=== PATIENT | male | born 1950 | race Caucasian/White ===

== ENCOUNTER → 2016-09-13 | Outpatient (CLI) | payer BC ==
[~2016-09-13] MED LIST: AMAN100T2 PO; ASPI81TA28 PO; ATEN50TA8 PO; BACL10TA PO; CEFT1INJ57 IV; CHOL200010 PO; CPXI SC; DALF10TA PO; DOCU100C31 PO; DOXA2TAB PO; ENOX30IN4 SQ; GABA400C PO; HYDR25TA4 PO; LISI-791 PO; LRS20 PO; MELO15TA4 PO; MULT-663 PO; OXYB5TAB74 PO; PRLSR20 PO; TRIA37.5 PO; VLM5 PO
[2016-09-13 17:35] LABS: URINE APPEARANCE CLEAR (CLEAR); URINE BILIRUBIN NEG (NEG); URINE COLOR YELLOW; URINE NITRITE POS (NEG); UROBILINOGEN NEG (NEG)
[2016-09-13 17:40] LABS: MANUAL MICROSCOPIC REQUIRED? YES; REVIEW REQ? NO
[2016-09-13 18:02] LABS: URINE BACTERIA 3+ (NEG); URINE MUCUS PRESENT (NONE PRSENT)
[2016-09-13 18:03] LABS: URINE RBC 0-4 /hpf (0-4)
== END | disposition home or self-care (01) ==
LOC: C.LABBFT 12:58
PROVIDERS: ATTEND Nurse Practitioner
DX: N39.0 Urinary tract infection, site not specified (principal)

== ENCOUNTER → 2016-11-15 | Outpatient (CLI) | payer BC ==
[2016-11-15 18:11] LABS: URINE APPEARANCE CLEAR (CLEAR); URINE BILIRUBIN NEG (NEG); URINE COLOR YELLOW; URINE NITRITE POS (NEG); URINE PH 7.5 (4.5-7.5); UROBILINOGEN NEG (NEG); ZZURINE CULT IF INDIC CATH YES
[2016-11-15 18:54] LABS: MANUAL MICROSCOPIC REQUIRED? NO; REVIEW REQ? NO
== END | disposition home or self-care (01) ==
LOC: C.LABSPEC 17:22
PROVIDERS: ATTEND Family Medicine
DX: N39.0 Urinary tract infection, site not specified (principal)

== ENCOUNTER → 2016-12-06 | Outpatient (CLI) | payer BC ==
[~2016-12-06] MED LIST changes: +CEFD300C3 PO; +DTR/5 PO; +NITR1CAP33 PO; -OXYB5TAB74 PO; +SENN-61 PO
== END | disposition home or self-care (01) ==
LOC: C.LABPVFM 12:09
PROVIDERS: ATTEND Nurse Practitioner Family
DX: N39.0 Urinary tract infection, site not specified (principal)

== ENCOUNTER → 2016-12-20 | Outpatient (CLI) | payer BC ==
[2016-12-20 12:40] LABS: BASO % 0.3 %; BASO ABS # 0.02 K/uL (0-0.2); COMPLETE YES; EOS % 33.7 %; HEMATOCRIT 41.3 % (42-52); IG% 0.5 %; LYMPH ABS # 1.45 K/uL (1.2-3.4); MEAN CELL VOLUME 93.2 fL (80-100); MEAN CORPUSCULAR HEMOGLOBIN 32.7 pg (25-34); MEAN CORPUSCULAR HGB CONC 35.1 g/dl (32-36); MEAN PLATELET VOLUME 10.4 fL (7.4-10.4); MONO % 11.9 %; NEUT % 34.6 %; PLATELET COUNT 160 K/uL (130-400); RED BLOOD COUNT 4.43 M/uL (4.7-6.1); WHITE BLOOD COUNT 7.63 K/uL (4.8-10.8)
[2016-12-20 18:07] LABS: URINE APPEARANCE CLEAR (CLEAR); URINE BILIRUBIN NEG (NEG); URINE COLOR DK YELLOW; URINE NITRITE NEG (NEG); URINE PH 5.5 (4.5-7.5); URINE SPECIFIC GRAVITY 1.025 (1.000-1.030); UROBILINOGEN NEG (NEG); ZZUR CULT IF INDIC CLEAN CATCH NO
[2016-12-20 18:08] LABS: MANUAL MICROSCOPIC REQUIRED? NO; REVIEW REQ? NO
== END | disposition home or self-care (01) ==
LOC: C.LABPVFM 17:36
PROVIDERS: ATTEND Neuromusculoskeletal Medicine & OMM
DX: G35 Multiple sclerosis (principal); R51 Headache; R50.9 Fever, unspecified; W19.XXXA Unspecified fall, initial encounter

== ENCOUNTER → 2017-01-10 | Outpatient (CLI) | payer BC | END | disposition home or self-care (01) | LOC: C.LABPVFM 16:05 | PROVIDERS: ATTEND Neuromusculoskeletal Medicine & OMM | DX: N39.0 Urinary tract infection, site not specified (principal) ==

== ENCOUNTER → 2017-02-04 | Outpatient (CLI) | payer BC ==
[2017-02-04 17:04] LABS: HEMATOCRIT 40.3 % (42-52); MEAN CELL VOLUME 94.4 fL (80-100); MEAN CORPUSCULAR HEMOGLOBIN 31.9 pg (25-34); MEAN CORPUSCULAR HGB CONC 33.7 g/dl (32-36); MEAN PLATELET VOLUME 10.3 fL (7.4-10.4); PLATELET COUNT 156 K/uL (130-400); RED BLOOD COUNT 4.27 M/uL (4.7-6.1); WHITE BLOOD COUNT 6.53 K/uL (4.8-10.8)
[2017-02-04 17:11] LABS: URINE APPEARANCE CLOUDY (CLEAR); URINE BILIRUBIN NEG (NEG); URINE COLOR YELLOW; URINE NITRITE NEG (NEG); URINE SPECIFIC GRAVITY 1.019 (1.000-1.030); UROBILINOGEN NEG (NEG)
[2017-02-04 17:12] LABS: MANUAL MICROSCOPIC REQUIRED? NO; REVIEW REQ? NO
[2017-02-04 18:00] LABS: URINE PROTIEN/CREAT RATIO 0.1 (0-0.2); URINE TOTAL PROTEIN 16.8 mg/dl (0-11.9)
[2017-02-04 18:58] LABS: CALCIUM 8.9 mg/dl (8.5-10.1)
[2017-02-04 19:03] LABS: BLOOD UREA NITROGEN 20 mg/dl (7-18); BUN/CREATININE RATIO 12.3 (10-20); CARBON DIOXIDE 24 mmol/L (21-32); CHLORIDE 105 mmol/L (98-107); GLUCOSE 156 mg/dl (70-99); POTASSIUM 3.6 mmol/L (3.5-5.1); SODIUM 140 mmol/L (136-145)
[2017-02-04 19:04] LABS: PHOSPHORUS 2.5 mg/dl (2.5-4.9)
== END | disposition home or self-care (01) ==
LOC: C.LABBFT 17:21
PROVIDERS: ATTEND Internal Medicine Nephrology
DX: I10 Essential (primary) hypertension (principal); N31.9 Neuromuscular dysfunction of bladder, unspecified; N18.3 Chronic kidney disease, stage 3 (moderate); E55.9 Vitamin D deficiency, unspecified

== ENCOUNTER 2017-03-08 19:11 | Inpatient (IN) | payer BC, OTHER ==
[~2017-03-08] VITALS: Ht 170.2 cm; Wt 88.7 kg
[~2017-03-08 19:11] MED LIST changes: -CEFD300C3 PO; -CEFT1INJ57 IV; -DTR/5 PO; -LRS20 PO; -MELO15TA4 PO; -NITR1CAP33 PO; +OXYB5TAB74 PO; -PRLSR20 PO; -SENN-61 PO; -TRIA37.5 PO
[2017-03-08] MEDS ORDERED: SODIUM CHLORIDE 0.9% 1000ML 1,000 ML IV STA ×2 (19:29)
--- NOTE | 2017-03-08 19:58 | DIAGNOSTIC IMAGING REPORT ---
CHEST ONE VIEW PORTABLE CLINICAL HISTORY: Weakness COMPARISON STUDY: 06/25/2016 FINDINGS: The heart remains the upper limits of normal in size. There is mild central vascular prominence without evidence of overt failure. There is no focal pulmonary consolidation. There are no pleural effusions.[ IMPRESSION: AP portable study. No change from the prior study. No acute findings. Electronically signed by: Major Null M.D. 03/08/2017 7:57 PM Dictated Date/Time: 03/08/2017 7:56 PM
[2017-03-08] MEDS ORDERED: MELO15TA4 PO (20:28)
[2017-03-08] MEDS ORDERED: LRS20 PO (20:28)
[2017-03-08] MEDS ORDERED: PRLSR20 PO (20:28)
[2017-03-08] MEDS ORDERED: TRIA37.5 PO (20:28)
[2017-03-08 20:32] LABS: BASO % 0.1 %; BASO ABS # 0.01 K/uL (0-0.2); COMPLETE YES; HEMATOCRIT 43.6 % (42-52); IG% 0.7 %; LYMPH % 3.2 %; LYMPH ABS # 0.57 K/uL (1.2-3.4); MEAN CELL VOLUME 93.8 fL (80-100); MEAN CORPUSCULAR HEMOGLOBIN 32.7 pg (25-34); MEAN CORPUSCULAR HGB CONC 34.9 g/dl (32-36); MEAN PLATELET VOLUME 9.8 fL (7.4-10.4); MONO % 6.6 %; NEUT % 89.4 %; PLATELET COUNT 123 K/uL (130-400); RED BLOOD COUNT 4.65 M/uL (4.7-6.1); WHITE BLOOD COUNT 17.84 K/uL (4.8-10.8)
[2017-03-08 20:47] LABS: INR 1.2 (0.9-1.1); PARTIAL THROMBOPLASTIN RATIO 1.1; PROTHROMBIN TIME (PATIENT) 12.6 SECONDS (9.0-12.0)
[2017-03-08 20:53] LABS: URINE APPEARANCE CLOUDY (CLEAR); URINE BILIRUBIN NEG (NEG); URINE COLOR YELLOW; URINE EPITHELIAL CELL AUTO 0-5 /lpf (0-5); URINE NITRITE NEG (NEG); URINE PH 5.5 (4.5-7.5); URINE SPECIFIC GRAVITY 1.012 (1.000-1.030); UROBILINOGEN NEG (NEG)
[2017-03-08 20:54] LABS: MANUAL MICROSCOPIC REQUIRED? NO; REVIEW REQ? NO
[2017-03-08] MEDS ORDERED: SODIUM CHLORIDE 0.9% 1000ML 2,000 ML IV STA (21:02)
[2017-03-08] MEDS ORDERED: PIPERACILLIN/TAZOBACTAM 4.5 GM/100ML D5W IV STA (21:02)
[2017-03-08] MEDS ORDERED: DAPTOmycin IV 500 MG in SODIUM CHLORIDE 0.9% 50ML 50 ML IV STA (21:02)
[2017-03-08 21:09] LABS: ALT/SGPT 25 U/L (12-78); BLOOD UREA NITROGEN 38 mg/dl (7-18); BUN/CREATININE RATIO 13.9 (10-20); CALCIUM 9.4 mg/dl (8.5-10.1); CARBON DIOXIDE 27 mmol/L (21-32); CHLORIDE 98 mmol/L (98-107); GLUCOSE 111 mg/dl (70-99); MAGNESIUM 1.6 mg/dl (1.8-2.4); POTASSIUM 3.8 mmol/L (3.5-5.1); SODIUM 134 mmol/L (136-145)
[2017-03-08 21:23] LABS: ALKALINE PHOSPHATASE 86 U/L (45-117); AST/SGOT 17 U/L (15-37); CKMB/CK RATIO 1.2 (0-3.0); THYROID STIMULATING HORMONE 0.541 uIu/ml (0.300-4.500)
[2017-03-08] MEDS ORDERED: DOCUSATE SODIUM 100 MG CAP PO PRN (22:30)
[2017-03-08] MEDS ORDERED: MAGNESIUM HYDROXIDE SUSP 30 ML UDC PO PRN (22:45)
[2017-03-08] MEDS ORDERED: ALUMINUM/MAGNESIUM/SIMETH (MAALOX MAX) 30 ML UDC PO PRN (22:45)
[2017-03-08] MEDS ORDERED: POLYETHYLENE (MIRALAX) 17 GM PACK PO PRN (22:45)
[2017-03-08] MEDS ORDERED: ONDANSETRON INJ 2 MG/ML 2 ML VIAL IV PRN (22:45)
--- NOTE | 2017-03-08 23:12 | EMERGENCY ROOM VISIT NOTE ---
History Report prepared by Jose: Kirsty Britton Under the Supervision of: Dr. Graeme Carrizales M.D. First contact with patient: 19:28 Chief Complaint: URINARY SYMPTOMS Stated Complaint: BLADDER INFECTION History of Present Illness The patient is a 66 year old male who presents to the Emergency Room with complaints of constant urinary symptoms beginning this morning. The patient states that he has a history of MS and was able to catheterize himself 15 hours ago. He reports that since then he has not been able to catheterize at all. He notes that he has had incontinence twice in the last 2 days and notes that he was seen at [facility] yesterday and had a CT scan and bladder scan that was normal. The patient states that he did not need to be catheterized during his stay. Over the last 8 months he reports that he has had multiple UTIs with similar symptoms. He notes that his multiple sclerosis is worsened with UTIs. He complains of bladder discomfort, difficulty walking, headache, and fever. The patient notes that he has some neck pain that is old from a prior neck surgery. Pt denies LOC, fevers, chills, diaphoresis, visual changes, neck pain, chest pain, breathing difficulties, nausea, vomiting, abdominal pain, back pain , melena, hematochezia, numbness, weakness, lymphadenopathy, rash, or other complaints. The patient's family reports that the patient has previously had a bad reaction to Morphine. Source of History: patient Onset: this morning Position: other (urinary) Quality: other (discomfort) Timing: constant Note: He complains of incontinence, bladder discomfort, difficulty walking, headache, and fever. Review of Systems See HPI for pertinent positives and negatives. A total of ten systems were reviewed and were otherwise negative. Past Medical & Surgical Medical Problems: (1) back problems (2) Benign hypertension (3) Dyslipidemia (4) Multiple sclerosis (5) UTI (urinary tract infection) Family History No pertinent family history stated. Social History Smoking Status: Never Smoker Marital Status: Housing Status: lives with family Occupation Status: employed Current/Historical Medications Scheduled Amantadine Hcl (Symmetrel), 100 MG PO BID Aspirin (Aspirin Ec), 81 MG PO DAILY Atenolol (Tenormin), 50 MG PO DAILY Baclofen (Baclofen), 20 MG PO BID Cholecalciferol (Vitamin D), 2,000 UNIT PO DAILY Gabapentin (Neurontin), 400 MG PO BID Glatiramer Acetate (Copaxone), 40 MG SC MWF Lisinopril (Zestril), 10 MG PO Q2D Meloxicam (Meloxicam), 15 MG PO Q2D Multiple Minerals W/ Vitamins (Citracal Plus), 1 TABLET PO DAILY Omeprazole (Prilosec), 20 MG PO QAM Oxybutynin Chloride (Ditropan), 5 MG PO BID Triamterene/Hctz (Dyazide 37.5MG/25MG), 1 TAB PO DAILY Scheduled PRN Docusate Sodium (Docusate Sodium), 100 MG PO DAILY PRN Allergies Coded Allergies: Oxycodone (Unverified Allergy, Unknown, UNKNOWN, 03/08/17) Sulfa Drugs (Verified Allergy, Unknown, 03/08/17) Aspirin (Verified Adverse Reaction, Unknown, ASA 325 causes GI upset per pt, 03/08/17) takes ASA 81mg daily without issue Physical Exam Vital Signs Date Time Temp Pulse Resp B/P (MAP) Pulse Ox O2 Delivery O2 Flow Rate FiO2 03/08/17 22:29 82 16 125/61 100 Room Air 03/08/17 21:44 36.9 82 16 117/59 98 Room Air 03/08/17 21:13 78 16 119/58 98 Room Air 03/08/17 20:23 75 16 112/57 97 03/08/17 20:13 76 03/08/17 19:54 Room Air 03/08/17 19:16 37.9 77 20 96/57 95 Room Air Physical Exam GENERAL: Awake, alert, tired, weak, in no distress HENT: Normocephalic, atraumatic. Oropharynx unremarkable. EYES: Normal conjunctiva. Sclera non-icteric. NECK: Supple. No nuchal rigidity. FROM. No JVD. RESPIRATORY: Clear to auscultation. CARDIAC: Regular rate, normal rhythm. Extremities warm and well perfused. Pulses equal. ABDOMEN: Soft, non-distended. No tenderness to palpation. No rebound or guarding. No masses. RECTAL: Deferred. MUSCULOSKELETAL: Chest examination reveals no tenderness. The back is symmetrical on inspection without obvious abnormality. There is no CVA tenderness to palpation. No joint edema. LOWER EXTREMITIES: Calves are equal size bilaterally and non-tender. No edema. No discoloration. Strength is 2.5 on the left and 3.5 on the right NEURO: Normal sensorium. Strength is 2.5 on the left and 3.5 on the right leg SKIN: No rash or jaundice noted. Medical Decision & Procedures ER Provider Diagnostic Interpretation: X-ray: Per my interpretation, radiologist review. CHEST ONE VIEW PORTABLE FINDINGS: The heart remains the upper limits of normal in size. There is mild central vascular prominence without evidence of overt failure. There is no focal pulmonary consolidation. There are no pleural effusions.[ IMPRESSION: AP portable study. No change from the prior study. No acute findings. Electronically signed by: Major Null M.D. 03/08/2017 7:57 PM Dictated Date/Time: 03/08/2017 7:56 PM Laboratory Results 03/08/17 20:15 Red Blood Count 4.65, Mean Corpuscular Volume 93.8, Mean Corpuscular Hemoglobin 32.7, Mean Corpuscular Hemoglobin Concent 34.9, Mean Platelet Volume 9.8, Neutrophils (%) (Auto) 89.4, Lymphocytes (%) (Auto) 3.2, Monocytes (%) (Auto) 6.6, Eosinophils (%) (Auto) 0.0, Basophils (%) (Auto) 0.1, Neutrophils # (Auto) 15.97, Lymphocytes # (Auto) 0.57, Monocytes # (Auto) 1.17, Eosinophils # (Auto) 0.00, Basophils # (Auto) 0.01 03/08/17 20:15 Test 03/08/17 20:15 03/08/17 20:21 03/08/17 20:30 White Blood Count 17.84 K/uL (4.8-10.8) Red Blood Count 4.65 M/uL (4.7-6.1) Hemoglobin 15.2 g/dL (14.0-18.0) Hematocrit 43.6 % (42-52) Mean Corpuscular Volume 93.8 fL (80-100) Mean Corpuscular Hemoglobin 32.7 pg (25-34) Mean Corpuscular Hemoglobin Concent 34.9 g/dl (32-36) Platelet Count 123 K/uL (130-400) Mean Platelet Volume 9.8 fL (7.4-10.4) Neutrophils (%) (Auto) 89.4 % Lymphocytes (%) (Auto) 3.2 % Monocytes (%) (Auto) 6.6 % Eosinophils (%) (Auto) 0.0 % Basophils (%) (Auto) 0.1 % Neutrophils # (Auto) 15.97 K/uL (1.4-6.5) Lymphocytes # (Auto) 0.57 K/uL (1.2-3.4) Monocytes # (Auto) 1.17 K/uL (0.11-0.59) Eosinophils # (Auto) 0.00 K/uL (0-0.5) Basophils # (Auto) 0.01 K/uL (0-0.2) RDW Standard Deviation 44.8 fL (36.4-46.3) RDW Coefficient of Variation 13.0 % (11.5-14.5) Immature Granulocyte % (Auto) 0.7 % Immature Granulocyte # (Auto) 0.12 K/uL (0.00-0.02) Prothrombin Time 12.6 SECONDS (9.0-12.0) Prothromb Time International Ratio 1.2 (0.9-1.1) Activated Partial Thromboplast Time 27.3 SECONDS (21.0-31.0) Partial Thromboplastin Ratio 1.1 Anion Gap 9.0 mmol/L (3-11) Est Creatinine Clear Calc Drug Dose 28.3 ml/min Estimated GFR () 26.9 Estimated GFR (Non- 23.2 BUN/Creatinine Ratio 13.9 (10-20) Calcium Level 9.4 mg/dl (8.5-10.1) Magnesium Level 1.6 mg/dl (1.8-2.4) Total Bilirubin 1.2 mg/dl (0.2-1) Direct Bilirubin 0.2 mg/dl (0-0.2) Aspartate Amino Transf (AST/SGOT) 17 U/L (15-37) Alanine Aminotransferase (ALT/SGPT) 25 U/L (12-78) Alkaline Phosphatase 86 U/L (45-117) Total Creatine Kinase 129 U/L (39-308) Creatine Kinase MB 1.5 ng/ml (0.5-3.6) Creatine Kinase MB Ratio 1.2 (0-3.0) Troponin I < 0.015 ng/ml (0-0.045) Total Protein 7.5 gm/dl (6.4-8.2) Albumin 3.5 gm/dl (3.4-5.0) Lipase 85 U/L (73-393) Thyroid Stimulating Hormone (TSH) 0.541 uIu/ml (0.300-4.500) Bedside Lactic Acid Venous 2.45 mmol/L (0.90-1.70) Urine Color YELLOW Urine Appearance CLOUDY (CLEAR) Urine pH 5.5 (4.5-7.5) Urine Specific [place] 1.012 (1.000-1.030) Urine Protein 1+ (NEG) Urine Glucose (UA) NEG (NEG) Urine Ketones NEG (NEG) Urine Occult Blood 2+ (NEG) Urine Nitrite NEG (NEG) Urine Bilirubin NEG (NEG) Urine Urobilinogen NEG (NEG) Urine Leukocyte Esterase SMALL (NEG) Urine WBC (Auto) 10-30 /hpf (0-5) Urine RBC (Auto) 0-4 /hpf (0-4) Urine Hyaline Casts (Auto) 1-5 /lpf (0-5) Urine Epithelial Cells (Auto) 0-5 /lpf (0-5) Urine Bacteria (Auto) 4+ (NEG) Laboratory results reviewed by me Medications Administered Medications (Trade) Dose Ordered Sig/Jossie Route Start Time Stop Time Status Last Admin Dose Admin Sodium Chloride 1,000 ml @ 999 mls/hr Q1H1M STAT IV 03/08/17 19:29 03/08/17 20:29 DC 03/08/17 20:22 999 MLS/HR Sodium Chloride 2,000 ml @ 999 mls/hr Q2H1M STAT IV 03/08/17 21:02 03/08/17 23:02 DC 03/08/17 21:45 999 MLS/HR Daptomycin 500 mg/ Sodium Chloride 60 ml @ 100 mls/hr NOW STAT IV 03/08/17 21:02 03/08/17 21:37 DC 03/08/17 21:46 100 MLS/HR Piperacillin Sod/ Tazobactam Sod (Zosyn Iv) 4.5 gm NOW STAT IV 03/08/17 21:02 03/08/17 21:04 DC 03/08/17 21:16 4.5 GM ECG Indication: weakness Rate (beats per minute): 76 Rhythm: normal sinus Findings: no acute ischemic change, no ectopy, other (poor R wave progression) ED Course 1927: The patient was evaluated in room A4. A complete history and physical exam was performed. 1928: Sodium Chloride 1000 ml @ 125 mls/hr IV, Sodium Chloride 1000 ml @ 999 mls /hr IV. 2101: Zosyn IV 4.5gm IV, Daptomycin 500mg/Sodium Chloride 60ml @ 100mls/hr IV, Sodium Chloride 2000 ml @ 999 mls/hr IV. 2116: I reevaluated the patient. He is doing well. His blood pressure is better and he will get fluid and antibiotics. 2231: Discussed the patient's case with Dr. Khoury. The patient will be evaluated for further treatment and disposition. 2240: Upon reexamination, the patient was doing well. I discussed the test results and treatment plan with him. The patient will be evaluated for further management. Medical Decision Medication Reconciliation: I attest that I have personally reviewed the patient' s current medication list. Blood pressure screening: Patient was found to have low blood pressure on screening and does not require follow-up. Triage Nursing notes reviewed. The patient's presentation and history were concerning for weakness and urinary issues. Etiologies such as urinary retention, UTI, sepsis, metabolic, infection, hypo/ hyperglycemia, electrolyte abnormalities, cardiac sources, intracerebral event, toxicologic, neurologic, as well as others were entertained. The patient was evaluated. His blood pressure was mildly low. He responded well to fluids. He took Tylenol before coming in. The patient had blood work obtained. Cultures were done. Catheter urine specimen was done. The patient had a Ho catheter have placed and this revealed a significant amount of urine. Urinalysis was grossly concerning for infection. The patient has a leukocytosis as well as a mild lactic acidosis. Additional hydration was done. The patient was given broad-spectrum antibiotics, Zosyn and daptomycin. He will need admission to the hospital. He is too weak to go home. The patient was reassessed several times and is hemodynamically stable. I did consult with internal medicine. The patient was evaluated in the Emergency Room and admitted for further treatment. Consults Time Called: 2131 Consulting Physician: Dr. Khoury - [facility] Returned Call: [phone] Discussed the patient's case with Dr. Khoury. The patient will be evaluated for further treatment and disposition. Impression Primary Impression: Sepsis Additional Impressions: UTI (urinary tract infection) Weakness Scribe Attestation The scribe's documentation has been prepared under my direction and personally reviewed by me in its entirety. I confirm that the note above accurately reflects all work, treatment, procedures, and medical decision making performed by me. Departure Information Dispostion Being Evaluated By Hospitalist (LEIGH) Referrals Hema Herrera M.D. (PCP) Patient Instructions My [facility] Problem Qualifiers
--- NOTE | 2017-03-08 23:40 | History and Physical ---
History & Physical Date & Time of Service: Mar 08, 2017 at 23:11 Chief Complaint: Bladder Infection Primary Care Physician: Hema Herrera M.D. History of Present Illness Source: patient 66 y/o M Hx MS, CKD 3, HTN, HPL, recurrent UTIs. Pt developed a fever and weakness throughout the day. He can recognize onset of infections as this worsens his MS symptoms and he becomes exceedingly weak. He was febrile on arrival to the ER with a stable BP. Initial labs revealed an elevated lactic acid, leukocytosis, a (+) UA and acute on chronic RF. He denies SOB, CP, N/V. He has chronic dysuria due to a neurogenic bladder. Past Medical/Surgical History 1) Multiple sclerosis - treated with Copaxone 2) HTN 3) CKD 3 - baseline creatinine 1.8 4) Thyroid nodule 5) HPL 6) Neurogenic bladder 7) SVT 8) Raynauds 9) Recurretn UTIs Surgery Multiple back surgeries, thyroid nodule resection Social History Smoking Status: Never Smoker Marital Status: Occupational Status: employed Immunizations History of Influenza Vaccine: Yes Influenza Vaccine Date: Jul 13, 2011 History of Tetanus Vaccine?: Yes History of Pneumococcal: Yes History of Hepatitis B Vaccine: No Multi-Drug Resistant Organisms History of MDRO: No Allergies Coded Allergies: Oxycodone (Unverified Allergy, Unknown, UNKNOWN, 03/08/17) Sulfa Drugs (Verified Allergy, Unknown, 03/08/17) Aspirin (Verified Adverse Reaction, Unknown, ASA 325 causes GI upset per pt, 03/08/17) takes ASA 81mg daily without issue Home Medications Scheduled Amantadine Hcl (Symmetrel), 100 MG PO BID Aspirin (Aspirin Ec), 81 MG PO DAILY Atenolol (Tenormin), 50 MG PO DAILY Baclofen (Baclofen), 20 MG PO BID Cholecalciferol (Vitamin D), 2,000 UNIT PO DAILY Gabapentin (Neurontin), 400 MG PO BID Glatiramer Acetate (Copaxone), 40 MG SC MWF Lisinopril (Zestril), 10 MG PO Q2D Meloxicam (Meloxicam), 15 MG PO Q2D Multiple Minerals W/ Vitamins (Citracal Plus), 1 TABLET PO DAILY Omeprazole (Prilosec), 20 MG PO QAM Oxybutynin Chloride (Ditropan), 5 MG PO BID Triamterene/Hctz (Dyazide 37.5MG/25MG), 1 TAB PO DAILY Scheduled PRN Docusate Sodium (Docusate Sodium), 100 MG PO DAILY PRN Review of Systems Constitutional: + fever, + chills, + sweats, + weakness, + fatigue Eyes: No worsening of vision ENT: No hearing loss, No unusual epistaxis, No nasal symptoms Respiratory: No cough, No sputum, No wheezing Cardiovascular: No chest pain, No PND Abdomen: No pain, No nausea, No vomiting Musculoskeletal: No joint pain Genitourinary - Male: + dysuria, No hematuria Neurologic: + weakness, No memory loss Endocrine: + fatigue Hematologic / Lymphatic: No abnormal bleeding/bruising Integumentary: No rash Allergic / Immunologic: No environmental allergies Physical Exam Vital Signs Date Time Temp Pulse Resp B/P (MAP) Pulse Ox O2 Delivery O2 Flow Rate FiO2 03/08/17 23:08 84 16 116/54 97 03/08/17 22:29 82 16 125/61 100 Room Air 03/08/17 21:44 36.9 82 16 117/59 98 Room Air 03/08/17 21:13 78 16 119/58 98 Room Air 03/08/17 20:23 75 16 112/57 97 03/08/17 20:13 76 03/08/17 19:54 Room Air 03/08/17 19:16 37.9 77 20 96/57 95 Room Air General Appearance: + pertinent finding (Alert but lethargis middle-aged male - weak - no distress) Head: normocephalic, + pertinent finding (Mucosal membranes dry) Eyes: normal inspection, PERRL, EOMI ENT: normal ENT inspection, pharynx normal Neck: supple, no JVD Respiratory/Chest: chest non-tender, lungs clear, normal breath sounds Cardiovascular: regular rate, rhythm, no edema, no gallop Abdomen/GI: normal bowel sounds, non tender, soft Back: normal inspection, no CVA tenderness, no muscle spasm, normal range of motion Extremities/Musculoskelatal: normal inspection, no calf tenderness, normal capillary refill 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, + pertinent finding (The pt is globally weak and cannot support his own weight - he is awake and oriented answering questions appropriately - exam is noncocal) Skin: normal color, warm/dry Diagnostics Laboratory Results Results Past 24 Hours Test 03/08/17 20:15 03/08/17 20:21 03/08/17 20:30 Range/Units White Blood Count 17.84 4.8-10.8 K/uL Red Blood Count 4.65 4.7-6.1 M/uL Hemoglobin 15.2 14.0-18.0 g/dL Hematocrit 43.6 42-52 % Mean Corpuscular Volume 93.8 80-100 fL Mean Corpuscular Hemoglobin 32.7 25-34 pg Mean Corpuscular Hemoglobin Concent 34.9 32-36 g/dl Platelet Count 123 130-400 K/uL Mean Platelet Volume 9.8 7.4-10.4 fL Neutrophils (%) (Auto) 89.4 % Lymphocytes (%) (Auto) 3.2 % Monocytes (%) (Auto) 6.6 % Eosinophils (%) (Auto) 0.0 % Basophils (%) (Auto) 0.1 % Neutrophils # (Auto) 15.97 1.4-6.5 K/uL Lymphocytes # (Auto) 0.57 1.2-3.4 K/uL Monocytes # (Auto) 1.17 0.11-0.59 K/uL Eosinophils # (Auto) 0.00 0-0.5 K/uL Basophils # (Auto) 0.01 0-0.2 K/uL RDW Standard Deviation 44.8 36.4-46.3 fL RDW Coefficient of Variation 13.0 11.5-14.5 % Immature Granulocyte % (Auto) 0.7 % Immature Granulocyte # (Auto) 0.12 0.00-0.02 K/uL Prothrombin Time 12.6 9.0-12.0 SECONDS Prothromb Time International Ratio 1.2 0.9-1.1 Activated Partial Thromboplast Time 27.3 21.0-31.0 SECONDS Partial Thromboplastin Ratio 1.1 Sodium Level 134 136-145 mmol/L Potassium Level 3.8 3.5-5.1 mmol/L Chloride Level 98 98-107 mmol/L Carbon Dioxide Level 27 21-32 mmol/L Anion Gap 9.0 3-11 mmol/L Blood Urea Nitrogen 38 7-18 mg/dl Creatinine 2.70 0.60-1.40 mg/dl Est Creatinine Clear Calc Drug Dose 28.3 ml/min Estimated GFR () 26.9 Estimated GFR (Non- 23.2 BUN/Creatinine Ratio 13.9 10-20 Random Glucose 111 70-99 mg/dl Calcium Level 9.4 8.5-10.1 mg/dl Magnesium Level 1.6 1.8-2.4 mg/dl Total Bilirubin 1.2 0.2-1 mg/dl Direct Bilirubin 0.2 0-0.2 mg/dl Aspartate Amino Transf (AST/SGOT) 17 15-37 U/L Alanine Aminotransferase (ALT/SGPT) 25 12-78 U/L Alkaline Phosphatase 86 45-117 U/L Total Creatine Kinase 129 39-308 U/L Creatine Kinase MB 1.5 0.5-3.6 ng/ml Creatine Kinase MB Ratio 1.2 0-3.0 Troponin I < 0.015 0-0.045 ng/ml Total Protein 7.5 6.4-8.2 gm/dl Albumin 3.5 3.4-5.0 gm/dl Lipase 85 73-393 U/L Thyroid Stimulating Hormone (TSH) 0.541 0.300-4.500 uIu/ml Bedside Lactic Acid Venous 2.45 0.90-1.70 mmol/L Urine Color YELLOW Urine Appearance CLOUDY CLEAR Urine pH 5.5 4.5-7.5 Urine Specific [place] 1.012 1.000-1.030 Urine Protein 1+ NEG Urine Glucose (UA) NEG NEG Urine Ketones NEG NEG Urine Occult Blood 2+ NEG Urine Nitrite NEG NEG Urine Bilirubin NEG NEG Urine Urobilinogen NEG NEG Urine Leukocyte Esterase SMALL NEG Urine WBC (Auto) 10-30 0-5 /hpf Urine RBC (Auto) 0-4 0-4 /hpf Urine Hyaline Casts (Auto) 1-5 0-5 /lpf Urine Epithelial Cells (Auto) 0-5 0-5 /lpf Urine Bacteria (Auto) 4+ NEG Microbiology Results 03/08/17 Blood Culture, Received Pending 03/08/17 Blood Culture, Received Pending 03/08/17 Urine Culture, Received Pending CXR normal Impression Assessment and Plan 66 y/o M Hx MS, CKD 3, HTN, HPL, recurrent UTIs. Pt developed a fever and weakness throughout the day. He can recognize onset of infections as this worsens his MS symptoms and he becomes exceedingly weak. He was febrile on arrival to the ER with a stable BP. Initial labs revealed an elevated lactic acid, leukocytosis, a (+) UA and acute on chronic RF. He denies SOB, CP, N/V. He has chronic dysuria due to a neurogenic bladder. 1) UTI / sepsis - Pt placed on Daptomycin and Zosyn pending culture results. Aggressive hydration provided. 2) MS - severe weakness - Pt can resume Copaxone in the outpt setting. If his strength does not improve, we may need to consider a course of steroids and would consult neurology. He does state that it is not unusual for him to become acutely week with an infection and that he improves with antibiotics. 3) CKD - acute on chronic injury - Pt is clinically dehydrated. Will provide IVF overnight and recheck a BMP AM. Lisinopril and HCTZ/triamterene have been held. 4) HTN - cont Atenolol only at present. 5) HPL - cont statin Tx. Full code - Heparin prophylaxis Total time for this admit including review of labs, meds, imaging, records - discussion with pt and ER attending - 45 min Level of Care Med/Surg Resuscitation Status FULL RESUSCITATION VTE Prophylaxis VTE Risk Assessment Done? Y/N: Yes Risk Level: Moderate Given or contraindicated: Unfractionated heparin SQ
[2017-03-09] MEDS: SODIUM CHLORIDE 0.9% 1000ML 1,000 ML IV SCH ×2 (00:11→06:21)
[2017-03-09 00:12] VITALS: BP 108/62; PULSE 88; TEMP 37.3; O2SAT 95
[2017-03-09 00:33] VITALS: BP 108/62; PULSE 88; TEMP 37.3; O2SAT 95; Ht 170.2 cm; Wt 88.7 kg
[2017-03-09] MEDS ORDERED: DAPTOMYCIN CONSULT ACTIVE PRN ×2 (01:00)
[2017-03-09] MEDS ORDERED: PIPERACILL/TAZOBAC CONSULT ACTIVE PRN (01:00)
[2017-03-09] MEDS: PIPERACILL/TAZOBAC IV 3.375 GM in DEXTROSE 5% 100ML 100 ML IV SCH ×3 (01:26→17:46)
[2017-03-09] MEDS: HEPARIN SOD 5000 UNIT/0.5 ML CARP SQ SCH ×3 (05:49→20:50)
[2017-03-09 07:02] LABS: MEAN CELL VOLUME 93.5 fL (80-100); MEAN CORPUSCULAR HEMOGLOBIN 32.6 pg (25-34); MEAN CORPUSCULAR HGB CONC 34.9 g/dl (32-36); RED BLOOD COUNT 4.17 M/uL (4.7-6.1); WHITE BLOOD COUNT 18.45 K/uL (4.8-10.8)
[2017-03-09 07:33] LABS: BUN/CREATININE RATIO 14.5 (10-20); CALCIUM 8.8 mg/dl (8.5-10.1); CREATININE 2.6 mg/dl (0.60-1.40); MAGNESIUM 1.5 mg/dl (1.8-2.4); MEAN PLATELET VOLUME 9.5 fL (7.4-10.4); PLATELET COUNT 95 K/uL (130-400); POTASSIUM 4.2 mmol/L (3.5-5.1)
[2017-03-09 07:35] LABS: PLT ESTIMATE DECREASED
[2017-03-09 07:51] VITALS: BP 111/65; PULSE 80; TEMP 37.2; O2SAT 92
[2017-03-09 08:34] VITALS: BP 136/68; PULSE 86
[2017-03-09] MEDS: ASPIRIN 81 MG ECTAB PO SCH (08:35)
[2017-03-09] MEDS: OXYBUTYNIN CHLORIDE 5 MG TAB PO SCH ×2 (08:35→20:47)
[2017-03-09] MEDS: GABAPENTIN 400 MG CAP PO SCH ×2 (08:36→20:47)
[2017-03-09] MEDS: AMANTADINE HCL 100 MG CAP PO SCH ×2 (08:36→20:48)
[2017-03-09] MEDS: BACLOFEN TAB 20 MG TAB PO SCH ×2 (08:36→20:48)
[2017-03-09] MEDS: PANTOprazole SOD 40 MG TAB PO SCH (08:37)
[2017-03-09] MEDS ORDERED: MAGNESIUM SULFATE 1GM / D5W 1 GM in PREMIXED IN D5W 100 ML IV ONE (09:00)
[2017-03-09] MEDS: MAGNESIUM OXIDE 400 MG TAB PO SCH ×2 (10:04→20:48)
--- NOTE | 2017-03-09 11:36 | Medical Consult ---
Consultation Date of Consultation: Mar 09, 2017. Attending Physician: Luis Patel MD, PhD Reason for Consultation: UTI History of Present Illness Patient with history of MS, recurrent UTI's, chronic self-catheterization, and weakness/fever prior to admission. The patient presented with bladder pain and difficulty with self-catheterization similar to previous symptoms. He states that he also has been having lower back pain along with the other symptoms. He has been having sweats/chills as well. He otherwise denies SOB, cough, chest pain, abdominal pain, diarrhea, nausea, or vomiting. Blood cultures from admission are pending. Urine culture is growing E. Coli with sensitivity pattern pending. He has had E. Coli multiple times in the past which has shown resistance to quinolones and Bactrim. They were previously sensitive to Zosyn, Unasyn, and cephalosporins. The patient does have recent history of Enterococcal UTI as well which was sensitive to Ampicillin. The patient is currently on IV Zosyn and Daptomycin. WBC count today was 18.45. Platelet count is decreased to 95. CXR showed no acute findings. Past Medical/Surgical History Medical Problems: (1) Anemia Status: Acute (2) Headache Status: Acute (3) Leukocytosis Status: Acute (4) Neck pain Status: Acute (5) Sepsis Status: Acute (6) Weakness Status: Acute Social History Problems: (1) Status post laminectomy Status: Acute Medical Problems: (1) back problems (2) Benign hypertension (3) Dyslipidemia (4) Multiple sclerosis (5) UTI (urinary tract infection) Family History Noncontributory Social History Smoking Status: Light Tobacco Smoker Marital Status: Housing Status: lives with family Occupation Status: employed Allergies Coded Allergies: Oxycodone (Unverified Allergy, Unknown, UNKNOWN, 03/08/17) Sulfa Drugs (Verified Allergy, Unknown, 03/08/17) Aspirin (Verified Adverse Reaction, Unknown, ASA 325 causes GI upset per pt, 03/08/17) takes ASA 81mg daily without issue Home Medications Reported Home Medications Medications Dose Route/Sig Max Daily Dose Days Date Category Dyazide 37.5MG/25MG (Triamterene/HCTZ) Cap 1 Tab PO DAILY 03/08/17 Reported Meloxicam 15 Mg Tab 15 Mg PO Q2D 03/08/17 Reported Prilosec (Omeprazole) 20 Mg Capcr 20 Mg PO QAM 03/08/17 Reported Baclofen 20 Mg Tab 20 Mg PO BID 03/08/17 Reported Aspirin Ec (Aspirin) 81 Mg Tab 81 Mg PO DAILY 06/25/16 Reported Vitamin D (Cholecalciferol) 2,000 Unit Cap 2,000 Unit PO DAILY 06/25/16 Reported Tenormin (Atenolol) 50 Mg Tab 50 Mg PO DAILY 06/25/16 Reported Citracal Plus (Multiple Minerals W/ Vitamins) 1 Tab Tab 1 Tablet PO DAILY 12/03/12 Reported Ditropan (Oxybutynin Chloride) 5 Mg Tab 5 Mg PO BID 12/03/12 Reported Docusate Sodium 100 Mg Cap 100 Mg PO DAILY PRN 12/03/12 Reported Zestril (Lisinopril) 10 Mg Tab 10 Mg PO Q2D 12/03/12 Reported Symmetrel (Amantadine Hcl) 100 Mg Tab 100 Mg PO BID 12/03/12 Reported Neurontin (Gabapentin) 400 Mg Cap 400 Mg PO BID 12/03/12 Reported Copaxone (Glatiramer Acetate) 20 Mg/1 Ml Inj 40 Mg SC MWF 12/03/12 Reported Current Inpatient Medications Current Inpatient Medications Medications (Trade) Dose Ordered Sig/Jossie Route Start Time Stop Time Status Last Admin Dose Admin Amantadine HCl (Symmetrel Cap) 100 mg BID PO 03/09/17 09:00 04/08/17 08:59 03/09/17 08:36 100 MG Aspirin (Ecotrin Tab) 81 mg DAILY PO 03/09/17 09:00 04/08/17 08:59 03/09/17 08:35 81 MG Atenolol (Tenormin Tab) 50 mg DAILY PO 03/09/17 09:00 04/08/17 08:59 03/09/17 08:36 50 MG Baclofen (Lioresal Tab) 20 mg BID PO 03/09/17 09:00 04/08/17 08:59 03/09/17 08:36 20 MG Docusate Sodium (coLACE CAP) 100 mg DAILY PRN PO 03/08/17 22:30 04/07/17 22:29 Gabapentin (Neurontin Cap) 400 mg BID PO 03/09/17 09:00 04/08/17 08:59 03/09/17 08:36 400 MG Oxybutynin Chloride (Ditropan Tab) 5 mg BID PO 03/09/17 09:00 04/08/17 08:59 03/09/17 08:35 5 MG Pantoprazole Sodium (Protonix Tab) 40 mg QAM PO 03/09/17 09:00 04/08/17 08:59 03/09/17 08:37 40 MG Piperacillin Sod/ Tazobactam Sod 3.375 gm/Dextrose 115 ml @ 28.75 mls/ hr Q8H IV 03/09/17 02:00 03/19/17 01:59 03/09/17 10:05 28.75 MLS/HR Daptomycin 375 mg/ Sodium Chloride 57.5 ml @ 100 mls/hr Q24H IV 03/09/17 22:00 03/18/17 21:59 Sodium Chloride 1,000 ml @ 125 mls/hr Q8H IV 03/08/17 22:30 03/09/17 14:29 03/09/17 06:21 125 MLS/HR Heparin Sodium (Porcine) (Heparin Sq 5000 Unit/0.5ml) 5,000 unit Q8H SQ 03/09/17 06:00 04/08/17 05:59 03/09/17 05:49 5,000 UNIT Acetaminophen (Tylenol Tab) 650 mg Q4H PRN PO 03/08/17 22:45 04/07/17 22:44 Al Hydrox/Mg Hydrox/Simethicone (Maalox Max Susp) 15 ml Q4H PRN PO 03/08/17 22:45 04/07/17 22:44 Magnesium Hydroxide (Milk Of Magnesia Susp) 30 ml Q6H PRN PO 03/08/17 22:45 04/07/17 22:44 Polyethylene (Miralax Powder Packet) 17 gm DAILY PRN PO 03/08/17 22:45 04/07/17 22:44 Ondansetron HCl (Zofran Inj) 4 mg Q6H PRN IV 03/08/17 22:45 04/07/17 22:44 Daptomycin (Consult) 1 ea UD PRN N/A 03/09/17 01:00 04/08/17 00:59 Piperacillin Sod/ Tazobactam Sod (Consult) 1 ea UD PRN N/A 03/09/17 01:00 04/08/17 00:59 Magnesium Oxide (Mag-Ox Tab) 400 mg BID PO 03/09/17 09:00 04/08/17 08:59 03/09/17 10:04 400 MG Review of Systems Constitutional: + fever, + chills, + sweats, + weakness Eyes: No worsening of vision ENT: No hearing loss, No sore throat Respiratory: No cough, No shortness of breath Cardiovascular: No chest pain Abdomen: No nausea, No vomiting, No diarrhea Musculoskeletal: No joint pain Genitourinary - Male: + urinary retention, + urinary incontinence ([employer]), + problem reported (self cath, now with walters ) Neurologic: + weakness Endocrine: + fatigue Integumentary: No rash, No itch Physical Exam Date Time Temp Pulse Resp B/P (MAP) Pulse Ox O2 Delivery O2 Flow Rate FiO2 03/09/17 08:34 86 136/68 (90) 03/09/17 08:00 Room Air 03/09/17 07:51 37.2 80 16 111/65 (80) 92 Room Air 03/09/17 00:33 37.3 88 20 108/62 95 Room Air 03/09/17 00:12 37.3 88 20 108/62 (77) 95 Room Air 03/08/17 23:08 84 16 116/54 97 03/08/17 22:29 82 16 125/61 100 Room Air 03/08/17 21:44 36.9 82 16 117/59 98 Room Air 03/08/17 21:13 78 16 119/58 98 Room Air 03/08/17 20:23 75 16 112/57 97 03/08/17 20:13 76 03/08/17 19:54 Room Air 03/08/17 19:16 37.9 77 20 96/57 95 Room Air General Appearance: WD/WN, no apparent distress Head: normocephalic, atraumatic Eyes: normal inspection, sclerae normal ENT: hearing grossly normal Neck: supple, trachea midline Respiratory/Chest: chest non-tender, lungs clear, no respiratory distress, no accessory muscle use, + decreased breath sounds (bases) Cardiovascular: regular rate, rhythm Abdomen/GI: normal bowel sounds, non tender, soft Neurologic/Psych: alert, normal mood/affect Skin: normal color, warm/dry, no rash Laboratory Results CHEST ONE VIEW PORTABLE CLINICAL HISTORY: Weakness COMPARISON STUDY: 06/25/2016 FINDINGS: The heart remains the upper limits of normal in size. There is mild central vascular prominence without evidence of overt failure. There is no focal pulmonary consolidation. There are no pleural effusions.[ IMPRESSION: AP portable study. No change from the prior study. No acute findings. Item Value Date Time Urine Culture - Preliminary Resulted 03/08/172029 Urine,Catheterized Escherichia Coli Blood Culture Received 03/08/172013 Blood Pending Blood Culture Received 03/08/172004 Blood Pending Last 24 Hours Test 03/08/17 20:15 03/08/17 20:21 03/08/17 20:30 03/09/17 06:45 White Blood Count 17.84 K/uL 18.45 K/uL Red Blood Count 4.65 M/uL 4.17 M/uL Hemoglobin 15.2 g/dL 13.6 g/dL Hematocrit 43.6 % 39.0 % Mean Corpuscular Volume 93.8 fL 93.5 fL Mean Corpuscular Hemoglobin 32.7 pg 32.6 pg Mean Corpuscular Hemoglobin Concent 34.9 g/dl 34.9 g/dl Platelet Count 123 K/uL 95 K/uL Mean Platelet Volume 9.8 fL 9.5 fL Neutrophils (%) (Auto) 89.4 % Lymphocytes (%) (Auto) 3.2 % Monocytes (%) (Auto) 6.6 % Eosinophils (%) (Auto) 0.0 % Basophils (%) (Auto) 0.1 % Neutrophils # (Auto) 15.97 K/uL Lymphocytes # (Auto) 0.57 K/uL Monocytes # (Auto) 1.17 K/uL Eosinophils # (Auto) 0.00 K/uL Basophils # (Auto) 0.01 K/uL RDW Standard Deviation 44.8 fL 45.5 fL RDW Coefficient of Variation 13.0 % 13.3 % Immature Granulocyte % (Auto) 0.7 % Immature Granulocyte # (Auto) 0.12 K/uL Prothrombin Time 12.6 SECONDS Prothromb Time International Ratio 1.2 Activated Partial Thromboplast Time 27.3 SECONDS Partial Thromboplastin Ratio 1.1 Sodium Level 134 mmol/L 137 mmol/L Potassium Level 3.8 mmol/L 4.2 mmol/L Chloride Level 98 mmol/L 104 mmol/L Carbon Dioxide Level 27 mmol/L 25 mmol/L Anion Gap 9.0 mmol/L 8.0 mmol/L Blood Urea Nitrogen 38 mg/dl 38 mg/dl Creatinine 2.70 mg/dl 2.60 mg/dl Est Creatinine Clear Calc Drug Dose 28.3 ml/min 29.4 ml/min Estimated GFR () 26.9 28.1 Estimated GFR (Non- 23.2 24.3 BUN/Creatinine Ratio 13.9 14.5 Random Glucose 111 mg/dl 84 mg/dl Calcium Level 9.4 mg/dl 8.8 mg/dl Magnesium Level 1.6 mg/dl 1.5 mg/dl Total Bilirubin 1.2 mg/dl Direct Bilirubin 0.2 mg/dl Aspartate Amino Transf (AST/SGOT) 17 U/L Alanine Aminotransferase (ALT/SGPT) 25 U/L Alkaline Phosphatase 86 U/L Total Creatine Kinase 129 U/L Creatine Kinase MB 1.5 ng/ml Creatine Kinase MB Ratio 1.2 Troponin I < 0.015 ng/ml Total Protein 7.5 gm/dl Albumin 3.5 gm/dl Lipase 85 U/L Thyroid Stimulating Hormone (TSH) 0.541 uIu/ml Bedside Lactic Acid Venous 2.45 mmol/L Urine Color YELLOW Urine Appearance CLOUDY Urine pH 5.5 Urine Specific [place] 1.012 Urine Protein 1+ Urine Glucose (UA) NEG Urine Ketones NEG Urine Occult Blood 2+ Urine Nitrite NEG Urine Bilirubin NEG Urine Urobilinogen NEG Urine Leukocyte Esterase SMALL Urine WBC (Auto) 10-30 /hpf Urine RBC (Auto) 0-4 /hpf Urine Hyaline Casts (Auto) 1-5 /lpf Urine Epithelial Cells (Auto) 0-5 /lpf Urine Bacteria (Auto) 4+ Platelet Estimate DECREASED Hepatitis C Antibody Screen NEG Assessment & Plan Patient with recurrent UTI's in the setting of MS and self-catheterization. He is currently on IV Zosyn and Daptomycin. Will D/C Daptomycin but continue Zosyn pending final culture results. Hopefully will be able to transition to PO therapy. We will follow. Case reviewed and agree with above assessment.
--- NOTE | 2017-03-09 13:47 | Hospitalist Progress Note ---
Hospitalist Progress Note Date of Service Mar 09, 2017. Subjective Pt evaluation today including: conversation w/ patient, physical exam, chart review, lab review, review of inpatient medication list Voiding: walters catheter in place Patient is very lethargic and will not open his eyes when asked. Question whether ROS is reliable. Patient complains of lower abdominal pain that he states is a 10/10 pain. He also complains of nausea but denies vomiting. He complains of weakness and fatigue. A Walters catheter is in place. The patient denies fevers, chills, sweats, chest pain, palpitations, claudication, cough, wheezing, shortness of breath, vomiting, dysuria, hematuria, urinary retention, paralysis, numbness and tingling. Additional Comments: See HPI for pertinent positives and negatives. All other systems reviewed and negative. Objective Vital Signs Date Time Temp Pulse Resp B/P (MAP) Pulse Ox O2 Delivery O2 Flow Rate FiO2 03/09/17 08:34 86 136/68 (90) 03/09/17 08:00 Room Air 03/09/17 07:51 37.2 80 16 111/65 (80) 92 Room Air 03/09/17 00:33 37.3 88 20 108/62 95 Room Air 03/09/17 00:12 37.3 88 20 108/62 (77) 95 Room Air 03/08/17 23:08 84 16 116/54 97 03/08/17 22:29 82 16 125/61 100 Room Air 03/08/17 21:44 36.9 82 16 117/59 98 Room Air 03/08/17 21:13 78 16 119/58 98 Room Air 03/08/17 20:23 75 16 112/57 97 03/08/17 20:13 76 03/08/17 19:54 Room Air 03/08/17 19:16 37.9 77 20 96/57 95 Room Air Physical Exam Notes: General appearance: +Obese. Well-developed, well-nourished, no apparent distress Head: Normocephalic, atraumatic Eyes: +Exam limited, patient will not open his eyes. Normal inspection ENT: Normal ENT inspection, hearing grossly normal, pharynx normal Neck: Supple, no JVD, trachea midline Respiratory/Chest: Lungs clear to auscultation, normal breath sounds, no respiratory distress Cardiovascular: +Systolic murmur. Regular rate & rhythm, no gallop Abdomen/GI: +Suprapubic area TTP. Normal bowel sounds, soft Extremities/Musculoskeletal: +1 pitting edema.Normal inspection, no calf tenderness, no pedal edema Neurological/Psych: +Disoriented to time. Lethargic. Alert, normal mood/ affect, oriented x 2 Skin: Normal color, warm/dry, no rash Laboratory Results Last 24 Hours Test 03/08/17 20:15 03/08/17 20:21 03/08/17 20:30 03/09/17 06:45 White Blood Count 17.84 K/uL 18.45 K/uL Red Blood Count 4.65 M/uL 4.17 M/uL Hemoglobin 15.2 g/dL 13.6 g/dL Hematocrit 43.6 % 39.0 % Mean Corpuscular Volume 93.8 fL 93.5 fL Mean Corpuscular Hemoglobin 32.7 pg 32.6 pg Mean Corpuscular Hemoglobin Concent 34.9 g/dl 34.9 g/dl Platelet Count 123 K/uL 95 K/uL Mean Platelet Volume 9.8 fL 9.5 fL Neutrophils (%) (Auto) 89.4 % Lymphocytes (%) (Auto) 3.2 % Monocytes (%) (Auto) 6.6 % Eosinophils (%) (Auto) 0.0 % Basophils (%) (Auto) 0.1 % Neutrophils # (Auto) 15.97 K/uL Lymphocytes # (Auto) 0.57 K/uL Monocytes # (Auto) 1.17 K/uL Eosinophils # (Auto) 0.00 K/uL Basophils # (Auto) 0.01 K/uL RDW Standard Deviation 44.8 fL 45.5 fL RDW Coefficient of Variation 13.0 % 13.3 % Immature Granulocyte % (Auto) 0.7 % Immature Granulocyte # (Auto) 0.12 K/uL Prothrombin Time 12.6 SECONDS Prothromb Time International Ratio 1.2 Activated Partial Thromboplast Time 27.3 SECONDS Partial Thromboplastin Ratio 1.1 Sodium Level 134 mmol/L 137 mmol/L Potassium Level 3.8 mmol/L 4.2 mmol/L Chloride Level 98 mmol/L 104 mmol/L Carbon Dioxide Level 27 mmol/L 25 mmol/L Anion Gap 9.0 mmol/L 8.0 mmol/L Blood Urea Nitrogen 38 mg/dl 38 mg/dl Creatinine 2.70 mg/dl 2.60 mg/dl Est Creatinine Clear Calc Drug Dose 28.3 ml/min 29.4 ml/min Estimated GFR () 26.9 28.1 Estimated GFR (Non- 23.2 24.3 BUN/Creatinine Ratio 13.9 14.5 Random Glucose 111 mg/dl 84 mg/dl Calcium Level 9.4 mg/dl 8.8 mg/dl Magnesium Level 1.6 mg/dl 1.5 mg/dl Total Bilirubin 1.2 mg/dl Direct Bilirubin 0.2 mg/dl Aspartate Amino Transf (AST/SGOT) 17 U/L Alanine Aminotransferase (ALT/SGPT) 25 U/L Alkaline Phosphatase 86 U/L Total Creatine Kinase 129 U/L Creatine Kinase MB 1.5 ng/ml Creatine Kinase MB Ratio 1.2 Troponin I < 0.015 ng/ml Total Protein 7.5 gm/dl Albumin 3.5 gm/dl Lipase 85 U/L Thyroid Stimulating Hormone (TSH) 0.541 uIu/ml Bedside Lactic Acid Venous 2.45 mmol/L Urine Color YELLOW Urine Appearance CLOUDY Urine pH 5.5 Urine Specific [place] 1.012 Urine Protein 1+ Urine Glucose (UA) NEG Urine Ketones NEG Urine Occult Blood 2+ Urine Nitrite NEG Urine Bilirubin NEG Urine Urobilinogen NEG Urine Leukocyte Esterase SMALL Urine WBC (Auto) 10-30 /hpf Urine RBC (Auto) 0-4 /hpf Urine Hyaline Casts (Auto) 1-5 /lpf Urine Epithelial Cells (Auto) 0-5 /lpf Urine Bacteria (Auto) 4+ Platelet Estimate DECREASED Hepatitis C Antibody Screen NEG Assessment and Plan 66 y/o male with a history of multiple sclerosis, CKD stage III, HTN, HLD, and recurrent UTIs. Pt developed a fever and weakness throughout the day. He was febrile on arrival to the ER with a stable BP. Initial labs revealed an elevated lactic acid, leukocytosis, a (+) UA and acute on chronic RF. He denies SOB, CP, N/V. He has chronic dysuria due to a neurogenic bladder. Sepsis secondary to UTI, bacteremia--ongoing -Admitted to med/surg as stable on admission, but consider moving to [place] if condition worsens due to sepsis -Urine culture positive for E. Coli, sensitivities pending -Blood culture positive for GNR x 1 -Infectious disease consulted, appreciate recs: Discontinue daptomycin and continue with Zosyn pending culture results. -Dapto d/c'd -Continue Zosyn for now -Continue IVF with NSS at 125 cc/hr -Leukocytosis persists. WBC up to 18.45 on 03/09 MS--ongoing -Pt with severe weakness secondary to sepsis and bacteremia vs MS flare -Resume Copaxone as outpt -Continue amantadine 100 mg PO BID and gabapentin 400 mg PO BID -Consider treating for MS flare if weakness does not improve with improvement of sepsis CRUZITO on CKD stage III--ongoing -Baseline creatinine around 1.5 -Creatinine 2.7 on admission -IVF as above -Creatinine 2.6 on 03/09 -Continue to hold lisinopril and Dyazide for now Hypomagnesemia--ongoing -Magnesium 1.5 on 03/09 -Magnesium sulfate 1 gm IV x 1 -Start on magnesium oxide 400 mg PO BID HTN--stable -Hold lisinopril/Dyazide as above -Continue atenolol 50 mg PO qd DVT prophylaxis -Heparin 5000 units SC q8h Code Status -Level I, FULL RESUSCITATION STATUS
[2017-03-09 16:32] VITALS: BP 126/69; PULSE 86; TEMP 36.8; O2SAT 92
[2017-03-09] MEDS ORDERED: NURSING VERBAL MED ORDER ONE (18:15)
[2017-03-09] MEDS ORDERED: GLATIRAMER ACETATE 40 MG/ML SYR SQ SCH (19:15)
[2017-03-09] MEDS ORDERED: DAPTOmycin IV 375 MG in SODIUM CHLORIDE 0.9% 50ML 50 ML IV SCH (22:00)
[2017-03-10] VITALS (8 sets, daily range): BP systolic 126–161; BP diastolic 70–89; PULSE 78–94; TEMP 36.7–37.6; O2SAT 93–97
[2017-03-10] MEDS: PIPERACILL/TAZOBAC IV 3.375 GM in DEXTROSE 5% 100ML 100 ML IV SCH ×2 (01:57→09:40)
[2017-03-10] MEDS: HEPARIN SOD 5000 UNIT/0.5 ML CARP SQ SCH ×2 (06:11→20:29)
[2017-03-10 07:05] LABS: HEMATOCRIT 39.1 % (42-52); MEAN CELL VOLUME 92.9 fL (80-100); MEAN CORPUSCULAR HEMOGLOBIN 31.8 pg (25-34); MEAN CORPUSCULAR HGB CONC 34.3 g/dl (32-36); RED BLOOD COUNT 4.21 M/uL (4.7-6.1)
[2017-03-10 07:08] LABS: MEAN PLATELET VOLUME 9.9 fL (7.4-10.4); PLATELET COUNT 93 K/uL (130-400)
[2017-03-10 07:18] LABS: CALCIUM 8.8 mg/dl (8.5-10.1); CREATININE 2.4 mg/dl (0.60-1.40); POTASSIUM 3.5 mmol/L (3.5-5.1)
[2017-03-10] MEDS ORDERED: NURSING VERBAL MED ORDER ONE (07:45)
[2017-03-10] MEDS: SODIUM CHLORIDE 0.9% 1000ML 1,000 ML IV SCH ×2 (07:45→14:23)
[2017-03-10] MEDS: ASPIRIN 81 MG ECTAB PO SCH (07:47)
[2017-03-10] MEDS: OXYBUTYNIN CHLORIDE 5 MG TAB PO SCH ×2 (07:47→20:27)
[2017-03-10] MEDS: GABAPENTIN 400 MG CAP PO SCH ×2 (07:47→20:26)
[2017-03-10] MEDS: PANTOprazole SOD 40 MG TAB PO SCH (07:47)
[2017-03-10] MEDS: MAGNESIUM OXIDE 400 MG TAB PO SCH ×2 (07:48→20:27)
[2017-03-10] MEDS: BACLOFEN TAB 20 MG TAB PO SCH ×2 (07:48→20:26)
[2017-03-10] MEDS: AMANTADINE HCL 100 MG CAP PO SCH ×2 (07:48→20:27)
--- NOTE | 2017-03-10 08:25 | Clinical Documentation Query ---
RUEL Cruz : CLINICAL DOCUMENTATION QUERY Patient is a 66 year old male admitted for evaluation and treatment of sepsis secondary to a UTI. This is in the setting of MS with intermittent self-catheterization. As appropriate, consider documentation as suggested below as this impacts severity of illness, risk of mortality, and associated DRG assignment. Thank you. In your clinical opinion is this patient being managed for: ( x ) UTI due to intermittent self-catheterization ( ) Other explanation of clinical findings (Please Explain) ( ) Unable to determine (Please Define) ( ) Need to Discuss ( ) Not Agree The medical record reflects the following clinical findings, treatment, and risk factors. Clinical Indicators: As above Treatment: Daptomycin, Zosyn Risk Factors: MS, intermittent self catheterization, history of frequent UTI's in this setting CC: Catheter-Associated UTI (CAUTI) [facility]oding [facility] 22011, p20 Clarification - Catheter-Associated Urinary Tract Infection (CAUTI) Question: We are seeking clarification regarding the advice previously published in [facility]oding [facility], Third Quarter 2008, pages 9-10, regarding the coding of catheter-associated urinary tract infection (CAUTI) when the patient has an indwelling catheter and then develops a urinary tract infection (UTI). If there is no provider documentation of CAUTI, but there is documentation that the patient has a UTI and it is noted that the patient has an indwelling catheter, can a supervisor maintenance automatically assign code 996.64, Infection and inflammatory reaction due to indwelling urinary catheter? Answer: No, the provider must clearly document the causal relationship. If the provider states that the UTI is secondary to the indwelling urinary catheter, assign code 996.64, Infection and inflammatory reaction due to indwelling urinary catheter, and code 599.0, Urinary tract infection, site not specified. If the provider does not state that the urinary tract infection is due to the catheter, assign only code 599.0. The Official Guidelines for Coding and Reporting state, "As with all procedural or postprocedural complications, code assignment is based on the provider's documentation of the relationship between the condition and the procedure." However, considering the importance of preventing and tracking CAUTIs, if the patient has an indwelling catheter and a UTI, coders should query the provider regarding the cause of the UTI and ask that the information be documented in the record (even when the cause of the UTI is not the catheter). CC: UTI d/t Poor Self-Cath Technique [facility]oding [facility] 1Q 2012, p11 Question: A 48-year-old patient was recently discharged from the hospital with a diagnosis of sepsis due to a urinary source. Since being discharged, she has developed further nausea, vomiting, dysuria, fever, foul-smelling urine, and abdominal pain and was readmitted for management of her condition. The patient is status post colostomy and urostomy and the provider's final diagnostic statement indicated sepsis secondary to urinary source (i.e., urinary tract infection). The provider was queried whether the patient's urinary tract infection (UTI) was related to the urostomy. The provider documented "UTI due to poor self-catheterization technique/hygiene, status post urostomy." How should a urostomy associated UTI due to poor self-catheterization technique/hygiene be coded? Is code 996.64, Infection and inflammatory reaction due to internal prosthetic device, implant and graft, due to indwelling urinary catheter, appropriate? Answer: Assign code 997.5, Urinary complications, for the urostomy associated UTI, resulting from poor self-catheterization technique/hygiene. This code includes conditions associated with an external stoma of the urinary tract. Assign also code 599.0, Urinary tract infection, site not specified. The POA indicator of "Y" will clarify that the condition was present on admission, and is not hospital acquired. Additionally, code 996.64, Infection and inflammatory reaction due to internal prosthetic device, implant and graft, due to indwelling urinary catheter, is not appropriate since a urostomy is not an indwelling catheter. A urostomy is a surgically created opening in the abdominal wall that redirects urine and allows it to flow to the outside of the body. Please clarify and document your clinical opinion in the progress notes and discharge summary. Terms such as "probable", "suspected", "likely", "questionable", "possible", or "still to be ruled out" are acceptable. IF IN AGREEMENT, YOU MUST DOCUMENT ABOVE DIAGNOSTIC STATEMENT IN DAILY PROGRESS NOTES AND DISCHARGE SUMMARY. This document is not part of the patient's record. Thank You, James Wilkinson, JANELL [phone]
--- NOTE | 2017-03-10 08:45 | DIAGNOSTIC IMAGING REPORT ---
(RENAL)RETROPERITON COMP HISTORY: 66 years Male acute on chronic kidney disease COMPARISON: Renal ultrasound 09/03/2013 TECHNIQUE: Multiple real-time sonographic images of the bilateral kidneys and urinary bladder were obtained assessing grayscale appearance. FINDINGS: Right kidney measures 11.5 x 5.6 x 5.3 cm and demonstrates mildly echogenic parenchyma with symmetric appearing cortex. No hydronephrosis or renal calculi. Left kidney measures 12.9 x 6.2 x 6.3 cm and is also mildly echogenic with symmetric appearing cortex and no shadowing renal calculi or hydronephrosis. The previously described septated 3 mm left renal cyst is no longer identified. Ho catheter is noted within a collapsed or bladder lumen. IMPRESSION: 1. Mildly echogenic renal parenchyma suggests chronic medical renal disease. 2. No hydronephrosis. 3. Collapsed urinary bladder with Ho catheter in place The above report was generated using voice recognition software. It may contain grammatical, syntax or spelling errors. Electronically signed by: Mir Myers M.D. 03/10/2017 8:44 AM Dictated Date/Time: 03/10/2017 8:41 AM
[2017-03-10] MEDS: ACETAMINOPHEN 325 MG TAB PO PRN (09:40)
--- NOTE | 2017-03-10 09:43 | Neurology Consultation ---
Neurology Consultation Date of Consultation: Mar 10, 2017. Attending Physician: Luis Patel MD, PhD Primary Care Physician: Hema Herrera M.D. Reason for Consultation: History of MS and altered mental status History of Present Illness Source: patient, hospital records This is a 66-year-old male who presents with fever and generalized weakness diagnosed with UTI sepsis. Patient has a history of multiple sclerosis symptoms starting in the 1980s and was officially diagnosed in 1998. He has been on disease modifying therapy with Copaxone and appears to have been well controlled for a number years. Patient denies any recent MS flares or exacerbations. Patient follows with Dr. Pepper at [facility]. Note from August 2016 was reviewed and patient appeared to be under good control. There had been no recent increase in his MS lesions. Patient had had a recent C- spine surgery last year and a lumbar discectomy and fusion before that. The patient does have frequent UTIs due to neurogenic bladder and self catheterization. It appears it is not uncommon for him to get generally weak with illness or fatigue. Infectious disease has been consult and during this admission has been helping with antibiotic management. History taking is fairly limited from the patient due to mental status. He denies any current pain. He denies any new neurological symptoms. Denies any recent MS flares or exacerbation. Past Medical/Surgical History Medical Problems: (1) Anemia Status: Acute (2) Headache Status: Acute (3) Leukocytosis Status: Acute (4) Neck pain Status: Acute (5) Sepsis Status: Acute (6) Weakness Status: Acute Social History Problems: (1) Status post laminectomy Status: Acute past medical history significant for multiple sclerosis diagnosed in 1998 with neurogenic bladder and chronic right lower extremity weakness followed by Dr. Pepper at [facility]. 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 No reported current tobacco use or alcohol use Smoking Status: Current every day smoker Marital Status: Housing Status: lives with family Occupation Status: employed Allergies Coded Allergies: Oxycodone (Unverified Allergy, Unknown, UNKNOWN, 03/08/17) Sulfa Drugs (Verified Allergy, Unknown, 03/08/17) Aspirin (Verified Adverse Reaction, Unknown, ASA 325 causes GI upset per pt, 03/08/17) takes ASA 81mg daily without issue Current Inpatient Medications Current Inpatient Medications Medications (Trade) Dose Ordered Sig/Jossie Route Start Time Stop Time Status Last Admin Dose Admin Amantadine HCl (Symmetrel Cap) 100 mg BID PO 03/09/17 09:00 04/08/17 08:59 03/10/17 07:48 100 MG Aspirin (Ecotrin Tab) 81 mg DAILY PO 03/09/17 09:00 04/08/17 08:59 03/10/17 07:47 81 MG Atenolol (Tenormin Tab) 50 mg DAILY PO 03/09/17 09:00 04/08/17 08:59 03/10/17 07:47 50 MG Baclofen (Lioresal Tab) 20 mg BID PO 03/09/17 09:00 04/08/17 08:59 03/10/17 07:48 20 MG Docusate Sodium (coLACE CAP) 100 mg DAILY PRN PO 03/08/17 22:30 04/07/17 22:29 Gabapentin (Neurontin Cap) 400 mg BID PO 03/09/17 09:00 04/08/17 08:59 03/10/17 07:47 400 MG Oxybutynin Chloride (Ditropan Tab) 5 mg BID PO 03/09/17 09:00 04/08/17 08:59 03/10/17 07:47 5 MG Pantoprazole Sodium (Protonix Tab) 40 mg QAM PO 03/09/17 09:00 04/08/17 08:59 03/10/17 07:47 40 MG Piperacillin Sod/ Tazobactam Sod 3.375 gm/Dextrose 115 ml @ 28.75 mls/ hr Q8H IV 03/09/17 02:00 03/19/17 01:59 03/10/17 01:57 28.75 MLS/HR Heparin Sodium (Porcine) (Heparin Sq 5000 Unit/0.5ml) 5,000 unit Q8H SQ 03/09/17 06:00 04/08/17 05:59 03/10/17 06:11 5,000 UNIT Acetaminophen (Tylenol Tab) 650 mg Q4H PRN PO 03/08/17 22:45 04/07/17 22:44 Al Hydrox/Mg Hydrox/Simethicone (Maalox Max Susp) 15 ml Q4H PRN PO 03/08/17 22:45 04/07/17 22:44 Magnesium Hydroxide (Milk Of Magnesia Susp) 30 ml Q6H PRN PO 03/08/17 22:45 04/07/17 22:44 Polyethylene (Miralax Powder Packet) 17 gm DAILY PRN PO 03/08/17 22:45 04/07/17 22:44 Ondansetron HCl (Zofran Inj) 4 mg Q6H PRN IV 03/08/17 22:45 04/07/17 22:44 Piperacillin Sod/ Tazobactam Sod (Consult) 1 ea UD PRN N/A 03/09/17 01:00 04/08/17 00:59 Magnesium Oxide (Mag-Ox Tab) 400 mg BID PO 03/09/17 09:00 04/08/17 08:59 03/10/17 07:48 400 MG Glatiramer Acetate (Copaxone) 40 mg MoWeFr@0900 SQ 03/11/17 09:00 04/10/17 08:59 Sodium Chloride 1,000 ml @ 100 mls/hr Q10H IV 03/10/17 07:45 04/09/17 07:44 03/10/17 07:45 100 MLS/HR Review of Systems Review of systems was limited due to mental status but otherwise negative except for the above noted Physical Exam Vital Signs (Past 24 Hrs): Date Time Temp Pulse Resp B/P (MAP) Pulse Ox O2 Delivery O2 Flow Rate FiO2 03/10/17 08:00 Room Air 03/10/17 07:50 81 130/77 (94) 03/10/17 07:47 36.8 80 16 141/77 (98) 94 Room Air 03/10/17 02:00 128/70 (89) 03/10/17 00:05 37.6 94 18 126/77 (93) 93 Room Air 03/10/17 00:00 Room Air 03/09/17 20:00 Room Air 03/09/17 16:32 36.8 86 18 126/69 (88) 92 Room Air 03/09/17 16:00 Room Air Gen.: Patient is fairly lethargic and slow to respond. Does not open eyes. HEENT: Normocephalic, atraumatic, no scleral icterus Heart: Regular rate and rhythm Extremities no gross deformities or rashes noted. Patient did appear warm to touch Neurological examination: Mental status: Patient is extremely lethargic and slow to respond. He does seem to correctly answer some questions correctly. He is oriented to place but not time. He follows a few commands correctly but not all. Speech is low volume and mumbled. No specific aphasia noted Cranial nerve: Funduscopic examination was difficult to visualize. Pupils equally round and reactive to light. Could not complete extraocular muscle testing due to mental status. No facial asymmetry noted at rest. Facial sensation intact. Patient would not stick out his tongue. Hearing grossly intact to voice. Strength: Formal strength examination was difficult secondary to mental status. Patient did give good hand squeeze bilaterally and would wiggle his toes on the left but not the right. Tone may have been increased in the upper extremities, but I'm suspicious that the patient was resisting my passive movements. Sensation: Limited by mental status but appeared to be grossly intact in all extremities Deep tendon reflexes: +1 in bilateral biceps, brachioradialis and patellar. Toes were equivocal to plantar stimulation Coordination: Patient did not participate in formal coordination testing secondary to mental status Gait was not able to be tested due to mental status Laboratory Results Past 24 Hours: 03/10/17 06:22 03/10/17 06:22 Test 03/10/17 06:22 Red Blood Count 4.21 M/uL (4.7-6.1) Mean Corpuscular Volume 92.9 fL (80-100) Mean Corpuscular Hemoglobin 31.8 pg (25-34) Mean Corpuscular Hemoglobin Concent 34.3 g/dl (32-36) RDW Standard Deviation 46.0 fL (36.4-46.3) RDW Coefficient of Variation 13.5 % (11.5-14.5) Mean Platelet Volume 9.9 fL (7.4-10.4) Anion Gap 10.0 mmol/L (3-11) Est Creatinine Clear Calc Drug Dose 31.9 ml/min Estimated GFR () 31.0 Estimated GFR (Non- 26.7 BUN/Creatinine Ratio 16.0 (10-20) Calcium Level 8.8 mg/dl (8.5-10.1) Magnesium Level 2.0 mg/dl (1.8-2.4) Imaging No neuro imaging within our system Impression This is a 66-year-old male with acute encephalopathy likely secondary to UTI sepsis. There is nothing in his presentation or examination that is highly consistent or suggestive of an MS exacerbation. It is not uncommon to have general worsening of strength or neurological deficits in the setting of acute illness. Plan I have ordered an ammonia level, B1, B12 level, Phos level, and a routine EEG to complete evaluation of acute encephalopathy and make sure there is no other etiologies other than his UTI sepsis causing acute encephalopathy. Recommend B12 levels 400 and replacement if necessary. Continue infectious disease workup and treatment as directed by infectious disease consult. Continue to monitor and treat any metabolic derangements that may contribute to acute encephalopathy. If the patient's condition does not seem to improve with appropriate infectious disease treatment, could consider an MRI of the brain with and without contrast with MS protocol for further evaluation. Caution with IV contrast will have to be used in the setting of his kidney disease. Ideally would like to see his creatinine below 2 before trying to do an MRI of the brain with contrast. Thank you for allowing me to participate in this patient's care. If there is any questions or concerns, feel free to call/page me.
[2017-03-10] MEDS ORDERED: CEFTRIAXONE SOD INJ 2,000 MG in DEXTROSE 5% 50ML 50 ML IV SCH (10:15)
--- NOTE | 2017-03-10 13:11 | Progress Note ---
Subjective Date of Service: Mar 10, 2017. Subjective Pt evaluation today including: conversation w/ patient, conversation w/ family , physical exam, chart review, lab review, review of studies, conversation w/ corporate consultant, review of inpatient medication list Seems mental status is getting worse, was knowing name and place yesterday and was woke up and report to me about this, However today only able to tell the name, less awakable , lethargic and fall asleep soon, not able to engage conversation Problem List Medical Problems: (1) Anemia Status: Acute (2) Headache Status: Acute (3) Leukocytosis Status: Acute (4) Neck pain Status: Acute (5) Sepsis Status: Acute (6) Weakness Status: Acute Social History Problems: (1) Status post laminectomy Status: Acute Review of Systems Constitutional: + problem reported (not able to get the review of system) Objective Vital Signs Date Time Temp Pulse Resp B/P (MAP) Pulse Ox O2 Delivery O2 Flow Rate FiO2 03/10/17 08:00 Room Air 03/10/17 07:50 81 130/77 (94) 03/10/17 07:47 36.8 80 16 141/77 (98) 94 Room Air 03/10/17 02:00 128/70 (89) 03/10/17 00:05 37.6 94 18 126/77 (93) 93 Room Air 03/10/17 00:00 Room Air 03/09/17 20:00 Room Air 03/09/17 16:32 36.8 86 18 126/69 (88) 92 Room Air 03/09/17 16:00 Room Air Physical Exam General Appearance: WD/WN, no apparent distress Eyes: normal inspection, PERRL, EOMI, sclerae normal ENT: normal ENT inspection, hearing grossly normal, pharynx normal Neck: supple, no adenopathy, thyroid normal, no JVD, no carotid bruits, trachea midline Respiratory/Chest: chest non-tender, normal breath sounds, no respiratory distress, no accessory muscle use, + decreased breath sounds Cardiovascular: regular rate, rhythm, no edema, no gallop, no JVD, no murmur Abdomen: normal bowel sounds, non tender, soft, no organomegaly, no pulsatile mass Extremities: normal range of motion, non-tender, normal inspection, no pedal edema, no calf tenderness, normal capillary refill, pelvis stable Neurologic/Psychiatric: + pertinent finding (no face droop) Skin: normal color, warm/dry, no rash Lymphatic: no adenopathy Laboratory Results Last 24 Hours Test 03/10/17 06:22 03/10/17 09:41 White Blood Count 13.60 K/uL Red Blood Count 4.21 M/uL Hemoglobin 13.4 g/dL Hematocrit 39.1 % Mean Corpuscular Volume 92.9 fL Mean Corpuscular Hemoglobin 31.8 pg Mean Corpuscular Hemoglobin Concent 34.3 g/dl RDW Standard Deviation 46.0 fL RDW Coefficient of Variation 13.5 % Platelet Count 93 K/uL Mean Platelet Volume 9.9 fL Sodium Level 137 mmol/L Potassium Level 3.5 mmol/L Chloride Level 104 mmol/L Carbon Dioxide Level 23 mmol/L Anion Gap 10.0 mmol/L Blood Urea Nitrogen 38 mg/dl Creatinine 2.40 mg/dl Est Creatinine Clear Calc Drug Dose 31.9 ml/min Estimated GFR () 31.0 Estimated GFR (Non- 26.7 BUN/Creatinine Ratio 16.0 Random Glucose 105 mg/dl Calcium Level 8.8 mg/dl Magnesium Level 2.0 mg/dl Phosphorus Level 2.7 mg/dl Ammonia 13.0 umol/L Vitamin B12 Level 329 pg/mL Assessment and Plan 66 y/o male admitted on 03/08/2017 with UTI and possible sepsis with a fever and weakness throughout the day. History of multiple sclerosis, CKD stage III, HTN, HLD, and recurrent UTIs. Per report, was febrile on arrival to the ER with a stable BP. Initial labs revealed an elevated lactic acid, leukocytosis, a (+) UA and acute on chronic RF. has chronic dysuria due to a neurogenic bladder. Sepsis and gram-negative bacteremia, secondary to Escherichia coli UTI, associated with significant leukocytosis: Stable Metabolic encephalopathy with decreased mental status, possible getting worse, it is likely because of Escherichia coli UTI and sepsis, however patient's multiple sclerosis may caused the problem Thrombocytopenia possible from sepsis , or from the side effect of Zosyn, today is a little worse Discussed with patient's son in bedside, reported mental status was even worse then discontinuation before secondary to UTI -Urine culture positive for E. Coli, sensitivities comes back, infectious disease change IV antibiotic to Rocephin -Blood culture positive for GNR x2 , likely from urinary tract infection -Was on Dapto and Zosyn upon admission -Has been poor oral intake since admission , Continue IVF with NSS, has been having good urine output -Leukocytosis persists. Mild improvement - We will transfer to telemetry because of UTI, and sepsis, for better monitoring - UTI from straight caths, I did order to kidney ultrasound to rule out hydronephrosis or blockages in the collecting duct system which were unremarkable Metabolic encephalopathy with decreased mental status, possible getting worse, it is likely because of Escherichia coli UTI and sepsis , however possible from multiple sclerosis fretting as well, neurology consulted, and see below, ammonia level, vitamin B12, folate acid was checked and unremarkable I ordered head CT to rule out acute disease Multiple sclerosis: ongoing -Pt with severe weakness secondary to sepsis and bacteremia vs multiple sclerosis flare - Resume Copaxone -Continue amantadine 100 mg PO BID and gabapentin 400 mg PO BID -Neurology consult appreciated, agree mental status changes likely because of UTI sepsis, Acute kidney injury on CKD stage III, minimal improving -Baseline creatinine around 1.5 -Creatinine 2.7 on admission -IVF as above -Creatinine 2.4 from 2.6 On 03/09 -Continue to hold lisinopril and Dyazide for now Hypomagnesemia--ongoing -Magnesium 1.5 on 03/09 -Magnesium sulfate 1 gm IV x 1 -Start on magnesium oxide 400 mg PO BID HTN--stable -Hold lisinopril/Dyazide as above -Continue atenolol 50 mg PO qd DVT prophylaxis -Heparin 5000 units SC q8h, will discontinue if have worsening thrombocytopenia Code Status -Level I, FULL RESUSCITATION STATUS Discussed with patient's 2 sons about care plan, update them on the medical conditions, I told them possible poor prognosis As request medical record from [facility] Transfer to telemetry for better monitoring Called to patient's [id number], updated her pt's conditions , and answered all questions, confirm patient is full code Continued [facility] stay due to: multiple IV medications needed Discharge planning: uncertain
--- NOTE | 2017-03-10 13:56 | Infectious Disease Progress Nt ---
Progress Note Date of Service Mar 10, 2017. Subjective Pt evaluation today including: conversation w/ patient, physical exam, chart review, lab review, review of studies, review of inpatient medication list Patient is very lethargic today. His white blood cell count was improved from 18.45-13.60. His creatinine was slightly improved to 2.40 today. His urine culture is growing pansensitive E coli, and his blood cultures are growing gram- negative bacilli in 2/2 cultures. He is currently on IV Zosyn. A renal ultrasound showed no hydronephrosis, and possible chronic renal disease. Patient answers some yes or no questions, but does not have conversation today. All Other Systems: Reviewed and Negative Medications Current Inpatient Medications Medications (Trade) Dose Ordered Sig/Ojssie Route Start Time Stop Time Status Last Admin Dose Admin Amantadine HCl (Symmetrel Cap) 100 mg BID PO 03/09/17 09:00 04/08/17 08:59 03/10/17 07:48 100 MG Aspirin (Ecotrin Tab) 81 mg DAILY PO 03/09/17 09:00 04/08/17 08:59 03/10/17 07:47 81 MG Atenolol (Tenormin Tab) 50 mg DAILY PO 03/09/17 09:00 04/08/17 08:59 03/10/17 07:47 50 MG Baclofen (Lioresal Tab) 20 mg BID PO 03/09/17 09:00 04/08/17 08:59 03/10/17 07:48 20 MG Docusate Sodium (coLACE CAP) 100 mg DAILY PRN PO 03/08/17 22:30 04/07/17 22:29 Gabapentin (Neurontin Cap) 400 mg BID PO 03/09/17 09:00 04/08/17 08:59 03/10/17 07:47 400 MG Oxybutynin Chloride (Ditropan Tab) 5 mg BID PO 03/09/17 09:00 04/08/17 08:59 03/10/17 07:47 5 MG Pantoprazole Sodium (Protonix Tab) 40 mg QAM PO 03/09/17 09:00 04/08/17 08:59 03/10/17 07:47 40 MG Acetaminophen (Tylenol Tab) 650 mg Q4H PRN PO 03/08/17 22:45 04/07/17 22:44 Al Hydrox/Mg Hydrox/Simethicone (Maalox Max Susp) 15 ml Q4H PRN PO 03/08/17 22:45 04/07/17 22:44 Magnesium Hydroxide (Milk Of Magnesia Susp) 30 ml Q6H PRN PO 03/08/17 22:45 04/07/17 22:44 Polyethylene (Miralax Powder Packet) 17 gm DAILY PRN PO 03/08/17 22:45 04/07/17 22:44 Ondansetron HCl (Zofran Inj) 4 mg Q6H PRN IV 03/08/17 22:45 04/07/17 22:44 Magnesium Oxide (Mag-Ox Tab) 400 mg BID PO 03/09/17 09:00 04/08/17 08:59 03/10/17 07:48 400 MG Glatiramer Acetate (Copaxone) 40 mg MoWeFr@0900 SQ 03/11/17 09:00 04/10/17 08:59 Sodium Chloride 1,000 ml @ 100 mls/hr Q10H IV 03/10/17 07:45 04/09/17 07:44 03/10/17 07:45 100 MLS/HR Ceftriaxone Sodium 2000 mg/ Dextrose 70 ml @ 100 mls/hr Q24H IV 03/10/17 14:30 03/20/17 14:29 Heparin Sodium (Porcine) (Heparin Sq 5000 Unit/0.5ml) 5,000 unit Q12 SQ 03/10/17 21:00 04/08/17 05:59 Objective Vital Signs Date Time Temp Pulse Resp B/P (MAP) Pulse Ox O2 Delivery O2 Flow Rate FiO2 03/10/17 13:32 36.8 81 16 94 03/10/17 08:00 Room Air 03/10/17 07:50 81 130/77 (94) 03/10/17 07:47 36.8 80 16 141/77 (98) 94 Room Air 03/10/17 02:00 128/70 (89) 03/10/17 00:05 37.6 94 18 126/77 (93) 93 Room Air 03/10/17 00:00 Room Air 03/09/17 20:00 Room Air 03/09/17 16:32 36.8 86 18 126/69 (88) 92 Room Air 03/09/17 16:00 Room Air Physical Exam General Appearance: WD/WN, + pertinent finding (Lethargic) Eyes: normal inspection, sclerae normal ENT: hearing grossly normal Neck: supple, trachea midline Respiratory/Chest: no respiratory distress, no accessory muscle use, + decreased breath sounds Cardiovascular: regular rate, rhythm Abdomen: normal bowel sounds, non tender, soft Neurologic/Psychiatric: + disoriented, + pertinent finding (does not engage in much conversation today. Very lethargic ) Skin: normal color, warm/dry, no rash Laboratory Results (RENAL)RETROPERITON COMP HISTORY: 66 years Male acute on chronic kidney disease COMPARISON: Renal ultrasound 09/03/2013 TECHNIQUE: Multiple real-time sonographic images of the bilateral kidneys and urinary bladder were obtained assessing grayscale appearance. FINDINGS: Right kidney measures 11.5 x 5.6 x 5.3 cm and demonstrates mildly echogenic parenchyma with symmetric appearing cortex. No hydronephrosis or renal calculi. Left kidney measures 12.9 x 6.2 x 6.3 cm and is also mildly echogenic with symmetric appearing cortex and no shadowing renal calculi or hydronephrosis. The previously described septated 3 mm left renal cyst is no longer identified. Ho catheter is noted within a collapsed or bladder lumen. IMPRESSION: 1. Mildly echogenic renal parenchyma suggests chronic medical renal disease. 2. No hydronephrosis. 3. Collapsed urinary bladder with Ho catheter in place Item Value Date Time Urine Culture - Final Complete 03/08/172029 Urine,Catheterized Escherichia Coli Blood Culture - Preliminary Resulted 03/08/172013 Blood Gram Negative Bacilli Blood Culture - Preliminary Resulted 03/08/172004 Blood Gram Negative Bacilli Last 24 Hours Test 03/10/17 06:22 03/10/17 09:41 03/10/17 12:53 White Blood Count 13.60 K/uL Red Blood Count 4.21 M/uL Hemoglobin 13.4 g/dL Hematocrit 39.1 % Mean Corpuscular Volume 92.9 fL Mean Corpuscular Hemoglobin 31.8 pg Mean Corpuscular Hemoglobin Concent 34.3 g/dl RDW Standard Deviation 46.0 fL RDW Coefficient of Variation 13.5 % Platelet Count 93 K/uL Mean Platelet Volume 9.9 fL Sodium Level 137 mmol/L Potassium Level 3.5 mmol/L Chloride Level 104 mmol/L Carbon Dioxide Level 23 mmol/L Anion Gap 10.0 mmol/L Blood Urea Nitrogen 38 mg/dl Creatinine 2.40 mg/dl Est Creatinine Clear Calc Drug Dose 31.9 ml/min Estimated GFR () 31.0 Estimated GFR (Non- 26.7 BUN/Creatinine Ratio 16.0 Random Glucose 105 mg/dl Calcium Level 8.8 mg/dl Magnesium Level 2.0 mg/dl Phosphorus Level 2.7 mg/dl Ammonia 13.0 umol/L Vitamin B12 Level 329 pg/mL Assessment and Plan Patient with recurrent UTI's in the setting of MS and self-catheterization. He is currently on IV Zosyn. Will transition to IV ceftriaxone 2 grams daily until improvement is seen. Ideally, will transition this patient to oral therapy to complete 14 days. We will follow. Case reviewed and agree with above assessment.
--- NOTE | 2017-03-10 14:11 | DIAGNOSTIC IMAGING REPORT ---
CT HEAD WITHOUT CONTRAST (CT) CLINICAL HISTORY: Acute change in mental status COMPARISON STUDY: 06/25/2016 TECHNIQUE: Axial CT of the brain is performed from the vertex to the skull base. IV contrast was not administered for this examination. A dose lowering technique was utilized adhering to the principles of ALARA. CT DOSE: 614.27 mGy.cm FINDINGS: No intra or extra-axial mass lesions are visualized. There is no CT evidence of acute cortical infarction. There is no evidence of midline shift. There is no acute hemorrhage. No calvarial fractures are visualized. There are patchy white matter hypodensities likely on a small vessel basis. There is an old lacunar infarct in the right centrum semiovale. There is a tiny lacunar infarct versus dilated perivascular space within the right lentiform nucleus. There is no evidence of pathologic ventricular dilatation. There is no evidence of acute sinusitis IMPRESSION: No acute intracranial findings Electronically signed by: Major Null M.D. 03/10/2017 2:09 PM Dictated Date/Time: 03/10/2017 2:08 PM
[2017-03-10] MEDS: CEFTRIAXONE SOD INJ 2,000 MG in DEXTROSE 5% 50ML 50 ML IV SCH (14:22)
--- NOTE | 2017-03-10 17:28 | EEG Procedure Note ---
EEG Procedure Note Date of Service Mar 10, 2017. Start / End Times Start Time: 10:17 AM End Time: 10:37 AM Referring Physician Dianne Benton History This is a 66-year-old male with a history of MS who presented with UTI sepsis. EEG for further evaluation of acute change of mental status. Home Medication List Scheduled Amantadine Hcl (Symmetrel), 100 MG PO BID Aspirin (Aspirin Ec), 81 MG PO DAILY Atenolol (Tenormin), 50 MG PO DAILY Baclofen (Baclofen), 20 MG PO BID Cholecalciferol (Vitamin D), 2,000 UNIT PO DAILY Gabapentin (Neurontin), 400 MG PO BID Glatiramer Acetate (Copaxone), 40 MG SC MWF Lisinopril (Zestril), 10 MG PO Q2D Meloxicam (Meloxicam), 15 MG PO Q2D Multiple Minerals W/ Vitamins (Citracal Plus), 1 TABLET PO DAILY Omeprazole (Prilosec), 20 MG PO QAM Oxybutynin Chloride (Ditropan), 5 MG PO BID Triamterene/Hctz (Dyazide 37.5MG/25MG), 1 TAB PO DAILY Scheduled PRN Docusate Sodium (Docusate Sodium), 100 MG PO DAILY PRN Inpatient Medication List Current Inpatient Medications Medications (Trade) Dose Ordered Sig/Jossie Route Start Time Stop Time Status Last Admin Dose Admin Amantadine HCl (Symmetrel Cap) 100 mg BID PO 03/09/17 09:00 04/08/17 08:59 03/10/17 07:48 100 MG Aspirin (Ecotrin Tab) 81 mg DAILY PO 03/09/17 09:00 04/08/17 08:59 03/10/17 07:47 81 MG Atenolol (Tenormin Tab) 50 mg DAILY PO 03/09/17 09:00 04/08/17 08:59 03/10/17 07:47 50 MG Baclofen (Lioresal Tab) 20 mg BID PO 03/09/17 09:00 04/08/17 08:59 03/10/17 07:48 20 MG Docusate Sodium (coLACE CAP) 100 mg DAILY PRN PO 03/08/17 22:30 04/07/17 22:29 Gabapentin (Neurontin Cap) 400 mg BID PO 03/09/17 09:00 04/08/17 08:59 03/10/17 07:47 400 MG Oxybutynin Chloride (Ditropan Tab) 5 mg BID PO 03/09/17 09:00 04/08/17 08:59 03/10/17 07:47 5 MG Pantoprazole Sodium (Protonix Tab) 40 mg QAM PO 03/09/17 09:00 04/08/17 08:59 03/10/17 07:47 40 MG Acetaminophen (Tylenol Tab) 650 mg Q4H PRN PO 03/08/17 22:45 04/07/17 22:44 Al Hydrox/Mg Hydrox/Simethicone (Maalox Max Susp) 15 ml Q4H PRN PO 03/08/17 22:45 04/07/17 22:44 Magnesium Hydroxide (Milk Of Magnesia Susp) 30 ml Q6H PRN PO 03/08/17 22:45 04/07/17 22:44 Polyethylene (Miralax Powder Packet) 17 gm DAILY PRN PO 03/08/17 22:45 04/07/17 22:44 Ondansetron HCl (Zofran Inj) 4 mg Q6H PRN IV 03/08/17 22:45 04/07/17 22:44 Magnesium Oxide (Mag-Ox Tab) 400 mg BID PO 03/09/17 09:00 04/08/17 08:59 03/10/17 07:48 400 MG Glatiramer Acetate (Copaxone) 40 mg MoWeFr@0900 SQ 03/11/17 09:00 04/10/17 08:59 Sodium Chloride 1,000 ml @ 100 mls/hr Q10H IV 03/10/17 07:45 04/09/17 07:44 03/10/17 14:23 100 MLS/HR Ceftriaxone Sodium 2000 mg/ Dextrose 70 ml @ 100 mls/hr Q24H IV 03/10/17 14:30 03/20/17 14:29 03/10/17 14:22 100 MLS/HR Heparin Sodium (Porcine) (Heparin Sq 5000 Unit/0.5ml) 5,000 unit Q12 SQ 03/10/17 21:00 04/08/17 05:59 Description This is a 21 electrode EEG with a single channel dedicated to limited EKG. The electrodes were placed in accordance with the International 10-20 system. At the start of this recording the patient was in reported altered mental status. Background was poorly organized with no well formed anterior to posterior gradient. Background was composed of symmetric moderate amplitude predominantly 5-6 Hz theta frequencies with intermixed delta and alpha frequencies. There was no clear state changes or sleep transients. Hyperventilation was not done. Photic stimulation at various frequencies did not produce any abnormalities. Interpretation This is an abnormal routine EEG secondary to moderate background disorganization and slowing There was no electrographic seizures or epileptiform discharges. Clinical Correlation This EEG indicates a moderate encephalopathy of nonspecific etiology.
[2017-03-11] VITALS (7 sets, daily range): BP systolic 140–166; BP diastolic 74–93; PULSE 64–80; TEMP 36.5–37.7; O2SAT 95–100
[2017-03-11] MEDS: SODIUM CHLORIDE 0.9% 1000ML 1,000 ML IV SCH ×2 (03:42→21:26)
[2017-03-11 06:06] LABS: HEMATOCRIT 38.2 % (42-52); MEAN CELL VOLUME 93.6 fL (80-100); MEAN CORPUSCULAR HEMOGLOBIN 32.1 pg (25-34); MEAN CORPUSCULAR HGB CONC 34.3 g/dl (32-36); RED BLOOD COUNT 4.08 M/uL (4.7-6.1); WHITE BLOOD COUNT 9.94 K/uL (4.8-10.8)
[2017-03-11 06:09] LABS: MEAN PLATELET VOLUME 9.6 fL (7.4-10.4); PLATELET COUNT 85 K/uL (130-400)
[2017-03-11 06:30] LABS: BUN/CREATININE RATIO 19.1 (10-20); CALCIUM 9.3 mg/dl (8.5-10.1); MAGNESIUM 1.7 mg/dl (1.8-2.4); POTASSIUM 3.8 mmol/L (3.5-5.1)
[2017-03-11] MEDS: MAGNESIUM OXIDE 400 MG TAB PO SCH ×2 (09:00→12:28)
[2017-03-11] MEDS: GABAPENTIN 400 MG CAP PO SCH ×3 (09:00→20:01)
[2017-03-11] MEDS: PANTOprazole SOD 40 MG TAB PO SCH (09:00)
[2017-03-11] MEDS: ASPIRIN 81 MG ECTAB PO SCH ×2 (09:00→11:55)
[2017-03-11] MEDS: OXYBUTYNIN CHLORIDE 5 MG TAB PO SCH ×2 (09:00→12:28)
[2017-03-11] MEDS: AMANTADINE HCL 100 MG CAP PO SCH ×3 (09:00→20:01)
[2017-03-11] MEDS: BACLOFEN TAB 20 MG TAB PO SCH ×3 (09:00→20:01)
[2017-03-11] MEDS: HEPARIN SOD 5000 UNIT/0.5 ML CARP SQ SCH ×2 (09:00→20:02)
[2017-03-11] MEDS: GLATIRAMER ACETATE 40 MG/ML SYR SQ SCH (09:25)
[2017-03-11] MEDS ORDERED: MAGNESIUM SULFATE 1GM / D5W 1 GM in PREMIXED IN D5W 100 ML IV SCH (09:30)
[2017-03-11] MEDS ORDERED: PANTOprazole INJ 40 MG in SYRINGE 0 ML IV ONE (11:45)
--- NOTE | 2017-03-11 13:40 | Hospitalist Progress Note ---
Hospitalist Progress Note Date of Service Mar 11, 2017. Subjective Pt evaluation today including: conversation w/ patient, physical exam, chart review, lab review, conversation w/ hr consultant (spoke with Amanda Murillo PA-C ), review of inpatient medication list Pain: None PO Intake: Tolerating PO diet Voiding: walters catheter in place Patient reports feeling well. He denies any pain or urinary symptoms. Walters catheter is in place. He appears more alert today and answers all questions appropriately. The patient denies fevers, chills, sweats, chest pain, palpitations, claudication, cough, wheezing, shortness of breath, nausea, vomiting, abdominal pain, dysuria, hematuria, urinary retention, paralysis, weakness, numbness and tingling. Additional Comments: See HPI for pertinent positives and negatives. All other systems reviewed and negative. Objective Vital Signs Date Time Temp Pulse Resp B/P (MAP) Pulse Ox O2 Delivery O2 Flow Rate FiO2 03/11/17 12:00 Room Air 03/11/17 11:04 37.4 66 18 147/74 (98) 99 Room Air 03/11/17 08:00 Room Air 03/11/17 07:38 37.3 80 16 140/80 (100) 100 Room Air 03/11/17 04:00 Room Air 03/11/17 03:13 36.5 75 20 148/78 (101) 95 Room Air 03/11/17 00:00 Room Air 03/10/17 23:56 36.7 79 20 157/83 (107) 93 Room Air 03/10/17 20:30 Room Air 03/10/17 19:51 36.8 85 18 157/89 (111) 94 Room Air 03/10/17 16:15 Room Air 03/10/17 16:13 36.9 78 20 161/83 (109) 97 Room Air 03/10/17 13:32 36.8 81 16 94 Physical Exam Notes: General appearance: +Obese. Well-developed, well-nourished, no apparent distress Head: Normocephalic, atraumatic Eyes: +Exam limited, pt keeps closing his eyes. Normal inspection, PERRL ENT: +Dry oral mucosa. Normal ENT inspection, hearing grossly normal, pharynx normal Neck: Supple, no JVD, trachea midline Respiratory/Chest: Lungs clear to auscultation, normal breath sounds, no respiratory distress Cardiovascular: +Systolic murmur. Regular rate & rhythm, no gallop Abdomen/GI: Normal bowel sounds, non-tender, soft Extremities/Musculoskeletal: Normal inspection, no calf tenderness, no pedal edema Neurological/Psych: +Disoriented to time and place. Alert, normal mood/affect , oriented x 1 Skin: Normal color, warm/dry, no rash Laboratory Results Last 24 Hours Test 03/10/17 13:50 03/11/17 05:37 Erythrocyte Sedimentation Rate 62 mm/hr Lactic Acid Level 1.4 mmol/L C-Reactive Protein 32.50 mg/dl Procalcitonin 12.77 ng/ml White Blood Count 9.94 K/uL Red Blood Count 4.08 M/uL Hemoglobin 13.1 g/dL Hematocrit 38.2 % Mean Corpuscular Volume 93.6 fL Mean Corpuscular Hemoglobin 32.1 pg Mean Corpuscular Hemoglobin Concent 34.3 g/dl RDW Standard Deviation 45.5 fL RDW Coefficient of Variation 13.1 % Platelet Count 85 K/uL Mean Platelet Volume 9.6 fL Sodium Level 139 mmol/L Potassium Level 3.8 mmol/L Chloride Level 106 mmol/L Carbon Dioxide Level 25 mmol/L Anion Gap 8.0 mmol/L Blood Urea Nitrogen 38 mg/dl Creatinine 2.00 mg/dl Est Creatinine Clear Calc Drug Dose 38.3 ml/min Estimated GFR () 38.6 Estimated GFR (Non- 33.3 BUN/Creatinine Ratio 19.1 Random Glucose 97 mg/dl Calcium Level 9.3 mg/dl Magnesium Level 1.7 mg/dl Diagnostic Results Reviewed the following studies and agree with interpretation as follows: Patient Name: REYNALDO ROSSI Unit Number: [id number] Dictated: 03/10/17840 Transcribed: 03/10/17840 JRB Printed Date/Time: [~ rep prt dt]/[~ rep prt tm] [~ rep ct labl] - [~ rep ct ivnm] [facility] [place] [address] Dictated: 03/10/17840 Transcribed: 03/10/17840 JRB Printed Date/Time: [~ rep prt dt]/[~ rep prt tm] [~ rep ct labl] - [~ rep ct ivnm] Patient: REYNALDO ROSSI Address1: [address] [place] [address] Rec: [id number] Address2: Acct ID: [id number] [facility] Zip: [place] [address] Date: 1950 Sex: M Room/Bed: W261-1 Ref Phy: Hema Herrera M.D. SC: ETHAN Att Phy: Luis Patel MD, PhD Report #: [id number] Patricia Phy: Hema Herrera M.D. Test: JUAN C Admit Phy: Julio Khoury M.D. Food Production Associate: [facility] Interpreting Phy: Reynaldo Myers D.O. Diagnosis: UTI Ordering Phy: Luis Patel MD, PhD Service Date: 03/10/17 Admit Date: 03/08/1707/18/17 MNE: [id number] CONF: DICTATED BY: Reynaldo Myers D.O.]] CC: Luis Patel MD, PhD Hema Herrera M.D. Endcc: [~ rep ct add3]] (RENAL)RETROPERITON COMP HISTORY: 66 years Male acute on chronic kidney disease COMPARISON: Renal ultrasound 09/03/2013 TECHNIQUE: Multiple real-time sonographic images of the bilateral kidneys and urinary bladder were obtained assessing grayscale appearance. FINDINGS: Right kidney measures 11.5 x 5.6 x 5.3 cm and demonstrates mildly echogenic parenchyma with symmetric appearing cortex. No hydronephrosis or renal calculi. Left kidney measures 12.9 x 6.2 x 6.3 cm and is also mildly echogenic with symmetric appearing cortex and no shadowing renal calculi or hydronephrosis. The previously described septated 3 mm left renal cyst is no longer identified. Walters catheter is noted within a collapsed or bladder lumen. IMPRESSION: 1. Mildly echogenic renal parenchyma suggests chronic medical renal disease. 2. No hydronephrosis. 3. Collapsed urinary bladder with Walters catheter in place The above report was generated using voice recognition software. It may contain grammatical, syntax or spelling errors. Electronically signed by: Mir Myers M.D. 03/10/2017 8:44 AM Dictated Date/Time: 03/10/2017 8:41 AM The status of this report is Signed. Draft = Not yet reviewed or approved by Radiologist. Signed = Reviewed and approved by Radiologist. <AttendingPhy>Luis Patel MD, PhD</AttendingPhy> <FamilyPhy>Hema Herrera M.D.</FamilyPhy> <PrimaryPhy>Hema Herrera M.D.</PrimaryPhy> <UnitNumber> [id number]</UnitNumber> <VisitNumber>[id number]</VisitNumber> <PatientName> REYNALDO ROSSI</PatientName> <DateOfBirth>1950</DateOfBirth> <Location> C.MS2W</Location> <ServiceDate>03/08/17</ServiceDate> <MNE>ESINDI</MNE> < OrderingPhy>Luis Patel MD, PhD</OrderingPhy> <OrderingPhyMNE>f rep ord dr howard </OrderingPhyMNE> <DictatingPhyMNE>f rep dict dr howard</DictatingPhyMNE> < CCListMNE>f rep ct mne</CCListMNE> <AdmittingPhyMNE>f pt admit dr howard</ AdmittingPhyMNE> <AttendingPhyMNE>f pt attend dr howard</AttendingPhyMNE> <ConsultingPhyMNE>f pt consult dr howard</ConsultingPhyMNE> <FamilyPhyMNE>f pt fam dr howard</FamilyPhyMNE> <OtherPhyMNE>f pt other dr howard</OtherPhyMNE> < PrimaryPhyMNE>f pt prim care dr howard</PrimaryPhyMNE> <ReferringPhyMNE>f pt referring dr howard</ReferringPhyMNE> Patient Name: REYNALDO ROSSI Unit Number: [id number] Dictated: 03/10/171407 Transcribed: 03/10/17 140 ARG Printed Date/Time: [~ rep prt dt]/[~ rep prt tm] [~ rep ct labl] - [~ rep ct ivnm] [facility] [place] [address] Dictated: 03/10/17 1408 Transcribed: 03/10/17 1408 ARG Printed Date/Time: [~ rep prt dt]/[~ rep prt tm] [~ rep ct labl] - [~ rep ct ivnm] Patient: REYNALDO ROSSI Address1: [address] [place] [address] Rec: [id number] Address2: Acct ID: [id number] [facility] Zip: [place] [address] Date: 1950 Sex: M Room/Bed: W2611 Ref Phy: Hema Herrera M.D. SC: ETHAN Att Phy: Luis Patel MD, PhD Report #: [id number] Patricia Phy: Hema Herrera M.D. Test: HWO Admit Phy: Julio Khoury M.D. Food Production Associate: [facility] Interpreting Phy: Major Null M.D. Diagnosis: UTI Ordering Phy: Luis Patel MD, PhD Service Date: 03/10/17 Admit Date: 03/08/1707/18/17 MNE: [id number] CONF: DICTATED BY: Major Null M.D.]] CC: Lusi Patel MD, PhD Hema Herrera M.D. Endcc: [~ rep ct add3]] CT HEAD WITHOUT CONTRAST (CT) CLINICAL HISTORY: Acute change in mental status COMPARISON STUDY: 06/25/2016 TECHNIQUE: Axial CT of the brain is performed from the vertex to the skull base. IV contrast was not administered for this examination. A dose lowering technique was utilized adhering to the principles of ALARA. CT DOSE: 614.27 mGy.cm FINDINGS: No intra or extra-axial mass lesions are visualized. There is no CT evidence of acute cortical infarction. There is no evidence of midline shift. There is no acute hemorrhage. No calvarial fractures are visualized. There are patchy white matter hypodensities likely on a small vessel basis. There is an old lacunar infarct in the right centrum semiovale. There is a tiny lacunar infarct versus dilated perivascular space within the right lentiform nucleus. There is no evidence of pathologic ventricular dilatation. There is no evidence of acute sinusitis IMPRESSION: No acute intracranial findings Electronically signed by: Major Null M.D. 03/10/2017 2:09 PM Dictated Date/Time: 03/10/2017 2:08 PM The status of this report is Signed. Draft = Not yet reviewed or approved by Radiologist. Signed = Reviewed and approved by Radiologist. <AttendingPhy>Luis Patel MD, PhD</AttendingPhy> <FamilyPhy>Hema Herrera M.D.</FamilyPhy> <PrimaryPhy>Hema Herrera M.D.</PrimaryPhy> <UnitNumber> [id number]</UnitNumber> <VisitNumber>[id number]</VisitNumber> <PatientName> REYNALDO ROSSI</PatientName> <DateOfBirth>1950</DateOfBirth> <Location> C.MS2W</Location> <ServiceDate>03/08/17</ServiceDate> <MNE>ESINDI</MNE> < OrderingPhy>Luis Patel MD, PhD</OrderingPhy> <OrderingPhyMNE>f rep ord dr howard </OrderingPhyMNE> <DictatingPhyMNE>f rep dict dr howard</DictatingPhyMNE> < CCListMNE>f rep ct lee</CCListMNE> <AdmittingPhyMNE>f pt admit dr howard</ AdmittingPhyMNE> <AttendingPhyMNE>f pt attend dr howard</AttendingPhyMNE> <ConsultingPhyMNE>f pt consult dr howard</ConsultingPhyMNE> <FamilyPhyMNE>f pt fam dr howard</FamilyPhyMNE> <OtherPhyMNE>f pt other dr howard</OtherPhyMNE> < PrimaryPhyMNE>f pt prim care dr howard</PrimaryPhyMNE> <ReferringPhyMNE>f pt referring dr howard</ReferringPhyMNE> Assessment and Plan 66 y/o male with a history of multiple sclerosis, CKD stage III, HTN, HLD, and recurrent UTIs. Pt developed a fever and weakness throughout the day. He was febrile on arrival to the ER with a stable BP. Initial labs revealed an elevated lactic acid, leukocytosis, a (+) UA and acute on chronic RF. He denies SOB, CP, N/V. He has chronic dysuria due to a neurogenic bladder. Sepsis secondary to UTI, bacteremia--ongoing -Admitted to med/surg as stable on admission, but consider moving to tele if condition worsens due to sepsis -Urine culture positive for E. Coli, pansensitive -Blood culture positive for E. coli x 2, pansensitive -Infectious disease consulted, appreciate recs: Discontinue Zosyn. Rocephin 2 gm IV qd for now. Can later transition to PO Omnicef when doing better to complete total of 14 day course. -Dapto and Zosyn d/c'd -Continue Rocephin 2 gm IV qd. Day #4 of 14 abx. -Continue IVF with NSS at 100 cc/hr -Leukocytosis resolved. WBC 9.94 on 03/11, down from 13.6 -ESR, CRP and procalcitonin all elevated Metabolic encephalopathy--stable -Neurology consulted, appreciate recs: Check ammonia, B1, B12, phosphorus levels. Replace B12 if under 400. Check EEG. Consider brain MRI combo if not improving with antibiotics. -Ammonia and phosphorus WNL -B1 level pending -B12 low normal at 329. -Start B12 1000 mcg PO qd -EEG shows no seizure activity. Non-specific encephalopathy. -Head CT no acute findings MS--ongoing -Pt with severe weakness secondary to sepsis and bacteremia vs MS flare -Resume Copaxone 40 mg SC // -Continue amantadine 100 mg PO BID and gabapentin 400 mg PO BID -Consider treating for MS flare if weakness does not improve with improvement of sepsis CRUZITO on CKD stage III--improving -Baseline creatinine around 1.5 -Creatinine 2.7 on admission -IVF as above -Creatinine 2.0 on 03/11 -Continue to hold lisinopril and Dyazide for now -Renal ultrasound negative for hydronephrosis. Evidence of medical renal disease. Collapsed urinary bladder with catheter. Hypomagnesemia--ongoing -Magnesium 1.7 on 03/11 -Magnesium sulfate 1 gm IV x 1 -Continue magnesium oxide 400 mg PO BID HTN--stable -Hold lisinopril/Dyazide as above -Continue atenolol 50 mg PO qd DVT prophylaxis -Heparin 5000 units SC q12h Code Status -Level I, FULL RESUSCITATION STATUS
[2017-03-11] MEDS: CEFTRIAXONE SOD INJ 2,000 MG in DEXTROSE 5% 50ML 50 ML IV SCH (13:57)
[2017-03-11] MEDS: ACETAMINOPHEN 325 MG TAB PO PRN (20:01)
[2017-03-12] VITALS (8 sets, daily range): BP systolic 125–182; BP diastolic 82–91; PULSE 64–72; TEMP 36.6–36.8; O2SAT 94–97
[2017-03-12 06:28] LABS: HEMATOCRIT 39.7 % (42-52); MEAN CELL VOLUME 92.3 fL (80-100); MEAN CORPUSCULAR HEMOGLOBIN 30.9 pg (25-34); MEAN CORPUSCULAR HGB CONC 33.5 g/dl (32-36); MEAN PLATELET VOLUME 9.8 fL (7.4-10.4); PLATELET COUNT 106 K/uL (130-400); WHITE BLOOD COUNT 8.65 K/uL (4.8-10.8)
[2017-03-12 06:58] LABS: CALCIUM 9.3 mg/dl (8.5-10.1); CREATININE 1.4 mg/dl (0.60-1.40); MAGNESIUM 1.7 mg/dl (1.8-2.4); POTASSIUM 3.3 mmol/L (3.5-5.1)
[2017-03-12] MEDS: POTASSIUM CHLR 10 MEQ / WTR 10 MEQ in PREMIXED WATER 100 ML IV SCH ×2 (08:00→10:36)
[2017-03-12] MEDS ORDERED: MAGNESIUM SULFATE 1GM / D5W 1 GM in PREMIXED IN D5W 100 ML IV ONE (08:00)
[2017-03-12] MEDS: ACETAMINOPHEN 325 MG TAB PO PRN (08:03)
[2017-03-12] MEDS: OXYBUTYNIN CHLORIDE 5 MG TAB PO SCH ×2 (08:03→20:38)
[2017-03-12] MEDS: ASPIRIN 81 MG ECTAB PO SCH (08:03)
[2017-03-12] MEDS: BACLOFEN TAB 20 MG TAB PO SCH ×2 (08:04→20:38)
[2017-03-12] MEDS: MAGNESIUM OXIDE 400 MG TAB PO SCH ×2 (08:04→20:38)
[2017-03-12] MEDS: GABAPENTIN 400 MG CAP PO SCH ×2 (08:04→20:39)
[2017-03-12] MEDS: CYANOCOBALAMIN 500 MCG TAB (VIT B-12) PO SCH (08:05)
[2017-03-12] MEDS: AMANTADINE HCL 100 MG CAP PO SCH ×2 (08:05→20:39)
[2017-03-12] MEDS: HEPARIN SOD 5000 UNIT/0.5 ML CARP SQ SCH ×2 (08:08→20:41)
[2017-03-12] MEDS ORDERED: MAGNESIUM OXIDE 400 MG TAB PO SCH (09:00)
--- NOTE | 2017-03-12 09:02 | Hospitalist Progress Note ---
Hospitalist Progress Note Date of Service Mar 12, 2017. Subjective Pt evaluation today including: conversation w/ patient, physical exam, chart review, lab review, review of inpatient medication list Pain: 10/10 sharp neck pain PO Intake: Tolerating PO diet Voiding: walters catheter in place Patient complains of a 10/10 sharp pain in his neck radiating down to his shoulders. He states that Tylenol is usually effective for his pain. He also states that the heating pad is helping. Per nursing he has not had much appetite this morning. Walters catheter is in place. The patient denies fevers, chills, sweats, chest pain, palpitations, claudication, cough, wheezing, shortness of breath, nausea, vomiting, abdominal pain, dysuria, hematuria, urinary retention, paralysis, weakness, numbness and tingling. Additional Comments: See HPI for pertinent positives and negatives. All other systems reviewed and negative. Objective Vital Signs Date Time Temp Pulse Resp B/P (MAP) Pulse Ox O2 Delivery O2 Flow Rate FiO2 03/12/17 07:36 36.6 70 20 171/91 (117) 97 182/88 (119) 03/12/17 05:23 170/89 (116) 03/12/17 05:00 Room Air 03/12/17 04:23 36.8 71 28 176/91 (119) 96 Room Air 03/12/17 00:00 Room Air 03/11/17 23:56 36.6 64 16 152/85 (107) 96 Room Air 03/11/17 21:26 36.6 03/11/17 20:01 Room Air 03/11/17 19:36 37.7 75 20 166/86 (112) 96 Room Air 03/11/17 16:00 Room Air 03/11/17 15:33 36.5 70 20 160/93 (115) 99 Room Air 03/11/17 12:00 Room Air 03/11/17 11:04 37.4 66 18 147/74 (98) 99 Room Air Physical Exam Notes: General appearance: +Obese. Well-developed, well-nourished, no apparent distress Head: Normocephalic, atraumatic Eyes: +Exam limited, pt keeps closing his eyes. Normal inspection, PERRL ENT: +Dry oral mucosa. Normal ENT inspection, hearing grossly normal, pharynx normal Neck: +Spasm neck/shoulders. Supple, no JVD, trachea midline Respiratory/Chest: +Decreased breath sounds. Lungs clear to auscultation, normal breath sounds, no respiratory distress Cardiovascular: +Systolic murmur. Regular rate & rhythm, no gallop Abdomen/GI: Normal bowel sounds, non-tender, soft Extremities/Musculoskeletal: Normal inspection, no calf tenderness, no pedal edema Neurological/Psych: +Disoriented to time. Pt is oriented to his name and birthday, but told me the incorrect year. Alert, normal mood/affect, oriented x 1 Skin: Normal color, warm/dry, no rash Laboratory Results Last 24 Hours Test 03/12/17 05:41 White Blood Count 8.65 K/uL Red Blood Count 4.30 M/uL Hemoglobin 13.3 g/dL Hematocrit 39.7 % Mean Corpuscular Volume 92.3 fL Mean Corpuscular Hemoglobin 30.9 pg Mean Corpuscular Hemoglobin Concent 33.5 g/dl RDW Standard Deviation 44.0 fL RDW Coefficient of Variation 13.2 % Platelet Count 106 K/uL Mean Platelet Volume 9.8 fL Sodium Level 137 mmol/L Potassium Level 3.3 mmol/L Chloride Level 104 mmol/L Carbon Dioxide Level 23 mmol/L Anion Gap 10.0 mmol/L Blood Urea Nitrogen 32 mg/dl Creatinine 1.40 mg/dl Est Creatinine Clear Calc Drug Dose 53.3 ml/min Estimated GFR () 59.4 Estimated GFR (Non- 51.3 BUN/Creatinine Ratio 23.0 Random Glucose 118 mg/dl Calcium Level 9.3 mg/dl Magnesium Level 1.7 mg/dl Assessment and Plan 66 y/o male with a history of multiple sclerosis, CKD stage III, HTN, HLD, and recurrent UTIs. Pt developed a fever and weakness throughout the day. He was febrile on arrival to the ER with a stable BP. Initial labs revealed an elevated lactic acid, leukocytosis, a (+) UA and acute on chronic RF. He denies SOB, CP, N/V. He has chronic dysuria due to a neurogenic bladder. Sepsis secondary to UTI, bacteremia--improving -Admitted to med/surg as stable on admission, but consider moving to tele if condition worsens due to sepsis -Urine culture positive for E. Coli, pansensitive -Blood culture positive for E. coli x 2, pansensitive -Infectious disease consulted, appreciate recs: Discontinue Zosyn. Rocephin 2 gm IV qd for now. Can later transition to PO Omnicef when doing better to complete total of 14 day course. -Dapto and Zosyn d/c'd -Continue Rocephin 2 gm IV qd. Day #5 of 14 abx. -Continue IVF with NSS at 50 cc/hr -Leukocytosis resolved. WBC remains stable and WNL -ESR, CRP and procalcitonin all elevated -Redraw blood cultures, pending Metabolic encephalopathy--stable -Neurology consulted, appreciate recs: Check ammonia, B1, B12, phosphorus levels. Replace B12 if under 400. Check EEG. Consider brain MRI combo if not improving with antibiotics. -Ammonia and phosphorus WNL -B1 level pending -B12 low normal at 329. -Continue B12 1000 mcg PO qd -EEG shows no seizure activity. Non-specific encephalopathy. -Head CT no acute findings Neck pain -Continue warm compresses and heating pad -Cervical spine x-ray ordered MS--ongoing -Pt with severe weakness secondary to sepsis and bacteremia vs MS flare -Resume Copaxone 40 mg SC // -Continue amantadine 100 mg PO BID and gabapentin 400 mg PO BID -Consider treating for MS flare if weakness does not improve with improvement of sepsis CRUZITO on CKD stage III--resolved -Baseline creatinine around 1.5 -Creatinine 2.7 on admission -IVF as above -Creatinine 1.4 on 03/12 -Continue to hold lisinopril and Dyazide for now. May resume tomorrow if creatinine remains stable -Renal ultrasound negative for hydronephrosis. Evidence of medical renal disease. Collapsed urinary bladder with catheter. Hypomagnesemia--ongoing -Magnesium still at 1.7 on 03/12 -Magnesium sulfate 1 gm IV x 1 -Continue magnesium oxide 400 mg PO BID Hypokalemia -Potassium 3.3 on 03/12 -Potassium chloride 10 mEq KCl IV x 2 HTN--stable -Hold lisinopril/Dyazide as above -Continue atenolol 50 mg PO qd DVT prophylaxis -Heparin 5000 units SC q12h Code Status -Level I, FULL RESUSCITATION STATUS
--- NOTE | 2017-03-12 09:03 | Progress Note ---
Subjective Date of Service: Mar 12, 2017. Subjective Pt evaluation today including: conversation w/ patient, physical exam, chart review, lab review, review of studies, conversation w/ program evaluation consultant, review of inpatient medication list Totally wake up, awake and alert and orientated, conversational, no acute complaints, when asking about neck pain he reported "is okay" Problem List Medical Problems: (1) Anemia Status: Acute (2) Headache Status: Acute (3) Leukocytosis Status: Acute (4) Neck pain Status: Acute (5) Sepsis Status: Acute (6) Weakness Status: Acute Social History Problems: (1) Status post laminectomy Status: Acute Review of Systems Constitutional: + weakness, + fatigue, No fever, No chills, No sweats, No weight loss, No problem reported Eyes: No worsening of vision, No eye pain, No redness, No discharge, No diplopia ENT: No hearing loss, No unusual epistaxis, No nasal symptoms, No sore throat, No tinnitus, No dental problems, No trouble swallowing Respiratory: No cough, No sputum, No wheezing, No shortness of breath, No dyspnea on exertion, No dyspnea at rest, No hemoptysis Cardiac: No chest pain, No orthopnea, No PND, No edema, No claudication, No palpitations Abdomen: No pain, No nausea, No vomiting, No diarrhea, No constipation Musculoskeletal: + muscle pain, No joint pain, No swelling, No calf pain Male : No dysuria, No urinary frequency, No incontinence, No nocturia more than once/night, No slowing stream, No hematuria Neurologic: No memory loss, No paralysis, No weakness, No numbness/tingling, No vertigo, No balance problems Psychiatric: No depression symptoms, No anhedonism, No anxiety, No insomnia, No substance abuse Heme: No abnormal bleeding/bruising, No clotting problems, No swollen lymph nodes, No night sweats Endo: No fatigue, No excessive thirst, No excessive urination Skin: No rash, No itch, No new/changing skin lesions, No color change, No bleeding Objective Vital Signs Date Time Temp Pulse Resp B/P (MAP) Pulse Ox O2 Delivery O2 Flow Rate FiO2 03/12/17 07:36 36.6 70 20 171/91 (117) 97 182/88 (119) 03/12/17 05:23 170/89 (116) 03/12/17 05:00 Room Air 03/12/17 04:23 36.8 71 28 176/91 (119) 96 Room Air 03/12/17 00:00 Room Air 03/11/17 23:56 36.6 64 16 152/85 (107) 96 Room Air 03/11/17 21:26 36.6 03/11/17 20:01 Room Air 03/11/17 19:36 37.7 75 20 166/86 (112) 96 Room Air 03/11/17 16:00 Room Air 03/11/17 15:33 36.5 70 20 160/93 (115) 99 Room Air 03/11/17 12:00 Room Air 03/11/17 11:04 37.4 66 18 147/74 (98) 99 Room Air Physical Exam General Appearance: WD/WN, no apparent distress Eyes: normal inspection, PERRL, EOMI, sclerae normal ENT: normal ENT inspection, hearing grossly normal, pharynx normal Neck: supple, no adenopathy, thyroid normal, no JVD, no carotid bruits, trachea midline Respiratory/Chest: chest non-tender, lungs clear, normal breath sounds, no respiratory distress, no accessory muscle use Cardiovascular: regular rate, rhythm, no edema, no gallop, no JVD, no murmur Abdomen: normal bowel sounds, non tender, soft, no organomegaly, no pulsatile mass, + pertinent finding (Ho catheter in place, with clean urine) Extremities: normal range of motion, non-tender, normal inspection, no pedal edema, no calf tenderness, normal capillary refill, pelvis stable 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, no motor/sensory deficits, alert, normal mood/affect, oriented x 3 Skin: normal color, warm/dry, no rash Lymphatic: no adenopathy Laboratory Results Last 24 Hours Test 03/12/17 05:41 White Blood Count 8.65 K/uL Red Blood Count 4.30 M/uL Hemoglobin 13.3 g/dL Hematocrit 39.7 % Mean Corpuscular Volume 92.3 fL Mean Corpuscular Hemoglobin 30.9 pg Mean Corpuscular Hemoglobin Concent 33.5 g/dl RDW Standard Deviation 44.0 fL RDW Coefficient of Variation 13.2 % Platelet Count 106 K/uL Mean Platelet Volume 9.8 fL Sodium Level 137 mmol/L Potassium Level 3.3 mmol/L Chloride Level 104 mmol/L Carbon Dioxide Level 23 mmol/L Anion Gap 10.0 mmol/L Blood Urea Nitrogen 32 mg/dl Creatinine 1.40 mg/dl Est Creatinine Clear Calc Drug Dose 53.3 ml/min Estimated GFR () 59.4 Estimated GFR (Non- 51.3 BUN/Creatinine Ratio 23.0 Random Glucose 118 mg/dl Calcium Level 9.3 mg/dl Magnesium Level 1.7 mg/dl Assessment and Plan 66 y/o male admitted on 03/08/2017 with UTI and possible sepsis with a fever and weakness throughout the day. History of multiple sclerosis, CKD stage III, HTN, HLD, and recurrent UTIs. Per report, was febrile on arrival to the ER with a stable BP. Initial labs revealed an elevated lactic acid, leukocytosis, a (+) UA and acute on chronic RF. has chronic dysuria due to a neurogenic bladder. Sepsis and gram-negative bacteremia, secondary to Escherichia coli UTI, associated with significant leukocytosis: Continue Stable Metabolic encephalopathy with decreased mental status, today's significant better it is likely because of Escherichia coli UTI and sepsis, Thrombocytopenia possible from sepsis , or from the side effect of Zosyn, stable stable -Urine culture positive for E. Coli, sensitivities comes back, infectious disease change IV antibiotic to Rocephin -Blood culture showed Escherichia coli infection, she is consistent from urinary tract infection -Was on Dapto and Zosyn upon admission -Has been poor oral intake since admission , which has been gradually improved , decrease IVF with NSS, has been having good urine output -Leukocytosis significantly improved and resolved - UTI from straight caths, I did order to kidney ultrasound to rule out hydronephrosis or blockages in the collecting duct system which were unremarkable - Possible discontinue Ho catheter tomorrow and back to straight catheter himself if continue to doing better Metabolic encephalopathy with decreased mental status, totally resolved it is likely because of Escherichia coli UTI and sepsis, Because it is possible from multiple sclerosis fretting as well, neurology consulted, and see below, ammonia level, vitamin B12, folate acid was checked and unremarkable I ordered head CT is rule out acute disease Multiple sclerosis: ongoing/stable no sign of multiple sclerosis flare - Resume Copaxone -Continue amantadine 100 mg PO BID and gabapentin 400 mg PO BID Acute kidney injury on CKD stage III, minimal improving -Baseline creatinine around 1.5 -Creatinine 2.7 on admission, today is 1.4, which is in baseline -IVF as above - Continue improve -Continue to hold lisinopril and Dyazide for now Hypomagnesemia--ongoing -Magnesium 1.5 on 03/09 -Magnesium sulfate 1 gm IV x 1 -Start on magnesium oxide 400 mg PO BID HTN, is accelerated, possible because of medicine changes such as hold the lisinopril and possible not able to take by mouth when was confused Continue IV no pressure for now -Hold lisinopril/Dyazide as above -We'll back to atenolol 50 mg PO qd if continue stable and take by mouth medication DVT prophylaxis -Heparin 5000 units SC q8h Code Status -Level I, FULL RESUSCITATION STATUS Has discussed patient's condition with patient's family Continued [facility] stay due to: multiple IV medications needed Discharge planning: rehab hospital
[2017-03-12] MEDS: KETOROLAC TROMETHAMINE 15 MG/ML VIAL IV PRN ×2 (11:39→21:50)
[2017-03-12] MEDS: PANTOprazole INJ 40 MG in SYRINGE 0 ML IV SCH (11:39)
[2017-03-12] MEDS: METOPROLOL TARTRATE 1 MG/ML VIAL IV. SCH ×3 (11:41→23:30)
--- NOTE | 2017-03-12 13:11 | DIAGNOSTIC IMAGING REPORT ---
C-SPINE ROUTINE 4 OR 5 VIEWS CLINICAL HISTORY: Neck pain. COMPARISON STUDY: No previous studies for comparison. FINDINGS: C7 is partially obscured on this exam. There are postoperative findings consistent with a posterior decompression at the C3, C4, C5 and C6 levels. There is moderate disc space narrowing at C5-C6. Otherwise, mild multilevel degenerative changes are present. No fracture or suspicious lesion is identified. Prevertebral soft tissues are unremarkable. IMPRESSION: 1. No cervical spine fracture although C7 slightly obscured on this exam. 2. Moderate multilevel degenerative disc disease and facet arthrosis of the cervical spine. 3. Status post C3-C6 posterior decompression. Electronically signed by: Kwadwo Carroll M.D. 03/12/2017 1:09 PM Dictated Date/Time: 03/12/2017 1:08 PM
[2017-03-12] MEDS: CEFTRIAXONE SOD INJ 2,000 MG in DEXTROSE 5% 50ML 50 ML IV SCH (14:14)
[2017-03-12] MEDS: SODIUM CHLORIDE 0.9% 1000ML 1,000 ML IV SCH (20:28)
[2017-03-13] VITALS (9 sets, daily range): BP systolic 137–181; BP diastolic 76–90; PULSE 65–75; TEMP 36.4–37.9; O2SAT 95–99
[2017-03-13] MEDS: KETOROLAC TROMETHAMINE 15 MG/ML VIAL IV PRN ×2 (04:02→16:36)
[2017-03-13] MEDS: METOPROLOL TARTRATE 1 MG/ML VIAL IV. SCH ×3 (05:28→17:20)
[2017-03-13 05:52] LABS: HEMATOCRIT 35.6 % (42-52); MEAN CELL VOLUME 92.2 fL (80-100); MEAN CORPUSCULAR HEMOGLOBIN 31.9 pg (25-34); MEAN CORPUSCULAR HGB CONC 34.6 g/dl (32-36); MEAN PLATELET VOLUME 9.6 fL (7.4-10.4); PLATELET COUNT 106 K/uL (130-400); RED BLOOD COUNT 3.86 M/uL (4.7-6.1); WHITE BLOOD COUNT 9.39 K/uL (4.8-10.8)
[2017-03-13 06:24] LABS: BUN/CREATININE RATIO 25.2 (10-20); CALCIUM 8.7 mg/dl (8.5-10.1); CREATININE 1.3 mg/dl (0.60-1.40); MAGNESIUM 1.9 mg/dl (1.8-2.4); POTASSIUM 3.5 mmol/L (3.5-5.1)
[2017-03-13] MEDS: ASPIRIN 81 MG ECTAB PO SCH (07:50)
[2017-03-13] MEDS: OXYBUTYNIN CHLORIDE 5 MG TAB PO SCH ×2 (07:50→20:54)
[2017-03-13] MEDS: BACLOFEN TAB 20 MG TAB PO SCH ×2 (07:50→20:54)
[2017-03-13] MEDS: SODIUM CHLORIDE 0.9% 1000ML 1,000 ML IV SCH (07:50)
[2017-03-13] MEDS: MAGNESIUM OXIDE 400 MG TAB PO SCH ×2 (07:51→20:55)
[2017-03-13] MEDS: AMANTADINE HCL 100 MG CAP PO SCH ×2 (07:51→20:55)
[2017-03-13] MEDS: GABAPENTIN 400 MG CAP PO SCH ×2 (07:51→20:55)
[2017-03-13] MEDS: CYANOCOBALAMIN 500 MCG TAB (VIT B-12) PO SCH (07:51)
[2017-03-13] MEDS: HEPARIN SOD 5000 UNIT/0.5 ML CARP SQ SCH ×2 (07:53→20:56)
--- NOTE | 2017-03-13 09:03 | Hospitalist Progress Note ---
Hospitalist Progress Note Date of Service Mar 13, 2017. Subjective Pt evaluation today including: conversation w/ patient, physical exam, chart review, lab review, review of studies, review of inpatient medication list Pain: 5/10 sharp neck pain PO Intake: Tolerating PO diet Voiding: walters catheter in place Patient is looking much better today and reports feeling well. He states that his neck pain has improved and is currently a 5/10 sharp pain. He states the Toradol has been helping. He also complains of a mild, 2/10 dull pain in his lower abdomen. The patient is tolerating a PO diet well. Walters catheter is in place. The patient denies fevers, chills, sweats, chest pain, palpitations, claudication, cough, wheezing, shortness of breath, nausea, vomiting, dysuria, hematuria, urinary retention, paralysis, weakness, numbness and tingling. Additional Comments: See HPI for pertinent positives and negatives. All other systems reviewed and negative. Objective Vital Signs Date Time Temp Pulse Resp B/P (MAP) Pulse Ox O2 Delivery O2 Flow Rate FiO2 03/13/17 05:28 68 157/90 03/13/17 04:06 36.8 68 21 157/90 (112) 98 Room Air 03/13/17 04:00 95 Room Air 03/13/17 00:03 37.9 74 21 139/82 (101) 95 Room Air 03/12/17 23:59 95 Room Air 03/12/17 23:30 72 139/82 03/12/17 20:00 95 Room Air 03/12/17 19:46 36.7 68 20 168/82 (110) 95 Room Air 03/12/17 17:29 64 03/12/17 16:00 Room Air 03/12/17 15:49 36.6 64 18 125/82 (96) 94 Room Air 03/12/17 12:00 Room Air 03/12/17 11:41 70 03/12/17 11:32 36.8 72 20 148/82 (104) 95 Room Air Physical Exam Notes: General appearance: +Obese. Overall looking much better today compared to last few days. Well-developed, well-nourished, no apparent distress Head: Normocephalic, atraumatic Eyes: Normal inspection, PERRL, EOMI ENT: Normal ENT inspection, hearing grossly normal, pharynx normal Neck: +Spasm neck/shoulders. Supple, no JVD, trachea midline Respiratory/Chest: +Decreased breath sounds. Lungs clear to auscultation, normal breath sounds, no respiratory distress Cardiovascular: +Systolic murmur. Regular rate & rhythm, no gallop Abdomen/GI: +Suprapubic area and LLQ mildly TTP. Normal bowel sounds, soft Extremities/Musculoskeletal: Normal inspection, no calf tenderness, no pedal edema Neurological/Psych: +Pt much more alert and oriented today. Completely oriented. Alert, normal mood/affect, oriented x 3 Skin: Normal color, warm/dry, no rash Laboratory Results Last 24 Hours Test 03/13/17 05:23 White Blood Count 9.39 K/uL Red Blood Count 3.86 M/uL Hemoglobin 12.3 g/dL Hematocrit 35.6 % Mean Corpuscular Volume 92.2 fL Mean Corpuscular Hemoglobin 31.9 pg Mean Corpuscular Hemoglobin Concent 34.6 g/dl RDW Standard Deviation 44.3 fL RDW Coefficient of Variation 13.2 % Platelet Count 106 K/uL Mean Platelet Volume 9.6 fL Sodium Level 141 mmol/L Potassium Level 3.5 mmol/L Chloride Level 108 mmol/L Carbon Dioxide Level 25 mmol/L Anion Gap 8.0 mmol/L Blood Urea Nitrogen 33 mg/dl Creatinine 1.30 mg/dl Est Creatinine Clear Calc Drug Dose 57.8 ml/min Estimated GFR () 65.0 Estimated GFR (Non- 56.1 BUN/Creatinine Ratio 25.2 Random Glucose 103 mg/dl Calcium Level 8.7 mg/dl Magnesium Level 1.9 mg/dl Diagnostic Results Reviewed the following studies and agree with interpretation as follows: Patient Name: REYNALDO ROSSI Unit Number: [id number] Dictated: 03/12/171307 Transcribed: 03/12/171307 ТАТЬЯНА Printed Date/Time: [~ rep prt dt]/[~ rep prt tm] [~ rep ct labl] - [~ rep ct ivnm] [facility] [place] [address] Dictated: 03/12/171307 Transcribed: 03/12/171307 ТАТЬЯНА Printed Date/Time: [~ rep prt dt]/[~ rep prt tm] [~ rep ct labl] - [~ rep ct ivnm] Patient: REYNALDO ROSSI Address1: [address] [place] [address] Rec: [id number] Address2: Acct ID: [id number] [facility] Zip: [place] [address] Date: 1950 Sex: M Room/Bed: [facility] Ref Phy: Hema Herrera M.D. SC: C.2E Att Phy: Luis Patel MD, PhD Report #: [id number] Patricia Phy: Hema Herrera M.D. Test: CS Admit Phy: Julio Khoury M.D. Boatwright: RICHIE Interpreting Phy: Kwadwo Carroll MD Diagnosis: UTI Ordering Phy: Luci Browning PA-C Service Date: 03/12/17 Admit Date: 03/08/1707/18/17 MNE: [id number] CONF: DICTATED BY: Kwadwo Carroll MD]] CC: Luci Browning ., Luis Stevens MD, PhD Hema Herrera M.D. Endcc: [~ rep ct add3]] C-SPINE ROUTINE 4 OR 5 VIEWS CLINICAL HISTORY: Neck pain. COMPARISON STUDY: No previous studies for comparison. FINDINGS: C7 is partially obscured on this exam. There are postoperative findings consistent with a posterior decompression at the C3, C4, C5 and C6 levels. There is moderate disc space narrowing at C5-C6. Otherwise, mild multilevel degenerative changes are present. No fracture or suspicious lesion is identified. Prevertebral soft tissues are unremarkable. IMPRESSION: 1. No cervical spine fracture although C7 slightly obscured on this exam. 2. Moderate multilevel degenerative disc disease and facet arthrosis of the cervical spine. 3. Status post C3-C6 posterior decompression. Electronically signed by: Kwadwo Carroll M.D. 03/12/2017 1:09 PM Dictated Date/Time: 03/12/2017 1:08 PM The status of this report is Signed. Draft = Not yet reviewed or approved by Radiologist. Signed = Reviewed and approved by Radiologist. <AttendingPhy>Luis Patel MD, PhD</AttendingPhy> <FamilyPhy>Hema Herrera M.D.</FamilyPhy> <PrimaryPhy>Hema Herrera M.D.</PrimaryPhy> <UnitNumber> [id number]</UnitNumber> <VisitNumber>[id number]</VisitNumber> <PatientName> REYNALDO ROSSI</PatientName> <DateOfBirth>1950</DateOfBirth> <Location> C.2E</Location> <ServiceDate>03/08/17</ServiceDate> <MNE>ESINDI</MNE> < OrderingPhy>Luci Browning PA-C</OrderingPhy> <OrderingPhyMNE>f rep ord dr howard< /OrderingPhyMNE> <DictatingPhyMNE>f rep dict dr howard</DictatingPhyMNE> <CCListMNE >f rep ct mne</CCListMNE> <AdmittingPhyMNE>f pt admit dr howard</AdmittingPhyMNE> < AttendingPhyMNE>f pt attend dr howard</AttendingPhyMNE> <ConsultingPhyMNE>f pt consult dr howard</ConsultingPhyMNE> <FamilyPhyMNE>f pt fam dr howard</FamilyPhyMNE> <OtherPhyMNE>f pt other dr howard</OtherPhyMNE> < PrimaryPhyMNE>f pt prim care dr howard</PrimaryPhyMNE> <ReferringPhyMNE>f pt referring dr howard</ReferringPhyMNE> Assessment and Plan 66 y/o male with a history of multiple sclerosis, CKD stage III, HTN, HLD, and recurrent UTIs. Pt developed a fever and weakness throughout the day. He was febrile on arrival to the ER with a stable BP. Initial labs revealed an elevated lactic acid, leukocytosis, a (+) UA and acute on chronic RF. He denies SOB, CP, N/V. He has chronic dysuria due to a neurogenic bladder. Sepsis secondary to UTI, bacteremia--improving -Admitted to med/surg as stable on admission. Transferred to [facility] on 03/10 due to worsening mental status. No acute events overnight. Pt in sinus rhythm with PVCs, HR 60s-70s -Urine culture positive for E. Coli, pansensitive -Blood culture positive for E. coli x 2, pansensitive -Infectious disease consulted, appreciate recs: Discontinue Zosyn. Rocephin 2 gm IV qd for now. Can later transition to PO Omnicef when doing better to complete total of 14 day course. -Dapto and Zosyn d/c'd -Continue Rocephin 2 gm IV qd. Day #6 of 14 abx. -Continue IVF with NSS at 50 cc/hr -Leukocytosis resolved. WBC remains stable and WNL -ESR, CRP and procalcitonin all elevated -Redraw blood cultures, pending -Pt did have fever of 37.9C last night, but WBC remains normal and condition has greatly improved today Metabolic encephalopathy--improving. Alert and oriented x 3 today -Neurology consulted, appreciate recs: Check ammonia, B1, B12, phosphorus levels. Replace B12 if under 400. Check EEG. Consider brain MRI combo if not improving with antibiotics. -Ammonia and phosphorus WNL -B1 level pending -B12 low normal at 329. -Continue B12 1000 mcg PO qd -EEG shows no seizure activity. Non-specific encephalopathy. -Head CT no acute findings Neck pain--improving -Continue warm compresses and heating pad -Cervical spine x-ray shows no fractures. Moderate degenerate disc disease -Continue Toradol 15 mg IV q6h prn pain MS--ongoing -Pt with severe weakness secondary to sepsis and bacteremia vs MS flare -Resume Copaxone 40 mg SC // -Continue amantadine 100 mg PO BID and gabapentin 400 mg PO BID -Consider treating for MS flare if weakness does not improve with improvement of sepsis CRUZITO on CKD stage III--resolved -Baseline creatinine around 1.5 -Creatinine 2.7 on admission -IVF as above -Creatinine remains stable and around baseline -Continue to hold lisinopril and Dyazide for now. May resume tomorrow if creatinine remains stable -Renal ultrasound negative for hydronephrosis. Evidence of medical renal disease. Collapsed urinary bladder with catheter. Hypomagnesemia--improving -Magnesium 1.9 on 03/13 -Continue magnesium oxide 400 mg PO BID Hypokalemia--resolved -Potassium 3.5 on 03/13 HTN--stable -Hold lisinopril/Dyazide as above -Continue atenolol 50 mg PO qd DVT prophylaxis -Heparin 5000 units SC q12h Code Status -Level I, FULL RESUSCITATION STATUS Dispo -Pt from home with outpatient physical therapy due to MS -PT/OT evaluations pending. Pt had been too altered/lethargic to participate previously. Called PT to see patient today for evaluation as he has perked up and should be able to participate. -Case management following
[2017-03-13] MEDS: PANTOprazole INJ 40 MG in SYRINGE 0 ML IV SCH (11:40)
[2017-03-13] MEDS: CEPHALEXIN MONOHYDRATE 500 MG CAP PO SCH ×3 (13:24→20:54)
[2017-03-14] MEDS: METOPROLOL TARTRATE 1 MG/ML VIAL IV. SCH ×2 (00:35→06:37)
[2017-03-14 03:14] VITALS: BP 162/86; PULSE 89
[2017-03-14 06:36] VITALS: BP 158/78; PULSE 83
[2017-03-14 07:06] LABS: HEMATOCRIT 41.3 % (42-52); MEAN CELL VOLUME 94.5 fL (80-100); MEAN CORPUSCULAR HEMOGLOBIN 31.6 pg (25-34); MEAN CORPUSCULAR HGB CONC 33.4 g/dl (32-36); MEAN PLATELET VOLUME 9.8 fL (7.4-10.4); PLATELET COUNT 152 K/uL (130-400); RED BLOOD COUNT 4.37 M/uL (4.7-6.1); WHITE BLOOD COUNT 10.43 K/uL (4.8-10.8)
[2017-03-14 07:08] VITALS: BP 163/80; PULSE 79; TEMP 37.4; O2SAT 98
[2017-03-14 07:40] LABS: BUN/CREATININE RATIO 19.4 (10-20); CALCIUM 8.9 mg/dl (8.5-10.1); CREATININE 1.5 mg/dl (0.60-1.40); MAGNESIUM 1.9 mg/dl (1.8-2.4); POTASSIUM 3.6 mmol/L (3.5-5.1)
[2017-03-14] MEDS: GLATIRAMER ACETATE 40 MG/ML SYR SQ SCH ×2 (09:00→14:37)
[2017-03-14] MEDS: ASPIRIN 81 MG ECTAB PO SCH (09:36)
[2017-03-14] MEDS: GABAPENTIN 400 MG CAP PO SCH ×2 (09:36→20:58)
[2017-03-14] MEDS: CYANOCOBALAMIN 500 MCG TAB (VIT B-12) PO SCH (09:36)
[2017-03-14] MEDS: MAGNESIUM OXIDE 400 MG TAB PO SCH ×2 (09:37→20:56)
[2017-03-14] MEDS: AMANTADINE HCL 100 MG CAP PO SCH ×2 (09:37→20:56)
[2017-03-14] MEDS: OXYBUTYNIN CHLORIDE 5 MG TAB PO SCH ×2 (09:38→20:57)
[2017-03-14] MEDS: CEPHALEXIN MONOHYDRATE 500 MG CAP PO SCH ×4 (09:38→20:57)
[2017-03-14] MEDS: BACLOFEN TAB 20 MG TAB PO SCH ×2 (09:38→20:58)
[2017-03-14] MEDS: HEPARIN SOD 5000 UNIT/0.5 ML CARP SQ SCH ×2 (09:41→20:49)
[2017-03-14 12:06] VITALS: BP 122/78; PULSE 80
--- NOTE | 2017-03-14 14:16 | Progress Note ---
Subjective Date of Service: Mar 14, 2017. Subjective Pt evaluation today including: conversation w/ patient, physical exam, lab review, review of inpatient medication list Pain: no pain PO Intake: adequate Voiding: requires PRN straight cath patient feeling "alright" said that yesterday was a slightly better day he just feels "off" with weakness and balance, definitely better than time of admission Problem List Medical Problems: (1) Anemia Status: Acute (2) Headache Status: Acute (3) Leukocytosis Status: Acute (4) Neck pain Status: Acute (5) Sepsis Status: Acute (6) Weakness Status: Acute Social History Problems: (1) Status post laminectomy Status: Acute Review of Systems Constitutional: + weakness, + fatigue Male : + dysuria, + problem reported (requires straight cath) Neurologic: + weakness, + balance problems All Other Systems: Reviewed and Negative Medications Current Inpatient Medications Medications (Trade) Dose Ordered Sig/Jossie Route Start Time Stop Time Status Last Admin Dose Admin Amantadine HCl (Symmetrel Cap) 100 mg BID PO 03/09/17 09:00 04/08/17 08:59 03/14/17 09:37 100 MG Aspirin (Ecotrin Tab) 81 mg DAILY PO 03/09/17 09:00 04/08/17 08:59 03/14/17 09:36 81 MG Baclofen (Lioresal Tab) 20 mg BID PO 03/09/17 09:00 04/08/17 08:59 03/14/17 09:38 20 MG Docusate Sodium (coLACE CAP) 100 mg DAILY PRN PO 03/08/17 22:30 04/07/17 22:29 03/13/17 11:50 100 MG Gabapentin (Neurontin Cap) 400 mg BID PO 03/09/17 09:00 04/08/17 08:59 03/14/17 09:36 400 MG Oxybutynin Chloride (Ditropan Tab) 5 mg BID PO 03/09/17 09:00 04/08/17 08:59 03/14/17 09:38 5 MG Acetaminophen (Tylenol Tab) 650 mg Q4H PRN PO 03/08/17 22:45 04/07/17 22:44 03/12/17 08:03 650 MG Al Hydrox/Mg Hydrox/Simethicone (Maalox Max Susp) 15 ml Q4H PRN PO 03/08/17 22:45 04/07/17 22:44 Magnesium Hydroxide (Milk Of Magnesia Susp) 30 ml Q6H PRN PO 03/08/17 22:45 04/07/17 22:44 03/13/17 11:40 30 ML Polyethylene (Miralax Powder Packet) 17 gm DAILY PRN PO 03/08/17 22:45 04/07/17 22:44 03/13/17 11:40 17 GM Ondansetron HCl (Zofran Inj) 4 mg Q6H PRN IV 03/08/17 22:45 04/07/17 22:44 Magnesium Oxide (Mag-Ox Tab) 400 mg BID PO 03/09/17 09:00 04/08/17 08:59 03/14/17 09:37 400 MG Glatiramer Acetate (Copaxone) 40 mg MoWeFr@0900 SQ 03/11/17 09:00 04/10/17 08:59 03/11/17 09:25 40 MG Heparin Sodium (Porcine) (Heparin Sq 5000 Unit/0.5ml) 5,000 unit Q12 SQ 03/10/17 21:00 04/08/17 05:59 03/14/17 09:41 5,000 UNIT Cyanocobalamin (Vitamin B-12 Tab) 1,000 mcg QAM PO 03/12/17 09:00 04/11/17 08:59 03/14/17 09:36 1,000 MCG Ketorolac Tromethamine (Toradol Inj) 15 mg Q6H PRN IV 03/12/17 10:15 03/17/17 10:14 03/13/17 16:36 15 MG Cephalexin Monohydrate (Keflex Cap) 500 mg QID PO 03/13/17 13:00 03/23/17 12:59 03/14/17 13:00 500 MG Objective Vital Signs Date Time Temp Pulse Resp B/P (MAP) Pulse Ox O2 Delivery O2 Flow Rate FiO2 03/14/17 12:06 80 122/78 (93) 03/14/17 08:10 Room Air 03/14/17 07:08 37.4 79 20 163/80 (107) 98 Room Air 03/14/17 06:37 83 158/78 03/14/17 06:36 83 158/78 (104) 03/14/17 03:14 89 162/86 (111) 03/14/17 00:35 71 181/76 03/13/17 23:59 Room Air 03/13/17 23:40 36.4 71 19 181/76 (111) 98 Room Air 03/13/17 17:44 37.0 71 20 143/80 (101) 97 Room Air 03/13/17 17:32 36.4 75 20 99 03/13/17 17:20 75 03/13/17 16:00 Room Air 03/13/17 15:15 36.4 71 20 161/86 (111) 99 Room Air Physical Exam General Appearance: WD/WN, no apparent distress Eyes: normal inspection, EOMI, sclerae normal ENT: normal ENT inspection, hearing grossly normal, pharynx normal Neck: supple, no adenopathy, no JVD, trachea midline Respiratory/Chest: chest non-tender, lungs clear, normal breath sounds, no respiratory distress, no accessory muscle use Cardiovascular: regular rate, rhythm, no edema, no gallop, no JVD, no murmur Abdomen: normal bowel sounds, non tender, soft, no organomegaly Extremities: normal range of motion, non-tender, normal inspection, no pedal edema, no calf tenderness, pelvis stable 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, alert, oriented x 3, + abnormal gait, + motor weakness (generalized), + depressed affect Skin: normal color, warm/dry, no rash Laboratory Results Last 24 Hours Test 03/14/17 06:18 White Blood Count 10.43 K/uL Red Blood Count 4.37 M/uL Hemoglobin 13.8 g/dL Hematocrit 41.3 % Mean Corpuscular Volume 94.5 fL Mean Corpuscular Hemoglobin 31.6 pg Mean Corpuscular Hemoglobin Concent 33.4 g/dl RDW Standard Deviation 46.3 fL RDW Coefficient of Variation 13.3 % Platelet Count 152 K/uL Mean Platelet Volume 9.8 fL Sodium Level 138 mmol/L Potassium Level 3.6 mmol/L Chloride Level 103 mmol/L Carbon Dioxide Level 27 mmol/L Anion Gap 8.0 mmol/L Blood Urea Nitrogen 29 mg/dl Creatinine 1.50 mg/dl Est Creatinine Clear Calc Drug Dose 50.1 ml/min Estimated GFR () 54.7 Estimated GFR (Non- 47.2 BUN/Creatinine Ratio 19.4 Random Glucose 143 mg/dl Calcium Level 8.9 mg/dl Magnesium Level 1.9 mg/dl Assessment and Plan 66 y/o male with a history of multiple sclerosis, CKD stage III, HTN, HLD, and recurrent UTIs. Pt developed a fever and weakness throughout the day. He was febrile on arrival to the ER with a stable BP. Initial labs revealed an elevated lactic acid, leukocytosis, a (+) UA and acute on chronic RF. He denies SOB, CP, N/V. He has chronic dysuria due to a neurogenic bladder. Sepsis secondary to UTI, bacteremia-- E coli in blood cultures and urine cultures, martinez sensitive treated with broad spectrum initially, tapered to Rocephin IV and now today transitioned to Keflex QID needs to complete 14 days today, so 7 more days after today sepsis resolved, afebrile, WBC normal repeat blood cultures negative Metabolic encephalopathy-- resolved. Alert and oriented x 3 today -Ammonia and phosphorus WNL -B1 level still pending, checked today -B12 low normal at 329. -Continue B12 1000 mcg PO qd -EEG shows no seizure activity. Non-specific encephalopathy. -Head CT no acute findings Neck pain--improving -Continue warm compresses and heating pad -Cervical spine x-ray shows no fractures. Moderate degenerate disc disease -Continue Toradol 15 mg IV q6h prn pain MS--ongoing -Pt with severe weakness secondary to sepsis and bacteremia vs MS flare -Resume Copaxone 40 mg SC // -Continue amantadine 100 mg PO BID and gabapentin 400 mg PO BID -Consider treating for MS flare if weakness does not improve with improvement of sepsis, however, he is slowly improving CRUZITO on CKD stage III--resolved -Baseline creatinine around 1.5 -Creatinine 2.7 on admission - treated with IV fluids, cause was pre-renal - resume Lisinopril Hypomagnesemia-- continue Mag Oxide 400mg BID Hypokalemia--resolved HTN--stable -resume lisinopril/Dyazide -Continue atenolol 50 mg PO qd DVT prophylaxis -Heparin 5000 units SC q12h Code Status -Level I, FULL RESUSCITATION STATUS Dispo -applying for insurance auth for [facility] Continued [facility] [place] stay due to: multiple IV medications needed Discharge planning: rehab hospital
--- NOTE | 2017-03-14 15:01 | Infectious Disease Progress Nt ---
Progress Note Date of Service Mar 14, 2017. Subjective Pt evaluation today including: conversation w/ patient, physical exam, chart review, lab review, review of studies, review of inpatient medication list Patient is feeling slightly improved today. WBC count was 10.43. Creatinine tday wsa 1.50. Initial blood cultures and urine culture grew E. Coli. Repeat cultures have been negative. Cervical spine X-Ray showed C3-C6 decompression, and multilevel DDD of the cervical spine. All Other Systems: Reviewed and Negative Medications Current Inpatient Medications Medications (Trade) Dose Ordered Sig/Jossie Route Start Time Stop Time Status Last Admin Dose Admin Amantadine HCl (Symmetrel Cap) 100 mg BID PO 03/09/17 09:00 04/08/17 08:59 03/14/17 09:37 100 MG Aspirin (Ecotrin Tab) 81 mg DAILY PO 03/09/17 09:00 04/08/17 08:59 03/14/17 09:36 81 MG Baclofen (Lioresal Tab) 20 mg BID PO 03/09/17 09:00 04/08/17 08:59 03/14/17 09:38 20 MG Docusate Sodium (coLACE CAP) 100 mg DAILY PRN PO 03/08/17 22:30 04/07/17 22:29 03/13/17 11:50 100 MG Gabapentin (Neurontin Cap) 400 mg BID PO 03/09/17 09:00 04/08/17 08:59 03/14/17 09:36 400 MG Oxybutynin Chloride (Ditropan Tab) 5 mg BID PO 03/09/17 09:00 04/08/17 08:59 03/14/17 09:38 5 MG Acetaminophen (Tylenol Tab) 650 mg Q4H PRN PO 03/08/17 22:45 04/07/17 22:44 03/12/17 08:03 650 MG Al Hydrox/Mg Hydrox/Simethicone (Maalox Max Susp) 15 ml Q4H PRN PO 03/08/17 22:45 04/07/17 22:44 Magnesium Hydroxide (Milk Of Magnesia Susp) 30 ml Q6H PRN PO 03/08/17 22:45 04/07/17 22:44 03/13/17 11:40 30 ML Polyethylene (Miralax Powder Packet) 17 gm DAILY PRN PO 03/08/17 22:45 04/07/17 22:44 03/13/17 11:40 17 GM Ondansetron HCl (Zofran Inj) 4 mg Q6H PRN IV 03/08/17 22:45 04/07/17 22:44 Magnesium Oxide (Mag-Ox Tab) 400 mg BID PO 03/09/17 09:00 04/08/17 08:59 03/14/17 09:37 400 MG Glatiramer Acetate (Copaxone) 40 mg MoWeFr@0900 SQ 03/11/17 09:00 04/10/17 08:59 03/14/17 14:37 40 MG Heparin Sodium (Porcine) (Heparin Sq 5000 Unit/0.5ml) 5,000 unit Q12 SQ 03/10/17 21:00 04/08/17 05:59 03/14/17 09:41 5,000 UNIT Cyanocobalamin (Vitamin B-12 Tab) 1,000 mcg QAM PO 03/12/17 09:00 04/11/17 08:59 03/14/17 09:36 1,000 MCG Ketorolac Tromethamine (Toradol Inj) 15 mg Q6H PRN IV 03/12/17 10:15 03/17/17 10:14 03/13/17 16:36 15 MG Cephalexin Monohydrate (Keflex Cap) 500 mg QID PO 03/13/17 13:00 03/23/17 12:59 03/14/17 13:00 500 MG Objective Vital Signs Date Time Temp Pulse Resp B/P (MAP) Pulse Ox O2 Delivery O2 Flow Rate FiO2 03/14/17 12:06 80 122/78 (93) 03/14/17 08:10 Room Air 03/14/17 07:08 37.4 79 20 163/80 (107) 98 Room Air 03/14/17 06:37 83 158/78 03/14/17 06:36 83 158/78 (104) 03/14/17 03:14 89 162/86 (111) 03/14/17 00:35 71 181/76 03/13/17 23:59 Room Air 03/13/17 23:40 36.4 71 19 181/76 (111) 98 Room Air 03/13/17 17:44 37.0 71 20 143/80 (101) 97 Room Air 03/13/17 17:32 36.4 75 20 99 03/13/17 17:20 75 03/13/17 16:00 Room Air 03/13/17 15:15 36.4 71 20 161/86 (111) 99 Room Air Physical Exam General Appearance: WD/WN, no apparent distress Eyes: normal inspection, sclerae normal ENT: hearing grossly normal Neck: supple, trachea midline Respiratory/Chest: chest non-tender, no respiratory distress, no accessory muscle use, + decreased breath sounds (right base) Cardiovascular: regular rate, rhythm Abdomen: normal bowel sounds, non tender, soft, + distended (slightly) Neurologic/Psychiatric: alert, + pertinent finding (fatigued) Skin: normal color, warm/dry, no rash Laboratory Results Item Value Date Time Blood Culture - Preliminary Resulted 03/12/17 0939 Blood NO GROWTH TO DATE. Blood Culture - Preliminary Resulted 03/12/17 0932 Blood NO GROWTH TO DATE. Urine Culture - Final Complete 03/08/172029 Urine,Catheterized Escherichia Coli Blood Culture - Final Complete 03/08/172013 Blood Escherichia Coli Blood Culture - Final Complete 03/08/172004 Blood Escherichia Coli C-SPINE ROUTINE 4 OR 5 VIEWS CLINICAL HISTORY: Neck pain. COMPARISON STUDY: No previous studies for comparison. FINDINGS: C7 is partially obscured on this exam. There are postoperative findings consistent with a posterior decompression at the C3, C4, C5 and C6 levels. There is moderate disc space narrowing at C5-C6. Otherwise, mild multilevel degenerative changes are present. No fracture or suspicious lesion is identified. Prevertebral soft tissues are unremarkable. IMPRESSION: 1. No cervical spine fracture although C7 slightly obscured on this exam. 2. Moderate multilevel degenerative disc disease and facet arthrosis of the cervical spine. 3. Status post C3-C6 posterior decompression. Last 24 Hours Test 03/14/17 06:18 White Blood Count 10.43 K/uL Red Blood Count 4.37 M/uL Hemoglobin 13.8 g/dL Hematocrit 41.3 % Mean Corpuscular Volume 94.5 fL Mean Corpuscular Hemoglobin 31.6 pg Mean Corpuscular Hemoglobin Concent 33.4 g/dl RDW Standard Deviation 46.3 fL RDW Coefficient of Variation 13.3 % Platelet Count 152 K/uL Mean Platelet Volume 9.8 fL Sodium Level 138 mmol/L Potassium Level 3.6 mmol/L Chloride Level 103 mmol/L Carbon Dioxide Level 27 mmol/L Anion Gap 8.0 mmol/L Blood Urea Nitrogen 29 mg/dl Creatinine 1.50 mg/dl Est Creatinine Clear Calc Drug Dose 50.1 ml/min Estimated GFR () 54.7 Estimated GFR (Non- 47.2 BUN/Creatinine Ratio 19.4 Random Glucose 143 mg/dl Calcium Level 8.9 mg/dl Magnesium Level 1.9 mg/dl Assessment and Plan Patient with recurrent UTI's in the setting of MS and self-catheterization. He was transitioned to IV Ceftriaxone until improvement was seen. Currently the patient is on PO Keflex 500 mg QID. Recommend completing 14 days of antibiotics total. We will follow. PROVIDER ADDENDUM: patient reviewed with Mrs. Car. agree with above assessment.
[2017-03-14 15:55] VITALS: BP 160/95; PULSE 73; TEMP 36.5; O2SAT 97
[2017-03-14 23:29] VITALS: BP 148/86; PULSE 99; TEMP 37.5; O2SAT 93
[2017-03-15 07:43] VITALS: BP 140/78; PULSE 100; TEMP 37.7; O2SAT 94
[2017-03-15 07:43] LABS: HEMATOCRIT 44.5 % (42-52); MEAN CELL VOLUME 94.1 fL (80-100); MEAN CORPUSCULAR HEMOGLOBIN 30.2 pg (25-34); MEAN CORPUSCULAR HGB CONC 32.1 g/dl (32-36); MEAN PLATELET VOLUME 9.3 fL (7.4-10.4); PLATELET COUNT 217 K/uL (130-400); RED BLOOD COUNT 4.73 M/uL (4.7-6.1); WHITE BLOOD COUNT 12.06 K/uL (4.8-10.8)
[2017-03-15] MEDS: GABAPENTIN 400 MG CAP PO SCH ×2 (08:02→21:22)
[2017-03-15] MEDS: AMANTADINE HCL 100 MG CAP PO SCH ×2 (08:02→21:22)
[2017-03-15] MEDS: ASPIRIN 81 MG ECTAB PO SCH (08:02)
[2017-03-15] MEDS: MAGNESIUM OXIDE 400 MG TAB PO SCH ×2 (08:02→21:23)
[2017-03-15] MEDS: BACLOFEN TAB 20 MG TAB PO SCH ×2 (08:02→21:22)
[2017-03-15] MEDS: OXYBUTYNIN CHLORIDE 5 MG TAB PO SCH ×2 (08:02→21:23)
[2017-03-15] MEDS: CEPHALEXIN MONOHYDRATE 500 MG CAP PO SCH ×3 (08:02→16:32)
[2017-03-15] MEDS: CYANOCOBALAMIN 500 MCG TAB (VIT B-12) PO SCH (08:03)
[2017-03-15] MEDS: HEPARIN SOD 5000 UNIT/0.5 ML CARP SQ SCH ×2 (08:08→21:24)
[2017-03-15] MEDS: TRIAMTERENE/HCTZ 37.5/25MG CAP PO SCH (11:07)
[2017-03-15] MEDS: LISINOPRIL 10 MG TAB PO SCH (11:07)
[2017-03-15 13:47] LABS: HEMATOCRIT 43.4 % (42-52); MEAN CELL VOLUME 95.6 fL (80-100); MEAN CORPUSCULAR HEMOGLOBIN 32.2 pg (25-34); MEAN CORPUSCULAR HGB CONC 33.6 g/dl (32-36); MEAN PLATELET VOLUME 9.3 fL (7.4-10.4); PLATELET COUNT 222 K/uL (130-400); RED BLOOD COUNT 4.54 M/uL (4.7-6.1); WHITE BLOOD COUNT 12.52 K/uL (4.8-10.8)
[2017-03-15 14:11] LABS: BUN/CREATININE RATIO 16.1 (10-20); CALCIUM 9.4 mg/dl (8.5-10.1); CREATININE 1.9 mg/dl (0.60-1.40); POTASSIUM 4.6 mmol/L (3.5-5.1)
[2017-03-15 14:44] LABS: BASO % 0.6 %; BASO ABS # 0.07 K/uL (0-0.2); COMPLETE YES; EOS % 1.4 %; IG% 6.2 %; LYMPH % 10.9 %; LYMPH ABS # 1.37 K/uL (1.2-3.4); MONO % 12.1 %; NEUT % 68.8 %
[2017-03-15 15:31] VITALS: TEMP 36.8
[2017-03-15 15:46] VITALS: BP 132/80; PULSE 77; TEMP 36.5; O2SAT 96
--- NOTE | 2017-03-15 16:51 | Progress Note ---
Subjective Date of Service: Mar 15, 2017. Subjective Pt evaluation today including: conversation w/ patient, conversation w/ family ( at the bedside), physical exam, lab review, review of inpatient medication list Pain: no pain PO Intake: adequate Voiding: requires PRN straight cath patient with low grade temperature and WBC went up to 12 this AM ironically, patient says he feels better however, though he was worse, more tired and less talkative discussed the low grade temperature, rise in WBC unclear as to why since cultures showed the Keflex should be adequate Problem List Medical Problems: (1) Anemia Status: Acute (2) Headache Status: Acute (3) Leukocytosis Status: Acute (4) Neck pain Status: Acute (5) Sepsis Status: Acute (6) Weakness Status: Acute Social History Problems: (1) Status post laminectomy Status: Acute Review of Systems Constitutional: + fever (low grade temperature), + weakness, + fatigue Neurologic: + weakness, + balance problems All Other Systems: Reviewed and Negative Medications Current Inpatient Medications Medications (Trade) Dose Ordered Sig/Jossie Route Start Time Stop Time Status Last Admin Dose Admin Amantadine HCl (Symmetrel Cap) 100 mg BID PO 03/09/17 09:00 04/08/17 08:59 03/15/17 08:02 100 MG Aspirin (Ecotrin Tab) 81 mg DAILY PO 03/09/17 09:00 04/08/17 08:59 03/15/17 08:02 81 MG Baclofen (Lioresal Tab) 20 mg BID PO 03/09/17 09:00 04/08/17 08:59 03/15/17 08:02 20 MG Docusate Sodium (coLACE CAP) 100 mg DAILY PRN PO 03/08/17 22:30 04/07/17 22:29 03/13/17 11:50 100 MG Gabapentin (Neurontin Cap) 400 mg BID PO 03/09/17 09:00 04/08/17 08:59 03/15/17 08:02 400 MG Oxybutynin Chloride (Ditropan Tab) 5 mg BID PO 03/09/17 09:00 04/08/17 08:59 03/15/17 08:02 5 MG Acetaminophen (Tylenol Tab) 650 mg Q4H PRN PO 03/08/17 22:45 04/07/17 22:44 03/12/17 08:03 650 MG Al Hydrox/Mg Hydrox/Simethicone (Maalox Max Susp) 15 ml Q4H PRN PO 03/08/17 22:45 04/07/17 22:44 Magnesium Hydroxide (Milk Of Magnesia Susp) 30 ml Q6H PRN PO 03/08/17 22:45 04/07/17 22:44 03/13/17 11:40 30 ML Polyethylene (Miralax Powder Packet) 17 gm DAILY PRN PO 03/08/17 22:45 04/07/17 22:44 03/13/17 11:40 17 GM Ondansetron HCl (Zofran Inj) 4 mg Q6H PRN IV 03/08/17 22:45 04/07/17 22:44 Magnesium Oxide (Mag-Ox Tab) 400 mg BID PO 03/09/17 09:00 04/08/17 08:59 03/15/17 08:02 400 MG Glatiramer Acetate (Copaxone) 40 mg MoWeFr@0900 SQ 03/11/17 09:00 04/10/17 08:59 03/14/17 14:37 40 MG Heparin Sodium (Porcine) (Heparin Sq 5000 Unit/0.5ml) 5,000 unit Q12 SQ 03/10/17 21:00 04/08/17 05:59 03/15/17 08:08 5,000 UNIT Cyanocobalamin (Vitamin B-12 Tab) 1,000 mcg QAM PO 03/12/17 09:00 04/11/17 08:59 03/15/17 08:03 1,000 MCG Ketorolac Tromethamine (Toradol Inj) 15 mg Q6H PRN IV 03/12/17 10:15 03/17/17 10:14 03/13/17 16:36 15 MG Cephalexin Monohydrate (Keflex Cap) 500 mg QID PO 03/13/17 13:00 03/23/17 12:59 03/15/17 16:32 500 MG Lisinopril (Zestril Tab) 10 mg Q2D@0900 PO 03/15/17 11:00 04/14/17 10:59 03/15/17 11:07 10 MG Triamterene/HCTZ (Dyazide 37.5/25 Mg Cap) 1 cap DAILY PO 03/15/17 11:00 04/14/17 10:59 03/15/17 11:07 1 CAP Objective Vital Signs Date Time Temp Pulse Resp B/P (MAP) Pulse Ox O2 Delivery O2 Flow Rate FiO2 03/15/17 16:00 Room Air 03/15/17 15:46 36.5 77 18 132/80 (97) 96 Room Air 03/15/17 15:31 36.8 03/15/17 08:00 Room Air 03/15/17 07:43 37.7 100 16 140/78 (98) 94 Room Air 03/15/17 00:00 Room Air 03/14/17 23:29 37.5 99 20 148/86 (106) 93 Room Air Physical Exam General Appearance: WD/WN, no apparent distress Eyes: normal inspection, EOMI, sclerae normal ENT: normal ENT inspection, hearing grossly normal, pharynx normal Neck: supple, no adenopathy, no JVD, trachea midline Respiratory/Chest: chest non-tender, lungs clear, normal breath sounds, no respiratory distress, no accessory muscle use Cardiovascular: regular rate, rhythm, no edema, no gallop, no JVD, no murmur Abdomen: normal bowel sounds, non tender, soft, no organomegaly Extremities: normal range of motion, non-tender, normal inspection, no pedal edema, no calf tenderness, pelvis stable 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, alert, oriented x 3, + motor weakness, + depressed affect Skin: normal color, warm/dry, no rash Laboratory Results Last 24 Hours Test 03/15/17 07:07 03/15/17 12:56 White Blood Count 12.06 K/uL 12.52 K/uL Red Blood Count 4.73 M/uL 4.54 M/uL Hemoglobin 14.3 g/dL 14.6 g/dL Hematocrit 44.5 % 43.4 % Mean Corpuscular Volume 94.1 fL 95.6 fL Mean Corpuscular Hemoglobin 30.2 pg 32.2 pg Mean Corpuscular Hemoglobin Concent 32.1 g/dl 33.6 g/dl RDW Standard Deviation 47.0 fL 48.0 fL RDW Coefficient of Variation 13.5 % 13.7 % Platelet Count 217 K/uL 222 K/uL Mean Platelet Volume 9.3 fL 9.3 fL Neutrophils (%) (Auto) 68.8 % Lymphocytes (%) (Auto) 10.9 % Monocytes (%) (Auto) 12.1 % Eosinophils (%) (Auto) 1.4 % Basophils (%) (Auto) 0.6 % Neutrophils # (Auto) 8.63 K/uL Lymphocytes # (Auto) 1.37 K/uL Monocytes # (Auto) 1.51 K/uL Eosinophils # (Auto) 0.17 K/uL Basophils # (Auto) 0.07 K/uL Immature Granulocyte % (Auto) 6.2 % Immature Granulocyte # (Auto) 0.77 K/uL Erythrocyte Sedimentation Rate 63 mm/hr Sodium Level 138 mmol/L Potassium Level 4.6 mmol/L Chloride Level 104 mmol/L Carbon Dioxide Level 27 mmol/L Anion Gap 7.0 mmol/L Blood Urea Nitrogen 31 mg/dl Creatinine 1.90 mg/dl Est Creatinine Clear Calc Drug Dose 39.5 ml/min Estimated GFR () 41.1 Estimated GFR (Non- 35.4 BUN/Creatinine Ratio 16.1 Random Glucose 139 mg/dl Calcium Level 9.4 mg/dl C-Reactive Protein 12.30 mg/dl Assessment and Plan 66 y/o male with a history of multiple sclerosis, CKD stage III, HTN, HLD, and recurrent UTIs. Pt developed a fever and weakness throughout the day. He was febrile on arrival to the ER with a stable BP. Initial labs revealed an elevated lactic acid, leukocytosis, a (+) UA and acute on chronic RF. He denies SOB, CP, N/V. He has chronic dysuria due to a neurogenic bladder. Sepsis secondary to UTI, bacteremia-- E coli in blood cultures and urine cultures, martinez sensitive treated with broad spectrum initially, tapered to Rocephin IV and transitioned to Keflex QID yesterday however, low grade temp today, WBC up to 12k after being normal for several days unclear as to why, will change back to Rocephin, repeat blood culture and urine cultures check CXR repeat labs tomorrow and will d/w Infectious Disease Metabolic encephalopathy-- resolved. Alert and oriented x 3 today -Ammonia and phosphorus WNL -B1 level still pending, checked today -B12 low normal at 329. -Continue B12 1000 mcg PO qd -EEG shows no seizure activity. Non-specific encephalopathy. -Head CT no acute findings Neck pain--improved -Continue warm compresses and heating pad -Cervical spine x-ray shows no fractures. Moderate degenerate disc disease -Continue Toradol 15 mg IV q6h prn pain MS--ongoing -Pt with severe weakness secondary to sepsis and bacteremia vs MS flare -Resume Copaxone 40 mg SC // -Continue amantadine 100 mg PO BID and gabapentin 400 mg PO BID CRUZITO on CKD stage III--resolved -Baseline creatinine around 1.5 -Creatinine 2.7 on admission - treated with IV fluids, cause was pre-renal - Cr back up to 1.9 today, making adequate urine, will repeat labs tomorrow Hypomagnesemia-- continue Mag Oxide 400mg BID Hypokalemia--resolved HTN--stable -resume lisinopril/Dyazide -Continue atenolol 50 mg PO qd DVT prophylaxis -Heparin 5000 units SC q12h Code Status -Level I, FULL RESUSCITATION STATUS Dispo -applying for insurance auth for [facility], was approved but will now keep in hospital with change in status Continued [facility] stay due to: multiple IV medications needed Discharge planning: rehab hospital
[2017-03-15] MEDS ORDERED: CEFTRIAXONE SOD INJ 1 GM in DEXTROSE 5% ADD-VANTAGE 50ML 50 ML IV SCH (17:00)
[2017-03-15 23:10] VITALS: BP 114/72; PULSE 85; TEMP 36.7; O2SAT 96
[2017-03-16 07:20] VITALS: BP 112/70; PULSE 81; TEMP 36.6; O2SAT 95
[2017-03-16 07:23] LABS: HEMATOCRIT 39.6 % (42-52); MEAN CELL VOLUME 95.2 fL (80-100); MEAN CORPUSCULAR HGB CONC 33.6 g/dl (32-36); MEAN PLATELET VOLUME 9.2 fL (7.4-10.4); PLATELET COUNT 249 K/uL (130-400); RED BLOOD COUNT 4.16 M/uL (4.7-6.1); WHITE BLOOD COUNT 12.96 K/uL (4.8-10.8)
[2017-03-16 08:00] VITALS: O2SAT 95
[2017-03-16 08:06] LABS: BUN/CREATININE RATIO 19.7 (10-20); CALCIUM 9.2 mg/dl (8.5-10.1); CREATININE 1.6 mg/dl (0.60-1.40); MAGNESIUM 2.2 mg/dl (1.8-2.4); POTASSIUM 4.3 mmol/L (3.5-5.1)
[2017-03-16 08:15] LABS: BASO % 0.5 %; BASO ABS # 0.07 K/uL (0-0.2); COMPLETE YES; EOS % 2.8 %; IG% 5.8 %; LYMPH % 14.2 %; LYMPH ABS # 1.84 K/uL (1.2-3.4); MONO % 9.3 %; NEUT % 67.4 %; TOXIC GRANULATION 1+
[2017-03-16] MEDS: TRIAMTERENE/HCTZ 37.5/25MG CAP PO SCH (08:38)
[2017-03-16] MEDS: ASPIRIN 81 MG ECTAB PO SCH (08:38)
[2017-03-16] MEDS: CYANOCOBALAMIN 500 MCG TAB (VIT B-12) PO SCH (08:38)
[2017-03-16] MEDS: MAGNESIUM OXIDE 400 MG TAB PO SCH ×2 (08:38→20:55)
[2017-03-16] MEDS: OXYBUTYNIN CHLORIDE 5 MG TAB PO SCH ×2 (08:39→20:54)
[2017-03-16] MEDS: GABAPENTIN 400 MG CAP PO SCH ×2 (08:39→20:55)
[2017-03-16] MEDS: AMANTADINE HCL 100 MG CAP PO SCH ×2 (08:39→20:54)
[2017-03-16] MEDS: BACLOFEN TAB 20 MG TAB PO SCH ×2 (08:39→20:54)
[2017-03-16] MEDS: GLATIRAMER ACETATE 40 MG/ML SYR SQ SCH (08:40)
[2017-03-16] MEDS: HEPARIN SOD 5000 UNIT/0.5 ML CARP SQ SCH ×2 (08:43→21:02)
--- NOTE | 2017-03-16 09:51 | DIAGNOSTIC IMAGING REPORT ---
CHEST 2 VIEWS ROUTINE CLINICAL HISTORY: Leukocytosis, low grade fever despite antibiotics COMPARISON STUDY: 03/08/2017 FINDINGS: Heart top limits normal in terms of size. Potential small parenchymal infiltrate posterior aspect left lower lobe. Lungs otherwise appear clear. Mild chronic interstitial prominence unchanged from the prior exam. IMPRESSION: Potential small parenchymal infiltrate medial left base. Chronic changes as noted. The above report was generated using voice recognition software. It may contain grammatical, syntax or spelling errors. Electronically signed by: Carlos Arango M.D. 03/16/2017 9:50 AM Dictated Date/Time: 03/16/2017 9:49 AM
--- NOTE | 2017-03-16 13:42 | Progress Note ---
Subjective Date of Service: Mar 16, 2017. Subjective Pt evaluation today including: conversation w/ patient, physical exam, lab review, review of studies, conversation w/ loss prevention consultant, review of inpatient medication list Pain: denies pain PO Intake: adequate Voiding: requires PRN straight cath patient feels the same as yesterday, still weak, recovering from infection discussed with case with Amanda Murillo today with infectious disease reviewed CXR - no obvious infiltrate can consider CT abdomen but will hold for now since he is not feeling worse, no abdominal pain, moving bowels afebrile, still with WBC of 12.9, repeat labs tomorrow Problem List Medical Problems: (1) Anemia Status: Acute (2) Headache Status: Acute (3) Leukocytosis Status: Acute (4) Neck pain Status: Acute (5) Sepsis Status: Acute (6) Weakness Status: Acute Social History Problems: (1) Status post laminectomy Status: Acute Review of Systems Constitutional: + weakness, + fatigue Neurologic: + weakness, + balance problems All Other Systems: Reviewed and Negative Medications Current Inpatient Medications Medications (Trade) Dose Ordered Sig/Jossie Route Start Time Stop Time Status Last Admin Dose Admin Amantadine HCl (Symmetrel Cap) 100 mg BID PO 03/09/17 09:00 04/08/17 08:59 03/16/17 08:39 100 MG Aspirin (Ecotrin Tab) 81 mg DAILY PO 03/09/17 09:00 04/08/17 08:59 03/16/17 08:38 81 MG Baclofen (Lioresal Tab) 20 mg BID PO 03/09/17 09:00 04/08/17 08:59 03/16/17 08:39 20 MG Docusate Sodium (coLACE CAP) 100 mg DAILY PRN PO 03/08/17 22:30 04/07/17 22:29 03/13/17 11:50 100 MG Gabapentin (Neurontin Cap) 400 mg BID PO 03/09/17 09:00 04/08/17 08:59 03/16/17 08:39 400 MG Oxybutynin Chloride (Ditropan Tab) 5 mg BID PO 03/09/17 09:00 04/08/17 08:59 03/16/17 08:39 5 MG Acetaminophen (Tylenol Tab) 650 mg Q4H PRN PO 03/08/17 22:45 04/07/17 22:44 7/22/17 08:03 650 MG Al Hydrox/Mg Hydrox/Simethicone (Maalox Max Susp) 15 ml Q4H PRN PO 03/08/17 22:45 04/07/17 22:44 Magnesium Hydroxide (Milk Of Magnesia Susp) 30 ml Q6H PRN PO 03/08/17 22:45 04/07/17 22:44 03/13/17 11:40 30 ML Polyethylene (Miralax Powder Packet) 17 gm DAILY PRN PO 03/08/17 22:45 04/07/17 22:44 03/13/17 11:40 17 GM Ondansetron HCl (Zofran Inj) 4 mg Q6H PRN IV 03/08/17 22:45 04/07/17 22:44 Magnesium Oxide (Mag-Ox Tab) 400 mg BID PO 03/09/17 09:00 04/08/17 08:59 03/16/17 08:38 400 MG Glatiramer Acetate (Copaxone) 40 mg MoWeFr@0900 SQ 03/11/17 09:00 04/10/17 08:59 03/16/17 08:40 40 MG Heparin Sodium (Porcine) (Heparin Sq 5000 Unit/0.5ml) 5,000 unit Q12 SQ 03/10/17 21:00 04/08/17 05:59 03/16/17 08:43 5,000 UNIT Cyanocobalamin (Vitamin B-12 Tab) 1,000 mcg QAM PO 03/12/17 09:00 04/11/17 08:59 03/16/17 08:38 1,000 MCG Ketorolac Tromethamine (Toradol Inj) 15 mg Q6H PRN IV 03/12/17 10:15 03/17/17 10:14 03/13/17 16:36 15 MG Lisinopril (Zestril Tab) 10 mg Q2D@0900 PO 03/15/17 11:00 04/14/17 10:59 03/15/17 11:07 10 MG Triamterene/HCTZ (Dyazide 37.5/25 Mg Cap) 1 cap DAILY PO 03/15/17 11:00 04/14/17 10:59 03/16/17 08:38 1 CAP Ceftriaxone Sodium 1 gm/ Dextrose 50 ml @ 100 mls/hr Q24H IV 03/16/17 17:00 03/26/17 16:59 Objective Vital Signs Date Time Temp Pulse Resp B/P (MAP) Pulse Ox O2 Delivery O2 Flow Rate FiO2 03/16/17 08:00 95 Room Air 03/16/17 07:20 36.6 81 18 112/70 (84) 95 Room Air 03/16/17 00:00 Room Air 03/15/17 23:10 36.7 85 18 114/72 (86) 96 Room Air 03/15/17 20:00 Room Air 03/15/17 16:00 Room Air 03/15/17 15:46 36.5 77 18 132/80 (97) 96 Room Air 03/15/17 15:31 36.8 Physical Exam General Appearance: WD/WN, no apparent distress Eyes: normal inspection, EOMI, sclerae normal ENT: normal ENT inspection, hearing grossly normal, pharynx normal Neck: supple, no adenopathy, no JVD, trachea midline Respiratory/Chest: chest non-tender, lungs clear, normal breath sounds, no respiratory distress, no accessory muscle use Cardiovascular: regular rate, rhythm, no edema, no gallop, no JVD, no murmur Abdomen: normal bowel sounds, non tender, soft, no organomegaly Extremities: normal range of motion, non-tender, normal inspection, no pedal edema, no calf tenderness, pelvis stable Neurologic/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: 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, alert, normal mood/affect, oriented x 3, + motor weakness (generalized, related to MS) Skin: normal color, warm/dry, no rash Laboratory Results Last 24 Hours Test 03/16/17 06:58 White Blood Count 12.96 K/uL Red Blood Count 4.16 M/uL Hemoglobin 13.3 g/dL Hematocrit 39.6 % Mean Corpuscular Volume 95.2 fL Mean Corpuscular Hemoglobin 32.0 pg Mean Corpuscular Hemoglobin Concent 33.6 g/dl Platelet Count 249 K/uL Mean Platelet Volume 9.2 fL Neutrophils (%) (Auto) 67.4 % Lymphocytes (%) (Auto) 14.2 % Monocytes (%) (Auto) 9.3 % Eosinophils (%) (Auto) 2.8 % Basophils (%) (Auto) 0.5 % Neutrophils # (Auto) 8.74 K/uL Lymphocytes # (Auto) 1.84 K/uL Monocytes # (Auto) 1.20 K/uL Eosinophils # (Auto) 0.36 K/uL Basophils # (Auto) 0.07 K/uL RDW Standard Deviation 47.7 fL RDW Coefficient of Variation 13.6 % Immature Granulocyte % (Auto) 5.8 % Immature Granulocyte # (Auto) 0.75 K/uL Toxic Granulation 1+ Sodium Level 138 mmol/L Potassium Level 4.3 mmol/L Chloride Level 103 mmol/L Carbon Dioxide Level 27 mmol/L Anion Gap 8.0 mmol/L Blood Urea Nitrogen 31 mg/dl Creatinine 1.60 mg/dl Est Creatinine Clear Calc Drug Dose 47.0 ml/min Estimated GFR () 50.6 Estimated GFR (Non- 43.6 BUN/Creatinine Ratio 19.7 Random Glucose 128 mg/dl Calcium Level 9.2 mg/dl Magnesium Level 2.2 mg/dl Assessment and Plan 66 y/o male with a history of multiple sclerosis, CKD stage III, HTN, HLD, and recurrent UTIs. Pt developed a fever and weakness throughout the day. He was febrile on arrival to the ER with a stable BP. Initial labs revealed an elevated lactic acid, leukocytosis, a (+) UA and acute on chronic RF. He denies SOB, CP, N/V. He has chronic dysuria due to a neurogenic bladder. Sepsis secondary to UTI, bacteremia-- E coli in blood cultures and urine cultures, martinez sensitive treated with broad spectrum initially, tapered to Rocephin IV and transitioned to Keflex QID 03/14 however, low grade temp 03/15, WBC up to 12k after being normal for several days repeat urine culture and blood cultures sent, changed abx back to Rocephin CXR today without obvious infiltrate d/w ID, will consider abdomen CT if no improvement but slightly better today check CBC and CRP tomorrow Metabolic encephalopathy-- resolved. Alert and oriented x 3 today -Ammonia and phosphorus WNL -B1 level still pending, checked today -B12 low normal at 329. -Continue B12 1000 mcg PO qd -EEG shows no seizure activity. Non-specific encephalopathy. -Head CT no acute findings Neck pain--improved -Continue warm compresses and heating pad -Cervical spine x-ray shows no fractures. Moderate degenerate disc disease -Continue Toradol 15 mg IV q6h prn pain MS--ongoing -Pt with severe weakness secondary to sepsis and bacteremia vs MS flare -Resume Copaxone 40 mg SC // -Continue amantadine 100 mg PO BID and gabapentin 400 mg PO BID CRUZITO on CKD stage III--resolved -Baseline creatinine around 1.5, it is 1.6 today -Creatinine 2.7 on admission - treated with IV fluids, cause was pre-renal Hypomagnesemia-- continue Mag Oxide 400mg BID Hypokalemia--resolved HTN--stable -resume lisinopril/Dyazide -Continue atenolol 50 mg PO qd DVT prophylaxis -Heparin 5000 units SC q12h Code Status -Level I, FULL RESUSCITATION STATUS Dispo - plan for rehab once medically stable, maybe as early as tomorrow Continued [facility] stay due to: multiple IV medications needed Discharge planning: rehab hospital
[2017-03-16 14:48] VITALS: BP 146/84; PULSE 80; TEMP 36.7; O2SAT 98
[2017-03-16] MEDS: CEFTRIAXONE SOD INJ 1 GM in DEXTROSE 5% ADD-VANTAGE 50ML 50 ML IV SCH (17:00)
[2017-03-16 23:57] VITALS: BP 117/72; PULSE 86; TEMP 36.8; O2SAT 95
[2017-03-17 07:35] VITALS: BP 124/79; PULSE 84; TEMP 36.8; O2SAT 92
[2017-03-17 07:38] LABS: HEMATOCRIT 39.4 % (42-52); MEAN CELL VOLUME 94.5 fL (80-100); MEAN CORPUSCULAR HEMOGLOBIN 32.1 pg (25-34); MEAN PLATELET VOLUME 9.2 fL (7.4-10.4); PLATELET COUNT 263 K/uL (130-400); RED BLOOD COUNT 4.17 M/uL (4.7-6.1); WHITE BLOOD COUNT 12.89 K/uL (4.8-10.8)
[2017-03-17 08:00] VITALS: O2SAT 92
[2017-03-17 08:17] LABS: BUN/CREATININE RATIO 20.3 (10-20); C-REACTIVE PROTEIN 7.94 mg/dl (0-0.29); CALCIUM 9.5 mg/dl (8.5-10.1); CREATININE 1.5 mg/dl (0.60-1.40); POTASSIUM 4.4 mmol/L (3.5-5.1)
[2017-03-17] MEDS: MAGNESIUM OXIDE 400 MG TAB PO SCH (08:53)
[2017-03-17] MEDS: AMANTADINE HCL 100 MG CAP PO SCH (08:53)
[2017-03-17] MEDS: TRIAMTERENE/HCTZ 37.5/25MG CAP PO SCH (08:53)
[2017-03-17] MEDS: GABAPENTIN 400 MG CAP PO SCH (08:53)
[2017-03-17] MEDS: LISINOPRIL 10 MG TAB PO SCH (08:53)
[2017-03-17] MEDS: BACLOFEN TAB 20 MG TAB PO SCH (08:53)
[2017-03-17] MEDS: ASPIRIN 81 MG ECTAB PO SCH (08:54)
[2017-03-17] MEDS: CYANOCOBALAMIN 500 MCG TAB (VIT B-12) PO SCH (08:54)
[2017-03-17] MEDS: OXYBUTYNIN CHLORIDE 5 MG TAB PO SCH (08:54)
[2017-03-17 08:57] LABS: BASO % 0.3 %; BASO ABS # 0.04 K/uL (0-0.2); COMPLETE YES; EOS % 2.2 %; IG% 5.7 %; LYMPH % 12.9 %; LYMPH ABS # 1.66 K/uL (1.2-3.4); MONO % 8.8 %; NEUT % 70.1 %
[2017-03-17] MEDS: HEPARIN SOD 5000 UNIT/0.5 ML CARP SQ SCH (08:58)
--- NOTE | 2017-03-17 10:58 | Infectious Disease Progress Nt ---
Progress Note Date of Service Mar 17, 2017. Subjective Pt evaluation today including: conversation w/ patient, physical exam, chart review, lab review, review of studies, conversation w/ devops consultant (Dr. Pepper), review of inpatient medication list Patient is feeling much improved today. He has visitors in the room with him today. His WBC count today was 12.89. Creatinine was 1.50. He overall feels well. He states that he is having no abdominal pain, N/V/D, SOB, chest pain, or urinary symptoms. Repeat urine and blood cultures have been negative thus far. Patient anticipating D/C to rehab soon. Repeat CXR showed potential small infiltrate left base All Other Systems: Reviewed and Negative Medications Current Inpatient Medications Medications (Trade) Dose Ordered Sig/Jossie Route Start Time Stop Time Status Last Admin Dose Admin Amantadine HCl (Symmetrel Cap) 100 mg BID PO 03/09/17 09:00 04/08/17 08:59 03/17/17 08:53 100 MG Aspirin (Ecotrin Tab) 81 mg DAILY PO 03/09/17 09:00 04/08/17 08:59 03/17/17 08:54 81 MG Baclofen (Lioresal Tab) 20 mg BID PO 03/09/17 09:00 04/08/17 08:59 03/17/17 08:53 20 MG Docusate Sodium (coLACE CAP) 100 mg DAILY PRN PO 03/08/17 22:30 04/07/17 22:29 03/13/17 11:50 100 MG Gabapentin (Neurontin Cap) 400 mg BID PO 03/09/17 09:00 04/08/17 08:59 03/17/17 08:53 400 MG Oxybutynin Chloride (Ditropan Tab) 5 mg BID PO 03/09/17 09:00 04/08/17 08:59 03/17/17 08:54 5 MG Acetaminophen (Tylenol Tab) 650 mg Q4H PRN PO 03/08/17 22:45 04/07/17 22:44 03/12/17 08:03 650 MG Al Hydrox/Mg Hydrox/Simethicone (Maalox Max Susp) 15 ml Q4H PRN PO 03/08/17 22:45 04/07/17 22:44 Magnesium Hydroxide (Milk Of Magnesia Susp) 30 ml Q6H PRN PO 03/08/17 22:45 04/07/17 22:44 03/13/17 11:40 30 ML Polyethylene (Miralax Powder Packet) 17 gm DAILY PRN PO 03/08/17 22:45 04/07/17 22:44 03/13/17 11:40 17 GM Ondansetron HCl (Zofran Inj) 4 mg Q6H PRN IV 03/08/17 22:45 04/07/17 22:44 Magnesium Oxide (Mag-Ox Tab) 400 mg BID PO 03/09/17 09:00 04/08/17 08:59 03/17/17 08:53 400 MG Glatiramer Acetate (Copaxone) 40 mg MoWeFr@0900 SQ 03/11/17 09:00 04/10/17 08:59 03/16/17 08:40 40 MG Heparin Sodium (Porcine) (Heparin Sq 5000 Unit/0.5ml) 5,000 unit Q12 SQ 03/10/17 21:00 04/08/17 05:59 03/17/17 08:58 5,000 UNIT Cyanocobalamin (Vitamin B-12 Tab) 1,000 mcg QAM PO 03/12/17 09:00 04/11/17 08:59 03/17/17 08:54 1,000 MCG Lisinopril (Zestril Tab) 10 mg Q2D@0900 PO 03/15/17 11:00 04/14/17 10:59 03/17/17 08:53 10 MG Triamterene/HCTZ (Dyazide 37.5/25 Mg Cap) 1 cap DAILY PO 03/15/17 11:00 04/14/17 10:59 03/17/17 08:53 1 CAP Ceftriaxone Sodium 1 gm/ Dextrose 50 ml @ 100 mls/hr Q24H IV 03/16/17 17:00 03/26/17 16:59 03/16/17 17:00 100 MLS/HR Objective Vital Signs Date Time Temp Pulse Resp B/P (MAP) Pulse Ox O2 Delivery O2 Flow Rate FiO2 03/17/17 08:00 92 Room Air 03/17/17 07:35 36.8 84 18 124/79 (94) 92 Room Air 03/17/17 00:00 Room Air 03/16/17 23:57 36.8 86 20 117/72 (87) 95 Room Air 03/16/17 16:00 Room Air 03/16/17 14:48 36.7 80 18 146/84 (104) 98 Room Air Physical Exam General Appearance: WD/WN, no apparent distress Eyes: normal inspection, sclerae normal ENT: hearing grossly normal Neck: supple, trachea midline Respiratory/Chest: no respiratory distress, no accessory muscle use Cardiovascular: regular rate, rhythm Neurologic/Psychiatric: alert, normal mood/affect Skin: normal color, warm/dry, no rash Laboratory Results CHEST 2 VIEWS ROUTINE CLINICAL HISTORY: Leukocytosis, low grade fever despite antibiotics COMPARISON STUDY: 03/08/2017 FINDINGS: Heart top limits normal in terms of size. Potential small parenchymal infiltrate posterior aspect left lower lobe. Lungs otherwise appear clear. Mild chronic interstitial prominence unchanged from the prior exam. IMPRESSION: Potential small parenchymal infiltrate medial left base. Chronic changes as noted. Item Value Date Time Urine Culture - Final Complete 03/15/17 2020 Urine,Catheterized NO GROWTH - LESS THAN 1,000 COLONIES/ML Blood Culture - Preliminary Resulted 03/15/17 1715 Blood NO GROWTH TO DATE. Blood Culture - Preliminary Resulted 03/15/17 1702 Blood NO GROWTH TO DATE. Blood Culture - Preliminary Resulted 03/12/17 0939 Blood NO GROWTH TO DATE. Blood Culture - Preliminary Resulted 03/12/17 0932 Blood NO GROWTH TO DATE. Last 24 Hours Test 03/17/17 07:15 White Blood Count 12.89 K/uL Red Blood Count 4.17 M/uL Hemoglobin 13.4 g/dL Hematocrit 39.4 % Mean Corpuscular Volume 94.5 fL Mean Corpuscular Hemoglobin 32.1 pg Mean Corpuscular Hemoglobin Concent 34.0 g/dl Platelet Count 263 K/uL Mean Platelet Volume 9.2 fL Neutrophils (%) (Auto) 70.1 % Lymphocytes (%) (Auto) 12.9 % Monocytes (%) (Auto) 8.8 % Eosinophils (%) (Auto) 2.2 % Basophils (%) (Auto) 0.3 % Neutrophils # (Auto) 9.04 K/uL Lymphocytes # (Auto) 1.66 K/uL Monocytes # (Auto) 1.14 K/uL Eosinophils # (Auto) 0.28 K/uL Basophils # (Auto) 0.04 K/uL RDW Standard Deviation 46.3 fL RDW Coefficient of Variation 13.4 % Immature Granulocyte % (Auto) 5.7 % Immature Granulocyte # (Auto) 0.73 K/uL Red Blood Cell Morphology Unremarkable Sodium Level 134 mmol/L Potassium Level 4.4 mmol/L Chloride Level 101 mmol/L Carbon Dioxide Level 25 mmol/L Anion Gap 8.0 mmol/L Blood Urea Nitrogen 30 mg/dl Creatinine 1.50 mg/dl Est Creatinine Clear Calc Drug Dose 50.1 ml/min Estimated GFR () 54.7 Estimated GFR (Non- 47.2 BUN/Creatinine Ratio 20.3 Random Glucose 121 mg/dl Calcium Level 9.5 mg/dl C-Reactive Protein 7.94 mg/dl Assessment and Plan Patient with recurrent UTI's in the setting of MS and self-catheterization. Patient is currently on IV Ceftriaxone 2 g daily and is doing well. Recommend that he continue IV Ceftriaxone to complete 14 days of therapy (approximately 5 more days)- discussed this with Dr. Pepper. He is OK for D/C from ID perspective once medically cleared. PROVIDER ADDENDUM: Patient reviewed with SANDRA. agree with above assessment.
[2017-03-17] MEDS ORDERED: CEFT1INJ57 IV (11:04)
--- NOTE | 2017-03-17 11:10 | Discharge Instructions ---
Discharge Instructions Date of Service Mar 17, 2017. Admission Reason for Admission: UTI Discharge Discharge Diagnosis / Problem: E coli bacteremia secondary to UTI, intermittent straight catheterizations Discharge Goals Goal(s): Improve function, Improve disease control Activity Recommendations Activity Level: Assistance Required Therapies: Physical Therapy, Occupational Therapy Lifting Limitations: none Exercise/Sports Limitations: as tolerated Shower/Bathe: no limitations . Additional Information Patient informed of condition: Yes Advance Directives: Yes DNR: No Level of Care: Acute Rehab Communicable Disease: No Prognosis: Improving Oxygen at (LPM): no Ho Catheter: No Instructions / Follow-Up Instructions / Follow-Up Medications: - CEFTRIAXONE: needs to take every 24 hours, last dose would be on 03/21, complete treatment for E coli bacteremia UTI secondary to intermittent straight cath with E coli bacteremia: cultures show sensitive to Rocephin received 10 doses thus far, needs 4 more doses to complete 14 days patient had repeat blood cultures x 4 that were negative, repeat urine culture that was also negative for growth WBC was normal and then trended up to 12 but has remained at 12 for 3 days, afebrile for a week CRP trending down and clinically patient feels better MS: slowly progressing, needs rehab FOLLOW UP - physician at [facility] - Dr. Herrera one week after d/c from rehab Current Hospital Diet Patient's current hospital diet: AHA Diet (Heart Healthy) Discharge Diet Recommended Diet: AHA Diet (Heart Healthy) Pending Studies Studies pending at discharge: no Physician Orders On Transfer POLST Discussion: Not Applicable Medical Emergencies . Who to Call and When: Medical Emergencies: If at any time you feel your situation is an emergency, please call 911 immediately. . Non-Emergent Contact Non-Emergency issues call your: Primary Care Provider Call Non-Emergent contact if: you have a fever, you have any medication questions . . "Provider Documentation" section prepared by Ousmane Pepper. . Core Measure Problem Core Measures: None [place] Drug Monitoring Program Search Results: no issues identified
--- NOTE | 2017-03-17 12:22 | Discharge Summary ---
Discharge Summary Date of Service Mar 17, 2017. Discharge Summary Admission Date: Mar 08, 2017 at 22:36 Discharge Date: Mar 17, 2017 Discharge Disposition: Rehab Principal Diagnosis: E coli bacteremia from UTI Problems/Secondary Diagnoses: Multiple Sclerosis Encephalopathy Immunizations: Have You Had Influenza Vaccine: Yes Influenza Vaccine Date: Jul 13, 2011 History of Tetanus Vaccine?: Yes History of Pneumococcal: Yes History of Hepatitis B Vaccine: No Procedures: none Consultations: Infectious disease Neurology Medication Reconciliation New Medications: Ceftriaxone Sod (Rocephin) 1 Gm Inj 1 GM IV Q24H for 4 Days, #4 VIAL Continued Medications: Amantadine Hcl (Symmetrel) 100 Mg Tab 100 MG PO BID, TAB Aspirin (Aspirin Ec) 81 Mg Tab 81 MG PO DAILY Atenolol (Tenormin) 50 Mg Tab 50 MG PO DAILY, TAB Baclofen (Baclofen) 20 Mg Tab 20 MG PO BID Cholecalciferol (Vitamin D) 2,000 Unit Cap 2000 UNIT PO DAILY Docusate Sodium (Docusate Sodium) 100 Mg Cap 100 MG PO DAILY PRN Gabapentin (Neurontin) 400 Mg Cap 400 MG PO BID, CAP Glatiramer Acetate (Copaxone) 20 Mg/1 Ml Inj 40 MG SC MWF Lisinopril (Zestril) 10 Mg Tab 10 MG PO Q2D, TAB Meloxicam (Meloxicam) 15 Mg Tab 15 MG PO Q2D Multiple Minerals W/ Vitamins (Citracal Plus) 1 Tab Tab 1 TABLET PO DAILY Omeprazole (Prilosec) 20 Mg Capcr 20 MG PO QAM, CAP Oxybutynin Chloride (Ditropan) 5 Mg Tab 5 MG PO BID, TAB Triamterene/Hctz (Dyazide 37.5MG/25MG) Cap 1 TAB PO DAILY, CAP Discharge Exam Patient continues to feel better, no fever for several days. Reviewed labs, WBC still 12k but CRP going down. Discussed the case with Amanda Murillo from [place], plan to complete a full course of Rocephin Review of Systems: Constitutional: + weakness (improving), No fever, No chills, No sweats, No weight loss, No fatigue, No problem reported ENT: No hearing loss, No unusual epistaxis, No nasal symptoms, No sore throat, No tinnitus, No dental problems, No trouble swallowing, No problem reported Respiratory: No cough, No sputum, No wheezing, No shortness of breath, No dyspnea on exertion, No dyspnea at rest, No hemoptysis, No problem reported Cardiovascular: No chest pain, No orthopnea, No PND, No edema, No claudication, No palpitations, No problem reported Abdomen: No pain, No nausea, No vomiting, No diarrhea, No constipation, No GI bleeding, No problem reported Musculoskeletal: + joint pain (mild neck pain, chronic), No muscle pain, No swelling, No calf pain, No problem reported Genitourinary - Male: + urinary retention, No hematuria, No dysuria, No urinary frequency, No urinary urgency Neurologic: + weakness, + balance problems, No memory loss, No paralysis, No numbness/tingling, No vertigo, No problem reported Psychiatric: No depression symptoms, No anhedonism, No anxiety, No insomnia , No substance abuse, No problem reported Endocrine: No fatigue, No excessive thirst, No excessive urination, No problem reported Hematologic / Lymphatic: No abnormal bleeding/bruising, No clotting problems , No swollen lymph nodes, No night sweats, No problem reported Integumentary: No rash, No itch, No new/changing skin lesions, No color change, No bleeding, No problem reported Physical Exam: General Appearance: WD/WN, no apparent distress Eyes: normal inspection, EOMI, sclerae normal ENT: normal ENT inspection, hearing grossly normal, pharynx normal Neck: supple, no adenopathy, no JVD, trachea midline Respiratory/Chest: chest non-tender, lungs clear, normal breath sounds, no respiratory distress, no accessory muscle use Cardiovascular: regular rate, rhythm, no edema, no gallop, no JVD, no murmur , normal peripheral pulses Abdomen / GI: normal bowel sounds, non tender, soft, no organomegaly Extremities: normal inspection, no calf tenderness, normal capillary refill , no pedal edema, normal range of motion, pelvis stable 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 Pt developed a fever and weakness throughout the day. He was febrile on arrival to the ER with a stable BP. Initial labs revealed an elevated lactic acid, leukocytosis, a (+) UA and acute on chronic RF. He denies SOB, CP, N/V. He has chronic dysuria due to a neurogenic bladder. Sepsis secondary to UTI, bacteremia-- E coli in blood cultures and urine cultures, martinez sensitive treated with broad spectrum initially, tapered to Rocephin IV and transitioned to Keflex QID 03/14 however, low grade temp 03/15, WBC up to 12k after being normal for several days repeat urine culture and blood cultures sent, changed abx back to Rocephin CXR without obvious infiltrate CBC remained at 12k for two days but did not go up, < 70% neutrophils on differential CRP trending down after going back to Rocephin plan will be to complete 4 more doses of Rocephin 1gm IV daily at [facility] of note, 4 sets of repeat blood cultures negative and 1 repeat urine culture negative Metabolic encephalopathy-- resolved. Alert and oriented x 3 today, was due to bacteremia -Ammonia and phosphorus WNL -B12 low normal at 329. -Continue B12 1000 mcg PO qd -EEG shows no seizure activity. Non-specific encephalopathy. -Head CT no acute findings Neck pain--improved -Continue warm compresses and heating pad PRN -Cervical spine x-ray shows no fractures. Moderate degenerate disc disease MS--ongoing -Pt with severe weakness secondary to sepsis and bacteremia vs MS flare -Resume Copaxone 40 mg SC // -Continue amantadine 100 mg PO BID and gabapentin 400 mg PO BID - go to rehab to work on recovery CRUZITO on CKD stage III--resolved -Baseline creatinine around 1.5, 1.6 on 03/16 -Creatinine 2.7 on admission - treated with IV fluids, cause was pre-renal Hypomagnesemia-- continue Mag Oxide 400mg BID Hypokalemia--resolved HTN--stable -resume lisinopril/Dyazide -Continue atenolol 50 mg PO qd DVT prophylaxis -Heparin 5000 units SC q12h Code Status -Level I, FULL RESUSCITATION STATUS Dispo - d/c to [place] for 4 more dose of Rocephin IV Total Time Spent: Greater than 30 minutes This includes examination of the patient, discharge planning, medication reconciliation, and communication with other providers. Discharge Instructions Please refer to the electronic Patient Visit Report (Discharge Instructions) for additional information. Follow-Up physician at [facility] this week Dr. Herrera in one week Additional Copies To [facility]; Hema Herrera M.D.
[2017-03-17] MEDS: CEFTRIAXONE SOD INJ 1 GM in DEXTROSE 5% ADD-VANTAGE 50ML 50 ML IV SCH (14:24)
[2017-03-17 15:12] VITALS: BP 115/78; PULSE 97; TEMP 36.8; O2SAT 93
[2017-03-17 16:28] VITALS: BP 115/78; PULSE 97; TEMP 36.8; O2SAT 93
== END 2017-03-17 17:23 | DRG 698 ==
LOC: C.EDB 19:14 → C.MS2W 22:36 → ENRESERV 22:55 → C.2E 03-10 14:32 → ENRESERV 03-13 16:55 → C.MS2W 03-13 17:35
PROVIDERS: ADMIT Internal Medicine; ATTEND Internal Medicine
PROC: 0T9B70Z Drainage of Bladder with Drainage Device, Via Natural or Artificial Opening (ICD-10-PCS; principal; 2017-03-08)
DX: T83.518A Infection and inflammatory reaction due to other urinary catheter, initial encounter (principal); A41.51 Sepsis due to Escherichia coli [E. coli]; N39.0 Urinary tract infection, site not specified; G93.41 Metabolic encephalopathy; N17.9 Acute kidney failure, unspecified; B96.20 Unspecified Escherichia coli [E. coli] as the cause of diseases classified elsewhere; G35 Multiple sclerosis; M50.30 Other cervical disc degeneration, unspecified cervical region; E83.42 Hypomagnesemia; E87.6 Hypokalemia; D69.59 Other secondary thrombocytopenia; T36.0X5A Adverse effect of penicillins, initial encounter; N31.9 Neuromuscular dysfunction of bladder, unspecified; N18.3 Chronic kidney disease, stage 3 (moderate); I12.9 Hypertensive chronic kidney disease with stage 1 through stage 4 chronic kidney disease, or unspecified chronic kidney disease; E78.5 Hyperlipidemia, unspecified; E66.9 Obesity, unspecified; Z51.81 Encounter for therapeutic drug level monitoring; Z79.899 Other long term (current) drug therapy; Z79.82 Long term (current) use of aspirin; Z87.440 Personal history of urinary (tract) infections; Z68.30 Body mass index [BMI] 30.0-30.9, adult; Y84.6 Urinary catheterization as the cause of abnormal reaction of the patient, or of later complication, without mention of misadventure at the time of the procedure

== ENCOUNTER → 2017-07-11 | Outpatient (CLI) | payer BC ==
[~2017-07-11] MED LIST changes: -BACL10TA PO; -DALF10TA PO; -DOXA2TAB PO; +DTR/5 PO; -ENOX30IN4 SQ; -HYDR25TA4 PO; +LRS20 PO; +MELO15TA4 PO; -OXYB5TAB74 PO; +PRLSR20 PO; +SENN-61 PO; +TRIA37.5 PO; -VLM5 PO
== END | disposition home or self-care (01) ==
LOC: C.LABSPEC 10:50
PROVIDERS: ATTEND Urology
DX: N39.0 Urinary tract infection, site not specified (principal)

== ENCOUNTER 2017-07-12 18:03 | Emergency (ER) | payer BC ==
[~2017-07-12] VITALS: Ht 162.6 cm; Wt 87.0 kg
[~2017-07-12 18:03] MED LIST changes: -SENN-61 PO
[2017-07-12 18:08] VITALS: TEMP 36.4; Ht 162.6 cm; Wt 87.0 kg
[2017-07-12] MEDS ORDERED: XYLOCAINE 1%/SOD BICARB 20 ML VIAL INFIL ONE (18:15)
[2017-07-12] MEDS ORDERED: DIPHTHERIA/TETANUS/PERTUSSIS 0.5 ML SYR/VIAL IM. ONE (18:15)
--- NOTE | 2017-07-12 18:50 | DIAGNOSTIC IMAGING REPORT ---
CT OF THE HEAD WITHOUT CONTRAST CLINICAL HISTORY: Head injury. COMPARISON STUDY: Head CT March 10, 2017. TECHNIQUE: Helical axial images of the head were obtained without IV contrast. Automated exposure control was utilized for the study. A dose lowering technique was utilized adhering to the principles of ALARA. FINDINGS: No acute intracranial hemorrhage, midline shift or mass effect is present. Ventricular system is normal. Basilar cisterns are patent. No extra axial collections are present. A posterior right frontal lobe hypodensity is unchanged and could reflect an old infarct or small vessel disease. There are no findings to suggest acute dural sinus thrombosis or acute territorial infarct. Right preseptal soft tissue swelling is present. There is no retrobulbar hematoma. The globes are intact. No calvarial fracture is identified. Facial bones are better depicted on the maxillofacial CT. IMPRESSION: 1. No acute intracranial findings. 2. No calvarial fracture. 3. Right preseptal soft tissue swelling. Globe intact with no retrobulbar hematoma. Electronically signed by: Kwadwo Carroll M.D. 07/12/2017 6:49 PM Dictated Date/Time: 07/12/2017 6:45 PM
--- NOTE | 2017-07-12 18:55 | DIAGNOSTIC IMAGING REPORT ---
MAXILLOFACIAL CT WITHOUT CONTRAST CLINICAL HISTORY: Right orbital injury. COMPARISON STUDY: Head CT June 25, 2016. TECHNIQUE: A maxillofacial CT was performed without IV contrast. Coronal and sagittal reformats were viewed. A dose lowering technique was utilized adhering to the principles of ALARA. FINDINGS: No acute facial fracture is present. Globes are intact and there is no retrobulbar hematoma. There is mild right preseptal soft tissue swelling. Alignment of the temporomandibular joints is anatomic. Postsurgical findings within the cervical spine are partially imaged. IMPRESSION: 1. No acute facial fracture. 2. Right preseptal soft tissue swelling. Right globe intact with no retrobulbar hematoma. Electronically signed by: Kwadwo Carroll M.D. 07/12/2017 6:54 PM Dictated Date/Time: 07/12/2017 6:49 PM
[2017-07-12] MEDS ORDERED: SENN-61 PO (19:01)
--- NOTE | 2017-07-12 19:30 | EMERGENCY ROOM VISIT NOTE ---
History First contact with patient: 18:09 Chief Complaint: LACERATION/CUT (SUT/DERMABOND) Stated Complaint: FALL LAC ON HEAD Nursing Triage Summary: triage note: Pt reports he slipped on oak steps and slid down the steps down to the bottom and hit is right head on the cermic tile floor. pt denies any loc. pt reports he takes bab asa daily. History of Present Illness The patient is a 66 year old male who presents to the Emergency Room with complaints of facial laceration. The patient states that he slept on the staircase and slid down the steps and when he cut the bottom his forehead hit on the ceramic tile. The patient denies any loss of consciousness, dizziness, visual changes or headache. The patient denies any neck or back pain. The patient denies any other injuries. His only complaint is a laceration above his right eye. The patient states that his tetanus status is unknown. The patient is on a baby aspirin daily but no other blood thinners. Review of Systems 10 system review was performed and was negative unless stated otherwise history of present illness. Past Medical/Surgical History Medical Problems: (1) back problems (2) Benign hypertension (3) Dyslipidemia (4) Multiple sclerosis (5) UTI (urinary tract infection) Social History Smoking Status: Never Smoker Marital Status: Housing Status: lives with family Occupation Status: employed Current/Historical Medications Scheduled Amantadine Hcl (Symmetrel), 100 MG PO BID Aspirin (Aspirin Ec), 81 MG PO DAILY Atenolol (Tenormin), 50 MG PO DAILY Baclofen (Baclofen), 20 MG PO BID Cholecalciferol (Vitamin D), 2,000 UNIT PO DAILY Gabapentin (Neurontin), 400 MG PO BID Glatiramer Acetate (Copaxone), 40 MG SC MWF Lisinopril (Zestril), 10 MG PO Q2D Meloxicam (Meloxicam), 15 MG PO Q2D Multiple Minerals W/ Vitamins (Citracal Plus), 1 TABLET PO DAILY Omeprazole (Prilosec), 20 MG PO QAM Oxybutynin Chloride (Ditropan), 5 MG PO BID Senna (Senokot), 1 TAB PO QPM Triamterene/Hctz (Dyazide 37.5MG/25MG), 1 TAB PO DAILY Scheduled PRN Docusate Sodium (Docusate Sodium), 100 MG PO DAILY PRN Physical Exam Vital Signs Date Time Temp Pulse Resp B/P (MAP) Pulse Ox O2 Delivery O2 Flow Rate FiO2 07/12/17 18:08 36.4 101 18 118/71 98 Room Air Physical Exam GENERAL: 58-year-old white male appears in no acute distress. MENTAL Status: Alert and oriented 3. HEAD: Atraumatic, nontender to palpation throughout. EYES: PERRLA. EOMs intact. Funduscopic exam unremarkable. EARS: Canals clear. TMs without hemotympanum FACE: There is a 3 cm deep laceration on the superior lateral aspect of the right orbit with mild active bleeding. The wound looks clean. No deep structures are visualized. The patient is tender to palpation over the supraorbital rim otherwise face is nontender to palpation. NECK: Supple, no lymphadenopathy noted. No carotid bruits noted. LUNGS: Clear auscultation without wheezes rales or rhonchi. CARDIAC: Regular rate and rhythm without murmur. Pulses is full and equal throughout. SPINE: Entire spine is nontender to palpation. Medical Decision & Procedures ER Provider Diagnostic Interpretation: MAXILLOFACIAL CT WITHOUT CONTRAST CLINICAL HISTORY: Right orbital injury. COMPARISON STUDY: Head CT June 25, 2016. TECHNIQUE: A maxillofacial CT was performed without IV contrast. Coronal and sagittal reformats were viewed. A dose lowering technique was utilized adhering to the principles of ALARA. FINDINGS: No acute facial fracture is present. Globes are intact and there is no retrobulbar hematoma. There is mild right preseptal soft tissue swelling. Alignment of the temporomandibular joints is anatomic. Postsurgical findings within the cervical spine are partially imaged. IMPRESSION: 1. No acute facial fracture. 2. Right preseptal soft tissue swelling. Right globe intact with no retrobulbar hematoma. Electronically signed by: Kwadwo Carroll M.D. 07/12/2017 6:[address] OF THE HEAD WITHOUT CONTRAST CLINICAL HISTORY: Head injury. COMPARISON STUDY: Head CT March 10, 2017. TECHNIQUE: Helical axial images of the head were obtained without IV contrast. Automated exposure control was utilized for the study. A dose lowering technique was utilized adhering to the principles of ALARA. FINDINGS: No acute intracranial hemorrhage, midline shift or mass effect is present. Ventricular system is normal. Basilar cisterns are patent. No extra axial collections are present. A posterior right frontal lobe hypodensity is unchanged and could reflect an old infarct or small vessel disease. There are no findings to suggest acute dural sinus thrombosis or acute territorial infarct. Right preseptal soft tissue swelling is present. There is no retrobulbar hematoma. The globes are intact. No calvarial fracture is identified. Facial bones are better depicted on the maxillofacial CT. IMPRESSION: 1. No acute intracranial findings. 2. No calvarial fracture. 3. Right preseptal soft tissue swelling. Globe intact with no retrobulbar hematoma. Electronically signed by: Kwadwo Carroll M.D. 07/12/2017 6:49 PM Medications Administered Medications (Trade) Dose Ordered Sig/Jossie Route Start Time Stop Time Status Last Admin Dose Admin Lidocaine HCl (Buffered Lidocaine 1% Inj) 20 ml NOW ONCE INFIL 07/12/17 18:15 07/12/17 18:16 DC 07/12/17 18:18 20 ML Diphtheria/ Pertussis/Tetanus Vacc (Adacel Inj) 0.5 ml ONCE ONCE IM. 07/12/17 18:15 07/12/17 18:16 DC 07/12/17 18:15 0.5 ML Procedure Wound Repair: Complexity: Basic. Verbal consent was obtained after the risks and benefits were explained, including but not limited to bleeding, scarring, infection, pain, and bone/joint /nerve damage. The skin was prepped with betadine and a sterile field set. The wound was anesthetized with 3.2 ml of 1% buffered lidocaine. With direct pressure the bleeding subsided. Copious irrigation was performed using sterile saline. The wound was explored for foreign bodies and none found. Debridement was not performed. The deep tissue was approximated with 3 interrupted 6-0 Vicryl sutures. The wound edges were then approximated using 6-0 Ethilon with 7 simple interrupted sutures. Hemostasis and excellent approximation was achieved. Antibacterial ointment and a sterile dressing applied. Detailed wound care instructions and signs and symptoms of infection reviewed with the patient. No complications and the patient tolerated the procedure well. ED Course The patient was evaluated. The patient's EMR medication list were reviewed. Adacel was given. CT of the facial bones and head was ordered interpreted by the radiologist as above without any acute fractures or abnormality.. Laceration repair was performed as above. The patient was independently evaluated by Dr. Garcia who agrees with treatment plan. The patient was discharged home in stable condition. Medical Decision Differential diagnosis include facial fracture versus facial contusion Differential includes head contusion, fracture, subdural hematoma, intracranial bleed [place] Drug Monitoring Program Search Results: patient reviewed within database Head Trauma GCS Score: 15 Medication Reconcilliation Current Medication List: was personally reviewed by me Blood Pressure Screening Patient's blood pressure: Normal blood pressure Impression Primary Impression: Facial laceration Additional Impression: Head contusion Departure Information Dispostion Home / Self-Care Condition GOOD Referrals Hema Herrera M.D. (PCP) Forms HOME CARE DOCUMENTATION FORM, IMPORTANT VISIT INFORMATION Patient Instructions My [facility] Additional Instructions Keep wound clean and dry. No water on the area for 12-24 hrs then no soaking until sutures removed. Do not allow any crusting or dried blood to accumulate on sutures. If this occurs, use a 1:1 solution of hydrogen peroxide/water on a Q-tip to clean the wound. Use an antibiotic ointment for 3-4 days, then let wound dry. Suture removal in 6 days. Follow up sooner for any signs of infection (increasing redness, swelling, drainage). Ice and elevate for swelling and pain. Tylenol 650 mg every 6 hrs for pain. Problem Qualifiers Primary Impression: Facial laceration Encounter type: initial encounter Qualified Codes: S01.81XA - Laceration without foreign body of other part of head, initial encounter Additional Impression: Head contusion Encounter type: initial encounter Contusion of head detail: unspecified part of head Qualified Codes: S00.93XA - Contusion of unspecified part of head , initial encounter
[2017-07-12 19:37] VITALS: BP 141/79; PULSE 57; O2SAT 98
== END 2017-07-12 19:49 | disposition home or self-care (01) ==
LOC: C.EDB 18:05 → C.EDD 19:49
DX: S01.81XA Laceration without foreign body of other part of head, initial encounter (principal); W10.9XXA Fall (on) (from) unspecified stairs and steps, initial encounter; Z79.82 Long term (current) use of aspirin; I10 Essential (primary) hypertension; E78.5 Hyperlipidemia, unspecified; G35 Multiple sclerosis; Z87.440 Personal history of urinary (tract) infections; Z79.899 Other long term (current) drug therapy; Z23 Encounter for immunization

== ENCOUNTER 2017-07-22 18:34 | Inpatient (IN) | payer BC, OTHER ==
[~2017-07-22] VITALS: Ht 170.2 cm; Wt 87.0 kg
[~2017-07-22 18:34] MED LIST changes: +SENN-61 PO
[2017-07-22] MEDS ORDERED: ACETAMINOPHEN 325 MG TAB PO STA ×2 (19:03→21:47)
--- NOTE | 2017-07-22 19:16 | EMERGENCY ROOM VISIT NOTE ---
History Report prepared by Jose: Gisell Quiñones Under the Supervision of: Dr. Oliver Massey M.D. First contact with patient: 18:57 Chief Complaint: URINARY SYMPTOMS Stated Complaint: UTI History of Present Illness The patient is a 67 year old white male with a past medical history of MS, HTN and recurrent UTI's who presents to the ED with a cc of persistent urinary symptoms beginning yesterday. Positive fevers, abdominal pain, penile pain. Negative chills. He finished a course of Cipro for urinary symptoms yesterday. His states she gave him Tylenol for his fever earlier this afternoon, but it provided minimal relief. The patient states he self-catheterizes due to "dribbling" and his history of UTI's. The patient follows with Dr. Gandara at [facility]. Source of History: patient Onset: yesterday Position: other (urinary system) Timing: other (persistent) Associated Symptoms: + fevers, + abdominal pain, No chills Review of Systems See HPI for pertinent positives and negatives. A total of ten systems were reviewed and were otherwise negative. Past Medical & Surgical Medical Problems: (1) back problems (2) Benign hypertension (3) Dyslipidemia (4) Failure of outpatient treatment (5) Febrile (6) Multiple sclerosis (7) UTI (urinary tract infection) (8) UTI (urinary tract infection) Social History Smoking Status: Current Some Day Smoker Alcohol Use: none Drug Use: none Marital Status: Housing Status: lives with family Occupation Status: employed Current/Historical Medications Scheduled Amantadine Hcl (Symmetrel), 100 MG PO BID Aspirin (Aspirin Ec), 81 MG PO QPM Atenolol (Tenormin), 50 MG PO DAILY Baclofen (Baclofen), 20 MG PO BID Cholecalciferol (Vitamin D), 2,000 UNIT PO DAILY Gabapentin (Neurontin), 400 MG PO BID Glatiramer Acetate (Copaxone), 40 MG SC MWF Lisinopril (Zestril), 10 MG PO Q2D Meloxicam (Meloxicam), 15 MG PO Q2D Multiple Minerals W/ Vitamins (Citracal Plus), 1 TABLET PO DAILY Nitrofurantoin Macrocrystals (Macrodantin), 50 MG PO HS Omeprazole (Prilosec), 20 MG PO QAM Oxybutynin Chloride (Ditropan), 5 MG PO BID Senna (Senokot), 1 TAB PO QPM Triamterene/Hctz (Dyazide 37.5MG/25MG), 1 TAB PO DAILY Scheduled PRN Docusate Sodium (Docusate Sodium), 100 MG PO DAILY PRN Allergies Coded Allergies: Oxycodone (Unverified Allergy, Unknown, UNKNOWN, 03/08/17) Sulfa Drugs (Verified Allergy, Unknown, 03/08/17) Aspirin (Verified Adverse Reaction, Unknown, ASA 325 causes GI upset per pt, 03/08/17) takes ASA 81mg daily without issue Physical Exam Vital Signs Date Time Temp Pulse Resp B/P (MAP) Pulse Ox O2 Delivery O2 Flow Rate FiO2 07/22/17 19:45 78 07/22/17 18:51 38.8 78 18 167/83 99 Room Air Physical Exam GENERAL: Awake, alert, well-appearing, NAD HENT: Normocephalic, atraumatic. Some healing ecchymosis of the right periorbital area. EYES: Normal conjunctiva. Sclera non-icteric. NECK: Supple. No nuchal rigidity. FROM. RESPIRATORY: CTAB, no rhonchi, wheezing, crackles CARDIAC: RRR, no MRG ABDOMEN: Soft, some mild diffuse abdominal tenderness, worse in the suprapubic area, BS+ MSK: No chest wall TTP, no LE edema NEURO: GCS 15, CN 2-12 intact, moves all 4s on command SKIN: Scaly skin in bilateral LE> No jaundice noted. Medical Decision & Procedures ER Provider Diagnostic Interpretation: Radiology results as stated below per my review and radiologist interpretation: SINGLE VIEW CHEST CLINICAL HISTORY: Fever. Sepsis. FINDINGS: An AP, portable, upright chest radiograph is compared to study dated 03/16/2017. The examination is degraded by portable technique and patient rotation. The heart is mildly enlarged and there is atherosclerotic calcification of the thoracic aorta. The pulmonary vasculature is noncongested. There is chronic elevation of the right hemidiaphragm. Airspace opacities are questioned at the medial left lung base. No large pleural effusion or pneumothorax is seen. The skeletal structures are osteopenic. The bony thorax is grossly intact. Calcific tendinopathy is seen in the right shoulder. IMPRESSION: 1. Mild cardiac enlargement without radiographic evidence of congestive failure. 2. Question streaky airspace opacities at the medial left lung base. This could represent atelectasis versus pneumonia. Clinical correlation will be required. Electronically signed by: Jarod Pacheco M.D. 07/22/2017 7:51 PM Laboratory Results 07/22/17 19:20 Red Blood Count 5.00, Mean Corpuscular Volume 93.6, Mean Corpuscular Hemoglobin 32.2, Mean Corpuscular Hemoglobin Concent 34.4, Mean Platelet Volume 10.5, Neutrophils (%) (Auto) 89.0, Lymphocytes (%) (Auto) 5.0, Monocytes (%) (Auto) 4.4, Eosinophils (%) (Auto) 1.2, Basophils (%) (Auto) 0.1, Neutrophils # (Auto) 8.40, Lymphocytes # (Auto) 0.47, Monocytes # (Auto) 0.42, Eosinophils # (Auto) 0.11, Basophils # (Auto) 0.01 07/22/17 19:20 Test 07/22/17 19:20 07/22/17 19:30 07/22/17 19:43 White Blood Count 9.44 K/uL (4.8-10.8) Red Blood Count 5.00 M/uL (4.7-6.1) Hemoglobin 16.1 g/dL (14.0-18.0) Hematocrit 46.8 % (42-52) Mean Corpuscular Volume 93.6 fL (80-100) Mean Corpuscular Hemoglobin 32.2 pg (25-34) Mean Corpuscular Hemoglobin Concent 34.4 g/dl (32-36) Platelet Count 132 K/uL (130-400) Mean Platelet Volume 10.5 fL (7.4-10.4) Neutrophils (%) (Auto) 89.0 % Lymphocytes (%) (Auto) 5.0 % Monocytes (%) (Auto) 4.4 % Eosinophils (%) (Auto) 1.2 % Basophils (%) (Auto) 0.1 % Neutrophils # (Auto) 8.40 K/uL (1.4-6.5) Lymphocytes # (Auto) 0.47 K/uL (1.2-3.4) Monocytes # (Auto) 0.42 K/uL (0.11-0.59) Eosinophils # (Auto) 0.11 K/uL (0-0.5) Basophils # (Auto) 0.01 K/uL (0-0.2) RDW Standard Deviation 45.3 fL (36.4-46.3) RDW Coefficient of Variation 13.3 % (11.5-14.5) Immature Granulocyte % (Auto) 0.3 % Immature Granulocyte # (Auto) 0.03 K/uL (0.00-0.02) Prothrombin Time 11.4 SECONDS (9.0-12.0) Prothromb Time International Ratio 1.1 (0.9-1.1) Activated Partial Thromboplast Time 30.1 SECONDS (21.0-31.0) Partial Thromboplastin Ratio 1.2 Anion Gap 8.0 mmol/L (3-11) Est Creatinine Clear Calc Drug Dose 39.5 ml/min Estimated GFR () 41.8 Estimated GFR (Non- 36.1 BUN/Creatinine Ratio 19.0 (10-20) Lactic Acid Level 1.4 mmol/L (0.4-2.0) Calcium Level 9.5 mg/dl (8.5-10.1) Total Bilirubin 0.5 mg/dl (0.2-1) Direct Bilirubin 0.1 mg/dl (0-0.2) Aspartate Amino Transf (AST/SGOT) 19 U/L (15-37) Alanine Aminotransferase (ALT/SGPT) 31 U/L (12-78) Alkaline Phosphatase 120 U/L (45-117) Total Protein 8.7 gm/dl (6.4-8.2) Albumin 4.0 gm/dl (3.4-5.0) Lipase 119 U/L (73-393) Urine Color YELLOW Urine Appearance CLOUDY (CLEAR) Urine pH 5.0 (4.5-7.5) Urine Specific [place] 1.020 (1.000-1.030) Urine Protein TRACE (NEG) Urine Glucose (UA) NEG (NEG) Urine Ketones NEG (NEG) Urine Occult Blood 1+ (NEG) Urine Nitrite POS (NEG) Urine Bilirubin NEG (NEG) Urine Urobilinogen NEG (NEG) Urine Leukocyte Esterase LARGE (NEG) Urine WBC (Auto) >30 /hpf (0-5) Urine RBC (Auto) 5-10 /hpf (0-4) Urine Hyaline Casts (Auto) 1-5 /lpf (0-5) Urine Epithelial Cells (Auto) 0-5 /lpf (0-5) Urine Bacteria (Auto) 4+ (NEG) Venous Blood pH 7.43 (7.36-7.41) Venous Blood Partial Pressure CO2 43 mmHg (38.0-50.0) Venous Blood Partial Pressure O2 28 mmHg Venous Blood HCO3 27 mmol/L Venous Blood Oxygen Saturation < 60.0 % Venous Blood Base Excess 2.6 mEq/L Laboratory results reviewed by me Medications Administered Medications (Trade) Dose Ordered Sig/Jossie Route Start Time Stop Time Status Last Admin Dose Admin Acetaminophen (Tylenol Tab) 650 mg NOW STAT PO 07/22/17 19:03 07/22/17 19:04 DC 07/22/17 19:22 650 MG Ceftriaxone Sodium (Rocephin Inj) 1 gm NOW STAT IV 07/22/17 19:24 07/22/17 19:25 DC 07/22/17 20:00 1 GM ECG Indication: other (urinary symptoms) Rate (beats per minute): 79 Rhythm: normal sinus Findings: other (Normal intervals, right axis deviation, T-wave flattening in lead 3 but noted artifacct. No other STS or TWI) ED Course 3: Acetaminophen 650 mg PO. 1903: The patient was evaluated in room C3. A complete history and physical exam was performed. 1923: Rocephin 1 gm IV. 2029: I reevaluated the patient. He is resting comfortably. I discussed his results and my recommendation he remain in the hospital for further evaluation and management and he and his verbalized complete understanding and agreement. 2043: I discussed the patients case with Dr. Diaz, [facility] Hospitalist. The patient will be further evaluated. Medical Decision The patient is a 67 year old white male with a past medical history of MS, HTN and recurrent UTI's who presents to the ED with a cc of persistent urinary symptoms beginning yesterday. Triage Nursing notes reviewed. The patient's presentation and history were concerning for abdominal pain. Differential diagnosis: Etiologies such as appendicitis, diverticulitis, PUD, biliary pathology, UTI, pancreatitis, obstruction, mesenteric ischemia, aortic pathology, infections, inflammatory bowel disease, renal colic, as well as others were entertained. Patient was seen and evaluated at the bedside. Patient was recently seen for a fall and did have a Klebsiella pneumoniae a UTI that was pansensitive patient finished a recent course of ciprofloxacin. Of note the patient was seen back in February where he had Escherichia coli bacteremia secondary to UTI. Patient states that he does self cath 3-5 times per day. Patient states he does not really use the catheter and takes her precautions to make sure that it is sterile as possible. Patient has complained of persistent dysuria and has had subjective fevers at home. Patient does have a fever here. Patient was given antipyretics and did have blood work that was completed. Patient does have some chronic CK D with a creatinine that is mildly elevated compared to prior. Patient does not have elevated white blood cell count. Patient was initially febrile but not hypotensive nor is he tachycardic. Patient did have Rocephin given empirically. This was sensitive to prior culture sensitivities. I did speak with the hospitalist agreed to further evaluate the patient given that the patient has had failed outpatient treatment. Medication Reconcilliation Current Medication List: was personally reviewed by me Blood Pressure Screening Patient's blood pressure: Elevated blood pressure Blood pressure disposition: Referred to PCP Consults Time Called: 2039 Consulting Physician: Dr. Diaz [facility] Hospitalist Returned Call: 2043 I discussed the patients case with Dr. Diaz [facility] Hospitalist. The patient will be further evaluated. Impression Primary Impression: Symptoms involving urinary system Additional Impressions: Dysuria UTI (urinary tract infection) Fever Scribe Attestation The scribe's documentation has been prepared under my direction and personally reviewed by me in its entirety. I confirm that the note above accurately reflects all work, treatment, procedures, and medical decision making performed by me. Departure Information Dispostion Being Evaluated By Hospitalist Referrals Hema Herrera M.D. (PCP) Patient Instructions My [facility] Problem Qualifiers Additional Impressions: UTI (urinary tract infection) Urinary tract infection type: acute cystitis Hematuria presence: with hematuria Qualified Codes: N30.01 - Acute cystitis with hematuria Fever Fever type: unspecified Qualified Codes: R50.9 - Fever, unspecified
[2017-07-22] MEDS ORDERED: CEFTRIAXONE SOD INJ 1 GM ADDVIAL IV STA (19:24)
[2017-07-22 19:44] LABS: BASO % 0.1 %; BASO ABS # 0.01 K/uL (0-0.2); COMPLETE YES; EOS % 1.2 %; HEMATOCRIT 46.8 % (42-52); IG% 0.3 %; LYMPH ABS # 0.47 K/uL (1.2-3.4); MEAN CELL VOLUME 93.6 fL (80-100); MEAN CORPUSCULAR HEMOGLOBIN 32.2 pg (25-34); MEAN CORPUSCULAR HGB CONC 34.4 g/dl (32-36); MEAN PLATELET VOLUME 10.5 fL (7.4-10.4); MONO % 4.4 %; PLATELET COUNT 132 K/uL (130-400); WHITE BLOOD COUNT 9.44 K/uL (4.8-10.8)
[2017-07-22 19:47] LABS: MANUAL MICROSCOPIC REQUIRED? NO; REVIEW REQ? NO; URINE APPEARANCE CLOUDY (CLEAR); URINE BILIRUBIN NEG (NEG); URINE COLOR YELLOW; URINE EPITHELIAL CELL AUTO 0-5 /lpf (0-5); URINE NITRITE POS (NEG); UROBILINOGEN NEG (NEG)
[2017-07-22 19:52] LABS: INR 1.1 (0.9-1.1); PARTIAL THROMBOPLASTIN RATIO 1.2; PROTHROMBIN TIME (PATIENT) 11.4 SECONDS (9.0-12.0)
--- NOTE | 2017-07-22 19:52 | DIAGNOSTIC IMAGING REPORT ---
SINGLE VIEW CHEST CLINICAL HISTORY: Fever. Sepsis. FINDINGS: An AP, portable, upright chest radiograph is compared to study dated 03/16/2017. The examination is degraded by portable technique and patient rotation. The heart is mildly enlarged and there is atherosclerotic calcification of the thoracic aorta. The pulmonary vasculature is noncongested. There is chronic elevation of the right hemidiaphragm. Airspace opacities are questioned at the medial left lung base. No large pleural effusion or pneumothorax is seen. The skeletal structures are osteopenic. The bony thorax is grossly intact. Calcific tendinopathy is seen in the right shoulder. IMPRESSION: 1. Mild cardiac enlargement without radiographic evidence of congestive failure. 2. Question streaky airspace opacities at the medial left lung base. This could represent atelectasis versus pneumonia. Clinical correlation will be required. Electronically signed by: Jarod Pacheco M.D. 07/22/2017 7:51 PM Dictated Date/Time: 07/22/2017 7:49 PM
[2017-07-22 20:13] LABS: VEN BLOOD GAS BASE EXCESS 2.6 mEq/L; VENOUS BLOOD GAS PCO2 43 mmHg (38.0-50.0); VENOUS BLOOD GAS PO2 28 mmHg
[2017-07-22 20:28] LABS: CALCIUM 9.5 mg/dl (8.5-10.1); CREATININE 1.86 mg/dl (0.60-1.40)
[2017-07-22] MEDS ORDERED: NITR1CAP33 PO (21:14)
[2017-07-22] MEDS ORDERED: MAGNESIUM HYDROXIDE SUSP 30 ML UDC PO PRN (21:30)
[2017-07-22] MEDS ORDERED: ONDANSETRON INJ 2 MG/ML 2 ML VIAL IV PRN (21:30)
[2017-07-22 21:33] LABS: VEN BLD GAS O2 SATURATION < 60.0 %
[2017-07-22] MEDS ORDERED: ACETAMINOPHEN 325 MG TAB ONE (21:48)
[2017-07-22 22:20] VITALS: BP 145/78; PULSE 82; TEMP 39; O2SAT 94
[2017-07-22 22:33] VITALS: O2SAT 94; Ht 170.2 cm; Wt 87.0 kg
--- NOTE | 2017-07-22 22:38 | History and Physical ---
History & Physical Date & Time of Service: Jul 22, 2017 at 22:38 Chief Complaint: Failure Of Outpatient Treatment, Febrile, Uti Primary Care Physician: Hema Herrera M.D. History of Present Illness Source: patient, family, hospital records This is a 67 yo m with a history of MS, HTN and requires self catheteriazation that is presenting to us with fever/ suprapubic pain with recurring UTI. The patient was starting to feel unwell last night. Today he was at camp when he started to suffer from fever and suprapubic pain. He was then brought to the hospital where he was found to be febrile without tachycardia as well as a UA which was concerning for a UTI. The patient has been suffering from recurring UTI with one recently being diagnosed with Dr Gandara. He was found to have Klebsiella and was treated with Cipro which the bacteria was sensitive to and he finished yesterday. The UTI prior to this was an E Coli UTI. The patient states that he was suffering from 4/10 non radiating suprapubic pain which is aggravated by movement. Denies any penile discharge, myalgias, chest pain or SOB Past Medical/Surgical History Medical Problems: (1) back problems Status: Chronic (2) Benign hypertension Status: Chronic (3) Dyslipidemia Status: Chronic (4) Multiple sclerosis Status: Chronic Family History No significant family history Social History Smoking Status: Current Some Day Smoker Smokeless Tobacco Use: No Alcohol Use: none Drug Use: none Marital Status: Housing status: lives with family Occupational Status: employed Immunizations History of Influenza Vaccine: Yes Influenza Vaccine Date: Jul 13, 2011 History of Tetanus Vaccine?: Yes History of Pneumococcal: Yes History of Hepatitis B Vaccine: No Multi-Drug Resistant Organisms History of MDRO: Yes Type of MDRO: MRSA Allergies Coded Allergies: Oxycodone (Unverified Allergy, Unknown, UNKNOWN, 03/08/17) Sulfa Drugs (Verified Allergy, Unknown, 03/08/17) Aspirin (Verified Adverse Reaction, Unknown, ASA 325 causes GI upset per pt, 03/08/17) takes ASA 81mg daily without issue Home Medications Scheduled Amantadine Hcl (Symmetrel), 100 MG PO BID Aspirin (Aspirin Ec), 81 MG PO QPM Atenolol (Tenormin), 50 MG PO DAILY Baclofen (Baclofen), 20 MG PO BID Cholecalciferol (Vitamin D), 2,000 UNIT PO DAILY Gabapentin (Neurontin), 400 MG PO BID Glatiramer Acetate (Copaxone), 40 MG SC MWF Lisinopril (Zestril), 10 MG PO Q2D Meloxicam (Meloxicam), 15 MG PO Q2D Multiple Minerals W/ Vitamins (Citracal Plus), 1 TABLET PO DAILY Nitrofurantoin Macrocrystals (Macrodantin), 50 MG PO HS Omeprazole (Prilosec), 20 MG PO QAM Oxybutynin Chloride (Ditropan), 5 MG PO BID Senna (Senokot), 1 TAB PO QPM Triamterene/Hctz (Dyazide 37.5MG/25MG), 1 TAB PO DAILY Scheduled PRN Docusate Sodium (Docusate Sodium), 100 MG PO DAILY PRN Review of Systems Constitutional: + fever Eyes: No worsening of vision ENT: No hearing loss Respiratory: No cough, No sputum, No wheezing, No shortness of breath, No dyspnea on exertion, No dyspnea at rest Cardiovascular: No chest pain Abdomen: + pain, No nausea, No vomiting, No diarrhea, No constipation Musculoskeletal: No joint pain, No muscle pain Genitourinary - Male: No hematuria, No dysuria Neurologic: No weakness, No numbness/tingling, No balance problems Endocrine: + fatigue Physical Exam Vital Signs Date Time Temp Pulse Resp B/P (MAP) Pulse Ox O2 Delivery O2 Flow Rate FiO2 07/22/17 22:20 39.0 82 20 145/78 (100) 94 Room Air 07/22/17 21:52 38.2 07/22/17 21:39 89 18 172/101 94 Room Air 07/22/17 19:45 78 07/22/17 18:51 38.8 78 18 167/83 99 Room Air General Appearance: + mild distress Head: normocephalic, atraumatic Eyes: normal inspection ENT: normal ENT inspection Neck: supple Respiratory/Chest: normal breath sounds, no respiratory distress, no accessory muscle use Cardiovascular: regular rate, rhythm, no murmur, normal peripheral pulses Abdomen/GI: normal bowel sounds, soft, + tenderness (suprapubic tenderness) Back: normal inspection, no CVA tenderness Neurologic/Psych: alert, normal mood/affect, oriented x 3 Skin: normal color, warm/dry, no rash, + pertinent finding (facial flushing) Lymphatic: no adenopathy Diagnostics Laboratory Results Results Past 24 Hours Test 07/22/17 19:20 07/22/17 19:30 07/22/17 19:43 Range/Units White Blood Count 9.44 4.8-10.8 K/uL Red Blood Count 5.00 4.7-6.1 M/uL Hemoglobin 16.1 14.0-18.0 g/dL Hematocrit 46.8 42-52 % Mean Corpuscular Volume 93.6 80-100 fL Mean Corpuscular Hemoglobin 32.2 25-34 pg Mean Corpuscular Hemoglobin Concent 34.4 32-36 g/dl Platelet Count 132 130-400 K/uL Mean Platelet Volume 10.5 7.4-10.4 fL Neutrophils (%) (Auto) 89.0 % Lymphocytes (%) (Auto) 5.0 % Monocytes (%) (Auto) 4.4 % Eosinophils (%) (Auto) 1.2 % Basophils (%) (Auto) 0.1 % Neutrophils # (Auto) 8.40 1.4-6.5 K/uL Lymphocytes # (Auto) 0.47 1.2-3.4 K/uL Monocytes # (Auto) 0.42 0.11-0.59 K/uL Eosinophils # (Auto) 0.11 0-0.5 K/uL Basophils # (Auto) 0.01 0-0.2 K/uL RDW Standard Deviation 45.3 36.4-46.3 fL RDW Coefficient of Variation 13.3 11.5-14.5 % Immature Granulocyte % (Auto) 0.3 % Immature Granulocyte # (Auto) 0.03 0.00-0.02 K/uL Prothrombin Time 11.4 9.0-12.0 SECONDS Prothromb Time International Ratio 1.1 0.9-1.1 Activated Partial Thromboplast Time 30.1 21.0-31.0 SECONDS Partial Thromboplastin Ratio 1.2 Sodium Level 136 136-145 mmol/L Potassium Level 4.0 3.5-5.1 mmol/L Chloride Level 100 98-107 mmol/L Carbon Dioxide Level 28 21-32 mmol/L Anion Gap 8.0 3-11 mmol/L Blood Urea Nitrogen 35 7-18 mg/dl Creatinine 1.86 0.60-1.40 mg/dl Est Creatinine Clear Calc Drug Dose 39.5 ml/min Estimated GFR () 41.8 Estimated GFR (Non- 36.1 BUN/Creatinine Ratio 19.0 10-20 Random Glucose 108 70-99 mg/dl Lactic Acid Level 1.4 0.4-2.0 mmol/L Calcium Level 9.5 8.5-10.1 mg/dl Total Bilirubin 0.5 0.2-1 mg/dl Direct Bilirubin 0.1 0-0.2 mg/dl Aspartate Amino Transf (AST/SGOT) 19 15-37 U/L Alanine Aminotransferase (ALT/SGPT) 31 12-78 U/L Alkaline Phosphatase 120 45-117 U/L Total Protein 8.7 6.4-8.2 gm/dl Albumin 4.0 3.4-5.0 gm/dl Lipase 119 73-393 U/L Urine Color YELLOW Urine Appearance CLOUDY CLEAR Urine pH 5.0 4.5-7.5 Urine Specific [place] 1.020 1.000-1.030 Urine Protein TRACE NEG Urine Glucose (UA) NEG NEG Urine Ketones NEG NEG Urine Occult Blood 1+ NEG Urine Nitrite POS NEG Urine Bilirubin NEG NEG Urine Urobilinogen NEG NEG Urine Leukocyte Esterase LARGE NEG Urine WBC (Auto) >30 0-5 /hpf Urine RBC (Auto) 5-10 0-4 /hpf Urine Hyaline Casts (Auto) 1-5 0-5 /lpf Urine Epithelial Cells (Auto) 0-5 0-5 /lpf Urine Bacteria (Auto) 4+ NEG Venous Blood pH 7.43 7.36-7.41 Venous Blood Partial Pressure CO2 43 38.0-50.0 mmHg Venous Blood Partial Pressure O2 28 mmHg Venous Blood HCO3 27 mmol/L Venous Blood Oxygen Saturation < 60.0 % Venous Blood Base Excess 2.6 mEq/L Microbiology Results 07/22/17 Blood Culture, Received Pending 07/22/17 Blood Culture, Received Pending Diagnostic Radiology SINGLE VIEW CHEST CLINICAL HISTORY: Fever. Sepsis. FINDINGS: An AP, portable, upright chest radiograph is compared to study dated 03/16/2017. The examination is degraded by portable technique and patient rotation. The heart is mildly enlarged and there is atherosclerotic calcification of the thoracic aorta. The pulmonary vasculature is noncongested. There is chronic elevation of the right hemidiaphragm. Airspace opacities are questioned at the medial left lung base. No large pleural effusion or pneumothorax is seen. The skeletal structures are osteopenic. The bony thorax is grossly intact. Calcific tendinopathy is seen in the right shoulder. IMPRESSION: 1. Mild cardiac enlargement without radiographic evidence of congestive failure. 2. Question streaky airspace opacities at the medial left lung base. This could represent atelectasis versus pneumonia. Clinical correlation will be required. EKG Normal sinus rhythm Nonspecific ST abnormality Abnormal ECG When compared with ECG of 08-MAR-2017 19:54, Nonspecific T wave abnormality now evident in Inferior leads HR 79 Impression Assessment and Plan This is a 67 yo m with a history of MS with fever most likely from urinary source and suffering from recurring UTI Fever secondary to urinary source - Med surg admission (hemodynamically stable) - Rocephin 1 g daily - CBC in am - Blood culture pending - consult ID [email or web address] on CKD III NSS @ 100cc/h - recheck BMP in am Multiple Sclerosis - continue Amantadine 50 mg bid, Baclofen 20 mg bid, gabapentin 400 mg bid and oxybutynin 5 mg bid HTN - continue Dyazide - lisinopril held DVT prophylaxis SCD, heparin bid Attending addendum: I have physically seen this patient, have supervised the medical residents activities, and agree with the H&P unless as otherwise noted. Assessment and Plan: Recurrent UTI/SIRS-- Admitted to [facility] Ceftriaxone 1 g IV daily Follow urine and blood cultures Serial CBC with differential and BMP Self-catheterization, with most recent bacteria including Klebsiella, and previous infection with Escherichia coli, both of which were pansensitive. Acute on chronic kidney injury/hypertension-- NSS at 100 ML's per hour Hold lisinopril Carefully continue Dyazide Follow urine cultures. Multiple sclerosis-- Continue amantadine, baclofen, gabapentin and oxybutynin. Level of Care Med/Surg Advanced Directives Existing Advance Directive: No Existing Living Will: No Existing Power of Powerhouse Mechanic: No Resuscitation Status FULL RESUSCITATION VTE Prophylaxis VTE Risk Assessment Done? Y/N: Yes Risk Level: Moderate Given or contraindicated: Unfractionated heparin SQ, SCD's Social Service Consult None Apply Note Total Time: Critical Care 30 - 74 minutes Additional Copies To Hema Herrera M.D.
[2017-07-22] MEDS ORDERED: INFLUENZA VIRUS QUAD VACCINE 0.5 ML SYR IM. ONE (23:45)
[2017-07-22] MEDS ORDERED: INFLUENZA ADMINISTRATION CHARGE ONE (23:45)
[2017-07-22 23:51] VITALS: BP 112/69; PULSE 91; TEMP 37.6; O2SAT 94
[2017-07-23] VITALS: O2SAT 94
[2017-07-23] MEDS ORDERED: ACETAMINOPHEN 325 MG TAB PO PRN (04:00)
[2017-07-23] MEDS: SODIUM CHLORIDE 0.9% 1000ML 1,000 ML IV SCH ×4 (06:19→22:25)
[2017-07-23 08:13] VITALS: BP 116/66; PULSE 77; TEMP 37.3; O2SAT 94
[2017-07-23 08:21] LABS: HEMATOCRIT 40.9 % (42-52); MEAN CELL VOLUME 92.7 fL (80-100); MEAN CORPUSCULAR HGB CONC 34.5 g/dl (32-36); MEAN PLATELET VOLUME 9.9 fL (7.4-10.4); PLATELET COUNT 118 K/uL (130-400); RED BLOOD COUNT 4.41 M/uL (4.7-6.1); WHITE BLOOD COUNT 7.04 K/uL (4.8-10.8)
[2017-07-23] MEDS: OXYBUTYNIN CHLORIDE 5 MG TAB PO SCH ×2 (08:48→20:12)
[2017-07-23] MEDS: GABAPENTIN 400 MG CAP PO SCH ×2 (08:48→20:14)
[2017-07-23] MEDS: CHOLECALCIFEROL 1000 INTER.UNIT TAB PO SCH (08:48)
[2017-07-23] MEDS: BACLOFEN TAB 20 MG TAB PO SCH ×2 (08:50→20:13)
[2017-07-23] MEDS: AMANTADINE HCL 100 MG CAP PO SCH ×2 (08:51→20:13)
[2017-07-23] MEDS: TRIAMTERENE/HCTZ 37.5/25MG CAP PO SCH (08:51)
[2017-07-23] MEDS: PANTOprazole SOD 40 MG TAB PO SCH (08:51)
[2017-07-23] MEDS: ACETAMINOPHEN 325 MG TAB PO PRN (08:54)
[2017-07-23 08:56] LABS: BUN/CREATININE RATIO 19.9 (10-20); CALCIUM 8.6 mg/dl (8.5-10.1); CREATININE 1.67 mg/dl (0.60-1.40); POTASSIUM 3.5 mmol/L (3.5-5.1)
[2017-07-23] MEDS ORDERED: MELOXICAM 7.5 MG TAB PO SCH (09:00)
[2017-07-23] MEDS: HEPARIN SOD 5000 UNIT/0.5 ML CARP SQ SCH ×2 (09:33→20:22)
--- NOTE | 2017-07-23 10:33 | Family Medicine Progress Note ---
Progress Note Date of Service Jul 23, 2017. Subjective Pt evaluation today including: conversation w/ patient, physical exam, chart review, lab review, review of inpatient medication list Pain: Mild abdominal discomfort reported PO Intake: Tolerating PO intake Voiding: walters catheter in place Mr. Williamson states he feels okay today. He reports weakness, which he says is typical for him when he gets a UTI, and states he usually cannot walk when he has one. He states he has some mild abdominal pain over the suprapubic region , improved from yesterday. He denies chest pain, SOB, fever, or chills. Constitutional: No fever, No chills Respiratory: No cough, No sputum, No wheezing, No shortness of breath Cardiovascular: No chest pain Abdomen: + pain, No nausea, No vomiting All Other Systems: Reviewed and Negative Medications Current Inpatient Medications Medications (Trade) Dose Ordered Sig/Jossie Route Start Time Stop Time Status Last Admin Dose Admin Acetaminophen (Tylenol Tab) 650 mg Q4H PRN PO 07/22/17 21:30 08/21/17 21:29 07/23/17 08:54 650 MG Magnesium Hydroxide (Milk Of Magnesia Susp) 30 ml Q6H PRN PO 07/22/17 21:30 08/21/17 21:29 Ondansetron HCl (Zofran Inj) 4 mg Q6H PRN IV 07/22/17 21:30 08/21/17 21:29 Ceftriaxone Sodium 1 gm/ Dextrose 50 ml @ 100 mls/hr Q24H IV 07/23/17 20:00 07/31/17 20:29 Sodium Chloride 1,000 ml @ 125 mls/hr Q8H IV 07/22/17 23:00 08/21/17 22:59 07/23/17 06:19 125 MLS/HR Amantadine HCl (Symmetrel Cap) 100 mg BID PO 07/23/17 09:00 08/22/17 08:59 07/23/17 08:51 100 MG Aspirin (Ecotrin Tab) 81 mg QPM PO 07/23/17 21:00 08/22/17 20:59 Atenolol (Tenormin Tab) 50 mg DAILY PO 07/23/17 09:00 08/22/17 08:59 07/23/17 08:51 50 MG Baclofen (Lioresal Tab) 20 mg BID PO 07/23/17 09:00 08/22/17 08:59 07/23/17 08:50 20 MG Gabapentin (Neurontin Cap) 400 mg BID PO 07/23/17 09:00 08/22/17 08:59 07/23/17 08:48 400 MG Oxybutynin Chloride (Ditropan Tab) 5 mg BID PO 07/23/17 09:00 08/22/17 08:59 07/23/17 08:48 5 MG Senna (Senokot Tab) 8.6 mg QPM PO 07/23/17 21:00 08/22/17 20:59 Triamterene/HCTZ (Dyazide 37.5/25 Mg Cap) 1 cap DAILY PO 07/23/17 09:00 08/22/17 08:59 07/23/17 08:51 1 CAP Cholecalciferol (Vitamin D Tab) 2,000 inter.unit DAILY PO 07/23/17 09:00 08/22/17 08:59 07/23/17 08:48 2,000 INTER.UNIT Miscellaneous Information (Order Awaiting Action) 1 ea QS N/A 07/23/17 00:00 08/22/17 00:00 Pantoprazole Sodium (Protonix Tab) 40 mg QAM PO 07/23/17 09:00 08/22/17 08:59 07/23/17 08:51 40 MG Heparin Sodium (Porcine) (Heparin Sq 5000 Unit/0.5ml) 5,000 unit Q12 SQ 07/23/17 09:00 08/22/17 08:59 07/23/17 09:33 5,000 UNIT Objective Vital Signs Date Time Temp Pulse Resp B/P (MAP) Pulse Ox O2 Delivery O2 Flow Rate FiO2 07/23/17 08:13 37.3 77 18 116/66 (83) 94 07/23/17 00:00 94 Room Air 07/22/17 23:51 37.6 91 18 112/69 (83) 94 Room Air 07/22/17 22:33 94 Room Air 07/22/17 22:20 39.0 82 20 145/78 (100) 94 Room Air 07/22/17 21:52 38.2 07/22/17 21:39 89 18 172/101 94 Room Air 07/22/17 19:45 78 07/22/17 18:51 38.8 78 18 167/83 99 Room Air Physical Exam General Appearance: WD/WN, no apparent distress, + pertinent finding (walters catheter draining dark yellow urine) Respiratory/Chest: chest non-tender, lungs clear, normal breath sounds, no respiratory distress, no accessory muscle use Cardiovascular: regular rate, rhythm, no edema, no gallop, no JVD, no murmur Abdomen: normal bowel sounds, soft, no organomegaly, no pulsatile mass, + tenderness (mild tenderness over suprapubic area) Laboratory Results Last 24 Hours Test 07/22/17 19:20 07/22/17 19:30 07/22/17 19:43 07/23/17 08:09 White Blood Count 9.44 K/uL 7.04 K/uL Red Blood Count 5.00 M/uL 4.41 M/uL Hemoglobin 16.1 g/dL 14.1 g/dL Hematocrit 46.8 % 40.9 % Mean Corpuscular Volume 93.6 fL 92.7 fL Mean Corpuscular Hemoglobin 32.2 pg 32.0 pg Mean Corpuscular Hemoglobin Concent 34.4 g/dl 34.5 g/dl Platelet Count 132 K/uL 118 K/uL Mean Platelet Volume 10.5 fL 9.9 fL Neutrophils (%) (Auto) 89.0 % Lymphocytes (%) (Auto) 5.0 % Monocytes (%) (Auto) 4.4 % Eosinophils (%) (Auto) 1.2 % Basophils (%) (Auto) 0.1 % Neutrophils # (Auto) 8.40 K/uL Lymphocytes # (Auto) 0.47 K/uL Monocytes # (Auto) 0.42 K/uL Eosinophils # (Auto) 0.11 K/uL Basophils # (Auto) 0.01 K/uL RDW Standard Deviation 45.3 fL 46.0 fL RDW Coefficient of Variation 13.3 % 13.5 % Immature Granulocyte % (Auto) 0.3 % Immature Granulocyte # (Auto) 0.03 K/uL Prothrombin Time 11.4 SECONDS Prothromb Time International Ratio 1.1 Activated Partial Thromboplast Time 30.1 SECONDS Partial Thromboplastin Ratio 1.2 Sodium Level 136 mmol/L 137 mmol/L Potassium Level 4.0 mmol/L 3.5 mmol/L Chloride Level 100 mmol/L 103 mmol/L Carbon Dioxide Level 28 mmol/L 24 mmol/L Anion Gap 8.0 mmol/L 10.0 mmol/L Blood Urea Nitrogen 35 mg/dl 33 mg/dl Creatinine 1.86 mg/dl 1.67 mg/dl Est Creatinine Clear Calc Drug Dose 39.5 ml/min 44.0 ml/min Estimated GFR () 41.8 47.7 Estimated GFR (Non- 36.1 41.1 BUN/Creatinine Ratio 19.0 19.9 Random Glucose 108 mg/dl 105 mg/dl Lactic Acid Level 1.4 mmol/L Calcium Level 9.5 mg/dl 8.6 mg/dl Total Bilirubin 0.5 mg/dl Direct Bilirubin 0.1 mg/dl Aspartate Amino Transf (AST/SGOT) 19 U/L Alanine Aminotransferase (ALT/SGPT) 31 U/L Alkaline Phosphatase 120 U/L Total Protein 8.7 gm/dl Albumin 4.0 gm/dl Lipase 119 U/L Urine Color YELLOW Urine Appearance CLOUDY Urine pH 5.0 Urine Specific [place] 1.020 Urine Protein TRACE Urine Glucose (UA) NEG Urine Ketones NEG Urine Occult Blood 1+ Urine Nitrite POS Urine Bilirubin NEG Urine Urobilinogen NEG Urine Leukocyte Esterase LARGE Urine WBC (Auto) >30 /hpf Urine RBC (Auto) 5-10 /hpf Urine Hyaline Casts (Auto) 1-5 /lpf Urine Epithelial Cells (Auto) 0-5 /lpf Urine Bacteria (Auto) 4+ Venous Blood pH 7.43 Venous Blood Partial Pressure CO2 43 mmHg Venous Blood Partial Pressure O2 28 mmHg Venous Blood HCO3 27 mmol/L Venous Blood Oxygen Saturation < 60.0 % Venous Blood Base Excess 2.6 mEq/L Assessment and Plan Mr. Williamson is a 67 year old male with a history of MS, neurogenic bladder, and recurrent UTIs with fever most likely from urinary source. Fever secondary to urinary source - Continue Rocephin 1 g daily - Tmax was 39 overnight - Blood culture and urine culture pending CRUZITO on CKD III - creatinine 1.67, improved from yesterday, but elevated from baseline of 1.3 - likely secondary to dehydration, will monitor Multiple Sclerosis - continue Amantadine 50 mg bid, Baclofen 20 mg bid, gabapentin 400 mg bid and oxybutynin 5 mg bid HTN - continue Dyazide - lisinopril held DVT prophylaxis: SCD, heparin bid Code: Full Disposition: remains on med/surg Resident Physician Supervision Note: I interviewed and examined the patient. Discussed with Dr. Kate and agree with findings and plan as documented in the note. Any exceptions or clarifications are listed here: None Documented By: Trey Rahman feelign slightly better than before. no further fevers. awaiting cultures. just finished abx. notes dr gomez started he believes proph abx at last visit but he hadn't gotten started on it yet vitals noted nad breathing unlabored no pallor or icterus fever presumed UTI complicated by self-cath -rocephin pending cultures -review of urology notes shows that on 07/11 RX for cipro was given for acute infection, AND Rx for macrobid 50mg HS for proph Resident Tracking Resident Involvement: Resident Care Provided Care Provided: Adult Hospital Medicine
[2017-07-23 15:59] VITALS: BP 125/71; PULSE 67; TEMP 36.9; O2SAT 96
[2017-07-23 20:00] VITALS: O2SAT 94
[2017-07-23] MEDS ORDERED: CEFTRIAXONE SOD INJ 1 GM in DEXTROSE 5% ADD-VANTAGE 50ML 50 ML IV SCH (20:00)
[2017-07-23] MEDS ORDERED: ASPIRIN 81 MG ECTAB PO SCH (21:00)
[2017-07-23] MEDS ORDERED: SENNA 8.6 MG TAB PO SCH (21:00)
[2017-07-23] MEDS ORDERED: NURSING VERBAL MED ORDER ONE (22:25)
[2017-07-23] MEDS ORDERED: GLATIRAMER ACETATE 40 MG/ML SYR SQ STA (22:31)
[2017-07-23 22:51] VITALS: BP 134/72; PULSE 72; TEMP 36.8; O2SAT 97
[2017-07-24] VITALS: O2SAT 94
[2017-07-24] MEDS: ACETAMINOPHEN 325 MG TAB PO PRN (01:01)
[2017-07-24] MEDS: SODIUM CHLORIDE 0.9% 1000ML 1,000 ML IV SCH (06:31)
[2017-07-24] MEDS ORDERED: LISINOPRIL 10 MG TAB PO SCH (07:00)
[2017-07-24 08:00] VITALS: BP 151/78; PULSE 72; TEMP 36.6; O2SAT 95
[2017-07-24] MEDS: OXYBUTYNIN CHLORIDE 5 MG TAB PO SCH (08:17)
[2017-07-24] MEDS: AMANTADINE HCL 100 MG CAP PO SCH (08:17)
[2017-07-24] MEDS: BACLOFEN TAB 20 MG TAB PO SCH (08:17)
[2017-07-24] MEDS: GABAPENTIN 400 MG CAP PO SCH (08:17)
[2017-07-24] MEDS: TRIAMTERENE/HCTZ 37.5/25MG CAP PO SCH (08:17)
[2017-07-24] MEDS: CHOLECALCIFEROL 1000 INTER.UNIT TAB PO SCH (08:18)
[2017-07-24] MEDS: PANTOprazole SOD 40 MG TAB PO SCH (08:18)
[2017-07-24] MEDS: HEPARIN SOD 5000 UNIT/0.5 ML CARP SQ SCH (08:23)
[2017-07-24 08:30] LABS: HEMATOCRIT 38.5 % (42-52); MEAN CELL VOLUME 92.1 fL (80-100); MEAN CORPUSCULAR HEMOGLOBIN 31.8 pg (25-34); MEAN CORPUSCULAR HGB CONC 34.5 g/dl (32-36); RED BLOOD COUNT 4.18 M/uL (4.7-6.1); WHITE BLOOD COUNT 6.45 K/uL (4.8-10.8)
[2017-07-24 09:06] LABS: MEAN PLATELET VOLUME 9.8 fL (7.4-10.4); PLATELET COUNT 95 K/uL (130-400); PLT ESTIMATE DECREASED
[2017-07-24 09:07] LABS: BUN/CREATININE RATIO 22.4 (10-20); CALCIUM 8.7 mg/dl (8.5-10.1); CREATININE 1.35 mg/dl (0.60-1.40); POTASSIUM 3.9 mmol/L (3.5-5.1)
--- NOTE | 2017-07-24 11:51 | Family Medicine Progress Note ---
Progress Note Date of Service Jul 24, 2017. Subjective Pt evaluation today including: conversation w/ patient, physical exam, chart review, lab review Pain: No pain reported PO Intake: Tolerating PO intake Voiding: no voiding problems Mr. Williamson reports he feels better today. He states his abdominal pain has resolved and he denies fever, chills, nausea, vomiting, chest pain or SOB. He does state he is unsure of if he will be strong enough to walk as he is usually weak after UTIs. Constitutional: No fever, No chills Respiratory: No cough, No sputum, No wheezing, No shortness of breath Cardiovascular: No chest pain Abdomen: No pain, No nausea, No vomiting All Other Systems: Reviewed and Negative Medications Current Inpatient Medications Medications (Trade) Dose Ordered Sig/Jossie Route Start Time Stop Time Status Last Admin Dose Admin Acetaminophen (Tylenol Tab) 650 mg Q4H PRN PO 07/22/17 21:30 08/21/17 21:29 07/24/17 01:01 650 MG Magnesium Hydroxide (Milk Of Magnesia Susp) 30 ml Q6H PRN PO 07/22/17 21:30 08/21/17 21:29 Ondansetron HCl (Zofran Inj) 4 mg Q6H PRN IV 07/22/17 21:30 08/21/17 21:29 Ceftriaxone Sodium 1 gm/ Dextrose 50 ml @ 100 mls/hr Q24H IV 07/23/17 20:00 07/31/17 20:29 07/23/17 20:08 100 MLS/HR Sodium Chloride 1,000 ml @ 125 mls/hr Q8H IV 07/22/17 23:00 08/21/17 22:59 07/24/17 06:31 125 MLS/HR Amantadine HCl (Symmetrel Cap) 100 mg BID PO 07/23/17 09:00 08/22/17 08:59 07/24/17 08:17 100 MG Aspirin (Ecotrin Tab) 81 mg QPM PO 07/23/17 21:00 08/22/17 20:59 07/23/17 20:13 81 MG Atenolol (Tenormin Tab) 50 mg DAILY PO 07/23/17 09:00 08/22/17 08:59 07/24/17 08:17 50 MG Baclofen (Lioresal Tab) 20 mg BID PO 07/23/17 09:00 08/22/17 08:59 07/24/17 08:17 20 MG Gabapentin (Neurontin Cap) 400 mg BID PO 07/23/17 09:00 08/22/17 08:59 07/24/17 08:17 400 MG Oxybutynin Chloride (Ditropan Tab) 5 mg BID PO 07/23/17 09:00 08/22/17 08:59 07/24/17 08:17 5 MG Senna (Senokot Tab) 8.6 mg QPM PO 07/23/17 21:00 08/22/17 20:59 07/23/17 20:12 8.6 MG Triamterene/HCTZ (Dyazide 37.5/25 Mg Cap) 1 cap DAILY PO 07/23/17 09:00 08/22/17 08:59 07/24/17 08:17 1 CAP Cholecalciferol (Vitamin D Tab) 2,000 inter.unit DAILY PO 07/23/17 09:00 08/22/17 08:59 07/24/17 08:18 2,000 INTER.UNIT Pantoprazole Sodium (Protonix Tab) 40 mg QAM PO 07/23/17 09:00 08/22/17 08:59 07/24/17 08:18 40 MG Heparin Sodium (Porcine) (Heparin Sq 5000 Unit/0.5ml) 5,000 unit Q12 SQ 07/23/17 09:00 08/22/17 08:59 07/24/17 08:23 5,000 UNIT Glatiramer Acetate (Copaxone) 40 mg MoWeFr@0900 SQ 07/25/17 09:00 08/24/17 08:59
[2017-07-24 15:33] VITALS: BP 162/92; PULSE 72; TEMP 36.9; O2SAT 96
[2017-07-24] MEDS ORDERED: CEFD300C3 PO ×2 (16:07→16:08)
--- NOTE | 2017-07-24 16:13 | Discharge Instructions ---
Discharge Instructions Date of Service Jul 24, 2017. Admission Reason for Admission: Failure Of Outpatient Treatment, Febrile, Uti Discharge Discharge Diagnosis / Problem: Urinary Tract Infection Discharge Goals Goal(s): Decrease discomfort, Improve function, Increase independence Activity Recommendations Activity Limitations: resume your previous activity . Instructions / Follow-Up Instructions / Follow-Up You were admitted to [facility] due to a urinary tract infection. You were treated with IV antibiotics and we will be discharging you home on 7 more days of an antibiotic called cefdinir. Please take your first dose of the cefdinir tonight. As well, given that you are at a higher risk for urinary tract infections, please also begin your prophylactic macrobid tomorrow and continue taking that even after you finish with the cefdinir. While you were in the hospital, your platelets dropped from 132 to 95. This could be due to your infection and we recommend you see your primary care doctor tomorrow or the day after to recheck your levels to ensure they have not dropped any further. You can take all your other medications as prescribed. If you experience fever, chills, worsening weakness, nausea or vomiting, please seek medical attention. Current Hospital Diet Patient's current hospital diet: Regular Diet Discharge Diet Recommended Diet: Regular Diet Pending Studies Studies pending at discharge: no Medical Emergencies . Who to Call and When: Medical Emergencies: If at any time you feel your situation is an emergency, please call 911 immediately. . Non-Emergent Contact Non-Emergency issues call your: Primary Care Provider . . "Provider Documentation" section prepared by Stephy Kate. . VTE Core Measure Inpt VTE Proph given/why not?: Unfractionated heparin SQ, SCD's
--- NOTE | 2017-07-24 16:23 | Discharge Summary ---
Discharge Summary Date of Service Jul 24, 2017. Discharge Summary Admission Date: Jul 22, 2017 at 21:28 Discharge Date: Jul 24, 2017 Discharge Disposition: Home Principal Diagnosis: Urinary Tract Infection Problems/Secondary Diagnoses: 1) MS 2) Hypertension 3) Acute kidney injury Immunizations: Have You Had Influenza Vaccine: Yes Influenza Vaccine Date: Jul 13, 2011 History of Tetanus Vaccine?: Yes History of Pneumococcal: Yes History of Hepatitis B Vaccine: No Procedures: Chest Xray CLINICAL HISTORY: Fever. Sepsis. FINDINGS: An AP, portable, upright chest radiograph is compared to study dated 03/16/2017. The examination is degraded by portable technique and patient rotation. The heart is mildly enlarged and there is atherosclerotic calcification of the thoracic aorta. The pulmonary vasculature is noncongested. There is chronic elevation of the right hemidiaphragm. Airspace opacities are questioned at the medial left lung base. No large pleural effusion or pneumothorax is seen. The skeletal structures are osteopenic. The bony thorax is grossly intact. Calcific tendinopathy is seen in the right shoulder. IMPRESSION: 1. Mild cardiac enlargement without radiographic evidence of congestive failure. 2. Question streaky airspace opacities at the medial left lung base. This could represent atelectasis versus pneumonia. Clinical correlation will be required. Medication Reconciliation New Medications: Cefdinir (Cefdinir) 300 Mg Cap 1 CAP PO BID for 7 Days, #15 CAP Continued Medications: Amantadine Hcl (Symmetrel) 100 Mg Tab 100 MG PO BID, TAB Aspirin (Aspirin Ec) 81 Mg Tab 81 MG PO QPM Atenolol (Tenormin) 50 Mg Tab 50 MG PO DAILY, TAB Baclofen (Baclofen) 20 Mg Tab 20 MG PO BID Cholecalciferol (Vitamin D) 2,000 Unit Cap 2000 UNIT PO DAILY Docusate Sodium (Docusate Sodium) 100 Mg Cap 100 MG PO DAILY PRN Gabapentin (Neurontin) 400 Mg Cap 400 MG PO BID, CAP Glatiramer Acetate (Copaxone) 20 Mg/1 Ml Inj 40 MG SC MWF Lisinopril (Zestril) 10 Mg Tab 10 MG PO Q2D, TAB Meloxicam (Meloxicam) 15 Mg Tab 15 MG PO Q2D Multiple Minerals W/ Vitamins (Citracal Plus) 1 Tab Tab 1 TABLET PO DAILY Nitrofurantoin Macrocrystals (Macrodantin) 50 Mg Cap 50 MG PO HS, CAP Omeprazole (Prilosec) 20 Mg Capcr 20 MG PO QAM, CAP Oxybutynin Chloride (Ditropan) 5 Mg Tab 5 MG PO BID, TAB Senna (Senokot) 8.6 Mg Tab 1 TAB PO QPM, TAB Triamterene/Hctz (Dyazide 37.5MG/25MG) Cap 1 TAB PO DAILY, CAP Discharge Exam Mr. Williamson reports he feels better today, and that his abdominal pain had resolved. He denies any fever, chills, nausea, vomiting, chest pain or shortness of breath. Review of Systems: Constitutional: No fever, No chills Respiratory: No cough, No sputum, No wheezing Cardiovascular: No chest pain, No orthopnea Abdomen: No pain, No nausea, No vomiting, No diarrhea Physical Exam: General Appearance: WD/WN, no apparent distress Respiratory/Chest: chest non-tender, lungs clear, normal breath sounds, no respiratory distress, no accessory muscle use Cardiovascular: regular rate, rhythm, no edema, no gallop, no JVD, no murmur , normal peripheral pulses Abdomen / GI: normal bowel sounds, non tender, soft, no organomegaly, no pulsatile mass Hospital Course Mr. Williamson is a 67 year old male with a history of MS, neurogenic bladder, and recurrent UTIs who was admitted due to a fever secondary to a UTI. Below are the medical problems that were addressed during his stay: UTI - he was treated with IV rocephin - he will be discharged with 7 days of 300mg cefdinir BID - he was also told to take his macrobid as prophylaxis given that he has to straight cath and is therefore high risk for UTIs, and this UTI occurred so quickly after he finished his ciprofloxacin for his last UTI Low Platelets - his platelets dropped from 132 to 95 - could be due to his infection vs. possible HIT (although probability was low) - recommend rechecking in 1-2 days to ensure levels have not dropped further Resident Physician Supervision Note: I interviewed and examined the patient. Discussed with Dr. Kate and agree with findings and plan as documented in the note. Any exceptions or clarifications are listed here: None Documented By: Trey Rahman feeling better feels up to going home wants to go home vitals noted nad breathing unlabored urine culture unfortunately sent after abx were started fever/UTI - improving. no workable culture results but since he got better on rocephin, cefdinir should cover well as well - home on this; was to start macrobid per urology - encouraged to do so. low platelets - nonspecific and of note on old records he's had this happen before - stable for home, CBC as outpt tomorrow or tuesday stable for home as above Total Time Spent: Greater than 30 minutes This includes examination of the patient, discharge planning, medication reconciliation, and communication with other providers. Discharge Instructions Please refer to the electronic Patient Visit Report (Discharge Instructions) for additional information. Additional Copies To Hema Herrera M.D.; Jason Gandara M.D. Resident Tracking Resident Involvement: Resident Care Provided Care Provided: Adult Hospital Medicine
[2017-07-24 16:44] VITALS: BP 162/92; PULSE 72; TEMP 36.9; O2SAT 96
[2017-07-25] MEDS ORDERED: GLATIRAMER ACETATE 40 MG/ML SYR SQ SCH (09:00)
== END 2017-07-24 17:36 | disposition home or self-care (01) | DRG 690 ==
LOC: C.EDB 18:35 → C.MED 21:28 → EDBEDREQ 21:39 → ENRESERV 21:41
PROVIDERS: ADMIT Hospitalist; ATTEND Family Medicine
DX: N39.0 Urinary tract infection, site not specified (principal); N17.9 Acute kidney failure, unspecified; G35 Multiple sclerosis; Z87.440 Personal history of urinary (tract) infections; F17.200 Nicotine dependence, unspecified, uncomplicated; Z79.82 Long term (current) use of aspirin; Z88.2 Allergy status to sulfonamides; N18.3 Chronic kidney disease, stage 3 (moderate); I12.9 Hypertensive chronic kidney disease with stage 1 through stage 4 chronic kidney disease, or unspecified chronic kidney disease; N31.9 Neuromuscular dysfunction of bladder, unspecified; D69.6 Thrombocytopenia, unspecified

== ENCOUNTER → 2017-07-27 | Outpatient (CLI) | payer BC, OTHER ==
[~2017-07-27] MED LIST changes: +CEFD300C3 PO; +NITR1CAP33 PO
[2017-07-27 17:48] LABS: HEMATOCRIT 43.5 % (42-52); MEAN CELL VOLUME 92.9 fL (80-100); MEAN CORPUSCULAR HEMOGLOBIN 31.4 pg (25-34); MEAN CORPUSCULAR HGB CONC 33.8 g/dl (32-36); MEAN PLATELET VOLUME 10.2 fL (7.4-10.4); PLATELET COUNT 155 K/uL (130-400); RED BLOOD COUNT 4.68 M/uL (4.7-6.1); WHITE BLOOD COUNT 7.44 K/uL (4.8-10.8)
[2017-07-27 18:18] LABS: BLOOD UREA NITROGEN 31 mg/dl (7-18); BUN/CREATININE RATIO 19.4 (10-20); CALCIUM 9.5 mg/dl (8.5-10.1); CARBON DIOXIDE 24 mmol/L (21-32); CHLORIDE 103 mmol/L (98-107); CREATININE 1.58 mg/dl (0.60-1.40); GLUCOSE 106 mg/dl (70-99); PHOSPHORUS 2.6 mg/dl (2.5-4.9); POTASSIUM 4.1 mmol/L (3.5-5.1); SODIUM 135 mmol/L (136-145)
== END | disposition home or self-care (01) ==
LOC: C.LABBFT 11:34
PROVIDERS: ATTEND Family Medicine
DX: N31.9 Neuromuscular dysfunction of bladder, unspecified (principal); N18.3 Chronic kidney disease, stage 3 (moderate); E55.9 Vitamin D deficiency, unspecified; I12.9 Hypertensive chronic kidney disease with stage 1 through stage 4 chronic kidney disease, or unspecified chronic kidney disease

== ENCOUNTER → 2017-08-05 | Outpatient (CLI) | payer BC, OTHER ==
[2017-08-05 17:01] LABS: URINE APPEARANCE CLEAR (CLEAR); URINE BILIRUBIN NEG (NEG); URINE COLOR DK YELLOW; URINE NITRITE NEG (NEG); UROBILINOGEN NEG (NEG); ZZURINE CULT IF INDIC CATH YES
[2017-08-05 17:05] LABS: MANUAL MICROSCOPIC REQUIRED? NO; REVIEW REQ? NO
[2017-08-05 17:22] LABS: URINE PROTIEN/CREAT RATIO 0.1 (0-0.2); URINE TOTAL PROTEIN 16.9 mg/dl (0-11.9)
== END | disposition home or self-care (01) ==
LOC: C.LABBFT 12:53
PROVIDERS: ATTEND Internal Medicine Nephrology
DX: I10 Essential (primary) hypertension (principal); N31.9 Neuromuscular dysfunction of bladder, unspecified; N18.3 Chronic kidney disease, stage 3 (moderate); E55.9 Vitamin D deficiency, unspecified; N39.0 Urinary tract infection, site not specified

== ENCOUNTER → 2017-10-18 | Outpatient (CLI) | payer BC ==
[~2017-10-18] MED LIST changes: +MELO-83 PO; -MELO15TA4 PO
== END | disposition home or self-care (01) ==
LOC: C.LAB1850 15:06
PROVIDERS: ATTEND Internal Medicine Infectious Disease
DX: N39.0 Urinary tract infection, site not specified (principal)

== ENCOUNTER → 2017-11-24 | Outpatient (CLI) | payer BC ==
[~2017-11-24] MED LIST changes: +antibiotic PO
== END | disposition home or self-care (01) ==
LOC: C.LABBFT 13:47
PROVIDERS: ATTEND Nurse Practitioner Adult Health
DX: N39.0 Urinary tract infection, site not specified (principal)

== ENCOUNTER 2017-12-03 16:53 | Inpatient (IN) | payer BC, OTHER ==
[~2017-12-03] VITALS: Ht 170.2 cm; Wt 90.9 kg
[~2017-12-03 16:53] MED LIST changes: -antibiotic PO
[2017-12-03] MEDS ORDERED: SODIUM CHLORIDE 0.9% 1000ML 1,000 ML IV STA ×2 (17:13→18:28)
--- NOTE | 2017-12-03 17:41 | DIAGNOSTIC IMAGING REPORT ---
CHEST ONE VIEW PORTABLE HISTORY: fever/chills COMPARISON: Chest 07/22/2017. FINDINGS: No pneumothorax. Elevation of the right hemidiaphragm, unchanged. The heart is borderline enlarged. No pneumothorax. No pleural effusions. Old, healed left clavicle fracture. Bibasilar interstitial thickening. This is not significantly changed. No new focal lung consolidations to suggest pneumonia. Low lung volumes. IMPRESSION: 1. No new focal lung consolidations to suggest pneumonia. 2. Low lung volumes and bibasilar interstitial thickening persists. Electronically signed by: Sami Barnes M.D. 12/03/2017 5:40 PM Dictated Date/Time: 12/03/2017 5:39 PM
[2017-12-03 18:06] LABS: BASO % 0.1 %; BASO ABS # 0.02 K/uL (0-0.2); EOS % 0.5 %; EOS ABS # 0.08 K/uL (0-0.5); HEMATOCRIT 45.8 % (42-52); HEMOGLOBIN 16.1 g/dL (14.0-18.0); IG# 0.05 K/uL (0.00-0.02); LYMPH % 8.7 %; LYMPH ABS # 1.46 K/uL (1.2-3.4); MEAN CELL VOLUME 91.4 fL (80-100); MEAN CORPUSCULAR HEMOGLOBIN 32.1 pg (25-34); MEAN CORPUSCULAR HGB CONC 35.2 g/dl (32-36); MEAN PLATELET VOLUME 10.1 fL (7.4-10.4); MONO % 10.5 %; MONO ABS # 1.76 K/uL (0.11-0.59); NEUT % 79.9 %; NEUT ABS # 13.34 K/uL (1.4-6.5); PLATELET COUNT 123 K/uL (130-400); RED CELL DISTRIBUTION WIDTH CV 13.8 % (11.5-14.5); RED CELL DISTRIBUTION WIDTH SD 45.9 fL (36.4-46.3); WHITE BLOOD COUNT 16.71 K/uL (4.8-10.8)
[2017-12-03] MEDS ORDERED: antibiotic PO (18:32)
[2017-12-03] MEDS ORDERED: IMIPENEM/CILASTATIN IV 500 MG in DEXTROSE 5% 100ML 100 ML IV STA (18:34)
[2017-12-03 18:35] LABS: ALBUMIN 4.1 gm/dl (3.4-5.0); ALKALINE PHOSPHATASE 108 U/L (45-117); ALT/SGPT 29 U/L (12-78); BLOOD UREA NITROGEN 28 mg/dl (7-18); CALCIUM 10.1 mg/dl (8.5-10.1); CARBON DIOXIDE 28 mmol/L (21-32); CREATININE 1.78 mg/dl (0.60-1.40); GLUCOSE 85 mg/dl (70-99); SODIUM 133 mmol/L (136-145); TOTAL PROTEIN 9.1 gm/dl (6.4-8.2)
[2017-12-03 18:53] LABS: INR 1.1 (0.9-1.1)
[2017-12-03 18:56] LABS: POTASSIUM 4.3 mmol/L (3.5-5.1)
--- NOTE | 2017-12-03 19:08 | EMERGENCY ROOM VISIT NOTE ---
History Report prepared by Jose: Karly Boyd Under the Supervision of: Dr. Ariana Lofotn D.O. First contact with patient: 17:01 Chief Complaint: FEVER Stated Complaint: FEVER, CAN'T WALK, POSSIBLE UTI - PT HAS MS History of Present Illness The patient is a 67 year old male who presents to the Emergency Room with complaints of persistent weakness starting this morning. He follows with Dr. Bentley for recurrent UTIs. He is currently rotating between 3 antibiotics. This morning, he woke up and found that he could not stand up or walk. His urine was dark and smelly. His temperature was 101. He has been more fatigued today. He is having chills today. He has experienced most of these symptoms with UTIs in the past, but he has not had chills before. He denies any nausea, vomiting, or change in bowel movement. He is having some neck pain. He notes that he has a history of spinal surgery. He has a history of MS. He has only eaten breakfast today as he has been sleeping for most of the day. Source of History: patient Onset: this morning Position: leg (bilateral) Quality: other (weakness) Timing: other (persistent) Associated Symptoms: + fevers, + chills, + neck pain, + urinary symptoms, + fatigue, No nausea, No vomiting Review of Systems See HPI for pertinent positives & negatives. A total of 10 systems reviewed and were otherwise negative. Past Medical & Surgical Medical Problems: (1) back problems (2) Benign hypertension (3) Dyslipidemia (4) Failure of outpatient treatment (5) Febrile (6) GERD (gastroesophageal reflux disease) (7) Multiple sclerosis (8) UTI (urinary tract infection) (9) UTI (urinary tract infection) Family History Diabetes mellitus FHx: cancer Heart disease Hypertension Social History Smoking Status: Current Some Day Smoker Alcohol Use: none Drug Use: none Marital Status: Housing Status: lives with family Occupation Status: retired Current/Historical Medications Scheduled Amantadine Hcl (Symmetrel), 100 MG PO BID Aspirin (Aspirin Ec), 81 MG PO QPM Atenolol (Tenormin), 50 MG PO DAILY Baclofen (Baclofen), 20 MG PO BID Cefdinir (Cefdinir), 1 CAP PO BID Cholecalciferol (Vitamin D), 2,000 UNIT PO DAILY Gabapentin (Neurontin), 400 MG PO BID Glatiramer Acetate (Copaxone), 40 MG SC MWF Lisinopril (Zestril), 10 MG PO Q2D Meloxicam (Meloxicam), 15 MG PO Q2D Multiple Minerals W/ Vitamins (Citracal Plus), 1 TABLET PO DAILY Nitrofurantoin Macrocrystals (Macrodantin), 50 MG PO HS Omeprazole (Prilosec), 20 MG PO QAM Oxybutynin Chloride (Ditropan), 5 MG PO BID Senna (Senokot), 1 TAB PO QPM Triamterene/Hctz (Dyazide 37.5MG/25MG), 1 TAB PO DAILY [antibiotic], 1 DOSE PO UD Scheduled PRN Docusate Sodium (Docusate Sodium), 100 MG PO DAILY PRN Allergies Coded Allergies: Oxycodone (Unverified Allergy, Unknown, UNKNOWN, 12/03/17) Sulfa Drugs (Verified Allergy, Unknown, 12/03/17) Aspirin (Verified Adverse Reaction, Unknown, ASA 325 causes GI upset per pt, 03/08/17) takes ASA 81mg daily without issue Physical Exam Vital Signs Date Time Temp Pulse Resp B/P (MAP) Pulse Ox O2 Delivery O2 Flow Rate FiO2 12/03/17 18:41 80 20 149/85 96 Room Air 12/03/17 18:19 85 20 162/82 95 Room Air 12/03/17 16:57 37.5 101 20 169/72 97 Room Air Physical Exam GENERAL: alert, ill appearing, rigors, well nourished, no distress, non-toxic EYE EXAM: normal conjunctiva, PERRL and EOM's grossly intact OROPHARYNX: poor dentition, no exudate, no erythema, lips, buccal mucosa, and tongue normal and mucous membranes are moist NECK: supple, no nuchal rigidity, no adenopathy, non-tender LUNGS: Clear to auscultation. Normal chest wall mechanics HEART: no murmurs, S1 normal and S2 normal ABDOMEN: abdomen soft, non-tender, normo-active bowel sounds, no masses, no rebound or guarding. BACK: Back is symmetrical on inspection and there is no deformity, no midline tenderness, no CVA tenderness. SKIN: no rashes and no bruising UPPER EXTREMITIES: upper extremities are grossly normal. LOWER EXTREMITIES: No pitting edema. NEURO EXAM: Normal sensorium, cranial nerves II-XII grossly intact, normal speech, generalized weakness worse in the lower extremities. Sensation intact. Medical Decision & Procedures ER Provider Diagnostic Interpretation: Radiology results have been interpreted by the radiologist and reviewed by me. CHEST ONE VIEW PORTABLE HISTORY: fever/chills COMPARISON: Chest 07/22/2017. FINDINGS: No pneumothorax. Elevation of the right hemidiaphragm, unchanged. The heart is borderline enlarged. No pneumothorax. No pleural effusions. Old, healed left clavicle fracture. Bibasilar interstitial thickening. This is not significantly changed. No new focal lung consolidations to suggest pneumonia. Low lung volumes. IMPRESSION: 1. No new focal lung consolidations to suggest pneumonia. 2. Low lung volumes and bibasilar interstitial thickening persists. Electronically signed by: Sami Barnes M.D. 12/03/2017 5:40 PM Dictated Date/Time: 12/03/2017 5:39 PM Laboratory Results Test 12/03/17 17:20 12/03/17 17:40 12/03/17 18:00 12/03/17 18:34 Urine Color DK YELLOW Urine Appearance CLOUDY (CLEAR) Urine pH 5.0 (4.5-7.5) Urine Specific [place] 1.022 (1.000-1.030) Urine Protein TRACE (NEG) Urine Glucose (UA) NEG (NEG) Urine Ketones NEG (NEG) Urine Occult Blood TRACE (NEG) Urine Nitrite NEG (NEG) Urine Bilirubin NEG (NEG) Urine Urobilinogen NEG (NEG) Urine Leukocyte Esterase LARGE (NEG) Urine WBC (Auto) >30 /hpf (0-5) Urine RBC (Auto) 0-4 /hpf (0-4) Urine Hyaline Casts (Auto) 0 /lpf (0-5) Urine Epithelial Cells (Auto) 0-5 /lpf (0-5) Urine Bacteria (Auto) 4+ (NEG) Total Bilirubin 1.4 mg/dl (0.2-1) Alanine Aminotransferase (ALT/SGPT) 29 U/L (12-78) Alkaline Phosphatase 108 U/L (45-117) Total Protein 9.1 gm/dl (6.4-8.2) Albumin 4.1 gm/dl (3.4-5.0) Globulin 5.0 gm/dl (2.5-4.0) Albumin/Globulin Ratio 0.8 (0.9-2) Bedside Lactic Acid Venous 2.05 mmol/L (0.90-1.70) Prothrombin Time 11.8 SECONDS (9.0-12.0) Prothromb Time International Ratio 1.1 (0.9-1.1) Test 12/03/17 18:35 Aspartate Amino Transf (AST/SGOT) 11 U/L (15-37) Laboratory results per my review. Medications Administered Medications (Trade) Dose Ordered Sig/Jossie Route Start Time Stop Time Status Last Admin Dose Admin Sodium Chloride 1,000 ml @ 999 mls/hr Q1H1M STAT IV 12/03/17 17:13 12/03/17 18:13 DC 12/03/17 17:51 999 MLS/HR Sodium Chloride 1,000 ml @ 999 mls/hr Q1H1M STAT IV 12/03/17 18:28 12/03/17 19:28 DC 12/03/17 18:53 999 MLS/HR Imipenem/ Cilastatin Sodium 500 mg/Dextrose 110 ml @ 100 mls/hr NOW STAT IV 12/03/17 18:34 12/03/17 19:39 DC 12/03/17 18:53 100 MLS/HR Sodium Chloride 1,000 ml @ 100 mls/hr Q10H IV 12/03/17 19:30 12/04/17 07:29 DC 12/04/17 06:20 100 MLS/HR ECG Per My Interpretation Indication: weakness Rate (beats per minute): 92 Rhythm: sinus rhythm Findings: no acute ischemic change, other (severe baseline artifact secondary to patient tremor, normal axis, normal intervals) ED Course 1704: The patient was evaluated in room B10. A complete history and physical exam was performed. 1713: Sodium Chloride 1000 ml @ 999 mls/hr IV. 1717: Review of EMR shows prior urine cultures grew out enterococcus, E coli, and Klebsiella with varied patterns of resistance. 1828: Sodium Chloride 1000 ml @ 999 mls/hr IV. 1833: I discussed the patient's case with Dr. Bentley, [facility] infectious disease. He suggests Imipenem 500 Q6. 1834: Imipenem/Cilastatin Sodium 500 mg/Dextrose 110 ml @ 100 mls/hr IV. 1841: Upon reevaluation, the patient is stable. I discussed the findings and the treatment plan with the patient. He expresses agreement and understanding. He will be evaluated for further management. 1843: I reviewed the patient's case with SANDRA Mccullough hospitalist. She will evaluate the patient for further management. Medical Decision Differential Diagnosis includes but is not limited to dehydration, stroke, anemia, hypoglycemia, hyponatremia, hypernatremia, urinary tract infection, pneumonia, bronchitis, sepsis, gastroenteritis, additional abdominal pathology, metabolic abnormalities and infections. Patient with concerning story given history of recurrent UTIs previously and already on preventative antibiotics as managed by infectious disease. Patient ill-appearing here and likely with evolving bacteremia/sepsis. Patient hemodynamically stable. Patient with no symptoms or exam findings to suggest acute obstructive uropathy such as ureterolithiasis. AK I likely secondary to dehydration and other recent medications. Patient states lower extremity weakness is similar to prior episodes of UTI, however he has never had shaking chills like this before. Patient had taken Tylenol prior to arrival here which is likely why he was afebrile at presentation. Case discussed with Dr. Bentley in order to choose appropriate antibiotics given prior history. I did review prior urine cultures and sensitivities in EMR. Case is then discussed with hospitalist admitting team. Patient and family aware of results. Patient was improved here with additional medication and IV fluids. Patient agreeable with plan. No other focal source of fever or infection noted. I do not suspect other acute infectious etiology. I do not suspect acute neuro or spinal infection. Patient with a history of severe MS unlikely his worsening lower extremity weakness is a manifestation of his MS exacerbation under times of stress/infection. Medication Reconcilliation Current Medication List: was personally reviewed by me Blood Pressure Screening Patient's blood pressure: Elevated blood pressure Referred to hospitalist. Consults Time Called: 1828 Consulting Physician: SILVINA Bailey infectious disease Returned Call: [phone] I discussed the patient's case with him. He suggests Imipenem 500 Q6. Additional Consults: Time Called: 1836 Consulted Physician: SANDRA Mccullough hospitalist Returned Call: [phone] Additional Comments: I reviewed the patient's case with her. She will evaluate the patient for further management. Impression Primary Impression: Sepsis Additional Impressions: UTI (urinary tract infection) Generalized weakness Acute kidney injury Critical Care I have personally spent greater than 35 minutes of critical care time in the direct management of this patient. This includes bedside care, interpretation of diagnostic studies, and testing, discussion with consultants, patient, and family members, and other required patient management activities. This 35 minutes is in excess of all separately billable procedures. Scribe Attestation The scribe's documentation has been prepared under my direction and personally reviewed by me in its entirety. I confirm that the note above accurately reflects all work, treatment, procedures, and medical decision making performed by me. Departure Information Dispostion Being Evaluated By Hospitalist Referrals Hema Herrera M.D. (PCP) Patient Instructions My [facility] Problem Qualifiers Primary Impression: Sepsis Sepsis type: sepsis due to unspecified organism Qualified Codes: A41.9 - Sepsis, unspecified organism Additional Impressions: UTI (urinary tract infection) Urinary tract infection type: acute cystitis Hematuria presence: with hematuria Qualified Codes: N30.01 - Acute cystitis with hematuria
--- NOTE | 2017-12-03 19:12 | History and Physical ---
History & Physical Date & Time of Service: Dec 03, 2017 at 19:06 Chief Complaint: Fever, Can't Walk, Possible Uti - Pt Has Ms Primary Care Physician: Clinton Bentley MD History of Present Illness This is a 67-year-old male with past medical history of HTN, HLD, CKD stage III , GERD, multiple sclerosis, neurogenic bladder, obesity, recurrent UTIs with severe metabolic encephalopathy requiring hospitalization, who presents with leg weakness, fevers, rigors, and darkened urine with concerns for recurrent UTI. The patient follows with Dr. Bentley as an outpatient. In the past the patient has grown out E. coli, Klebsiella and enterococcus. Patient was recently hospitalized in July for enterococcus faecalis UTI. The patient is currently on rotating antibiotics of amoxicillin, Cefdinir and doxycycline each for 2 week periods and currently on doxycycline. His recurrent UTIs are from straight catheterizations 5-6x per day for MS. The patient is present with his . She notes he slept very long this morning and thought this was concerning. Despite the 80 degree weather, the patient felt chilled and asked his to turn up the heat. She thought he "felt warm" to touch, therefore gave Tylenol 1500 mg and took his temp about 1 hour later, and was 101.6. He was shaking and felt that his legs were weakened. His weakness is usually the initial telling sign that he is developing an infection. WBC elevated at 16K with left shift, afebrile here, HR stable, BP slightly elevated in the 150s. Lactic acid of 2, Cr. elevated at 1.7. Past Medical/Surgical History Medical Problems: (1) back problems (2) Benign hypertension (3) Dyslipidemia (4) Failure of outpatient treatment (5) Febrile (6) GERD (gastroesophageal reflux disease) (7) Multiple sclerosis (8) UTI (urinary tract infection) Family History Diabetes mellitus FHx: cancer Heart disease Hypertension Social History Smoking Status: Current Some Day Smoker Smokeless Tobacco Use: No Alcohol Use: none Drug Use: none Marital Status: Housing status: lives with family Occupational Status: employed Immunizations History of Influenza Vaccine: Yes Influenza Vaccine Date: Jul 13, 2011 History of Tetanus Vaccine?: Yes History of Pneumococcal: Yes History of Hepatitis B Vaccine: No Allergies Coded Allergies: Oxycodone (Unverified Allergy, Unknown, UNKNOWN, 12/03/17) Sulfa Drugs (Verified Allergy, Unknown, 12/03/17) Aspirin (Verified Adverse Reaction, Unknown, ASA 325 causes GI upset per pt, 03/08/17) takes ASA 81mg daily without issue Home Medications Scheduled Amantadine Hcl (Symmetrel), 100 MG PO BID Aspirin (Aspirin Ec), 81 MG PO QPM Atenolol (Tenormin), 50 MG PO DAILY Baclofen (Baclofen), 20 MG PO BID Cefdinir (Cefdinir), 1 CAP PO BID Cholecalciferol (Vitamin D), 2,000 UNIT PO DAILY Gabapentin (Neurontin), 400 MG PO BID Glatiramer Acetate (Copaxone), 40 MG SC MWF Lisinopril (Zestril), 10 MG PO Q2D Meloxicam (Meloxicam), 15 MG PO Q2D Multiple Minerals W/ Vitamins (Citracal Plus), 1 TABLET PO DAILY Nitrofurantoin Macrocrystals (Macrodantin), 50 MG PO HS Omeprazole (Prilosec), 20 MG PO QAM Oxybutynin Chloride (Ditropan), 5 MG PO BID Senna (Senokot), 1 TAB PO QPM Triamterene/Hctz (Dyazide 37.5MG/25MG), 1 TAB PO DAILY [antibiotic], 1 DOSE PO UD Scheduled PRN Docusate Sodium (Docusate Sodium), 100 MG PO DAILY PRN Review of Systems Constitutional: See HPI. Eyes: No diplopia, no worsening or blurred vision ENT: normal hearing, no trouble swallowing Respiratory: No cough, sputum, dyspnea at rest or on exertion Cardiovascular: No chest pain, tightness or palpitations Abdomen: No pain, nausea, vomiting, diarrhea or constipation : Darkened urine, uses straight cath 5-6x daily Musculoskeletal: No joint pain, calf pain, swelling Neurologic: +weakness, numbness/tingling, or balance problems Psychiatric: No anxiety or depression Skin: No rash or itch Physical Exam Vital Signs Date Time Temp Pulse Resp B/P (MAP) Pulse Ox O2 Delivery O2 Flow Rate FiO2 12/03/17 18:41 80 20 149/85 96 Room Air 12/03/17 18:19 85 20 162/82 95 Room Air 12/03/17 16:57 37.5 101 20 169/72 97 Room Air General: awake, alert, no apparent distress Head: Normocephalic, atraumatic ENT: PERRL, EOMI, no pharyngeal exudate, mucous membranes moist Chest: Clear to auscultation, on room air, no adventitious breath sounds Cardiac: Regular rate and rhythm, + soft systolic murmur rated II/, no JVD, normal peripheral pulses, good capillary refill Abdominal: NABS x 4 quadrants, soft, nontender to palpation, no rebound, guarding or tenderness Extremities: Normal inspection, no peripheral edema or erythema, calfs nontender to palpation Psych: Normal mood and affect Neuro: AAO x 3, speech is clear, no peripheral sensory deficits Diagnostics Laboratory Results Results Past 24 Hours Test 12/03/17 17:20 12/03/17 17:40 12/03/17 18:00 12/03/17 18:34 Range/Units Urine Color DK YELLOW Urine Appearance CLOUDY CLEAR Urine pH 5.0 4.5-7.5 Urine Specific [place] 1.022 1.000-1.030 Urine Protein TRACE NEG Urine Glucose (UA) NEG NEG Urine Ketones NEG NEG Urine Occult Blood TRACE NEG Urine Nitrite NEG NEG Urine Bilirubin NEG NEG Urine Urobilinogen NEG NEG Urine Leukocyte Esterase LARGE NEG Urine WBC (Auto) >30 0-5 /hpf Urine RBC (Auto) 0-4 0-4 /hpf Urine Hyaline Casts (Auto) 0 0-5 /lpf Urine Epithelial Cells (Auto) 0-5 0-5 /lpf Urine Bacteria (Auto) 4+ NEG White Blood Count 16.71 4.8-10.8 K/uL Red Blood Count 5.01 4.7-6.1 M/uL Hemoglobin 16.1 14.0-18.0 g/dL Hematocrit 45.8 42-52 % Mean Corpuscular Volume 91.4 80-100 fL Mean Corpuscular Hemoglobin 32.1 25-34 pg Mean Corpuscular Hemoglobin Concent 35.2 32-36 g/dl Platelet Count 123 130-400 K/uL Mean Platelet Volume 10.1 7.4-10.4 fL Neutrophils (%) (Auto) 79.9 % Lymphocytes (%) (Auto) 8.7 % Monocytes (%) (Auto) 10.5 % Eosinophils (%) (Auto) 0.5 % Basophils (%) (Auto) 0.1 % Neutrophils # (Auto) 13.34 1.4-6.5 K/uL Lymphocytes # (Auto) 1.46 1.2-3.4 K/uL Monocytes # (Auto) 1.76 0.11-0.59 K/uL Eosinophils # (Auto) 0.08 0-0.5 K/uL Basophils # (Auto) 0.02 0-0.2 K/uL RDW Standard Deviation 45.9 36.4-46.3 fL RDW Coefficient of Variation 13.8 11.5-14.5 % Immature Granulocyte % (Auto) 0.3 % Immature Granulocyte # (Auto) 0.05 0.00-0.02 K/uL Sodium Level 133 136-145 mmol/L Potassium Level 3.5-5.1 mmol/L Chloride Level 100 98-107 mmol/L Carbon Dioxide Level 28 21-32 mmol/L Anion Gap 5.0 3-11 mmol/L Blood Urea Nitrogen 28 7-18 mg/dl Creatinine 1.78 0.60-1.40 mg/dl Est Creatinine Clear Calc Drug Dose 42.3 ml/min Estimated GFR () 44.1 Estimated GFR (Non- 38.1 BUN/Creatinine Ratio 15.8 10-20 Random Glucose 85 70-99 mg/dl Calcium Level 10.1 8.5-10.1 mg/dl Magnesium Level 1.8-2.4 mg/dl Total Bilirubin 1.4 0.2-1 mg/dl Aspartate Amino Transf (AST/SGOT) 15-37 U/L Alanine Aminotransferase (ALT/SGPT) 29 12-78 U/L Alkaline Phosphatase 108 45-117 U/L Troponin I < 0.015 0-0.045 ng/ml Total Protein 9.1 6.4-8.2 gm/dl Albumin 4.1 3.4-5.0 gm/dl Globulin 5.0 2.5-4.0 gm/dl Albumin/Globulin Ratio 0.8 0.9-2 Bedside Lactic Acid Venous 2.05 0.90-1.70 mmol/L Prothrombin Time 11.8 9.0-12.0 SECONDS Prothromb Time International Ratio 1.1 0.9-1.1 Test 12/03/17 18:35 Range/Units Potassium Level 4.3 3.5-5.1 mmol/L Magnesium Level 1.5 1.8-2.4 mg/dl Aspartate Amino Transf (AST/SGOT) 11 15-37 U/L Microbiology Results 12/03/17 Blood Culture, Received Pending 12/03/17 Blood Culture, Received Pending Diagnostic Radiology CHEST ONE VIEW PORTABLE HISTORY: fever/chills COMPARISON: Chest 07/22/2017. FINDINGS: No pneumothorax. Elevation of the right hemidiaphragm, unchanged. The heart is borderline enlarged. No pneumothorax. No pleural effusions. Old, healed left clavicle fracture. Bibasilar interstitial thickening. This is not significantly changed. No new focal lung consolidations to suggest pneumonia. Low lung volumes. IMPRESSION: 1. No new focal lung consolidations to suggest pneumonia. 2. Low lung volumes and bibasilar interstitial thickening persists. Electronically signed by: Sami Barnes M.D. 12/03/2017 5:40 PM Dictated Date/Time: 12/03/2017 5:39 PM The status of this report is Signed. EKG Poor data quality, interpretation may be adversely affected Atrial fibrillation Nonspecific ST and T wave abnormality Abnormal ECG When compared with ECG of 22-JUL-2017 19:13, Atrial fibrillation has replaced Sinus rhythm ST elevation now present in Inferior leads ST now depressed in Anterior leads Vent. rate 92 BPM MT interval * ms QRS duration 76 ms QT/QTc 330/408 ms P-R-T axes * 72 65 Impression Assessment and Plan This is a 67-year-old male with past medical history of HTN, HLD, CKD stage III , GERD, multiple sclerosis, neurogenic bladder, obesity, recurrent UTIs with severe metabolic encephalopathy requiring hospitalization, who presents with leg weakness, fevers, rigors, and darkened urine with concerns for recurrent UTI. The patient follows with Dr. Bentley as an outpatient. In the past the patient has grown out E. coli, Klebsiella and enterococcus. Patient was recently hospitalized in July for enterococcus faecalis UTI. The patient is currently on rotating antibiotics of amoxicillin, Cefdinir and doxycycline each for 2 week periods and currently on doxycycline. His recurrent UTIs are from straight catheterizations 5-6x per day for MS. UTI / hx straight cath/ urinary retention Sepsis secondary to the above Lactic Acidosis -Admit to telemetry -ID consulted- start on imipenem Q6H per Dr. Bentley -patient typically follows with him as an outpatient, failed rotating outpatient antibiotic therapy of doxycycline, amoxicillin, Cefdinir - WBC elevated at 16.7 K, left shift, mild lactic acid of 2, repeat to ensure resolvement - initial temperature per at home, afebrile here, tachycardic, weakness. - VSS currently stable. - s/p 2L NSS in the ER, will continue on NSS at 100mL/hr x 12 hours - Hx straight caths 5-6 x per day for MS - place walters at this time to monitor outs. CKD stage III - Cr 1.7, slightly bumped from baseline, follow amp prp - Continue fluids as above Tachycardia Systolic Murmur - Check echocardiogram since none recent and multiple hospitalizations with sepsis, r/o mitral valve involvement - Trend troponins - initial negative HTN - holding antihypertensives at this time due to sepsis and fluid rescusitation HLD - off statin by cardiology in 2018 Multiple Sclerosis - Continue copaxone inj MWF - will need to bring in from home as not on formulary - Continue gabapentin, amantadine - PT/OT evals, uses walker/crutches at baseline DVT ppx: heparin, teds, scds CODE STATUS: FULL Disposition: From home, lives with , PT/OT evals. Resuscitation Status VTE Prophylaxis Will order VTE Prophylaxis: Yes Note Attending Attestation & Admission Note - Pt seen/examined, chart reviewed, care plan d/w CRISTOBAL Zambrano. I agree w/ the marc components of her documentation. 67yo male with MS and recurrent UTIs due to neurogenic bladder (w/ need for self -cath multiple times each day) presenting with fevers, chills, weakness, myalgias, and malodorous urine. U/a at presentation today suspicious for UTI. Given 2 L NS bolus in ER, blood cx's sent, and started on IV imipenem. During my visit he was asking for something to eat. PMH, PSH, allergies, meds, sochx, famhx, ros - reviewed vitals tachy, afebrile gen - nontoxic, a/o x 3 mouth - MM dry neck - no JVD heart - tachy but regular, s1, s2 lungs - CTA b/l abd - soft, no flank/CVA tenderness b/l, BS+, no suprapubic pain ext - warm neuro - right-sided foot drop; strength other limbs 5/5 WBC 16 mag 1.5 Na 133 Cr 1.8 A/P: 1. sepsis, likely 2nd to complicated/walters-associated UTI; cannot exclude influenza or other infectious source 2. hyponatremic dehydration 3. CKD stage 3 4. hypomagnesemia 5. I personally reviewed the pt's EKG; there is tremendous artifact on the tracing; I do see P waves prior to QRS complexes albeit it is difficult to see; I am not entirely convinced the EKG shows a. fib; agree with tele and can observe his rhythm overnight; either way his HRs are <100 send urine cx antibiotics check rapid flu tele 2 grams mag sulfate x 1 now repeat BMP, mag, cbc casper KEITA MD
[2017-12-03] MEDS ORDERED: POLYETHYLENE (MIRALAX) 17 GM PACK PO PRN (19:30)
[2017-12-03] MEDS ORDERED: ONDANSETRON INJ 2 MG/ML 2 ML VIAL IV PRN (19:30)
[2017-12-03] MEDS ORDERED: IMIPENEM/CILASTATIN IV 500 MG in DEXTROSE 5% 100ML 100 ML IV SCH (19:30)
[2017-12-03] MEDS ORDERED: ACETAMINOPHEN 325 MG TAB PO PRN (19:30)
[2017-12-03] MEDS ORDERED: MAGNESIUM HYDROXIDE SUSP 30 ML UDC PO PRN (19:30)
[2017-12-03] MEDS ORDERED: VANCOMYCIN IV 1,000 MG in SODIUM CHLORIDE 0.9% 250ML 250 ML IV SCH (21:00)
[2017-12-03] MEDS ORDERED: VANCOMYCIN CONSULT ACTIVE PRN (21:00)
[2017-12-03] MEDS ORDERED: VANCOMYCIN IV 2,000 MG in SODIUM CHLORIDE 0.9% 500ML 500 ML IV SCH (21:15)
[2017-12-03 21:19] VITALS: BP 162/76; PULSE 77; TEMP 39.5; O2SAT 97
[2017-12-03 21:32] VITALS: Ht 170.2 cm; Wt 90.9 kg
[2017-12-03] MEDS ORDERED: IMIPENEM/CILASTATIN CONSULT ACTIVE PRN (21:45)
[2017-12-03] MEDS: SODIUM CHLORIDE 0.9% 1000ML 1,000 ML IV SCH (22:03)
[2017-12-03] MEDS: AMANTADINE HCL 100 MG CAP PO SCH (22:04)
[2017-12-03] MEDS: OXYBUTYNIN CHLORIDE 5 MG TAB PO SCH (22:04)
[2017-12-03] MEDS: ASPIRIN 81 MG ECTAB PO SCH (22:05)
[2017-12-03] MEDS: SENNA 8.6 MG TAB PO SCH (22:05)
[2017-12-03] MEDS: BACLOFEN TAB 20 MG TAB PO SCH (22:05)
[2017-12-03] MEDS: GABAPENTIN 400 MG CAP PO SCH (22:05)
[2017-12-03] MEDS: HEPARIN SOD 5000 UNIT/0.5 ML CARP SQ SCH (22:08)
[2017-12-03 23:07] LABS: INFLUENZA B ANTIGEN Neg for Influ B (NEG)
[2017-12-03 23:49] VITALS: BP 162/87; PULSE 82; TEMP 38; O2SAT 95
[2017-12-04] VITALS (11 sets, daily range): BP systolic 109–144; BP diastolic 64–76; PULSE 62–89; TEMP 36.4–38.7; O2SAT 93–97
[2017-12-04] MEDS: IMIPENEM/CILASTATIN IV 300 MG in DEXTROSE 5% 100ML 100 ML IV SCH ×4 (00:50→17:33)
[2017-12-04] MEDS: MAGNESIUM SULFATE 1GM / D5W 1 GM in PREMIXED IN D5W 100 ML IV SCH ×2 (02:22→03:30)
[2017-12-04] MEDS: SODIUM CHLORIDE 0.9% 1000ML 1,000 ML IV SCH (06:20)
[2017-12-04] MEDS: HEPARIN SOD 5000 UNIT/0.5 ML CARP SQ SCH ×3 (06:22→20:25)
[2017-12-04 08:08] LABS: CALCIUM 8.7 mg/dl (8.5-10.1); CREATININE 1.6 mg/dl (0.60-1.40); POTASSIUM 3.5 mmol/L (3.5-5.1)
[2017-12-04 08:43] LABS: BASO % 0.1 %; BASO ABS # 0.01 K/uL (0-0.2); EOS % 0.2 %; EOS ABS # 0.03 K/uL (0-0.5); HEMATOCRIT 37.4 % (42-52); HEMOGLOBIN 13.2 g/dL (14.0-18.0); IG# 0.06 K/uL (0.00-0.02); LYMPH ABS # 2.21 K/uL (1.2-3.4); MEAN CELL VOLUME 91.2 fL (80-100); MEAN CORPUSCULAR HEMOGLOBIN 32.2 pg (25-34); MEAN CORPUSCULAR HGB CONC 35.3 g/dl (32-36); MEAN PLATELET VOLUME 10.2 fL (7.4-10.4); MONO % 11.5 %; MONO ABS # 1.81 K/uL (0.11-0.59); NEUT % 73.8 %; NEUT ABS # 11.64 K/uL (1.4-6.5); PLATELET COUNT 118 K/uL (130-400); RED CELL DISTRIBUTION WIDTH SD 46.6 fL (36.4-46.3); WHITE BLOOD COUNT 15.76 K/uL (4.8-10.8)
[2017-12-04] MEDS: GABAPENTIN 400 MG CAP PO SCH ×2 (09:18→20:20)
[2017-12-04] MEDS: AMANTADINE HCL 100 MG CAP PO SCH ×2 (09:18→20:21)
[2017-12-04] MEDS: BACLOFEN TAB 20 MG TAB PO SCH ×2 (09:18→20:19)
[2017-12-04] MEDS: OXYBUTYNIN CHLORIDE 5 MG TAB PO SCH ×2 (09:18→20:21)
[2017-12-04] MEDS: CHOLECALCIFEROL 1000 INTER.UNIT TAB PO SCH (09:18)
[2017-12-04] MEDS: PANTOprazole SOD 40 MG TAB PO SCH (09:18)
--- NOTE | 2017-12-04 10:24 | Pharmacy Progress Note ---
Pharmacy Antibiotic Consult Date of Service: Dec 04, 2017. Pharmacy Dosing Scope Pharmacy is consulted to initiate vancomycin/imipenem IV dosing therapy, order appropriate labs and adjust drug dose/frequency. Subjective The patient is a 67 year old male admitted on Dec 03, 2017 at 19:46. Objective Height (Feet): 5 Height (Inches): 7.00 Weight (Kilograms): 91.100 Lab Results (24hrs): Test 12/03/17 17:20 12/03/17 17:40 12/03/17 18:00 12/03/17 18:34 Urine Color DK YELLOW Urine Appearance CLOUDY (CLEAR) Urine pH 5.0 (4.5-7.5) Urine Specific [place] 1.022 (1.000-1.030) Urine Protein TRACE (NEG) Urine Glucose (UA) NEG (NEG) Urine Ketones NEG (NEG) Urine Occult Blood TRACE (NEG) Urine Nitrite NEG (NEG) Urine Bilirubin NEG (NEG) Urine Urobilinogen NEG (NEG) Urine Leukocyte Esterase LARGE (NEG) Urine WBC (Auto) >30 /hpf (0-5) Urine RBC (Auto) 0-4 /hpf (0-4) Urine Hyaline Casts (Auto) 0 /lpf (0-5) Urine Epithelial Cells (Auto) 0-5 /lpf (0-5) Urine Bacteria (Auto) 4+ (NEG) White Blood Count 16.71 K/uL (4.8-10.8) Red Blood Count 5.01 M/uL (4.7-6.1) Hemoglobin 16.1 g/dL (14.0-18.0) Hematocrit 45.8 % (42-52) Mean Corpuscular Volume 91.4 fL (80-100) Mean Corpuscular Hemoglobin 32.1 pg (25-34) Mean Corpuscular Hemoglobin Concent 35.2 g/dl (32-36) Platelet Count 123 K/uL (130-400) Mean Platelet Volume 10.1 fL (7.4-10.4) Neutrophils (%) (Auto) 79.9 % Lymphocytes (%) (Auto) 8.7 % Monocytes (%) (Auto) 10.5 % Eosinophils (%) (Auto) 0.5 % Basophils (%) (Auto) 0.1 % Neutrophils # (Auto) 13.34 K/uL (1.4-6.5) Lymphocytes # (Auto) 1.46 K/uL (1.2-3.4) Monocytes # (Auto) 1.76 K/uL (0.11-0.59) Eosinophils # (Auto) 0.08 K/uL (0-0.5) Basophils # (Auto) 0.02 K/uL (0-0.2) RDW Standard Deviation 45.9 fL (36.4-46.3) RDW Coefficient of Variation 13.8 % (11.5-14.5) Immature Granulocyte % (Auto) 0.3 % Immature Granulocyte # (Auto) 0.05 K/uL (0.00-0.02) Sodium Level 133 mmol/L (136-145) Chloride Level 100 mmol/L (98-107) Carbon Dioxide Level 28 mmol/L (21-32) Anion Gap 5.0 mmol/L (3-11) Blood Urea Nitrogen 28 mg/dl (7-18) Creatinine 1.78 mg/dl (0.60-1.40) Est Creatinine Clear Calc Drug Dose 42.3 ml/min Estimated GFR () 44.1 Estimated GFR (Non- 38.1 BUN/Creatinine Ratio 15.8 (10-20) Random Glucose 85 mg/dl (70-99) Calcium Level 10.1 mg/dl (8.5-10.1) Total Bilirubin 1.4 mg/dl (0.2-1) Aspartate Amino Transf (AST/SGOT) U/L (15-37) Alanine Aminotransferase (ALT/SGPT) 29 U/L (12-78) Alkaline Phosphatase 108 U/L (45-117) Total Protein 9.1 gm/dl (6.4-8.2) Albumin 4.1 gm/dl (3.4-5.0) Globulin 5.0 gm/dl (2.5-4.0) Albumin/Globulin Ratio 0.8 (0.9-2) Bedside Lactic Acid Venous 2.05 mmol/L (0.90-1.70) Prothrombin Time 11.8 SECONDS (9.0-12.0) Prothromb Time International Ratio 1.1 (0.9-1.1) Test 12/03/17 18:35 12/03/17 20:03 12/03/17 22:00 12/03/17 22:58 Potassium Level 4.3 mmol/L (3.5-5.1) Magnesium Level 1.5 mg/dl (1.8-2.4) Aspartate Amino Transf (AST/SGOT) 11 U/L (15-37) Lactic Acid Level 1.9 mmol/L (0.4-2.0) Influenza Type A Antigen Neg for Influ A (NEG) Influenza Type B Antigen Neg for Influ B (NEG) Troponin I < 0.015 ng/ml (0-0.045) Test 12/04/17 07:03 White Blood Count 15.76 K/uL (4.8-10.8) Red Blood Count 4.10 M/uL (4.7-6.1) Hemoglobin 13.2 g/dL (14.0-18.0) Hematocrit 37.4 % (42-52) Mean Corpuscular Volume 91.2 fL (80-100) Mean Corpuscular Hemoglobin 32.2 pg (25-34) Mean Corpuscular Hemoglobin Concent 35.3 g/dl (32-36) Platelet Count 118 K/uL (130-400) Mean Platelet Volume 10.2 fL (7.4-10.4) Neutrophils (%) (Auto) 73.8 % Lymphocytes (%) (Auto) 14.0 % Monocytes (%) (Auto) 11.5 % Eosinophils (%) (Auto) 0.2 % Basophils (%) (Auto) 0.1 % Neutrophils # (Auto) 11.64 K/uL (1.4-6.5) Lymphocytes # (Auto) 2.21 K/uL (1.2-3.4) Monocytes # (Auto) 1.81 K/uL (0.11-0.59) Eosinophils # (Auto) 0.03 K/uL (0-0.5) Basophils # (Auto) 0.01 K/uL (0-0.2) RDW Standard Deviation 46.6 fL (36.4-46.3) RDW Coefficient of Variation 14.0 % (11.5-14.5) Immature Granulocyte % (Auto) 0.4 % Immature Granulocyte # (Auto) 0.06 K/uL (0.00-0.02) Sodium Level 135 mmol/L (136-145) Potassium Level 3.5 mmol/L (3.5-5.1) Chloride Level 102 mmol/L (98-107) Carbon Dioxide Level 24 mmol/L (21-32) Anion Gap 9.0 mmol/L (3-11) Blood Urea Nitrogen 24 mg/dl (7-18) Creatinine 1.60 mg/dl (0.60-1.40) Est Creatinine Clear Calc Drug Dose 46.9 ml/min Estimated GFR () 50.2 Estimated GFR (Non- 43.3 BUN/Creatinine Ratio 15.0 (10-20) Random Glucose 138 mg/dl (70-99) Calcium Level 8.7 mg/dl (8.5-10.1) Magnesium Level 2.0 mg/dl (1.8-2.4) Troponin I < 0.015 ng/ml (0-0.045) Assessment & Plan Patient with a history of UTIs (straight caths), growing E. Faecium, E. coli, and K. pneumoniae in the past, presenting with fever, rigors, weakness, and dark urine. Patient follows with Dr. Bentley as outpatient and is consistently on a rotating regimen of antibiotics including amoxicillin, cefdinir, and doxycycline. Vancomycin: Loading dose: 2000 mg IV X 1 dose (administered 12/03 ~2200) then: 1250 mg IV every 20 hours. Goal trough level estimate: between 15 - 20 mcg/mL. Peak and trough or random level has been ordered for: @1330. Imipenem: 500mg IV X 1 then; 300mg IV q6h Pharmacy will continue to follow and will adjust dose/frequency as necessary. Thank you
--- NOTE | 2017-12-04 13:10 | ECHOCARDIOGRAM REPORT ---
*NOTICE TO RECEIVING DEMOCRAT AGENCY This information is strictly Confidential and protected under [place] law. [place] law prohibits you from making any further disclosure of this information unless further disclosure is expressly permitted by the written consent of the person to whom it pertains or is authorized by law. A general authorization for the release of medical or other information is not sufficient for this purpose. Hospital accepts no responsibility if the information is made available to any other person, INCLUDING THE PATIENT. Interpretation Summary * Name: REYNALDO ROSSI Study Date: 12/04/2017 07:09 AM BP: 144/71 mmHg * Patient Location: .2T\S\E221\S\1 HR: 89 * : 1950 (M/d/yyy) Gender: Male Height: 67 in * Age: 67 yrs Ethnicity: CA Weight: 202 lb * Ordering Physician: Sandra Zambrano * Referring Physician: Self, Referred * Performed By: Ada Pabon [facility] * * Reason For Study: Murmurs * BSA: 2.0 m2 * -- Conclusions -- * 1. Normal LV size. Normal LV wall thickness. * 2. Normal LV systolic function. LVEF 60-65%. No regional wall motion abnormalities. * 3. Normal RV size and function. * 4. No significant valvular pathology. * 5. Normal estimated PA and RA pressures. * 6. No prior studies for comparison. Procedure Details * A complete two-dimensional transthoracic echocardiogram was performed (2D, M-mode, Doppler and color flow Doppler). Left Ventricle * The left ventricle is grossly normal size. * There is normal left ventricular wall thickness. * Ejection Fraction = 60-65%. Right Ventricle * The right ventricle is grossly normal size. * The right ventricular systolic function is normal as assessed by tricuspid annular plane systolic excursion (TAPSE) (normal >1.5 cm). Atria * The left atrial size is normal. * Right atrial size is normal. * No ASD detected; PFO is not assessed. Mitral Valve * The mitral valve is grossly normal. * There is no mitral valve stenosis. * Significant mitral regurgitation is absent. Tricuspid Valve * There is trace tricuspid regurgitation. Aortic Valve * The aortic valve opens well. * No hemodynamically significant valvular aortic stenosis. * There is no significant aortic regurgitation. Pulmonic Valve * The pulmonary valve is inadequately visualized, but the Doppler data is adequate for interpretation. * There is no pulmonic valvular stenosis. * Trace pulmonic valvular regurgitation. Great Vessels * The aortic root and proximal ascending aorta are normal sized. Pericardium/Pleural * There is no pericardial effusion. Great Vessels * Normal inferior vena cava size and collapsability with sniff indicates a normal right atrial pressure of 3 mmHg MMode 2D Measurements and Calculations IVSd 1.1 cm IVSs 1.4 cm LVIDd 4.8 cm LVIDs 3.0 cm LVPWd 1.1 cm LVPWs 1.5 cm IVS/LVPW 1.0 FS 38.3 % EDV(Teich) 107.8 ml ESV(Teich) 34.0 ml EF(Teich) 68.4 % EDV(cubed) 111.0 ml ESV(cubed) 26.1 ml EF(cubed) 76.5 % % IVS thick 33.0 % % LVPW thick 45.7 % LV mass(C)d 186.8 grams LV mass(C)dI 92.0 grams/m\S\2 LV mass(C)s 153.6 grams LV mass(C)sI 75.6 grams/m\S\2 SV(Teich) 73.8 ml SI(Teich) 36.3 ml/m\S\2 SV(cubed) 84.9 ml SI(cubed) 41.8 ml/m\S\2 Ao root diam 3.8 cm Ao root area 11.1 cm\S\2 ACS 1.5 cm LA dimension 3.7 cm asc Aorta Diam 3.4 cm LA/Ao 0.99 EDV(MOD-sp4) 146.3 ml ESV(MOD-sp4) 40.3 ml EF(MOD-sp4) 72.5 % EDV(MOD-sp2) 134.4 ml ESV(MOD-sp2) 51.5 ml EF(MOD-sp2) 61.7 % SV(MOD-sp4) 106.0 ml SI(MOD-sp4) 52.2 ml/m\S\2 SV(MOD-sp2) 82.9 ml SI(MOD-sp2) 40.8 ml/m\S\2 Doppler Measurements and Calculations MV E max erika 80.9 cm/sec MV A max erika 71.8 cm/sec MV E/A 1.1 MV P1/2t max erika 89.0 cm/sec MV P1/2t 82.0 msec MVA(P1/2t) 2.7 cm\S\2 MV dec slope 317.8 cm/sec\S\2 MV dec time 0.31 sec Ao V2 max 136.8 cm/sec Ao max PG 7.5 mmHg Ao max PG (full) 3.7 mmHg LV V1 max PG 3.8 mmHg LV V1 max 97.8 cm/sec PA V2 max 102.7 cm/sec PA max PG 4.2 mmHg PI max erika 151.0 cm/sec PI max PG 9.2 mmHg PI dec slope 132.8 cm/sec\S\2 PI P1/2t 333.1 msec TR max erika 196.7 cm/sec
--- NOTE | 2017-12-04 16:08 | Medical Consult ---
Consultation Date of Consultation: Dec 04, 2017. Attending Physician: Rey Link MD Reason for Consultation: Recurrent urinary tract infection, failed outpatient rotating antibiotics History of Present Illness 67-year-old male well known to me from outpatient infectious disease consultation and follow-up, with history of multiple sclerosis with neurogenic bladder, requiring intermittent self catheterization. Patient has history of recurrent urinary tract infections with sepsis, and has been now undergoing trial of rotating antibiotics in hopes of suppressing infection. Patient had been doing well until day of admission, when he had sudden onset of fever, chills, and increasing leg weakness consistent with prior episodes of sepsis. He came to the emergency department and was admitted to the hospital for IV antibiotics. He has been started on vancomycin and imipenem, urine culture is no growth to date, blood cultures are pending. Patient feeling better, and is currently afebrile. Had some darkening of urine prior to admission, but now has Ho catheter with clear yellow urine. Denies flank pain. Past Medical/Surgical History Medical Problems: (1) Acute kidney injury Status: Acute (2) Anemia Status: Acute (3) back problems Status: Chronic (4) Dysuria Status: Acute (5) Facial laceration Status: Acute (6) Generalized weakness Status: Acute (7) Head contusion Status: Acute (8) Headache Status: Acute (9) Leukocytosis Status: Acute (10) Neck pain Status: Acute (11) Sepsis Status: Acute (12) Sepsis Status: Acute (13) Symptoms involving urinary system Status: Acute (14) Thyroid mass Status: Acute (15) Weakness Status: Acute Social History Problems: (1) Status post laminectomy Status: Acute Medical Problems: (1) back problems (2) Benign hypertension (3) Dyslipidemia (4) Failure of outpatient treatment (5) Febrile (6) GERD (gastroesophageal reflux disease) (7) Multiple sclerosis (8) UTI (urinary tract infection) (9) UTI (urinary tract infection) Family History Diabetes mellitus FHx: cancer Heart disease Hypertension Social History Smoking Status: Current Some Day Smoker Smokeless Tobacco Use: No Alcohol Use: none Drug Use: none Marital Status: Housing Status: lives with family Occupation Status: retired Allergies Coded Allergies: Oxycodone (Unverified Allergy, Unknown, UNKNOWN, 12/03/17) Sulfa Drugs (Verified Allergy, Unknown, 12/03/17) Aspirin (Verified Adverse Reaction, Unknown, ASA 325 causes GI upset per pt, 03/08/17) takes ASA 81mg daily without issue Current Inpatient Medications Current Inpatient Medications Medications (Trade) Dose Ordered Sig/Jossie Route Start Time Stop Time Status Last Admin Dose Admin Heparin Sodium (Porcine) (Heparin Sq 5000 Unit/0.5ml) 5,000 unit Q8 SQ 12/03/17 22:00 01/02/18 21:59 12/04/17 15:22 5,000 UNIT Acetaminophen (Tylenol Tab) 650 mg Q4H PRN PO 12/03/17 19:30 01/02/18 19:29 Magnesium Hydroxide (Milk Of Magnesia Susp) 30 ml Q12H PRN PO 12/03/17 19:30 01/02/18 19:29 Ondansetron HCl (Zofran Inj) 4 mg Q6H PRN IV 12/03/17 19:30 01/02/18 19:29 Polyethylene (Miralax Powder Packet) 17 gm DAILY PRN PO 12/03/17 19:30 01/02/18 19:29 Amantadine HCl (Symmetrel Cap) 100 mg BID PO 12/03/17 21:00 01/02/18 20:59 12/04/17 09:18 100 MG Aspirin (Ecotrin Tab) 81 mg QPM PO 12/03/17 21:00 01/02/18 20:59 12/03/17 22:05 81 MG Baclofen (Lioresal Tab) 20 mg BID PO 12/03/17 21:00 01/02/18 20:59 12/04/17 09:18 20 MG Gabapentin (Neurontin Cap) 400 mg BID PO 12/03/17 21:00 01/02/18 20:59 12/04/17 09:18 400 MG Oxybutynin Chloride (Ditropan Tab) 5 mg BID PO 12/03/17 21:00 01/02/18 20:59 12/04/17 09:18 5 MG Senna (Senokot Tab) 8.6 mg QPM PO 12/03/17 21:00 01/02/18 20:59 12/03/17 22:05 8.6 MG Cholecalciferol (Vitamin D Tab) 2,000 inter.unit DAILY PO 12/04/17 09:00 5/15/18 08:59 12/04/17 09:18 2,000 INTER.UNIT Miscellaneous Information (Order Awaiting Action) 1 ea QS N/A 12/04/17 00:00 01/03/18 00:00 Meloxicam (Mobic Tab) 15 mg Q2D@0900 PO 12/05/17 09:00 01/04/18 08:59 Pantoprazole Sodium (Protonix Tab) 40 mg QAM PO 12/04/17 09:00 01/03/18 08:59 12/04/17 09:18 40 MG Miscellaneous Information (Consult) 1 ea UD PRN N/A 12/03/17 21:00 01/02/18 20:59 Imipenem/ Cilastatin Sodium 300 mg/Dextrose 106 ml @ 106 mls/hr Q6 IV 12/04/17 00:00 12/14/17 00:00 12/04/17 12:45 106 MLS/HR Imipenem/ Cilastatin Sodium (Consult) 1 ea UD PRN N/A 12/03/17 21:45 01/02/18 21:44 Vancomycin HCl 1250 mg/Sodium Chloride 275 ml @ 125 mls/hr Q20H IV 12/04/17 18:00 12/14/17 17:59 Review of Systems All systems were reviewed and are negative except as per HPI Physical Exam Date Time Temp Pulse Resp B/P (MAP) Pulse Ox O2 Delivery O2 Flow Rate FiO2 12/04/17 12:00 94 Room Air 12/04/17 10:59 37.2 73 20 115/68 (84) 94 Room Air 12/04/17 08:00 94 Room Air 12/04/17 07:38 36.4 73 20 118/68 (85) 94 Room Air 12/04/17 04:00 97 Room Air 12/04/17 03:50 38.7 89 18 144/71 (95) 93 Room Air 12/04/17 00:00 97 Room Air 12/03/17 23:49 38.0 82 162/87 (112) 95 Room Air 12/03/17 21:19 39.5 77 20 162/76 97 Room Air 12/03/17 20:30 82 20 159/71 96 Room Air 12/03/17 18:41 80 20 149/85 96 Room Air 12/03/17 18:19 85 20 162/82 95 Room Air 12/03/17 16:57 37.5 101 20 169/72 97 Room Air General Appearance: WD/WN, no apparent distress Head: normocephalic, atraumatic Eyes: normal inspection, EOMI, sclerae normal ENT: normal ENT inspection, hearing grossly normal, pharynx normal Neck: supple, no adenopathy, thyroid normal, trachea midline Respiratory/Chest: chest non-tender, lungs clear, normal breath sounds, no respiratory distress Cardiovascular: regular rate, rhythm, no gallop, + systolic murmur Abdomen/GI: normal bowel sounds, non tender, soft, no organomegaly, + pertinent finding (Ho draining yellow urine) Back: normal inspection, no CVA tenderness Extremities/Musculoskelatal: no calf tenderness, non-tender Neurologic/Psych: alert, oriented x 3 Skin: normal color, warm/dry, no rash Lymphatic: no adenopathy Laboratory Results Date/Time Source Procedure Growth Status 12/03/17 17:50 Blood Blood Culture Pending Received 12/03/17 17:40 Blood Blood Culture Pending Received 12/03/17 22:00 Urine,Catheterized Urine Culture - Preliminary NO GROWTH - LESS THAN 1,000 COLONIES/... Resulted Last 24 Hours Test 12/03/17 17:20 12/03/17 17:40 12/03/17 18:00 12/03/17 18:34 Urine Color DK YELLOW Urine Appearance CLOUDY Urine pH 5.0 Urine Specific [place] 1.022 Urine Protein TRACE Urine Glucose (UA) NEG Urine Ketones NEG Urine Occult Blood TRACE Urine Nitrite NEG Urine Bilirubin NEG Urine Urobilinogen NEG Urine Leukocyte Esterase LARGE Urine WBC (Auto) >30 /hpf Urine RBC (Auto) 0-4 /hpf Urine Hyaline Casts (Auto) 0 /lpf Urine Epithelial Cells (Auto) 0-5 /lpf Urine Bacteria (Auto) 4+ White Blood Count 16.71 K/uL Red Blood Count 5.01 M/uL Hemoglobin 16.1 g/dL Hematocrit 45.8 % Mean Corpuscular Volume 91.4 fL Mean Corpuscular Hemoglobin 32.1 pg Mean Corpuscular Hemoglobin Concent 35.2 g/dl Platelet Count 123 K/uL Mean Platelet Volume 10.1 fL Neutrophils (%) (Auto) 79.9 % Lymphocytes (%) (Auto) 8.7 % Monocytes (%) (Auto) 10.5 % Eosinophils (%) (Auto) 0.5 % Basophils (%) (Auto) 0.1 % Neutrophils # (Auto) 13.34 K/uL Lymphocytes # (Auto) 1.46 K/uL Monocytes # (Auto) 1.76 K/uL Eosinophils # (Auto) 0.08 K/uL Basophils # (Auto) 0.02 K/uL RDW Standard Deviation 45.9 fL RDW Coefficient of Variation 13.8 % Immature Granulocyte % (Auto) 0.3 % Immature Granulocyte # (Auto) 0.05 K/uL Sodium Level 133 mmol/L Potassium Level mmol/L Chloride Level 100 mmol/L Carbon Dioxide Level 28 mmol/L Anion Gap 5.0 mmol/L Blood Urea Nitrogen 28 mg/dl Creatinine 1.78 mg/dl Est Creatinine Clear Calc Drug Dose 42.3 ml/min Estimated GFR () 44.1 Estimated GFR (Non- 38.1 BUN/Creatinine Ratio 15.8 Random Glucose 85 mg/dl Calcium Level 10.1 mg/dl Magnesium Level mg/dl Total Bilirubin 1.4 mg/dl Aspartate Amino Transf (AST/SGOT) U/L Alanine Aminotransferase (ALT/SGPT) 29 U/L Alkaline Phosphatase 108 U/L Troponin I < 0.015 ng/ml Total Protein 9.1 gm/dl Albumin 4.1 gm/dl Globulin 5.0 gm/dl Albumin/Globulin Ratio 0.8 Bedside Lactic Acid Venous 2.05 mmol/L Prothrombin Time 11.8 SECONDS Prothromb Time International Ratio 1.1 Test 12/03/17 18:35 12/03/17 20:03 12/03/17 22:00 12/03/17 22:58 Potassium Level 4.3 mmol/L Magnesium Level 1.5 mg/dl Aspartate Amino Transf (AST/SGOT) 11 U/L Lactic Acid Level 1.9 mmol/L Influenza Type A Antigen Neg for Influ A Influenza Type B Antigen Neg for Influ B Troponin I < 0.015 ng/ml Test 12/04/17 07:03 White Blood Count 15.76 K/uL Red Blood Count 4.10 M/uL Hemoglobin 13.2 g/dL Hematocrit 37.4 % Mean Corpuscular Volume 91.2 fL Mean Corpuscular Hemoglobin 32.2 pg Mean Corpuscular Hemoglobin Concent 35.3 g/dl Platelet Count 118 K/uL Mean Platelet Volume 10.2 fL Neutrophils (%) (Auto) 73.8 % Lymphocytes (%) (Auto) 14.0 % Monocytes (%) (Auto) 11.5 % Eosinophils (%) (Auto) 0.2 % Basophils (%) (Auto) 0.1 % Neutrophils # (Auto) 11.64 K/uL Lymphocytes # (Auto) 2.21 K/uL Monocytes # (Auto) 1.81 K/uL Eosinophils # (Auto) 0.03 K/uL Basophils # (Auto) 0.01 K/uL RDW Standard Deviation 46.6 fL RDW Coefficient of Variation 14.0 % Immature Granulocyte % (Auto) 0.4 % Immature Granulocyte # (Auto) 0.06 K/uL Sodium Level 135 mmol/L Potassium Level 3.5 mmol/L Chloride Level 102 mmol/L Carbon Dioxide Level 24 mmol/L Anion Gap 9.0 mmol/L Blood Urea Nitrogen 24 mg/dl Creatinine 1.60 mg/dl Est Creatinine Clear Calc Drug Dose 46.9 ml/min Estimated GFR () 50.2 Estimated GFR (Non- 43.3 BUN/Creatinine Ratio 15.0 Random Glucose 138 mg/dl Calcium Level 8.7 mg/dl Magnesium Level 2.0 mg/dl Troponin I < 0.015 ng/ml CHEST ONE VIEW PORTABLE HISTORY: fever/chills COMPARISON: Chest 07/22/2017. FINDINGS: No pneumothorax. Elevation of the right hemidiaphragm, unchanged. The heart is borderline enlarged. No pneumothorax. No pleural effusions. Old, healed left clavicle fracture. Bibasilar interstitial thickening. This is not significantly changed. No new focal lung consolidations to suggest pneumonia. Low lung volumes. IMPRESSION: 1. No new focal lung consolidations to suggest pneumonia. 2. Low lung volumes and bibasilar interstitial thickening persists. Electronically signed by: Sami Barnes M.D. 12/03/2017 5:40 PM Dictated Date/Time: 12/03/2017 5:39 PM The status of this report is Signed. Assessment & Plan 67-year-old male with multiple sclerosis and neurogenic bladder with history of recurrent urinary tract infections with sepsis, maintained on rotating antibiotics with prior good response, now with 1 day history of fever. Although urinary tract infection most likely cause, culture is negative so far. Patient has improved with resolution of fever so far and negative blood cultures. Will continue IV antibiotics another 24-48 hours pending final culture results. Will follow.
[2017-12-04] MEDS ORDERED: VANCOMYCIN IV 1,250 MG in SODIUM CHLORIDE 0.9% 250ML 250 ML IV SCH (18:00)
[2017-12-04] MEDS: ASPIRIN 81 MG ECTAB PO SCH (20:20)
--- NOTE | 2017-12-04 20:20 | Progress Note ---
Subjective Date of Service: Dec 04, 2017. Subjective Pt evaluation today including: conversation w/ patient, conversation w/ family (, by phone), physical exam, chart review, lab review, review of studies ( echo), review of inpatient medication list Pain: no back, abd, flank pain PO Intake: eating but only fair Voiding: walters catheter in place tele - very brief (5 beats or so) of PAT in the middle of the night; otherwise NSR he feels better today more energy no confusion no cp, dyspnea, nausea, emesis Problem List Medical Problems: (1) Acute kidney injury Status: Acute (2) Anemia Status: Acute (3) back problems Status: Chronic (4) Dysuria Status: Acute (5) Facial laceration Status: Acute (6) Generalized weakness Status: Acute (7) Head contusion Status: Acute (8) Headache Status: Acute (9) Leukocytosis Status: Acute (10) Neck pain Status: Acute (11) Sepsis Status: Acute (12) Sepsis Status: Acute (13) Symptoms involving urinary system Status: Acute (14) Thyroid mass Status: Acute (15) Weakness Status: Acute Social History Problems: (1) Status post laminectomy Status: Acute Review of Systems Constitutional: + fever (overnight) Respiratory: No cough, No sputum, No shortness of breath, No dyspnea on exertion Cardiac: No chest pain Abdomen: No pain Objective Vital Signs Date Time Temp Pulse Resp B/P (MAP) Pulse Ox O2 Delivery O2 Flow Rate FiO2 12/04/17 16:00 95 Room Air 12/04/17 12:00 94 Room Air 12/04/17 10:59 37.2 73 20 115/68 (84) 94 Room Air 12/04/17 08:00 94 Room Air 12/04/17 07:38 36.4 73 20 118/68 (85) 94 Room Air 12/04/17 04:00 97 Room Air 12/04/17 03:50 38.7 89 18 144/71 (95) 93 Room Air 12/04/17 00:00 97 Room Air 12/03/17 23:49 38.0 82 162/87 (112) 95 Room Air 12/03/17 21:19 39.5 77 20 162/76 97 Room Air 12/03/17 20:30 82 20 159/71 96 Room Air Physical Exam General Appearance: no apparent distress, + pertinent finding (looks good today ) ENT: pharynx normal (MMM) Neck: no JVD Respiratory/Chest: lungs clear, no respiratory distress, no accessory muscle use Cardiovascular: regular rate, rhythm, no gallop, no murmur Abdomen: normal bowel sounds, non tender, soft, no organomegaly, + pertinent finding (no CVA/flank tenderness to palpation) Extremities: no pedal edema Neurologic/Psychiatric: alert, oriented x 3 Laboratory Results Last 24 Hours Test 12/03/17 22:00 12/03/17 22:58 12/04/17 07:03 Influenza Type A Antigen Neg for Influ A Influenza Type B Antigen Neg for Influ B Troponin I < 0.015 ng/ml < 0.015 ng/ml White Blood Count 15.76 K/uL Red Blood Count 4.10 M/uL Hemoglobin 13.2 g/dL Hematocrit 37.4 % Mean Corpuscular Volume 91.2 fL Mean Corpuscular Hemoglobin 32.2 pg Mean Corpuscular Hemoglobin Concent 35.3 g/dl Platelet Count 118 K/uL Mean Platelet Volume 10.2 fL Neutrophils (%) (Auto) 73.8 % Lymphocytes (%) (Auto) 14.0 % Monocytes (%) (Auto) 11.5 % Eosinophils (%) (Auto) 0.2 % Basophils (%) (Auto) 0.1 % Neutrophils # (Auto) 11.64 K/uL Lymphocytes # (Auto) 2.21 K/uL Monocytes # (Auto) 1.81 K/uL Eosinophils # (Auto) 0.03 K/uL Basophils # (Auto) 0.01 K/uL RDW Standard Deviation 46.6 fL RDW Coefficient of Variation 14.0 % Immature Granulocyte % (Auto) 0.4 % Immature Granulocyte # (Auto) 0.06 K/uL Sodium Level 135 mmol/L Potassium Level 3.5 mmol/L Chloride Level 102 mmol/L Carbon Dioxide Level 24 mmol/L Anion Gap 9.0 mmol/L Blood Urea Nitrogen 24 mg/dl Creatinine 1.60 mg/dl Est Creatinine Clear Calc Drug Dose 46.9 ml/min Estimated GFR () 50.2 Estimated GFR (Non- 43.3 BUN/Creatinine Ratio 15.0 Random Glucose 138 mg/dl Calcium Level 8.7 mg/dl Magnesium Level 2.0 mg/dl Assessment and Plan 67yo male with - 1. sepsis, likely 2nd to complicated/walters-associated UTI - unfortunately his urine culture was sent hours after he had received broad-spectrum IV antibiotics. I am uncertain if he could have sterilized the urine in that quick of time period for the urine culture to be negative. Will d/w Dr. Bentley in the am. CXR did not show pneumonia. Blood cx's thus far negative. Rapid flu test was negative. Continue imipenem and vanco pending his blood cx's. Overall, however, he is much improved from yesterday. 2. hyponatremic dehydration - resolved; stop fluids. 3. CKD stage 3 - baseline Cr is about 1.5/1.6. Cr is 1.6 today. Stop fluids. 4. hypomagnesemia - resolved s/p IV mag. 5. ?abnormal EKG - awaiting on official reading but again I believe his EKG showed NSR. Did have brief run of PAT overnight. Nothing to do at this time except continue to monitor on tele. Mag/K both normal today. 6. DVT proph - heparin TID. 7. MS with ambulatory dysfunction - cont home meds. 8. neurogenic bladder 2nd to #7 - self-cathes at home; has walters in place while hospitalized. 9. weakness - await PT, OT evals. 10. HTN - controlled w/o meds. Since BPs are 110-120 today would continue to hold his home meds and re-institute as BPs rise. appreciate ID consult by Dr. Bentley updated 12/04/17 by phone await PT, OT evals improved overall home tomorrow if PT, OT clears for home ?? Continued [facility] stay due to: multiple IV medications needed Discharge planning: home
[2017-12-04] MEDS: SENNA 8.6 MG TAB PO SCH (20:21)
[2017-12-05] VITALS (7 sets, daily range): BP systolic 131–153; BP diastolic 74–78; PULSE 61–66; TEMP 36.6–36.9; O2SAT 95–98
[2017-12-05] MEDS: IMIPENEM/CILASTATIN IV 300 MG in DEXTROSE 5% 100ML 100 ML IV SCH ×2 (00:05→05:58)
[2017-12-05] MEDS: HEPARIN SOD 5000 UNIT/0.5 ML CARP SQ SCH (05:59)
[2017-12-05 06:20] LABS: BASO % 0.1 %; BASO ABS # 0.01 K/uL (0-0.2); EOS % 4.1 %; HEMATOCRIT 37.7 % (42-52); IG# 0.03 K/uL (0.00-0.02); LYMPH % 15.9 %; LYMPH ABS # 1.17 K/uL (1.2-3.4); MEAN CELL VOLUME 91.5 fL (80-100); MEAN CORPUSCULAR HEMOGLOBIN 31.6 pg (25-34); MEAN CORPUSCULAR HGB CONC 34.5 g/dl (32-36); MEAN PLATELET VOLUME 9.9 fL (7.4-10.4); MONO % 11.6 %; MONO ABS # 0.85 K/uL (0.11-0.59); NEUT % 67.9 %; NEUT ABS # 4.98 K/uL (1.4-6.5); PLATELET COUNT 117 K/uL (130-400); RED CELL DISTRIBUTION WIDTH CV 13.9 % (11.5-14.5); RED CELL DISTRIBUTION WIDTH SD 46.3 fL (36.4-46.3); WHITE BLOOD COUNT 7.34 K/uL (4.8-10.8)
[2017-12-05 06:55] LABS: CALCIUM 9.2 mg/dl (8.5-10.1); CREATININE 1.43 mg/dl (0.60-1.40); POTASSIUM 3.6 mmol/L (3.5-5.1)
[2017-12-05] MEDS: OXYBUTYNIN CHLORIDE 5 MG TAB PO SCH (07:48)
[2017-12-05] MEDS: BACLOFEN TAB 20 MG TAB PO SCH (07:48)
[2017-12-05] MEDS: GABAPENTIN 400 MG CAP PO SCH (07:49)
[2017-12-05] MEDS: PANTOprazole SOD 40 MG TAB PO SCH (07:50)
[2017-12-05] MEDS: AMANTADINE HCL 100 MG CAP PO SCH (07:50)
[2017-12-05] MEDS: CHOLECALCIFEROL 1000 INTER.UNIT TAB PO SCH (07:51)
[2017-12-05] MEDS ORDERED: MELOXICAM 7.5 MG TAB PO SCH (09:00)
[2017-12-05] MEDS ORDERED: GLATIRAMER ACETATE 40 MG/ML SYR SQ SCH (09:00)
[2017-12-05] MEDS ORDERED: ERTAPENEM IV 1 GM in SODIUM CHLOR 0.9% AD-VAN 50ML 50 ML IV SCH (12:00)
[2017-12-05] MEDS ORDERED: NURSING VERBAL MED ORDER ONE (12:30)
[2017-12-05] MEDS ORDERED: BISACODYL 10 MG SUPP PR ONE (13:00)
[2017-12-05] MEDS ORDERED: VANCOMYCIN TROUGH ONE (13:30)
[2017-12-05] MEDS ORDERED: ERTA1INJ IV (15:52)
--- NOTE | 2017-12-05 15:59 | Discharge Instructions ---
Discharge Instructions Date of Service Dec 05, 2017. Admission Reason for Admission: Suspected Urinary Tract Infection Discharge Discharge Diagnosis / Problem: Suspected Urinary Tract Infection - resolving Discharge Goals Goal(s): Learn about illness, Diagnostic testing, Therapeutic intervention Activity Recommendations Activity Limitations: resume your previous activity (as tolerated) . Instructions / Follow-Up Instructions / Follow-Up From Dr. Link - You were admitted to the hospital with fever, extreme weakness (to the point of not being able to stand), and concern of urinary tract infection. You were tested for influenza and this was negative. Your chest x-ray did not show evidence of pneumonia. Your blood cultures remained negative while hospitalized. Your initial urinalysis was suggestive of UTI; however, your urine culture was negative. Even despite the negative urine culture Dr. Bentley and I are still suspicious you have a UTI. Please report to the "MTU" (medical treatment unit) at [facility] on 12/06/17, to receive your first dose of IV antibiotic ( ertapenem). Report at 11am. They will give the antibiotic through the IV in your right arm. Please keep the right arm IV clean, dry, and intact. OK to shower but keep it covered/dry. You will also receive doses on Tuesday and of this week. On 12/09/17, please resume your normal cycle of rotating ORAL antibiotics (amoxicillin, Cefdinir and doxycycline). Please resume your normal self-cathing at home. You were quite constipated when I performed your rectal examination. Please stay on a bowel regimen daily to prevent/treat constipation. Lastly, although you have mild prostate enlargement (quite common in men in their 60s), you had no evidence of prostatitis (infection of the prostate). Follow-up - please see your family doctor within 1 week as scheduled. Return to [facility] if - * you develop fevers over 100.5 degrees * you have shortness of breath, chest pain * you have abdominal pain, vomiting, or severe diarrhea * any other concerns Current Hospital Diet Patient's current hospital diet: Regular Diet Discharge Diet Recommended Diet: Regular Diet Procedures Procedures Performed: chest x-ray - no evidence of pneumonia echocardiogram (heart ultrasound) - normal heart function and valve function Pending Studies Studies pending at discharge: yes List of pending studies: blood cultures thus far negative to date Medical Emergencies . Who to Call and When: Medical Emergencies: If at any time you feel your situation is an emergency, please call 911 immediately. . Non-Emergent Contact Non-Emergency issues call your: Primary Care Provider Call Non-Emergent contact if: temperature is above 100.5, you have any medication questions . . "Provider Documentation" section prepared by Rey Link. .
--- NOTE | 2017-12-08 22:02 | Discharge Summary ---
Discharge Summary Date of Service Dec 08, 2017. Discharge Summary Admission Date: Dec 03, 2017 at 19:46 Discharge Date: Dec 05, 2017 Discharge Disposition: Home Principal Diagnosis: complicated/walters-catheter associated UTI Problems/Secondary Diagnoses: 1. sepsis 2nd to UTI - resolved 2. acute kidney injury 2nd to UTI - resolved 3. hyponatremic dehydration - resolved 4. hypomagnesemia - resolved 5. multiple sclerosis 6. neurogenic bladder 2nd to MS 7. ambulatory dysfunction 2nd to MS 8. HTN 9. CKD stage 3 10. brief episode of paroxysmal atrial tachycardia Immunizations: Have You Had Influenza Vaccine: Yes Influenza Vaccine Date: Jul 13, 2011 History of Tetanus Vaccine?: Yes History of Pneumococcal: Yes History of Hepatitis B Vaccine: No Procedures: echocardiogram - -- Conclusions -- * 1. Normal LV size. Normal LV wall thickness. * 2. Normal LV systolic function. LVEF 60-65%. No regional wall motion abnormalities. * 3. Normal RV size and function. * 4. No significant valvular pathology. * 5. Normal estimated PA and RA pressures. * 6. No prior studies for comparison. Consultations: infectious disease - Clinton Bentley MD PT, OT Medication Reconciliation New Medications: Ertapenem Sodium (Invanz) 1 Gm Inj 1 GM IV DAILY for 3 Days, #3 VIAL 0 Refills To receive [facility] on 12/06, 12/07, and 12/08/17. Continued Medications: Amantadine Hcl (Symmetrel) 100 Mg Tab 100 MG PO BID, TAB Aspirin (Aspirin Ec) 81 Mg Tab 81 MG PO QPM Atenolol (Tenormin) 50 Mg Tab 50 MG PO DAILY, TAB Baclofen (Baclofen) 20 Mg Tab 20 MG PO BID Cholecalciferol (Vitamin D) 2,000 Unit Cap 2000 UNIT PO DAILY Docusate Sodium (Docusate Sodium) 100 Mg Cap 100 MG PO DAILY PRN Gabapentin (Neurontin) 400 Mg Cap 400 MG PO BID, CAP Glatiramer Acetate (Copaxone) 20 Mg/1 Ml Inj 40 MG SC MWF Meloxicam (Meloxicam) 15 Mg Tab 15 MG PO Q2D Multiple Minerals W/ Vitamins (Citracal Plus) 1 Tab Tab 1 TABLET PO DAILY Omeprazole (Prilosec) 20 Mg Capcr 20 MG PO QAM, CAP Oxybutynin Chloride (Ditropan) 5 Mg Tab 5 MG PO BID, TAB Senna (Senokot) 8.6 Mg Tab 1 TAB PO QPM, TAB Triamterene/Hctz (Dyazide 37.5MG/25MG) Cap 1 TAB PO DAILY, CAP Discontinued Medications: Cefdinir (Cefdinir) 300 Mg Cap 1 CAP PO BID for 7 Days, #15 CAP Lisinopril (Zestril) 10 Mg Tab 10 MG PO Q2D, TAB Nitrofurantoin Macrocrystals (Macrodantin) 50 Mg Cap 50 MG PO HS, CAP [antibiotic] () 1 DOSE PO UD pt was unsure of what kind of antibiotic he was taking. Discharge Exam Physical Exam: General Appearance: no apparent distress ENT: pharynx normal Neck: no JVD Respiratory/Chest: lungs clear, no respiratory distress, no accessory muscle use Cardiovascular: regular rate, rhythm, no gallop, no murmur, normal peripheral pulses Abdomen / GI: normal bowel sounds, non tender, soft, no organomegaly Extremities: no pedal edema Neurologic/Psychiatric: alert, oriented x 3 Skin: no rash Hospital Course HISTORY OF PRESENT ILLNESS: This is a 67-year-old male with past medical history of HTN, Hyperlipidemia, CKD stage III, GERD, multiple sclerosis, neurogenic bladder, obesity, and recurrent UTIs who presented with severe weakness, fevers (highest temp of 101.6 ), rigors, and darkened urine with concerns for recurrent UTI. The patient follows with Dr. Bentley as an outpatient. In the past the patient has grown out E. coli, Klebsiella and enterococcus. Patient was recently hospitalized in July 2017 for enterococcus faecalis UTI. The patient is currently on rotating antibiotics of amoxicillin, Cefdinir and doxycycline each for 2 week periods and currently on doxycycline. His recurrent UTIs are from straight catheterizations 5-6x per day for neurogenic bladder due to his MS. At time of ER presentation he had evidence of acute kidney injury, lactic acidosis, leukocytosis, and abnormal u/a suggestive of UTI. HOSPITAL COURSE: The patient was treated for his suspected complicated/walters-associated UTI and sepsis with broad-spectrum IV antibiotics. Unfortunately his urine culture was negative but [id number] it was felt that the source of his sepsis was the urinary tract. CXR did not show pneumonia. Blood cultures were negative. Rapid flu test was negative. The patient clinically improved with normalization of his WBC count and improvement in his creatinine to his baseline (1.4). Weakness and ambulation both improved. PT/OT were consulted and each service felt he could return home with his . Dr. Bentley recommended 3 additional days of IV antibiotics in the form of IV ertapenem as an outpatient. He will return to the Outpatient Medical Treatment Unit on 12/06, 12/07, and 12/08 for 1 gram daily of IV ertapenem. After the ertapenem course is complete he will resume his rotation of 3 oral antibiotics as previously directed by Dr. Bentley for prevention of recurrent UTI. All other medical problems remained stable while hospitalized. Total Time Spent: Greater than 30 minutes This includes examination of the patient, discharge planning, medication reconciliation, and communication with other providers. Discharge Instructions Please refer to the electronic Patient Visit Report (Discharge Instructions) for additional information. Follow-Up 1. Outpatient Medical Treatment Unit on 12/06/17, 12/07/17, and 12/08/17 -- for IV ertapenem 2. Dr. Gloria on TuesdayDecember 12 at 11:30 am Additional Copies To Ynes Gloria M.D.; Clinton Bentley MD
--- NOTE | 2017-12-09 09:02 | EDITING REQUIRED CODING QUERY ---
CODING QUERY To promote full compliance with coding requirements relating to patient care, provider participation is requested in all cases of event technician uncertainty. Please assist us with the question(s) below: In the record, it states that the patient has an UTI. There is documentation of Straight Cathetering d/t MS and of Walters Catheter being placed at/after admission. There is documentation of complicated/walters-catheter associated UTI. Please clarify below the cause of the UTI if applicable. Thank you. ( x ) Self-catheterization prior to admission was the likely cause of the UTI. ( ) The walters catheter placed at/after admission was the likely cause of the UTI. ( ) Other urinary cath/device was the cause of the UTI. ( ) UTI, unspecified cause. ( ) Other (Specify): Principal Diagnosis: "_that condition established after study, to be chiefly responsible for occasioning the admission of the patient to the hospital for care." Co-Existing Principal Diagnosis: "_when two or more diagnoses equally meet the criteria for principal diagnosis as determined by the circumstances of admission, diagnostic work up, and/or therapy provided, and the Alphabetic Index, Tabular List, or another coding guideline does not provide sequencing direction, any one of the diagnoses may be sequenced first." "When the physician has documented what appears to be a current diagnosis in the body of the record, but has not included the diagnosis in the final diagnostic statement, the physician should be asked whether the diagnosis should be added." (Source Coding Clinic 2 QTR90. p3-4)
== END 2017-12-05 17:18 | disposition home or self-care (01) | DRG 698 ==
LOC: C.EDB 16:55 → UNDOADMIN 19:46 → C.2T 19:46 → ENRESERV 20:09
PROVIDERS: ADMIT Internal Medicine; ATTEND Internal Medicine
DX: N99.89 Other postprocedural complications and disorders of genitourinary system (principal); A41.9 Sepsis, unspecified organism; N39.0 Urinary tract infection, site not specified; E87.1 Hypo-osmolality and hyponatremia; N17.9 Acute kidney failure, unspecified; E87.2 Acidosis; I47.1 Supraventricular tachycardia; E83.42 Hypomagnesemia; N31.9 Neuromuscular dysfunction of bladder, unspecified; G35 Multiple sclerosis; I12.9 Hypertensive chronic kidney disease with stage 1 through stage 4 chronic kidney disease, or unspecified chronic kidney disease; N18.3 Chronic kidney disease, stage 3 (moderate); K21.9 Gastro-esophageal reflux disease without esophagitis; E66.9 Obesity, unspecified; F17.200 Nicotine dependence, unspecified, uncomplicated; Z79.899 Other long term (current) drug therapy; Z79.82 Long term (current) use of aspirin; Z79.1 Long term (current) use of non-steroidal anti-inflammatories (NSAID); Z87.440 Personal history of urinary (tract) infections; Z68.31 Body mass index [BMI] 31.0-31.9, adult; Z88.5 Allergy status to narcotic agent; Z88.2 Allergy status to sulfonamides; Z88.6 Allergy status to analgesic agent; Z82.49 Family history of ischemic heart disease and other diseases of the circulatory system; Z83.3 Family history of diabetes mellitus; Y84.6 Urinary catheterization as the cause of abnormal reaction of the patient, or of later complication, without mention of misadventure at the time of the procedure

== ENCOUNTER → 2018-03-22 | Day surgery (SDC) | payer BC, OTHER ==
[2018-03-07 16:36] VITALS: Ht 170.2 cm; Wt 88.2 kg
[~2018-03-22] VITALS: Ht 170.2 cm; Wt 88.2 kg
[~2018-03-22] MED LIST changes: +500ML BSS 0.3ML EPI 1:1000PF IRRIG ONE; +ACETAMINOPHEN 325 MG TAB PO PRN; +AMOX500C3 PO; +AMVISC PLUS 0.8ML SYRINGE INT OCU ONE; +ATROPINE SULFATE 0.1 MG/ML 5ML SYR IV PRN; +BIOT10TA2 PO; +BSS FLUSH ONE; +CALC-393 PO; -CEFD300C3 PO; +CIPR-255 PO; +COEN1CAP17 PO; -DTR/5 PO; +ENDOCOAT 0.85ML SYRINGE INT OCU ONE; +EpHEDrine SULFATE INJ 50 MG/ML AMP IV PRN; +EpINEphrine INJ 1MG/ML AMP 1 MG/ML AMP ONE; +GLUC1CAP35 PO; +LACTATED RINGER'S 1000ML 500 ML IV SCH; +LIDOCAINE 4% OP SOLN DROP CHARGE ONE; +LIDOCAINE 4% OP SOLN DROP CHARGE OPR SCH; +LIDOCAINE HCL 1% MPF 2 ML VIAL ONE; +LISI-461 PO; -LISI-791 PO; +MIDAZOLAM HCL 1 MG/ML 2ML VIAL ONE; +MIX: 4ML BSS 1ML EPI 1:1000 PF TOP ONE; +MOXIFLOXACIN OPH SOLN PER DROP CHARGE ONE; -NITR1CAP33 PO; +OMEG12006 PO; +POVIDONE-IODINE OP SOLN 30 ML BTL ONE; +PROPARACAINE 0.5% OP SOLN PER DROP CHARGE OPR SCH; +TOBRAMYCIN/DEXAMETHASONE OPH OINT PER APPLN CHARGE ONE
[2018-03-22] MEDS: PHENYLEPHRINE HCL 2.5% OP SOLN PER DROP CHARGE OPR SCH ×3 (13:06→13:16)
[2018-03-22] MEDS: TROPICAMIDE 1% OP SOLN PER DROP CHARGE OPR SCH ×3 (13:07→13:17)
[2018-03-22] MEDS: CYCLOPENTOLATE HCL 1% OP SOLN PER DROP CHARGE OPR SCH ×3 (13:08→13:18)
[2018-03-22] MEDS: MOXIFLOXACIN OPH SOLN PER DROP CHARGE OPR SCH ×3 (13:09→13:19)
--- NOTE | 2018-03-22 13:27 | History & Physical Bridge - SC ---
H&P Re-Evaluation Bridge Note: I have examined the patient, reviewed the History & Physical and in the interval since the performance of the History & Physical I have noted the following changes of clinical significance: No changes noted
--- NOTE | 2018-03-22 14:26 | [facility] Post Operative Brief Note ---
Immediate Operative Summary Operative Date Mar 22, 2018. Pre-Operative Diagnosis Cataract right eye Post-Operative Diagnosis Cataract right eye Procedure(s) Performed Right Cataract Phacoemulsification With Intraocular Lens Implant Surgeon Dr. Asa Slater Bridge Expert Surgeon(s) None Estimated Blood Loss 0ml Findings Consistent with Post-Op Diagnosis Specimens None per surgeon Anesthesia Type MAC Complication(s) none Disposition Accompanied Pt To Recover: no Disposition:
--- NOTE | 2018-03-22 14:27 | [facility] Operative Report ---
Operative Report Date of Service Mar 22, 2018. Operative Report DATE OF OPERATION: 03/22/18 PREOPERATIVE DIAGNOSIS: Senile nuclear cataract, right eye POSTOPERATIVE DIAGNOSIS: Senile nuclear cataract, right eye PROCEDURE PERFORMED: Phacoemulsification with intraocular lens implantation, right eye SURGEON: Dr. Asa Slater ANESTHESIA: Topical with 1% intracameral lidocaine and monitored anesthesia care COMPLICATIONS: None DESCRIPTION OF PROCEDURE: After positively identifying the patient both verbally and by wristband in the preoperative area, the right eye was marked as the operative eye. The patient was then brought back to the operating room by the anesthesia and nursing staff where they were given a drop of Lidocaine and betadine into the operative eye. They were then sterilely prepped and draped in the standard fashion typical for ophthalmic surgery. Steri-strips were placed along the upper eyelids to keep the lashes back, and a lid speculum was placed into the operative eye. At this point, a documented time out was performed with members of the ophthalmology, nursing, and anesthesia staffs all agreeing upon the correct patient, correct location for surgery, correct procedure, and correct type and power of intraocular lens to be implanted. The microscope was then swung into position. First, a paracentesis wound was made using a sideport blade. Then, in sequence, 1% preservative-free lidocaine followed by Endocoat viscoelastic was injected into the anterior chamber. Next , the main incision was made with a keratome blade in triplanar fashion. A sharp cystotome was introduced into the eye and used to create a tear in the anterior capsule, which was directed into a continuous curvilinear capsulorrhexis using Utrata forceps. Hydrodissection was then performed with BSS on a flat-tip cannula. Next, the phacoemulsification handpiece was introduced into the eye and used to remove the nucleus in a djoyyr-kpl-ggnluen fashion. This was done without complication and then the irrigation-aspiration handpiece was introduced into the eye and used to remove all remaining cortical and epinuclear material. Amvisc was then injected into the anterior chamber as well as into the capsular bag and using the lens injector system, an MX60 18.5 D lens, serial number [id number], and expiration date 12/2020 was injected into the capsular bag and rotated into the correct position. Next, the irrigation- aspiration handpiece was used to remove all remaining Amvisc. BSS was used to hydrate the main wound, and then BSS was injected into the paracentesis site to reach physiologic pressure and then the main wound was checked and found to be watertight. The patient was given drops of Vigamox and Tobradex ointment into the operative eye, and then the surrounding area was cleaned and dried. A clear plastic shield was placed over the eye and the patient was then sat up and taken from the operating room by the anesthesia staff having tolerated the procedure well and suffering no complications. DISPOSITION: The patient was returned to the recovery room in stable condition. I attest to the content of the Intraoperative Record and any orders documented therein. Any exceptions are noted below.
--- NOTE | 2018-03-22 14:28 | Discharge Instructions-SurgCtr ---
Discharge Instructions Date of Service Mar 22, 2018. Visit Reason for Visit: Cataract Right Eye Discharge Discharge Diagnosis / Problem: right cataract Discharge Goals Goal(s): Decrease discomfort, Improve function Activity Recommendations Activity Limitations: as noted below Anesthesia . Post Anesthesia Instructions: If you have had General Anesthesia or IV Sedation: * Do not drive today. * Resume driving when surgeon permits. * Do not make important decisions or sign legal documents today. * Call surgeon for: 1. Temperature elevations greater than 101 degrees F. 2. Uncontrollable pain. 3. Excessive bleeding. 4. Persistent nausea and vomiting. 5. Medication intolerance (nausea, vomiting or rash). * For nausea and vomiting use only clear liquids such as: tea, soda, bouillon until nausea subsides, then gradually increase diet as tolerated. * If you have any concerns or questions, call your surgeon's office. If physician is unavailable and it is an emergency, call 911 or go to the nearest emergency room. . Instructions / Follow-Up Instructions / Follow-Up ACTIVITY RECOMMENDATIONS: * Light activities. * You may walk outside, read, watch television. * You may notice redness on the white part of the eye and some blurry vision - this is normal. MEDICATIONS: Resume previous medications unless instructed otherwise by your surgeon. Start all eye drops at 4:30 pm today: * Eye drops (today): Prednisone - one drop in operative eye every 2 hours while awake Ofloxacin - one drop in operative eye every 2 hours while awake Ketorolac - one drop in operative eye 4 times daily SPECIAL CARE INSTRUCTIONS: * Tape plastic shield over eye to sleep at night. Call your doctor at with any concerns or problems. FOLLOW UP VISIT: Follow-up with Dr Slater at [facility] as scheduled. Diet Recommendations Home Diet: no limitations Procedures Procedures Performed: Right Cataract Phacoemulsification With Intraocular Lens Implant Pending Studies Studies pending at discharge: no Medical Emergencies . Who to Call and When: Medical Emergencies: If at any time you feel your situation is an emergency, please call 911 immediately. . Non-Emergent Contact Non-Emergency issues call your: Surgeon . . "Provider Documentation" section prepared by Asa Slater. .
[2018-03-22 14:31] VITALS: TEMP 36.8
--- NOTE | 2018-03-22 14:39 | Anesthesia Progress Nt - [facility] ---
Anesthesia Post Op Note Date & Time Mar 22, 2018 at 14:39 Vital Signs Pain Intensity: 0 Vital Signs Past 12 Hours Date Time Temp Pulse Resp B/P (MAP) Pulse Ox O2 Delivery O2 Flow Rate FiO2 03/22/18 14:31 36.8 71 16 138/80 (99) 95 Room Air 03/22/18 13:20 36.5 69 16 120/75 (90) 94 Room Air Notes Mental Status: alert / awake / arousable, participated in evaluation Pt Amnestic to Procedure: Yes Nausea / Vomiting: adequately controlled Pain: adequately controlled Airway Patency, RR, SpO2: stable & adequate BP & HR: stable & adequate Hydration State: stable & adequate Anesthetic Complications: no major complications apparent
[2018-03-22 14:54] VITALS: BP 147/84; PULSE 71; O2SAT 94
== END | disposition home or self-care (01) ==
LOC: X.SURG 12:32
PROVIDERS: ATTEND Ophthalmology
DX: H25.11 Age-related nuclear cataract, right eye (principal); G35 Multiple sclerosis; I10 Essential (primary) hypertension; Z88.6 Allergy status to analgesic agent; Z88.5 Allergy status to narcotic agent; Z88.2 Allergy status to sulfonamides; F17.200 Nicotine dependence, unspecified, uncomplicated; Z79.899 Other long term (current) drug therapy; Z79.82 Long term (current) use of aspirin

== ENCOUNTER 2018-03-30 18:36 | Inpatient (IN) | payer BC, OTHER ==
[~2018-03-30] VITALS: Ht 170.2 cm; Wt 92.0 kg
[~2018-03-30 18:36] MED LIST changes: -500ML BSS 0.3ML EPI 1:1000PF IRRIG ONE; -ACETAMINOPHEN 325 MG TAB PO PRN; -AMVISC PLUS 0.8ML SYRINGE INT OCU ONE; -ATROPINE SULFATE 0.1 MG/ML 5ML SYR IV PRN; -BSS FLUSH ONE; -ENDOCOAT 0.85ML SYRINGE INT OCU ONE; -EpHEDrine SULFATE INJ 50 MG/ML AMP IV PRN; -EpINEphrine INJ 1MG/ML AMP 1 MG/ML AMP ONE; -LACTATED RINGER'S 1000ML 500 ML IV SCH; -LIDOCAINE 4% OP SOLN DROP CHARGE ONE; -LIDOCAINE 4% OP SOLN DROP CHARGE OPR SCH; -LIDOCAINE HCL 1% MPF 2 ML VIAL ONE; -MIDAZOLAM HCL 1 MG/ML 2ML VIAL ONE; -MIX: 4ML BSS 1ML EPI 1:1000 PF TOP ONE; -MOXIFLOXACIN OPH SOLN PER DROP CHARGE ONE; -POVIDONE-IODINE OP SOLN 30 ML BTL ONE; -PROPARACAINE 0.5% OP SOLN PER DROP CHARGE OPR SCH; -TOBRAMYCIN/DEXAMETHASONE OPH OINT PER APPLN CHARGE ONE
[2018-03-30] MEDS ORDERED: SODIUM CHLORIDE 0.9% 1000ML 500 ML IV ONE (19:12)
[2018-03-30] MEDS ORDERED: ONDANSETRON INJ 2 MG/ML 2 ML VIAL IV STA (19:17)
[2018-03-30] MEDS ORDERED: CPR/500 PO (19:27)
[2018-03-30] MEDS ORDERED: CEFD1CAP14 PO (19:27)
[2018-03-30] MEDS ORDERED: DTR/5 PO (19:27)
--- NOTE | 2018-03-30 19:46 | DIAGNOSTIC IMAGING REPORT ---
SINGLE VIEW CHEST CLINICAL HISTORY: Fever. Sepsis. FINDINGS: An AP, portable, upright chest radiograph is compared to study dated 02/22/2018. The examination is degraded by portable technique and patient rotation. The heart is mildly enlarged and there is atherosclerotic calcification of the thoracic aorta. The pulmonary vasculature is noncongested. There is chronic elevation of the right hemidiaphragm with associated atelectasis. Patchy airspace consolidation is seen in the left midlung. No large pleural effusion or pneumothorax is seen. The skeletal structures are osteopenic. There is a healed left clavicular fracture. Calcific tendinopathy is seen in the right shoulder. IMPRESSION: 1. Mild cardiac enlargement without radiographic evidence of congestive failure. 2. Patchy airspace consolidation is seen in the left midlung. The appearance is typical for pneumonia/aspiration pneumonitis. Clinical correlation will be required and radiographic follow-up to resolution is recommended. Electronically signed by: Jarod Pacheco M.D. 03/30/2018 7:44 PM Dictated Date/Time: 03/30/2018 7:43 PM
[2018-03-30 19:52] LABS: BASO % 0.4 %; BASO ABS # 0.03 K/uL (0-0.2); EOS ABS # 0.64 K/uL (0-0.5); HEMATOCRIT 39.3 % (42-52); HEMOGLOBIN 13.8 g/dL (14.0-18.0); IG# 0.23 K/uL (0.00-0.02); LYMPH % 26.3 %; LYMPH ABS # 1.87 K/uL (1.2-3.4); MEAN CELL VOLUME 92.5 fL (80-100); MEAN CORPUSCULAR HEMOGLOBIN 32.5 pg (25-34); MEAN CORPUSCULAR HGB CONC 35.1 g/dl (32-36); MEAN PLATELET VOLUME 9.3 fL (7.4-10.4); MONO % 13.8 %; MONO ABS # 0.98 K/uL (0.11-0.59); NEUT % 47.3 %; NEUT ABS # 3.37 K/uL (1.4-6.5); PLATELET COUNT 197 K/uL (130-400); RED CELL DISTRIBUTION WIDTH CV 14.1 % (11.5-14.5); RED CELL DISTRIBUTION WIDTH SD 47.8 fL (36.4-46.3); WHITE BLOOD COUNT 7.12 K/uL (4.8-10.8)
[2018-03-30 20:16] LABS: ALBUMIN 3.4 gm/dl (3.4-5.0); ALKALINE PHOSPHATASE 106 U/L (45-117); ALT/SGPT 21 U/L (12-78); AST/SGOT 18 U/L (15-37); BLOOD UREA NITROGEN 44 mg/dl (7-18); CALCIUM 12.2 mg/dl (8.5-10.1); CARBON DIOXIDE 26 mmol/L (21-32); CREATININE 2.67 mg/dl (0.60-1.40); GLUCOSE 120 mg/dl (70-99); LIPASE 85 U/L (73-393); POTASSIUM 3.8 mmol/L (3.5-5.1); SODIUM 136 mmol/L (136-145); TOTAL PROTEIN 7.4 gm/dl (6.4-8.2)
[2018-03-30] MEDS ORDERED: SODIUM CHLORIDE 0.9% 1000ML 1,000 ML IV ONE (20:28)
--- NOTE | 2018-03-30 21:52 | DIAGNOSTIC IMAGING REPORT ---
CT SCAN OF THE CHEST, ABDOMEN, AND PELVIS WITHOUT IV CONTRAST CLINICAL HISTORY: Pneumonia. Back pain. Urinary tract infection. COMPARISON STUDY: Chest x-ray dated 03/30/2018. Abdominal CT dated 02/23/2018. TECHNIQUE: CT scan of the chest, abdomen, and pelvis was performed from the thoracic inlet to the proximal femora. Images are reviewed in the axial, sagittal, and coronal planes. IV contrast was not administered for this examination. Note that the examination was performed in significantly suboptimal fashion without oral and IV contrast. The examination is also degraded by motion artifact. A dose lowering technique was utilized adhering to the principles of ALARA. CT DOSE: 1057.26 mGy.cm FINDINGS: CHEST: Thyroid: The right thyroid lobe is diminutive versus surgically absent. The left lobe appears enlarged and heterogeneous. Thoracic aorta: There is atherosclerotic calcification of the thoracic aorta, which is normal in caliber and demonstrates standard 3-vessel arch anatomy. Heart: The heart is enlarged and without pericardial effusion. The coronary arteries are densely calcified. The pulmonary trunk is normal in caliber. Lungs and pleural spaces: No pleural effusion is identified. The trachea and central airways are clear. There is mild diffuse intralobular septal thickening. There are patchy airspace opacities present throughout both lungs, most confluence at the lung bases and in the left upper lung. There are scattered pulmonary nodules. These not well assessed due to surrounding consolidative change. A left lower lobe nodule is seen on image #215 and measures 6 mm. A right middle lobe nodule on image #149 measures 8 mm. Mediastinum: There are scattered subcentimeter mediastinal lymph nodes. These are not pathologically enlarged by size criteria. Surekha: Not well assessed without IV contrast. Axillae: There is no axillary lymphadenopathy. Bony thorax: The skeletal structures are osteopenic. No lytic or blastic lesions are identified. Degenerative change is noted throughout the thoracic spine. Arthritic change is seen in the shoulders. Calcific tendinopathy is noted on the right. There is chronic posterior matter deformity noted in the left clavicle. ABDOMEN AND PELVIS: Liver: The unenhanced liver is normal in size, contour, and attenuation. There is no intrahepatic or ductal dilatation. Gallbladder: Unremarkable. Spleen: Normal in size and attenuation. Pancreas: The unenhanced pancreas is moderately atrophic and grossly unremarkable. Adrenal glands: Unremarkable. Kidneys: The unenhanced kidneys demonstrate cortical atrophy and are without hydronephrosis. No renal calculi are identified. A 3.3 cm cyst is noted in the interpolar left kidney. Abdominal vasculature: The abdominal aorta is normal in course and caliber noting moderate atherosclerotic calcification. Stomach and bowel: There is a small hiatal hernia. The duodenum is normal in configuration. There is mild sigmoid diverticulosis without CT evidence of acute diverticulitis. Moderate constipation is observed. No bowel obstruction is seen. The appendix is well-visualized and normal. Peritoneum: There is no intraperitoneal free air or abdominal ascites. There is a fat-containing umbilical hernia. Foci of induration within the ventral abdominal wall are likely related to subcutaneous injections. Lymphadenopathy: None. Pelvic viscera: The prostate gland is enlarged and heterogeneous, measuring 5.2 cm in transverse diameter. There is median lobe hypertrophy. The bladder wall appears thickened and trabeculated suggesting chronic outlet obstruction. There is evidence of previous bilateral inguinal herniorrhaphy. Skeletal structures: The skeletal structures are osteopenic. There is moderate to advanced lumbosacral spondylosis. Postlaminectomy change is seen in the lumbar spine with evidence of L4-L5 spinal fusion. No lytic or blastic lesions are seen. IMPRESSION: 1. Suboptimal examination without oral and IV contrast. The examination is also degraded by motion artifact. 2. Cardiomegaly with mild diffuse intralobular septal thickening. This suggests congestive failure. Clinical correlation will be required. 3. There is multifocal patchy airspace consolidation throughout both lungs, new at the lung bases from the 02/23/[address] This could represent multifocal pneumonia and/or a component of pulmonary edema. Again, clinical correlation will be required. 4. Scattered pulmonary nodules measure up to 8 mm. These are not well assessed due to multifocal consolidative change. Follow-up as per the Fleischner criteria. See below. 5. There are no acute infectious or inflammatory findings in the abdomen or pelvis. 6. Moderate constipation. 7. Prostatomegaly with evidence of chronic bladder outlet obstruction. 8. Additional findings as above. Please refer to below summary of Fleischner criteria recommendations for follow-up of incidental CT nodules (Janae Alcantara, Guidelines for management of small pulmonary nodules detected on CT scans: A statement from the Fleischner Society, Radiology 237: [id number].) SOLID NODULES Solitary nodule size: <6 mm * low risk patients: no follow-up needed * high risk patients: optional CT at 12 months Solitary nodule size: 6-8 mm * low risk patients: follow-up at 6-12 months, then consider further follow-up at 18-24 months * high risk patients: initial follow-up CT at 6-12 months and then at 18-24 months if no change Solitary nodule size: >8 mm * either low or high risk patients - consider follow-up CT at 3 months, and/or CT-PET, and/or biopsy Multiple nodules size: <6 mm * low risk patients: no routine follow-up * high risk patients: optional CT at 12 months Multiple nodules size: 6-8 mm * low risk patients: follow-up at 3-6 months, then consider further follow-up at 18-24 months * high risk patients: follow-up at 3-6 months, then at 18-24 months if no change Multiple nodules size: >8 mm * low risk patients: follow-up at 3-6 months, then consider further follow-up at 18-24 months * high risk patients: follow-up at 3-6 months, then at 18-24 months if no change Note: newly detected indeterminate nodule in persons 35 years of age or older. * low risk patients: minimal or absent history of smoking and/or other known risk factors * high risk patients: history of smoking or of other known risk factors (e.g. first degree relative with lung cancer, or exposure to asbestos, radon, uranium) * if a nodule up to 8 mm is partly solid or is ground glass further follow-up is required after 24 months to exclude possible slow growing adenocarcinoma ([place]) SUBSOLID NODULES Solitary pure ground-glass nodule * nodule size <6 mm - no CT follow-up required * nodule size >=6 mm - follow-up CT at 6-12 months, then every 2 years until 5 years Solitary part-solid nodule * nodule size <6 mm - no CT follow-up required * nodule size >=6 mm - follow-up CT at 3-6 months. If unchanged, and solid component remains <6 mm, then annual follow-up for 5 years Multiple subsolid nodules * nodule size <6 mm - follow-up CT at 3-6 months, consider further follow-up at 2 and 4 years if stable * nodule size >=6 mm - follow-up CT at 3-6 months, subsequent management based on the most suspicious nodule(s) Electronically signed by: Jarod Pacheco M.D. 03/30/2018 9:50 PM Dictated Date/Time: 03/30/2018 9:34 PM
[2018-03-30] MEDS ORDERED: CEFTRIAXONE SOD INJ 1 GM ADDVIAL IV STA (22:03)
[2018-03-31] VITALS (7 sets, daily range): BP systolic 133–164; BP diastolic 72–86; PULSE 60–64; TEMP 36.3–37; O2SAT 94–96; Ht 170.2 cm; Wt 92.0 kg
[2018-03-31] MEDS ORDERED: DOCUSATE SODIUM 100 MG CAP PO PRN (00:30)
--- NOTE | 2018-03-31 00:37 | History and Physical ---
History & Physical Date & Time of Service: Mar 31, 2018 at 00:26 Chief Complaint: Uti, Can't Walk- Ms Patient Primary Care Physician: Ynes Gloria M.D. History of Present Illness Source: patient, hospital records Patient is a 67 year old male with a PMH of MS, recurrent UTI's (self catheterizes), follicular adenoma, and HTN who has presented to [facility] with increasing fatigue, confusion and urinary difficulty. The patient notes that he has been having ongoing fatigue and weakness starting one week ago. It has been progressively getting worse since last Tuesday. He has not been drinking fluids and has not been eating very much because he does not have an appetite. Today when he tried to urinate he had difficulty catheterizing himself therefore they thought he might have a UTI so they brought him into the hospital. On review of systems he has had a dry cough for one day and has had some mild redness on his left leg. Past Medical/Surgical History Medical Problems: (1) Acute kidney injury (2) Anemia (3) back problems (4) Benign hypertension (5) Complicated UTI (urinary tract infection) (6) Dyslipidemia (7) Dysuria (8) Exacerbation of multiple sclerosis (9) Facial laceration (10) Failure of outpatient treatment (11) Febrile (12) Generalized weakness (13) GERD (gastroesophageal reflux disease) (14) Head contusion (15) Headache (16) Leukocytosis (17) Multiple sclerosis (18) Neck pain (19) Sepsis (20) Sepsis (21) Sepsis (22) SIRS (systemic inflammatory response syndrome) (23) Symptoms involving urinary system (24) Thyroid mass (25) UTI (urinary tract infection) (26) UTI (urinary tract infection) (27) Weakness (28) Weakness Family History Diabetes mellitus FHx: cancer Heart disease Hypertension Social History Smoking Status: Current Some Day Smoker Smokeless Tobacco Use: No Alcohol Use: none Drug Use: none Marital Status: Housing status: lives with family Occupational Status: retired Immunizations History of Influenza Vaccine: Yes Influenza Vaccine Date: Jul 13, 2011 History of Tetanus Vaccine?: Yes History of Pneumococcal: Yes History of Hepatitis B Vaccine: No Allergies Coded Allergies: Sulfa Antibiotics (Verified Allergy, Intermediate, RASH, 03/30/18) Aspirin (Verified Adverse Reaction, Mild, PER "MD TOLD PT NOT TO TAKE DUE TO STOMACH ISSUES"., 03/30/18) takes ASA 81mg daily without issue Oxycodone (Verified Adverse Reaction, Mild, "FUNNY FEELINGS", 03/30/18) Home Medications Scheduled Amantadine Hcl (Symmetrel), 100 MG PO BID Amoxicillin (Amoxil), 500 MG PO DAILY Aspirin (Aspirin Ec), 81 MG PO QPM Atenolol (Tenormin), 50 MG PO QPM Baclofen (Baclofen), 20 MG PO BID Biotin (Biotin), 10 MG PO DAILY Calcium Carbonate (Calcium), 600 MG PO DAILY Cefdinir (Omnicef), 300 MG PO DAILY Cholecalciferol (Vitamin D), 2,000 UNIT PO DAILY Ciprofloxacin (Ciprofloxacin HCl), 500 MG PO DAILY Coenzyme Q10 (Ubidecarenone) (Co Q 10), 100 MG PO DAILY Gabapentin (Neurontin), 400 MG PO BID Glatiramer Acetate (Copaxone), 40 MG SC MWF Pouofuqettr-Dmwksuzwdpa-Zoc C- (Glucosamine Chondroitin), 2 CAP PO DAILY Lisinopril (Lisinopril), 10 MG PO Q2D Meloxicam (Meloxicam), 15 MG PO Q2D Multiple Minerals W/ Vitamins (Citracal Plus), 1 TABLET PO DAILY [place]-3 Fatty Acids ([place] 3), 2 CAP PO DAILY Omeprazole (Prilosec), 20 MG PO QAM Oxybutynin Chloride (Ditropan), 10 MG PO BID Senna (Senokot), 1 TAB PO QPM Triamterene/Hctz (Dyazide 37.5MG/25MG), 1 TAB PO QPM Scheduled PRN Docusate Sodium (Docusate Sodium), 100 MG PO DAILY PRN for Constipation Physical Exam Vital Signs Date Time Temp Pulse Resp B/P (MAP) Pulse Ox O2 Delivery O2 Flow Rate FiO2 03/30/18 23:20 68 19 151/68 96 Room Air 03/30/18 22:25 64 03/30/18 22:06 63 22 03/30/18 22:01 157/87 03/30/18 21:36 59 18 03/30/18 21:31 149/77 03/30/18 21:18 63 16 134/71 95 Room Air 03/30/18 21:00 134/71 03/30/18 20:36 58 23 93 03/30/18 20:30 142/81 03/30/18 20:25 121/67 03/30/18 20:25 56 14 121/67 94 Room Air 03/30/18 20:06 58 15 03/30/18 19:46 57 03/30/18 19:45 96 Room Air 03/30/18 18:52 36.5 64 18 101/58 96 Room Air 03/30/18 18:41 165/100 General Appearance: WD/WN, no apparent distress, + pertinent finding (dry mucous membranes) Head: normocephalic, atraumatic Eyes: PERRL, EOMI ENT: hearing grossly normal, pharynx normal, + pertinent finding (poor dentition) Neck: supple, no adenopathy, thyroid normal, no JVD, no carotid bruits, trachea midline Respiratory/Chest: chest non-tender, lungs clear, no accessory muscle use Cardiovascular: regular rate, rhythm, no murmur, normal peripheral pulses Abdomen/GI: normal bowel sounds, non tender, soft Extremities/Musculoskelatal: normal inspection, no calf tenderness, no pedal edema, non-tender, pelvis stable Neurologic/Psych: lead 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 II-XII nml as tested, no motor/sensory deficits, alert, normal mood/affect, oriented x 3 Skin: no rash Diagnostics Laboratory Results Results Past 24 Hours Test 03/30/18 19:39 03/30/18 20:00 03/30/18 23:55 Range/Units White Blood Count 7.12 4.8-10.8 K/uL Red Blood Count 4.25 4.7-6.1 M/uL Hemoglobin 13.8 14.0-18.0 g/dL Hematocrit 39.3 42-52 % Mean Corpuscular Volume 92.5 80-100 fL Mean Corpuscular Hemoglobin 32.5 25-34 pg Mean Corpuscular Hemoglobin Concent 35.1 32-36 g/dl Platelet Count 197 130-400 K/uL Mean Platelet Volume 9.3 7.4-10.4 fL Neutrophils (%) (Auto) 47.3 % Lymphocytes (%) (Auto) 26.3 % Monocytes (%) (Auto) 13.8 % Eosinophils (%) (Auto) 9.0 % Basophils (%) (Auto) 0.4 % Neutrophils # (Auto) 3.37 1.4-6.5 K/uL Lymphocytes # (Auto) 1.87 1.2-3.4 K/uL Monocytes # (Auto) 0.98 0.11-0.59 K/uL Eosinophils # (Auto) 0.64 0-0.5 K/uL Basophils # (Auto) 0.03 0-0.2 K/uL RDW Standard Deviation 47.8 36.4-46.3 fL RDW Coefficient of Variation 14.1 11.5-14.5 % Immature Granulocyte % (Auto) 3.2 % Immature Granulocyte # (Auto) 0.23 0.00-0.02 K/uL Sodium Level 136 136-145 mmol/L Potassium Level 3.8 3.5-5.1 mmol/L Chloride Level 100 98-107 mmol/L Carbon Dioxide Level 26 21-32 mmol/L Anion Gap 11.0 3-11 mmol/L Blood Urea Nitrogen 44 7-18 mg/dl Creatinine 2.67 0.60-1.40 mg/dl Est Creatinine Clear Calc Drug Dose 27.7 ml/min Estimated GFR () 27.0 Estimated GFR (Non- 23.3 BUN/Creatinine Ratio 16.4 10-20 Random Glucose 120 70-99 mg/dl Lactic Acid Level 1.7 0.4-2.0 mmol/L Calcium Level 12.2 11.2 8.5-10.1 mg/dl Total Bilirubin 0.5 0.2-1 mg/dl Direct Bilirubin 0.2 0-0.2 mg/dl Aspartate Amino Transf (AST/SGOT) 18 15-37 U/L Alanine Aminotransferase (ALT/SGPT) 21 12-78 U/L Alkaline Phosphatase 106 45-117 U/L Troponin I < 0.015 0-0.045 ng/ml Total Protein 7.4 6.4-8.2 gm/dl Albumin 3.4 3.4-5.0 gm/dl Lipase 85 73-393 U/L Urine Color DK YELLOW Urine Appearance CLEAR CLEAR Urine pH 6.5 4.5-7.5 Urine Specific [place] 1.013 1.000-1.030 Urine Protein NEG NEG Urine Glucose (UA) NEG NEG Urine Ketones NEG NEG Urine Occult Blood NEG NEG Urine Nitrite NEG NEG Urine Bilirubin NEG NEG Urine Urobilinogen NEG NEG Urine Leukocyte Esterase TRACE NEG Urine WBC (Auto) 1-5 0-5 /hpf Urine RBC (Auto) 0-4 0-4 /hpf Urine Hyaline Casts (Auto) 1-5 0-5 /lpf Urine Epithelial Cells (Auto) 10-20 0-5 /lpf Urine Bacteria (Auto) NEG NEG Microbiology Results 03/30/18 Blood Culture, Received Pending 03/30/18 Blood Culture, Received Pending 03/30/18 Urine Culture, Received Pending Diagnostic Radiology CT SCAN OF THE CHEST, ABDOMEN, AND PELVIS WITHOUT IV CONTRAST CLINICAL HISTORY: Pneumonia. Back pain. Urinary tract infection. COMPARISON STUDY: Chest x-ray dated 03/30/2018. Abdominal CT dated 02/23/2018. TECHNIQUE: CT scan of the chest, abdomen, and pelvis was performed from the thoracic inlet to the proximal femora. Images are reviewed in the axial, sagittal, and coronal planes. IV contrast was not administered for this examination. Note that the examination was performed in significantly suboptimal fashion without oral and IV contrast. The examination is also degraded by motion artifact. A dose lowering technique was utilized adhering to the principles of ALARA. CT DOSE: 1057.26 mGy.cm FINDINGS: CHEST: Thyroid: The right thyroid lobe is diminutive versus surgically absent. The left lobe appears enlarged and heterogeneous. Thoracic aorta: There is atherosclerotic calcification of the thoracic aorta, which is normal in caliber and demonstrates standard 3-vessel arch anatomy. Heart: The heart is enlarged and without pericardial effusion. The coronary arteries are densely calcified. The pulmonary trunk is normal in caliber. Lungs and pleural spaces: No pleural effusion is identified. The trachea and central airways are clear. There is mild diffuse intralobular septal thickening. There are patchy airspace opacities present throughout both lungs, most confluence at the lung bases and in the left upper lung. There are scattered pulmonary nodules. These not well assessed due to surrounding consolidative change. A left lower lobe nodule is seen on image #215 and measures 6 mm. A right middle lobe nodule on image #149 measures 8 mm. Mediastinum: There are scattered subcentimeter mediastinal lymph nodes. These are not pathologically enlarged by size criteria. [place]ha: Not well assessed without IV contrast. Axillae: There is no axillary lymphadenopathy. Bony thorax: The skeletal structures are osteopenic. No lytic or blastic lesions are identified. Degenerative change is noted throughout the thoracic spine. Arthritic change is seen in the shoulders. Calcific tendinopathy is noted on the right. There is chronic posterior matter deformity noted in the left clavicle. ABDOMEN AND PELVIS: Liver: The unenhanced liver is normal in size, contour, and attenuation. There is no intrahepatic or ductal dilatation. Gallbladder: Unremarkable. Spleen: Normal in size and attenuation. Pancreas: The unenhanced pancreas is moderately atrophic and grossly unremarkable. Adrenal glands: Unremarkable. Kidneys: The unenhanced kidneys demonstrate cortical atrophy and are without hydronephrosis. No renal calculi are identified. A 3.3 cm cyst is noted in the interpolar left kidney. Abdominal vasculature: The abdominal aorta is normal in course and caliber noting moderate atherosclerotic calcification. Stomach and bowel: There is a small hiatal hernia. The duodenum is normal in configuration. There is mild sigmoid diverticulosis without CT evidence of acute diverticulitis. Moderate constipation is observed. No bowel obstruction is seen. The appendix is well-visualized and normal. Peritoneum: There is no intraperitoneal free air or abdominal ascites. There is a fat-containing umbilical hernia. Foci of induration within the ventral abdominal wall are likely related to subcutaneous injections. Lymphadenopathy: None. Pelvic viscera: The prostate gland is enlarged and heterogeneous, measuring 5.2 cm in transverse diameter. There is median lobe hypertrophy. The bladder wall appears thickened and trabeculated suggesting chronic outlet obstruction. There is evidence of previous bilateral inguinal herniorrhaphy. Skeletal structures: The skeletal structures are osteopenic. There is moderate to advanced lumbosacral spondylosis. Postlaminectomy change is seen in the lumbar spine with evidence of L4-L5 spinal fusion. No lytic or blastic lesions are seen. IMPRESSION: 1. Suboptimal examination without oral and IV contrast. The examination is also degraded by motion artifact. 2. Cardiomegaly with mild diffuse intralobular septal thickening. This suggests congestive failure. Clinical correlation will be required. 3. There is multifocal patchy airspace consolidation throughout both lungs, new at the lung bases from the 02/23/[address] This could represent multifocal pneumonia and/or a component of pulmonary edema. Again, clinical correlation will be required. 4. Scattered pulmonary nodules measure up to 8 mm. These are not well assessed due to multifocal consolidative change. Follow-up as per the Fleischner criteria. See below. 5. There are no acute infectious or inflammatory findings in the abdomen or pelvis. 6. Moderate constipation. 7. Prostatomegaly with evidence of chronic bladder outlet obstruction. 8. Additional findings as above. Impression Assessment and Plan Patient is a 67 year old male with a PMH of MS, recurrent UTI's (self catheterizes), follicular adenoma, and HTN who has presented to [facility] with increasing fatigue, confusion and urinary difficulty. Patient was found to an CRUZITO and is hypercalcemic Hypercalcemia - stop HCTZ - no new medications on hx from patient - patient with history of follicular adenoma w/ micropapillary carcinoma component. This was removed surgically. Left thyroid lobe enlarged on CT - On repeat testing in ED calcium came done to 11.2 after 2 L of NS - Will check PTH, intact pth, tsh, free t4, free t3, vitamin D - continue hydration with 130 mls/hr of NS Weakness, fatigue - likely due to Hypercalcemia and dehydration - UA currently normal - CT showed possible pneumonia, patient appears clinically well, will order procalcitonin CRUZITO on CKD stage 4 - baseline creatinine around 1.7 - will hydrate with 130 mls/hr - monitor I/O's - walters in place Recurrent UTI's - UA normal in ED - order urine culture - continue cipro - on 2week rotating schedule of cipro, doxy and cefdinir - follows with Juliocesar KUMAR - continue gabapentin, baclofen, amantadine, oxybutynin and copaxone HTN - stop HCTZ, hold lisinopril - continue atenolol DVT prophylaxis - heparin Dispo - pt/ot - lives with , may need to consider home health vs SNF therefore case management consulted Full Code Attending addendum: I have physically seen this patient, have supervised the medical residents activities, and agree with the H&P unless as otherwise noted. Assessment and Plan: Altered mental status/generalized weakness and fatigue AK I on CKD/dehydration/ hypercalcemia-- Patient is doing significantly better after 2 L of normal saline on the ED, with calcium improving from 12.2-11.2. His reports that his oral intake of fluids is very low, and she continually asked him to drink liquids but he tends to refuse. Stop HCTZ. Order high PTH, TSH, free T4, free T3 and 25-hydroxy vitamin D. Continue rehydration with normal saline. Serial CBC with differential, chemistry profile and magnesium levels. Recurrent UTIs-- On rotating protocol per Dr. Gandara from urology. Follow urine culture and sensitivities. Continue current dosing of Cipro. Continue IV hydration as noted above. Hypertension-- Stopping HCTZ as noted above. Hold lisinopril due to acute kidney injury as well. Continue atenolol with hold parameters. Remainder of orders and notations as above. Advanced Directives Existing Advance Directive: No Existing Living Will: No Existing Power of Excavating Contractor: No Resuscitation Status VTE Prophylaxis Will order VTE Prophylaxis: Yes
--- NOTE | 2018-03-31 00:44 | EMERGENCY ROOM VISIT NOTE ---
History Report prepared by Jose: Sahara Allen Under the Supervision of: Dr. Gurvinder Hussein M.D. First contact with patient: 19:03 Chief Complaint: URINARY SYMPTOMS Stated Complaint: UTI, CAN'T WALK- MS PATIENT Nursing Triage Summary: pt reports he has urinary infection .sx started last night .has hx of uti. does self caths. having difficulty getting cath in History of Present Illness The patient is a 67 year old male who presents to the Emergency Room with complaints of worsening urinary symptoms that began 6 days ago. Per , the patient has a history of MS and UTIs. She notes that the patient has a catheter. The patient complains of urinary symptoms, subjective fever, nausea, bladder distension, weakness, fatigue, redness on his lower left leg, and a rash on his upper left thigh. The patient denies cough. Per , the patient was taking Oxybutynin, but was taken off of it because of nausea and fatigue. The patient denies recent serious falls or trauma. Source of History: patient, spouse/significant other Onset: 6 days ago Position: other (bladder) Quality: other (distention) Timing: worsening Associated Symptoms: + fevers, + nausea, + fatigue, + weakness, No cough Note: The patient complains of bladder distention, redness on his lower left leg, and a rash on his upper left thigh. Review of Systems See HPI for pertinent positives and negatives. A total of ten systems were reviewed and were otherwise negative. Past Medical & Surgical Medical Problems: (1) back problems (2) Benign hypertension (3) Complicated UTI (urinary tract infection) (4) Dyslipidemia (5) Exacerbation of multiple sclerosis (6) Failure of outpatient treatment (7) Febrile (8) GERD (gastroesophageal reflux disease) (9) Multiple sclerosis (10) SIRS (systemic inflammatory response syndrome) (11) UTI (urinary tract infection) (12) UTI (urinary tract infection) Family History Diabetes mellitus FHx: cancer Heart disease Hypertension Social History Smoking Status: Current Some Day Smoker Alcohol Use: none Drug Use: none Marital Status: Housing Status: lives with family Occupation Status: retired Current/Historical Medications Scheduled Amantadine Hcl (Symmetrel), 100 MG PO BID Amoxicillin (Amoxil), 500 MG PO DAILY Aspirin (Aspirin Ec), 81 MG PO QPM Atenolol (Tenormin), 50 MG PO QPM Baclofen (Baclofen), 20 MG PO BID Biotin (Biotin), 10 MG PO DAILY Calcium Carbonate (Calcium), 600 MG PO DAILY Cefdinir (Omnicef), 300 MG PO DAILY Cholecalciferol (Vitamin D), 2,000 UNIT PO DAILY Ciprofloxacin (Ciprofloxacin HCl), 500 MG PO DAILY Coenzyme Q10 (Ubidecarenone) (Co Q 10), 100 MG PO DAILY Gabapentin (Neurontin), 400 MG PO BID Glatiramer Acetate (Copaxone), 40 MG SC MWF Yrbetdztqvo-Atlnlfujzfw-Qzi C- (Glucosamine Chondroitin), 2 CAP PO DAILY Lisinopril (Lisinopril), 10 MG PO Q2D Meloxicam (Meloxicam), 15 MG PO Q2D Multiple Minerals W/ Vitamins (Citracal Plus), 1 TABLET PO DAILY [place]-3 Fatty Acids ([place] 3), 2 CAP PO DAILY Omeprazole (Prilosec), 20 MG PO QAM Oxybutynin Chloride (Ditropan), 10 MG PO BID Senna (Senokot), 1 TAB PO QPM Triamterene/Hctz (Dyazide 37.5MG/25MG), 1 TAB PO QPM Scheduled PRN Docusate Sodium (Docusate Sodium), 100 MG PO DAILY PRN for Constipation Allergies Coded Allergies: Sulfa Antibiotics (Verified Allergy, Intermediate, RASH, 03/30/18) Aspirin (Verified Adverse Reaction, Mild, PER "MD TOLD PT NOT TO TAKE DUE TO STOMACH ISSUES"., 03/30/18) takes ASA 81mg daily without issue Oxycodone (Verified Adverse Reaction, Mild, "FUNNY FEELINGS", 03/30/18) Physical Exam Vital Signs Date Time Temp Pulse Resp B/P (MAP) Pulse Ox O2 Delivery O2 Flow Rate FiO2 03/31/18 00:35 60 16 146/78 97 Room Air 03/30/18 23:20 68 19 151/68 96 Room Air 03/30/18 22:25 64 03/30/18 22:06 63 22 03/30/18 22:01 157/87 03/30/18 21:36 59 18 03/30/18 21:31 149/77 03/30/18 21:18 63 16 134/71 95 Room Air 03/30/18 21:00 134/71 03/30/18 20:36 58 23 93 03/30/18 20:30 142/81 03/30/18 20:25 121/67 03/30/18 20:25 56 14 121/67 94 Room Air 03/30/18 20:06 58 15 03/30/18 19:46 57 03/30/18 19:45 96 Room Air 03/30/18 18:52 36.5 64 18 101/58 96 Room Air 03/30/18 18:41 165/100 Physical Exam GENERAL: Awake, alert, in no distress HENT: Normocephalic, atraumatic. Oropharynx unremarkable. EYES: Normal conjunctiva. Sclera non-icteric. NECK: Supple. No nuchal rigidity. RESPIRATORY: Clear to auscultation but diminished bases. No wheezes. Normal respiratory effort. CARDIAC: Normal rate. Normal rhythm. Extremities warm and well perfused. GI: Soft, non-distended. No tenderness to palpation. No rebound or guarding. No masses. RECTAL: Deferred. : Inguinal erythema. MUSCULOSKELETAL: Atraumatic. Chest examination reveals no tenderness. LOWER EXTREMITIES: Muscle wasting. No significant swelling. Small 1 cm area of erythema on left ferreira around small abrasion. Right foot in orthotic for foot drop. NEURO: No slurred speech. No facial droop. Intact upper extremity strength. Decreased lower extremity strength. SKIN: Warm and dry. No jaundice noted. Medical Decision & Procedures ER Provider Diagnostic Interpretation: Radiology results as stated below per my review and radiologist interpretation: SINGLE VIEW CHEST CLINICAL HISTORY: Fever. Sepsis. FINDINGS: An AP, portable, upright chest radiograph is compared to study dated 02/22/2018. The examination is degraded by portable technique and patient rotation. The heart is mildly enlarged and there is atherosclerotic calcification of the thoracic aorta. The pulmonary vasculature is noncongested. There is chronic elevation of the right hemidiaphragm with associated atelectasis. Patchy airspace consolidation is seen in the left midlung. No large pleural effusion or pneumothorax is seen. The skeletal structures are osteopenic. There is a healed left clavicular fracture. Calcific tendinopathy is seen in the right shoulder. IMPRESSION: 1. Mild cardiac enlargement without radiographic evidence of congestive failure. 2. Patchy airspace consolidation is seen in the left midlung. The appearance is typical for pneumonia/aspiration pneumonitis. Clinical correlation will be required and radiographic follow-up to resolution is recommended. Electronically signed by: Jarod Pacheco M.D. 03/30/2018 7:44 PM Dictated Date/Time: 03/30/2018 7:[address] SCAN OF THE CHEST, ABDOMEN, AND PELVIS WITHOUT IV CONTRAST CLINICAL HISTORY: Pneumonia. Back pain. Urinary tract infection. COMPARISON STUDY: Chest x-ray dated 03/30/2018. Abdominal CT dated 02/23/2018. TECHNIQUE: CT scan of the chest, abdomen, and pelvis was performed from the thoracic inlet to the proximal femora. Images are reviewed in the axial, sagittal, and coronal planes. IV contrast was not administered for this examination. Note that the examination was performed in significantly suboptimal fashion without oral and IV contrast. The examination is also degraded by motion artifact. A dose lowering technique was utilized adhering to the principles of ALARA. CT DOSE: 1057.26 mGy.cm FINDINGS: CHEST: Thyroid: The right thyroid lobe is diminutive versus surgically absent. The left lobe appears enlarged and heterogeneous. Thoracic aorta: There is atherosclerotic calcification of the thoracic aorta, which is normal in caliber and demonstrates standard 3-vessel arch anatomy. Heart: The heart is enlarged and without pericardial effusion. The coronary arteries are densely calcified. The pulmonary trunk is normal in caliber. Lungs and pleural spaces: No pleural effusion is identified. The trachea and central airways are clear. There is mild diffuse intralobular septal thickening. There are patchy airspace opacities present throughout both lungs, most confluence at the lung bases and in the left upper lung. There are scattered pulmonary nodules. These not well assessed due to surrounding consolidative change. A left lower lobe nodule is seen on image #215 and measures 6 mm. A right middle lobe nodule on image #149 measures 8 mm. Mediastinum: There are scattered subcentimeter mediastinal lymph nodes. These are not pathologically enlarged by size criteria. [place]: Not well assessed without IV contrast. Axillae: There is no axillary lymphadenopathy. Bony thorax: The skeletal structures are osteopenic. No lytic or blastic lesions are identified. Degenerative change is noted throughout the thoracic spine. Arthritic change is seen in the shoulders. Calcific tendinopathy is noted on the right. There is chronic posterior matter deformity noted in the left clavicle. ABDOMEN AND PELVIS: Liver: The unenhanced liver is normal in size, contour, and attenuation. There is no intrahepatic or ductal dilatation. Gallbladder: Unremarkable. Spleen: Normal in size and attenuation. Pancreas: The unenhanced pancreas is moderately atrophic and grossly unremarkable. Adrenal glands: Unremarkable. Kidneys: The unenhanced kidneys demonstrate cortical atrophy and are without hydronephrosis. No renal calculi are identified. A 3.3 cm cyst is noted in the interpolar left kidney. Abdominal vasculature: The abdominal aorta is normal in course and caliber noting moderate atherosclerotic calcification. Stomach and bowel: There is a small hiatal hernia. The duodenum is normal in configuration. There is mild sigmoid diverticulosis without CT evidence of acute diverticulitis. Moderate constipation is observed. No bowel obstruction is seen. The appendix is well-visualized and normal. Peritoneum: There is no intraperitoneal free air or abdominal ascites. There is a fat-containing umbilical hernia. Foci of induration within the ventral abdominal wall are likely related to subcutaneous injections. Lymphadenopathy: None. Pelvic viscera: The prostate gland is enlarged and heterogeneous, measuring 5.2 cm in transverse diameter. There is median lobe hypertrophy. The bladder wall appears thickened and trabeculated suggesting chronic outlet obstruction. There is evidence of previous bilateral inguinal herniorrhaphy. Skeletal structures: The skeletal structures are osteopenic. There is moderate to advanced lumbosacral spondylosis. Postlaminectomy change is seen in the lumbar spine with evidence of L4-L5 spinal fusion. No lytic or blastic lesions are seen. IMPRESSION: 1. Suboptimal examination without oral and IV contrast. The examination is also degraded by motion artifact. 2. Cardiomegaly with mild diffuse intralobular septal thickening. This suggests congestive failure. Clinical correlation will be required. 3. There is multifocal patchy airspace consolidation throughout both lungs, new at the lung bases from the 02/23/[address] This could represent multifocal pneumonia and/or a component of pulmonary edema. Again, clinical correlation will be required. 4. Scattered pulmonary nodules measure up to 8 mm. These are not well assessed due to multifocal consolidative change. Follow-up as per the Fleischner criteria. See below. 5. There are no acute infectious or inflammatory findings in the abdomen or pelvis. 6. Moderate constipation. 7. Prostatomegaly with evidence of chronic bladder outlet obstruction. 8. Additional findings as above. Please refer to below summary of Fleischner criteria recommendations for follow-up of incidental CT nodules (Janae Alcantara, Guidelines for management of small pulmonary nodules detected on CT scans: A statement from the Fleischner Society, Radiology 237: [phone].) SOLID NODULES Solitary nodule size: <6 mm * low risk patients: no follow-up needed * high risk patients: optional CT at 12 months Solitary nodule size: 6-8 mm * low risk patients: follow-up at 6-12 months, then consider further follow-up at 18-24 months * high risk patients: initial follow-up CT at 6-12 months and then at 18-24 months if no change Solitary nodule size: >8 mm * either low or high risk patients - consider follow-up CT at 3 months, and/or CT-PET, and/or biopsy Multiple nodules size: <6 mm * low risk patients: no routine follow-up * high risk patients: optional CT at 12 months Multiple nodules size: 6-8 mm * low risk patients: follow-up at 3-6 months, then consider further follow-up at 18-24 months * high risk patients: follow-up at 3-6 months, then at 18-24 months if no change Multiple nodules size: >8 mm * low risk patients: follow-up at 3-6 months, then consider further follow-up at 18-24 months * high risk patients: follow-up at 3-6 months, then at 18-24 months if no change Note: newly detected indeterminate nodule in persons 35 years of age or older. * low risk patients: minimal or absent history of smoking and/or other known risk factors * high risk patients: history of smoking or of other known risk factors (e.g. first degree relative with lung cancer, or exposure to asbestos, radon, uranium) * if a nodule up to 8 mm is partly solid or is ground glass further follow-up is required after 24 months to exclude possible slow growing adenocarcinoma (KENIA) SUBSOLID NODULES Solitary pure ground-glass nodule * nodule size <6 mm - no CT follow-up required * nodule size >=6 mm - follow-up CT at 6-12 months, then every 2 years until 5 years Solitary part-solid nodule * nodule size <6 mm - no CT follow-up required * nodule size >=6 mm - follow-up CT at 3-6 months. If unchanged, and solid component remains <6 mm, then annual follow-up for 5 years Multiple subsolid nodules * nodule size <6 mm - follow-up CT at 3-6 months, consider further follow-up at 2 and 4 years if stable * nodule size >=6 mm - follow-up CT at 3-6 months, subsequent management based on the most suspicious nodule(s) Electronically signed by: Jarod Pacheco M.D. 03/30/2018 9:50 PM Dictated Date/Time: 03/30/2018 9:[address] SCAN OF THE CHEST, ABDOMEN, AND PELVIS WITHOUT IV CONTRAST CLINICAL HISTORY: Pneumonia. Back pain. Urinary tract infection. COMPARISON STUDY: Chest x-ray dated 03/30/2018. Abdominal CT dated 02/23/2018. TECHNIQUE: CT scan of the chest, abdomen, and pelvis was performed from the thoracic inlet to the proximal femora. Images are reviewed in the axial, sagittal, and coronal planes. IV contrast was not administered for this examination. Note that the examination was performed in significantly suboptimal fashion without oral and IV contrast. The examination is also degraded by motion artifact. A dose lowering technique was utilized adhering to the principles of ALARA. CT DOSE: 1057.26 mGy.cm FINDINGS: CHEST: Thyroid: The right thyroid lobe is diminutive versus surgically absent. The left lobe appears enlarged and heterogeneous. Thoracic aorta: There is atherosclerotic calcification of the thoracic aorta, which is normal in caliber and demonstrates standard 3-vessel arch anatomy. Heart: The heart is enlarged and without pericardial effusion. The coronary arteries are densely calcified. The pulmonary trunk is normal in caliber. Lungs and pleural spaces: No pleural effusion is identified. The trachea and central airways are clear. There is mild diffuse intralobular septal thickening. There are patchy airspace opacities present throughout both lungs, most confluence at the lung bases and in the left upper lung. There are scattered pulmonary nodules. These not well assessed due to surrounding consolidative change. A left lower lobe nodule is seen on image #215 and measures 6 mm. A right middle lobe nodule on image #149 measures 8 mm. Mediastinum: There are scattered subcentimeter mediastinal lymph nodes. These are not pathologically enlarged by size criteria. [place]: Not well assessed without IV contrast. Axillae: There is no axillary lymphadenopathy. Bony thorax: The skeletal structures are osteopenic. No lytic or blastic lesions are identified. Degenerative change is noted throughout the thoracic spine. Arthritic change is seen in the shoulders. Calcific tendinopathy is noted on the right. There is chronic posterior matter deformity noted in the left clavicle. ABDOMEN AND PELVIS: Liver: The unenhanced liver is normal in size, contour, and attenuation. There is no intrahepatic or ductal dilatation. Gallbladder: Unremarkable. Spleen: Normal in size and attenuation. Pancreas: The unenhanced pancreas is moderately atrophic and grossly unremarkable. Adrenal glands: Unremarkable. Kidneys: The unenhanced kidneys demonstrate cortical atrophy and are without hydronephrosis. No renal calculi are identified. A 3.3 cm cyst is noted in the interpolar left kidney. Abdominal vasculature: The abdominal aorta is normal in course and caliber noting moderate atherosclerotic calcification. Stomach and bowel: There is a small hiatal hernia. The duodenum is normal in configuration. There is mild sigmoid diverticulosis without CT evidence of acute diverticulitis. Moderate constipation is observed. No bowel obstruction is seen. The appendix is well-visualized and normal. Peritoneum: There is no intraperitoneal free air or abdominal ascites. There is a fat-containing umbilical hernia. Foci of induration within the ventral abdominal wall are likely related to subcutaneous injections. Lymphadenopathy: None. Pelvic viscera: The prostate gland is enlarged and heterogeneous, measuring 5.2 cm in transverse diameter. There is median lobe hypertrophy. The bladder wall appears thickened and trabeculated suggesting chronic outlet obstruction. There is evidence of previous bilateral inguinal herniorrhaphy. Skeletal structures: The skeletal structures are osteopenic. There is moderate to advanced lumbosacral spondylosis. Postlaminectomy change is seen in the lumbar spine with evidence of L4-L5 spinal fusion. No lytic or blastic lesions are seen. IMPRESSION: 1. Suboptimal examination without oral and IV contrast. The examination is also degraded by motion artifact. 2. Cardiomegaly with mild diffuse intralobular septal thickening. This suggests congestive failure. Clinical correlation will be required. 3. There is multifocal patchy airspace consolidation throughout both lungs, new at the lung bases from the 02/23/[address] This could represent multifocal pneumonia and/or a component of pulmonary edema. Again, clinical correlation will be required. 4. Scattered pulmonary nodules measure up to 8 mm. These are not well assessed due to multifocal consolidative change. Follow-up as per the Fleischner criteria. See below. 5. There are no acute infectious or inflammatory findings in the abdomen or pelvis. 6. Moderate constipation. 7. Prostatomegaly with evidence of chronic bladder outlet obstruction. 8. Additional findings as above. Please refer to below summary of Fleischner criteria recommendations for follow-up of incidental CT nodules (Janae Alcantara, Guidelines for management of small pulmonary nodules detected on CT scans: A statement from the Fleischner Society, Radiology 237: [phone].) SOLID NODULES Solitary nodule size: <6 mm * low risk patients: no follow-up needed * high risk patients: optional CT at 12 months Solitary nodule size: 6-8 mm * low risk patients: follow-up at 6-12 months, then consider further follow-up at 18-24 months * high risk patients: initial follow-up CT at 6-12 months and then at 18-24 months if no change Solitary nodule size: >8 mm * either low or high risk patients - consider follow-up CT at 3 months, and/or CT-PET, and/or biopsy Multiple nodules size: <6 mm * low risk patients: no routine follow-up * high risk patients: optional CT at 12 months Multiple nodules size: 6-8 mm * low risk patients: follow-up at 3-6 months, then consider further follow-up at 18-24 months * high risk patients: follow-up at 3-6 months, then at 18-24 months if no change Multiple nodules size: >8 mm * low risk patients: follow-up at 3-6 months, then consider further follow-up at 18-24 months * high risk patients: follow-up at 3-6 months, then at 18-24 months if no change Note: newly detected indeterminate nodule in persons 35 years of age or older. * low risk patients: minimal or absent history of smoking and/or other known risk factors * high risk patients: history of smoking or of other known risk factors (e.g. first degree relative with lung cancer, or exposure to asbestos, radon, uranium) * if a nodule up to 8 mm is partly solid or is ground glass further follow-up is required after 24 months to exclude possible slow growing adenocarcinoma ([place]IA) SUBSOLID NODULES Solitary pure ground-glass nodule * nodule size <6 mm - no CT follow-up required * nodule size >=6 mm - follow-up CT at 6-12 months, then every 2 years until 5 years Solitary part-solid nodule * nodule size <6 mm - no CT follow-up required * nodule size >=6 mm - follow-up CT at 3-6 months. If unchanged, and solid component remains <6 mm, then annual follow-up for 5 years Multiple subsolid nodules * nodule size <6 mm - follow-up CT at 3-6 months, consider further follow-up at 2 and 4 years if stable * nodule size >=6 mm - follow-up CT at 3-6 months, subsequent management based on the most suspicious nodule(s) Electronically signed by: Jarod Pacheco M.D. 03/30/2018 9:50 PM Dictated Date/Time: 03/30/2018 9:34 PM Laboratory Results 03/30/18 19:39 Red Blood Count 4.25, Mean Corpuscular Volume 92.5, Mean Corpuscular Hemoglobin 32.5, Mean Corpuscular Hemoglobin Concent 35.1, Mean Platelet Volume 9.3, Neutrophils (%) (Auto) 47.3, Lymphocytes (%) (Auto) 26.3, Monocytes (%) (Auto) 13.8, Eosinophils (%) (Auto) 9.0, Basophils (%) (Auto) 0.4, Neutrophils # (Auto ) 3.37, Lymphocytes # (Auto) 1.87, Monocytes # (Auto) 0.98, Eosinophils # (Auto ) 0.64, Basophils # (Auto) 0.03 03/30/18 19:39 Test 03/30/18 19:39 03/30/18 20:00 03/30/18 23:55 White Blood Count 7.12 K/uL (4.8-10.8) Red Blood Count 4.25 M/uL (4.7-6.1) Hemoglobin 13.8 g/dL (14.0-18.0) Hematocrit 39.3 % (42-52) Mean Corpuscular Volume 92.5 fL (80-100) Mean Corpuscular Hemoglobin 32.5 pg (25-34) Mean Corpuscular Hemoglobin Concent 35.1 g/dl (32-36) Platelet Count 197 K/uL (130-400) Mean Platelet Volume 9.3 fL (7.4-10.4) Neutrophils (%) (Auto) 47.3 % Lymphocytes (%) (Auto) 26.3 % Monocytes (%) (Auto) 13.8 % Eosinophils (%) (Auto) 9.0 % Basophils (%) (Auto) 0.4 % Neutrophils # (Auto) 3.37 K/uL (1.4-6.5) Lymphocytes # (Auto) 1.87 K/uL (1.2-3.4) Monocytes # (Auto) 0.98 K/uL (0.11-0.59) Eosinophils # (Auto) 0.64 K/uL (0-0.5) Basophils # (Auto) 0.03 K/uL (0-0.2) RDW Standard Deviation 47.8 fL (36.4-46.3) RDW Coefficient of Variation 14.1 % (11.5-14.5) Immature Granulocyte % (Auto) 3.2 % Immature Granulocyte # (Auto) 0.23 K/uL (0.00-0.02) Anion Gap 11.0 mmol/L (3-11) Est Creatinine Clear Calc Drug Dose 27.7 ml/min Estimated GFR () 27.0 Estimated GFR (Non- 23.3 BUN/Creatinine Ratio 16.4 (10-20) Lactic Acid Level 1.7 mmol/L (0.4-2.0) Total Bilirubin 0.5 mg/dl (0.2-1) Direct Bilirubin 0.2 mg/dl (0-0.2) Aspartate Amino Transf (AST/SGOT) 18 U/L (15-37) Alanine Aminotransferase (ALT/SGPT) 21 U/L (12-78) Alkaline Phosphatase 106 U/L (45-117) Troponin I < 0.015 ng/ml (0-0.045) Total Protein 7.4 gm/dl (6.4-8.2) Albumin 3.4 gm/dl (3.4-5.0) Lipase 85 U/L (73-393) Urine Color DK YELLOW Urine Appearance CLEAR (CLEAR) Urine pH 6.5 (4.5-7.5) Urine Specific Colon 1.013 (1.000-1.030) Urine Protein NEG (NEG) Urine Glucose (UA) NEG (NEG) Urine Ketones NEG (NEG) Urine Occult Blood NEG (NEG) Urine Nitrite NEG (NEG) Urine Bilirubin NEG (NEG) Urine Urobilinogen NEG (NEG) Urine Leukocyte Esterase TRACE (NEG) Urine WBC (Auto) 1-5 /hpf (0-5) Urine RBC (Auto) 0-4 /hpf (0-4) Urine Hyaline Casts (Auto) 1-5 /lpf (0-5) Urine Epithelial Cells (Auto) 10-20 /lpf (0-5) Urine Bacteria (Auto) NEG (NEG) Calcium Level 11.2 mg/dl (8.5-10.1) Laboratory results reviewed by me Medications Administered Medications (Trade) Dose Ordered Sig/Jossie Route Start Time Stop Time Status Last Admin Dose Admin Sodium Chloride 500 ml @ 999 mls/hr Q31M ONCE IV 03/30/18 19:12 03/30/18 19:42 DC 03/30/18 19:12 999 MLS/HR Ondansetron HCl (Zofran Inj) 4 mg NOW STAT IV 03/30/18 19:17 03/30/18 19:18 DC 03/30/18 20:23 4 MG Sodium Chloride 1,000 ml @ 999 mls/hr Q1H1M ONCE IV 03/30/18 20:28 03/30/18 21:28 DC 03/30/18 20:55 999 MLS/HR Ceftriaxone Sodium (Rocephin Inj) 1 gm NOW STAT IV 03/30/18 22:03 03/30/18 22:04 DC 03/30/18 22:33 1 GM ECG Per My Interpretation Indication: weakness Rate (beats per minute): 58 Rhythm: sinus bradycardia Findings: 1st degree AV block, other (Normal QRS, No ST segment elevation. Non- specific anterior lateral T wave changes. ) Comparison ECG Date: Change: Slightly changed from 02/22/2018. ED Course 1903: The patient was evaluated in room B2. A complete history and physical exam was performed. 1911: Ordered Sodium Chloride 500 ml @ 999 mls/hr IV. 1916:Ordered Zofran Inj 4 mg IV. 2027: Ordered Sodium Chloride 1,000 ml @ 999 mls/hr IV. 2202: Ordered Rocephin Inj 1 gm IV. 2343: Upon reexamination, the patient was resting comfortably. I discussed the test results and treatment plan with a [facility] Hospitalist. The patient will be evaluated for further management. Medical Decision Differential diagnosis: Etiologies such as metabolic, infection, hypo/hyperglycemia, electrolyte abnormalities, cardiac sources, intracerebral event, toxicologic, neurologic, as well as others were entertained. Patient presents complaining of weakness, difficulty walking, nausea. A difficult time catheterizing his bladder today. Has a history of MS and multiple recent urinary tract infections. On chronic antibiotics most recently Cipro this week and last week amoxicillin. Evidence of candidiasis rash in groin area. History of reaction similar to this with his UTIs with weakness. Also has a small spot on his left ferreira with some slight erythema around it unsure of exact cause. Denies significant trauma or other pain. Some nausea now. Lower suspicion for acute MS flare. May have an early cellulitis developing on his left lower leg. Does not appear grossly septic. No evidence of hepatitis or pancreatitis. Doubt cardiac disease. Evidence for possible left middle airspace abnormality possibly aspiration pneumonia on chest x-ray but minimal complaints of respiratory symptoms. No leukocytosis or lactate elevation. Catheter urine for approximately 500 cc without evidence of gross retention. Patient was some chronic back pain and given this and chest x-ray findings, CT of the chest abdomen pelvis without contrast completed to exclude obstructive nephropathy and further evaluate for possible pneumonia. Possible multifocal pneumonia on CT. UA not impressive. Evidence of acute kidney injury. Hypercalcemia noted on laboratory study. No lactate elevation or leukocytosis. Question of his fatigue and weakness is from his decreased renal function and hypercalcemia versus possible multifocal pneumonia. Unsure of cause of his hypercalcemia. Fluid rehydrated. Ho placed. Cultures obtained. Ceftriaxone given. Hospitalist contacted for admission evaluation. Medication Reconcilliation Current Medication List: was personally reviewed by me Blood Pressure Screening Patient's blood pressure: Elevated blood pressure Blood pressure disposition: Referred to PCP Consults Time Called: 2340 Consulting Physician: [facility] Hospitalist Returned Call: [phone] Upon reexamination, the patient was resting comfortably. I discussed the test results and treatment plan with a [facility] Hospitalist. The patient will be evaluated for further management. Impression Primary Impression: Acute kidney injury Additional Impressions: Hypercalcemia Multifocal pneumonia Weakness Scribe Attestation The scribe's documentation has been prepared under my direction and personally reviewed by me in its entirety. I confirm that the note above accurately reflects all work, treatment, procedures, and medical decision making performed by me. Departure Information Dispostion Being Evaluated By Hospitalist Referrals Ynes Gloria M.D. (PCP) Forms HOME CARE DOCUMENTATION FORM, IMPORTANT VISIT INFORMATION Patient Instructions My [facility] Problem Qualifiers
[2018-03-31] MEDS ORDERED: ACETAMINOPHEN 325 MG TAB PO PRN (01:00)
[2018-03-31] MEDS ORDERED: PNEUMOCOCCAL POLYSACCHARIDES 25 MCG/0.5 ML VIAL/SYR IM. ONE (01:00)
[2018-03-31] MEDS ORDERED: POLYETHYLENE (MIRALAX) 17 GM PACK PO PRN (01:00)
[2018-03-31] MEDS ORDERED: ALUMINUM/MAGNESIUM/SIMETH (MAALOX MAX) 30 ML UDC PO PRN (01:00)
[2018-03-31] MEDS ORDERED: MAGNESIUM HYDROXIDE SUSP 30 ML UDC PO PRN (01:00)
[2018-03-31] MEDS ORDERED: ONDANSETRON INJ 2 MG/ML 2 ML VIAL IV PRN (01:00)
[2018-03-31] MEDS ORDERED: PNEUMOCOCCAL ADMINISTRATION CHARGE ONE (01:00)
[2018-03-31] MEDS: SODIUM CHLORIDE 0.9% 1000ML 1,000 ML IV SCH ×3 (02:17→18:45)
[2018-03-31 06:42] LABS: INR 1.1 (0.9-1.1)
[2018-03-31 08:28] LABS: CALCIUM 10.7 mg/dl (8.5-10.1); CREATININE 2.26 mg/dl (0.60-1.40); POTASSIUM 3.6 mmol/L (3.5-5.1)
[2018-03-31] MEDS ORDERED: GLATIRAMER ACETATE 40 MG/ML SYR SC SCH (09:00)
[2018-03-31] MEDS: PrednisoLONE ACET 1% OP SUSP 5 ML BTL OP SCH ×3 (09:18→20:58)
[2018-03-31] MEDS: OXYBUTYNIN CHLORIDE 5 MG TAB PO SCH ×2 (09:21→20:59)
[2018-03-31] MEDS: AMANTADINE HCL 100 MG CAP PO SCH ×2 (09:22→20:59)
[2018-03-31] MEDS: GABAPENTIN 400 MG CAP PO SCH ×2 (09:22→20:59)
[2018-03-31] MEDS: BACLOFEN TAB 20 MG TAB PO SCH ×2 (09:22→20:58)
[2018-03-31] MEDS: PANTOprazole SOD 40 MG TAB PO SCH (09:22)
[2018-03-31] MEDS: BROMFENAC SODIUM 0.09% OPR SCH (09:23)
[2018-03-31] MEDS: CIPROFLOXACIN 500 MG TAB PO SCH (09:23)
[2018-03-31] MEDS: HEPARIN SOD 5000 UNIT/0.5 ML CARP SQ SCH ×2 (10:23→21:15)
[2018-03-31 14:48] LABS: CALCIUM 10.1 mg/dl (8.5-10.1); CREATININE 2.14 mg/dl (0.60-1.40); POTASSIUM 3.7 mmol/L (3.5-5.1)
--- NOTE | 2018-03-31 15:31 | Progress Note ---
Progress Note Date of Service Mar 31, 2018. Progress Note Attending follow up, patient admitted after midnight. Patient feeling fine, no acute issues. Breathing well, no chest pain. Only complaint is that his speech feels labored, mouth is dry. Reviewed labs, Cr improved to 2.3 and then 2.1 this afternoon. Calcium improved to 10.7 and then 10.1 with IV fluids. TSH normal, PTH low which rules out hyperparathyroidism will check PTH related peptide but that is a send out lab certainly HCTZ and calcium supplement could cause issues will check urinary calcium level CT chest showed some scattered 8mm nodules will follow up labs in the morning
[2018-03-31] MEDS ORDERED: ASPIRIN 81 MG ECTAB PO SCH (21:00)
[2018-03-31] MEDS ORDERED: SENNA 8.6 MG TAB PO SCH (21:00)
[2018-04-01] MEDS: SODIUM CHLORIDE 0.9% 1000ML 1,000 ML IV SCH ×2 (04:51→15:06)
[2018-04-01 07:11] VITALS: BP 152/81; PULSE 65; TEMP 37; O2SAT 93
[2018-04-01] MEDS: PrednisoLONE ACET 1% OP SUSP 5 ML BTL OP SCH ×2 (09:11→15:41)
[2018-04-01] MEDS: BROMFENAC SODIUM 0.09% OPR SCH (09:11)
[2018-04-01] MEDS: OXYBUTYNIN CHLORIDE 5 MG TAB PO SCH (09:12)
[2018-04-01] MEDS: PANTOprazole SOD 40 MG TAB PO SCH (09:12)
[2018-04-01] MEDS: BACLOFEN TAB 20 MG TAB PO SCH (09:13)
[2018-04-01] MEDS: AMANTADINE HCL 100 MG CAP PO SCH (09:13)
[2018-04-01] MEDS: CIPROFLOXACIN 500 MG TAB PO SCH (09:13)
[2018-04-01] MEDS: GABAPENTIN 400 MG CAP PO SCH (09:13)
[2018-04-01 09:16] LABS: CALCIUM 10.2 mg/dl (8.5-10.1); CREATININE 2.15 mg/dl (0.60-1.40); POTASSIUM 3.8 mmol/L (3.5-5.1)
[2018-04-01] MEDS: HEPARIN SOD 5000 UNIT/0.5 ML CARP SQ SCH (09:17)
[2018-04-01] MEDS ORDERED: AMLO5TAB3 PO (13:53)
--- NOTE | 2018-04-01 14:03 | Discharge Instructions ---
Discharge Instructions Date of Service Apr 01, 2018. Admission Reason for Admission: Hypercalcemia Discharge Discharge Diagnosis / Problem: Hypercalcemia, Acute kidney injury on CKD Discharge Goals Goal(s): Improve function, Specific goals (follow up with nephrology) Activity Recommendations Activity Limitations: resume your previous activity . Instructions / Follow-Up Instructions / Follow-Up Medications: - Norvasc: 5mg daily, started for blood pressure control - Dyazide, vitamin D, calcium supplement: stopped because of high calcium level - Lisinopril: hold because renal function is slightly worse than normal Hypercalcemia (high calcium) 12.2 on admission, down to 10 today which is normal as we discussed, Parathyroid hormone level is low which suggests that something else is driving up calcium level Vitamin D level normal, no evidence of vitamin D toxicity 1,25- Vitamin D as well as parathyroid related peptide level sent out, will take days to come back discussed with Dr. Hudson, marketing director assisted living, he would like to follow up with you in his office this week at that time send out labs will be back and he will discuss further work up treatment will hold medications that can raise calcium Acute kidney injury on CKD stage III Cr was elevated at 2.67 on admission, came down to 2.1 with IV fluids still slightly higher than normal for you, but you are making adequate urine , electrolytes stable follow up with Dr. Hudson in the office, repeat levels FOLLOW UP - Dr. Nigel Hudson, nephrology, his office will call you for appointment [phone] - Dr. Gloria, contact office to set up appointment in two weeks Current Hospital Diet Patient's current hospital diet: Regular Diet Discharge Diet Recommended Diet: Regular Diet (low calcium) Pending Studies Studies pending at discharge: yes List of pending studies: 1,25 Vitamin D PTH related peptide level Medical Emergencies . Who to Call and When: Medical Emergencies: If at any time you feel your situation is an emergency, please call 911 immediately. . Non-Emergent Contact Non-Emergency issues call your: Primary Care Provider, New Client Banking Services Clerk Call Non-Emergent contact if: you have any medication questions . . "Provider Documentation" section prepared by Ousmane Pepper. . [place] Drug Monitoring Program Search Results: no issues identified
[2018-04-01 15:08] VITALS: BP 152/81; PULSE 65; TEMP 37; O2SAT 93
[2018-04-04] MEDS ORDERED: ASCA500 PO (12:38)
[2018-04-04] MEDS ORDERED: B-COTAB18 PO (12:38)
--- NOTE | 2018-04-08 21:56 | Discharge Summary ---
Discharge Summary Date of Service Apr 01, 2018. Discharge Summary Admission Date: Mar 31, 2018 at 01:02 Discharge Date: Apr 01, 2018 Discharge Disposition: Home Principal Diagnosis: Hypercalcemia Problems/Secondary Diagnoses: Acute renal failure Hypertension Multiple sclerosis Immunizations: Have You Had Influenza Vaccine: Yes Influenza Vaccine Date: Jul 13, 2011 History of Tetanus Vaccine?: Yes History of Pneumococcal: Yes History of Hepatitis B Vaccine: No Procedures: none Consultations: none Medication Reconciliation New Medications: Amlodipine (Norvasc) 5 Mg Tab 5 MG PO DAILY for 30 Days, #30 TAB Continued Medications: Amantadine Hcl (Symmetrel) 100 Mg Tab 100 MG PO BID, TAB Amoxicillin (Amoxil) 500 Mg Cap 500 MG PO DAILY, #21 CAP Takes once daily for two weeks, then moves to another antibiotic for two weeks, Aspirin (Aspirin Ec) 81 Mg Tab 81 MG PO QPM Atenolol (Tenormin) 50 Mg Tab 50 MG PO QPM, TAB Baclofen (Baclofen) 20 Mg Tab 20 MG PO BID Biotin (Biotin) 10 Mg Tab 10 MG PO DAILY Cefdinir (Omnicef) 300 Mg Cap 300 MG PO DAILY, CAP TAKES X 2 WKS, THEN ALTERNATES WITH OTHER ANTIBIOTICS. Ciprofloxacin (Ciprofloxacin HCl) 500 Mg Tab 500 MG PO DAILY STARTED 03/28/18 FOR 14 DAYS. TAKES X 2WKS, THEN USES ANOTHER ANTIBIOTIC X 2 WKS. Coenzyme Q10 (Ubidecarenone) (Co Q 10) 100 Mg Cap 100 MG PO DAILY Docusate Sodium (Docusate Sodium) 100 Mg Cap 100 MG PO DAILY PRN for Constipation Gabapentin (Neurontin) 400 Mg Cap 400 MG PO BID, CAP Glatiramer Acetate (Copaxone) 20 Mg/1 Ml Inj 40 MG SC MWF Vwbyutnkswi-Obqtaypinfx-Aek C- (Glucosamine Chondroitin) 1 Cap Cap 2 CAP PO DAILY Meloxicam (Meloxicam) 15 Mg Tab 15 MG PO Q2D PT TAKES SUN, TUES, THURS, SAT Cumming-3 Fatty Acids (Cumming 3) 1 Cap Cap 2 CAP PO DAILY Omeprazole (Prilosec) 20 Mg Capcr 20 MG PO QAM, CAP Oxybutynin Chloride (Ditropan) 5 Mg Tab 10 MG PO BID, TAB Senna (Senokot) 8.6 Mg Tab 1 TAB PO QPM, TAB Discontinued Medications: Calcium Carbonate (Calcium) 600 Mg Tab 600 MG PO DAILY Cholecalciferol (Vitamin D) 2,000 Unit Cap 2000 UNIT PO DAILY Lisinopril (Lisinopril) 10 Mg Tab 10 MG PO Q2D Multiple Minerals W/ Vitamins (Citracal Plus) 1 Tab Tab 1 TABLET PO DAILY Triamterene/Hctz (Dyazide 37.5MG/25MG) Cap 1 TAB PO QPM, CAP Discharge Exam Patient feeling better on the day of discharge, more energy. Discussed the importance of close follow up with nephrology to go over further hypercalcemic work up. Explained that PTH was low, suggesting that some other etiology was driving up calcium. PTH related peptide and 1,25 Vitamin D levels were pending the day of discharge, 25, Vitamin D level was normal. Explained that HCTZ would be stopped and Lisinopril would be held, Norvasc would be started for blood pressure control. Review of Systems: Constitutional: + weakness, No fever, No chills, No sweats, No weight loss, No fatigue, No problem reported Eyes: No worsening of vision, No eye pain, No redness, No discharge, No diplopia, No problem reported ENT: No hearing loss, No unusual epistaxis, No nasal symptoms, No sore throat, No tinnitus, No dental problems, No trouble swallowing, No problem reported Respiratory: No cough, No sputum, No wheezing, No shortness of breath, No dyspnea on exertion, No dyspnea at rest, No hemoptysis, No problem reported Cardiovascular: No chest pain, No orthopnea, No PND, No edema, No claudication, No palpitations, No problem reported Abdomen: No pain, No nausea, No vomiting, No diarrhea, No constipation, No GI bleeding, No problem reported Musculoskeletal: No joint pain, No muscle pain, No swelling, No calf pain, No problem reported Genitourinary - Male: No hematuria, No dysuria, No urinary frequency, No urinary urgency Neurologic: + weakness, No memory loss, No paralysis, No numbness/tingling, No vertigo, No balance problems, No problem reported Psychiatric: No depression symptoms, No anhedonism, No anxiety, No insomnia , No substance abuse, No problem reported Endocrine: No fatigue, No excessive thirst, No excessive urination, No problem reported Hematologic / Lymphatic: No abnormal bleeding/bruising, No clotting problems , No swollen lymph nodes, No night sweats, No problem reported Integumentary: No rash, No itch, No new/changing skin lesions, No color change, No bleeding, No problem reported Physical Exam: General Appearance: WD/WN, no apparent distress Eyes: normal inspection, EOMI, sclerae normal ENT: normal ENT inspection, hearing grossly normal, pharynx normal Neck: supple, no adenopathy, no JVD, trachea midline Respiratory/Chest: chest non-tender, lungs clear, normal breath sounds, no respiratory distress, no accessory muscle use Cardiovascular: regular rate, rhythm, no edema, no gallop, no JVD, no murmur , normal peripheral pulses Abdomen / GI: normal bowel sounds, non tender, soft, no organomegaly Extremities: normal inspection, no calf tenderness, normal capillary refill , no pedal edema, normal range of motion, pelvis stable Neurologic/Psychiatric: ring conductor II-XII nml as tested, alert, normal mood/affect , normal reflexes, oriented x 3, + motor weakness (chronic, MS related) Skin: normal color, warm/dry, no rash Hospital Course Hypercalcemia (high calcium) 12.2 on admission, down to 10 on the day of discharge needs close follow up with nephrology, discussed with Dr. Hudson over phone, his office would arrange follow up PTH level is low which suggests that something else is driving up calcium level Vitamin D level normal, no evidence of vitamin D toxicity 1,25- Vitamin D as well as parathyroid related peptide level sent out, will take days to come back will hold HCTZ since it could be contributing to raising calcium CT chest with pulmonary nodules, needs to be followed and could be related to hypercalcemia Acute kidney injury on CKD stage III Cr was elevated at 2.67 on admission, came down to 2.1 with IV fluids still slightly higher than normal but patient making adequate urine and electrolytes stable follow up with Dr. Hudson in the office, repeat levels will hold Lisinopril on discharge HTN: since HCTZ and lisinopril stopped, started on Norvasc follow up with PCP MS: stable, no signs of flare, continue home medications Chronic UTI, secondary to straight catheterizations no evidence of current UTI, urine culture clean, UA clean continue cycling antibiotics under direction of Dr. Bentley as outpatient Total Time Spent: Greater than 30 minutes This includes examination of the patient, discharge planning, medication reconciliation, and communication with other providers. Discharge Instructions Please refer to the electronic Patient Visit Report (Discharge Instructions) for additional information. Follow-Up Dr. Hudson in one week Dr. Gloria in one week Additional Copies To Ynes Gloria M.D.; Nigel Hudson D.O.
[2018-04-09] MEDS ORDERED: MOME6000 NAE (14:10)
[2018-04-09] MEDS ORDERED: BROM0.07 OPR (14:10)
[2018-04-09] MEDS ORDERED: PRED1SUS3 OPR (14:10)
== END 2018-04-01 16:35 | disposition home or self-care (01) | DRG 682 ==
LOC: C.EDB 18:37 → C.MED 03-31 01:02 → ENRESERV 03-31 01:08 → CANRESERV 03-31 01:08 → ENRESERV 03-31 01:10
PROVIDERS: ADMIT Hospitalist; ATTEND Internal Medicine
DX: N17.9 Acute kidney failure, unspecified (principal); T83.511A Infection and inflammatory reaction due to indwelling urethral catheter, initial encounter; N39.0 Urinary tract infection, site not specified; J18.9 Pneumonia, unspecified organism; E83.52 Hypercalcemia; G35 Multiple sclerosis; R33.9 Retention of urine, unspecified; I12.9 Hypertensive chronic kidney disease with stage 1 through stage 4 chronic kidney disease, or unspecified chronic kidney disease; E78.5 Hyperlipidemia, unspecified; K21.9 Gastro-esophageal reflux disease without esophagitis; Z87.440 Personal history of urinary (tract) infections; Z83.3 Family history of diabetes mellitus; Z82.49 Family history of ischemic heart disease and other diseases of the circulatory system; F17.200 Nicotine dependence, unspecified, uncomplicated; Z88.2 Allergy status to sulfonamides; Z88.6 Allergy status to analgesic agent; Z88.5 Allergy status to narcotic agent; K59.00 Constipation, unspecified; N18.3 Chronic kidney disease, stage 3 (moderate); Y84.6 Urinary catheterization as the cause of abnormal reaction of the patient, or of later complication, without mention of misadventure at the time of the procedure; Y92.019 Unspecified place in single-family (private) house as the place of occurrence of the external cause

== ENCOUNTER → 2018-04-04 | Outpatient (CLI) | payer BC ==
[~2018-04-04] MED LIST changes: +AMLO5TAB3 PO; +ASCA500 PO; +B-COTAB18 PO; +BROM0.07 OPR; -CALC-393 PO; +CEFD1CAP14 PO; -CHOL200010 PO; -CIPR-255 PO; +CPR/500 PO; +DTR/5 PO; -LISI-461 PO; +MOME6000 NAE; -MULT-663 PO; +PRED1SUS3 OPR; -TRIA37.5 PO
[2018-04-04 18:00] LABS: ALBUMIN 3.5 gm/dl (3.4-5.0); BLOOD UREA NITROGEN 28 mg/dl (7-18); CALCIUM 11.4 mg/dl (8.5-10.1); CARBON DIOXIDE 28 mmol/L (21-32); CREATININE 1.87 mg/dl (0.60-1.40); GLUCOSE 93 mg/dl (70-99); PHOSPHORUS 3.7 mg/dl (2.5-4.9); POTASSIUM 3.8 mmol/L (3.5-5.1); SODIUM 142 mmol/L (136-145)
== END | disposition home or self-care (01) ==
LOC: C.LAB1850 16:38
PROVIDERS: ATTEND Internal Medicine Nephrology
DX: E83.52 Hypercalcemia (principal)

== ENCOUNTER 2019-09-16 14:25 | Inpatient (IN) ==
[2019-09-16] MEDS ORDERED: SODIUM CHLORIDE 0.9% 1000ML 1,000 ML IV SCH (15:15)
[2019-09-16 15:40] LABS: Eosinophils # (auto) 0.08 K/uL (0-0.5); Eosinophils % (auto) 0.9 %; Hematocrit (blood only) 41.8 % (42-52); Immature Granulocytes # (auto) 0.02 K/uL (0.00-0.02); Immature Granulocytes % (auto) 0.2 %; Lymphocytes # (auto) 1.35 K/uL (1.2-3.4); Lymphocytes % (auto) 14.5 %; Mean Corpuscular Hemoglobin 31.6 pg (25-34); Mean Corpuscular Hgb Conc 33.5 g/dL (32-36); Mean Corpuscular Volume 94.4 fL (80-100); Monocytes # (auto) 1.08 K/uL (0.11-0.59); Monocytes % (auto) 11.6 %; Neutrophils # (auto) 6.79 K/uL (1.4-6.5); Neutrophils % (auto) 72.8 %; Platelet Count 114 K/uL (130-400); RDW Coefficient of Variation 13.7 % (11.5-14.5); RDW Standard Deviation 47.3 fL (36.4-46.3); Red Blood Count 4.43 M/uL (4.7-6.1); White Blood Count 9.32 K/uL (4.8-10.8)
[2019-09-16 15:58] LABS: Appearance Urine Turbid (Clear); Bacteria Urine Automated 4+ (Negative); Bilirubin Urine Negative (Negative); Blood Urine 2+ (Negative); Color Urine Yellow; Glucose Urine UA Negative (Negative); Ketones Urine Negative (Negative); Leukocyte Esterase Urine 3+ (Negative); Nitrite Urine Positive (Negative); Protein Urine 1+ (Negative); RBC Urine Automated 0-4 /hpf (0-4); Specific Gravity Urine 1.016 (1.000-1.030); Urobilinogen Urine Negative (Negative); WBC Urine Automated >30 /hpf (0-5)
[2019-09-16 15:58] LABS: Albumin Level 3.4 gm/dl (3.4-5.0); Calcium 9.2 mg/dl (8.5-10.1); Creatinine Clr Calc Pharmacy 36.3 ml/min; Est GFR (African American) 38.3; Potassium 3.6 mmol/L (3.5-5.1)
[2019-09-16 16:01] LABS: Albumin Globulin Ratio 0.8 (0.9-2); Bilirubin,Total 0.9 mg/dl (0.2-1); Globulin 4.5 gm/dl (2.5-4.0); Total Protein 7.9 gm/dl (6.4-8.2)
--- NOTE | 2019-09-16 16:26 | CT Scan Report ---
ABDOMEN AND PELVIS CT WITHOUT CONTRAST CT DOSE: 1007.75 mGycm HISTORY: Acute low back and flank pain flnk pain TECHNIQUE: Multiaxial CT images of the abdomen and pelvis were performed without contrast. A dose lo wering technique was utilized adhering to the principles of ALARA. COMPARISON STUDY: CT pelvis 05/10/2018, CT abdomen and pelvis 03/30/2018, chest CT 06/29/2019 FINDINGS: Bibasilar solid pulmonary nodules measuring up to 6 mm, unchanged. There is no pneumatosis or pneumop eritoneum. Coronary arterial calcifications are noted. Cardiomegaly. Spleen measures the upper limits of normal in size. Gallbladder distention without cholelithiasis or wall thickening. Mild generalize d pancreatic atrophy. The liver appears unremarkable. Thickening of the adrenal glands, left greater than right suggest hyperplasia. Nonspecific bilateral perinephric stranding. Probable cyst of the anterior interpolar left kidney, 3. 4 cm is unchanged. No renal or ureteral calculi. There is mild dilation of the bilateral ureters with out significant hydronephrosis. There is marked urinary bladder wall thickening and trabeculation. Pr ostate is enlarged. Postoperative changes of the bilateral inguinal canals. Calcified plaque of the a denisse without aneurysm. No adenopathy. Small hiatal hernia. No bowel obstruction. Wall thickening of the rectum and distal sigmoid. Moderate fecal retention. Normal appendix. Diastases recti with fat filled periumbilical hernia, diastases 1. 7 cm. Subcutaneous stranding of the anterior abdominal wall suggestive of additional site injection. Battery pack of the left flank is noted with intact lead distal tip terminating over the midthoracic spine. Degenerative changes of the spine, pelvis and hips. Postoperative changes of the L4-L5 level. No evidence of hardware complication. IMPRESSION: 1. Prostamegaly with marked irregular urinary bladder wall thickening is new from the 2018 exam. This finding may be secondary to chronic bladder outlet obstruction, however cystitis or bladder wall gamal plasm are differential considerations. Correlation can be made with urinalysis and cystoscopy. This r esults in mild dilation of the bilateral ureters without significant hydronephrosis or ureteral calcu li. 2. Mild wall thickening of the distal sigmoid and rectum. Correlate clinically to exclude proctocolit is. 3. No bowel obstruction. 4. Normal appendix. 5. Small hiatal hernia. 6. Additional findings as above. ACT 112: Negative or not required by law. The above report was generated using voice recognition software. It may contain grammatical, syntax o r spelling errors. Electronically signed by: Mir Myers M.D. 09/16/2019 4:25 PM
[2019-09-16] MEDS ORDERED: ERTAPENEM SODIUM 10 ML IV STA (18:20)
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
[2019-09-16 20:52] LABS: Magnesium 2.1 mg/dl (1.8-2.4); Thyroid Stimulating Hormone 0.632 uIu/ml (0.300-4.500)
[2019-09-16 21:14] LABS: Influenza A virus by PCR Neg for Influ A (Neg); Influenza B virus by PCR Neg for Influ B (Neg)
[2019-09-16] MEDS ORDERED: ETHACRYNIC ACID 25 MG TAB PO PRN (21:52)
[2019-09-16] MEDS ORDERED: ALUMINUM/MAGNESIUM SUSP 30 ML UDC PO PRN (21:52)
[2019-09-16] MEDS ORDERED: ONDANSETRON INJ 2 MG/ML 2 ML VIAL IV PRN (21:52)
[2019-09-16] MEDS ORDERED: POLYETHYLENE (MIRALAX) 17 GM PACK PO PRN (21:52)
[2019-09-16] MEDS ORDERED: HEPARIN SOD 5,000 UNIT/0.5 ML VIAL SQ SCH (21:52)
[2019-09-16] MEDS ORDERED: MAGNESIUM HYDROXIDE SUSP 30 ML UDC PO PRN (21:52)
[2019-09-16] MEDS: NSS + 20MEQ KCL 20 MEQ/1,000 ML BAG IV SCH (22:44)
[2019-09-16] MEDS: ACETAMINOPHEN 325 MG TAB PO PRN (22:58)
[2019-09-16] MEDS: ATENOLOL 50 MG TABLET PO SCH (22:58)
[2019-09-16] MEDS: GABAPENTIN 400 MG CAP PO SCH (22:59)
[2019-09-16] MEDS: LACTOBACILLUS ACIDOPHILUS (FLORANEX) TAB PO SCH (22:59)
[2019-09-16] MEDS: SENNA 8.6 MG TAB PO SCH (23:00)
[2019-09-16] MEDS: OMEGA-3 (PURIFIED FISH OIL) 1 GM CAP PO SCH (23:00)
[2019-09-16] MEDS: ASPIRIN 81 MG ECTAB PO SCH (23:01)
[2019-09-16] MEDS: VESICARE~ORDER AWAITING ACTION SCH (23:34)
[2019-09-17] MEDS ORDERED: IMIPENEM/CILASTATIN CONSULT ACTIVE PRN (00:04)
[2019-09-17] MEDS: IMIPENEM/CILASTATIN SODIUM 300 MG in DEXTROSE 5% 100 ML IV SCH ×4 (00:47→17:17)
[2019-09-17 07:20] LABS: Eosinophils # (auto) 0.02 K/uL (0-0.5); Eosinophils % (auto) 0.2 %; Hematocrit (blood only) 39.8 % (42-52); Hemoglobin 13.3 g/dL (14.0-18.0); Immature Granulocytes # (auto) 0.03 K/uL (0.00-0.02); Immature Granulocytes % (auto) 0.4 %; Lymphocytes # (auto) 1.45 K/uL (1.2-3.4); Lymphocytes % (auto) 17.1 %; Mean Corpuscular Hemoglobin 31.2 pg (25-34); Mean Corpuscular Hgb Conc 33.4 g/dL (32-36); Mean Corpuscular Volume 93.4 fL (80-100); Mean Platelet Volume 9.9 fL (7.4-10.4); Monocytes # (auto) 1.23 K/uL (0.11-0.59); Monocytes % (auto) 14.5 %; Neutrophils # (auto) 5.74 K/uL (1.4-6.5); Neutrophils % (auto) 67.8 %; Platelet Count 123 K/uL (130-400); RDW Coefficient of Variation 13.7 % (11.5-14.5); RDW Standard Deviation 46.8 fL (36.4-46.3); Red Blood Count 4.26 M/uL (4.7-6.1); White Blood Count 8.47 K/uL (4.8-10.8)
[2019-09-17] MEDS: VESICARE~ORDER AWAITING ACTION SCH ×2 (07:26→15:16)
--- NOTE | 2019-09-17 07:45 | Hospitalist Progress Note ---
Date of Service September 17, 2019 Assessment & Plan (1) Pyelonephritis: Continue admit to [facility] on telemetry. Vital signs every 4 hours. Given dose of ertapenem in the ER We will continue with imipenem to cover for urinary tract infection pyelo-and proctocolitis. Appreciate recommendations of infectious diseases Urine culture and blood culture pending Follow-up with the results and sensitivity. Appreciate recommendations of urology in regard of irregular urinary bladder wall thickening SCDs and teds since patient has some blood in urine Full code (2) Flank pain: As the above management (3) Recurrent UTI: As the above management Continue solifenacin 10 mg p.o. daily for urinary bladder spasm Continue vitamin C5 100 mg p.o. every morning (4) Multiple sclerosis: Stable at this time. Continue home medicine: Amantadine 100 mg p.o. twice daily, (5) HTN (hypertension): Continue nifedipine 60 mg p.o. daily extended release, continue aspirin 81 mg p.o. daily, continue atenolol 50 mg p.o. nightly, continue coenzyme Q 1000 mg p.o. every morning Continue ethacrynic acid 50 mg p.o. twice daily as needed Continue omega fish oil with vitamin 81 tablet p.o. twice daily (6) Proctocolitis: Continue monitoring. Continue imipenem (7) GERD (gastroesophageal reflux disease): Continue omeprazole 20 mg p.o. daily (8) Constipation, acute: Continue senna 1 tablet p.o. nightly. Subjective Patient seen and examined at bedside. No acute event overnight. Had fever of 38.5 at 10:00 last night. Since then he was afebrile. Slowly improving. Appetite is slowly improving as well. Patient denies shortness of breath chest pain abdominal pain, syncope or near syncope. Patient denies hematuria. Review of Systems Review of Systems: All systems reviewed & are unremarkable except as noted in HPI & below Physical Exam Constitutional: WD/WN, vitals as above well developed; not ill appearing and not obese Eyes: PERRL, conjunctivae normal, anicteric sclerae ENMT: external ear and nose normal, oropharynx normal Neck: trachea midline, no thyromegaly Respiratory: normal respiratory effort, lungs clear to auscultation Cardiovascular: Rate/Rhythm: regular rate and regular rhythm Gastrointestinal (Abdomen): normal bowel sounds, soft, nontender, no hepatosplenomegaly Musculoskeletal: no cyanosis or clubbing, extremities motor strength 5/5 Skin: no rashes, warm and dry Neurologic: patellar DTR's 2+ bilat, sensation intact Lymphatic: no cervical or axillary lymphadenopathy Results & Data Vital Signs (Past 12 Hours) Vital Signs Temp Pulse Pulse Pulse Resp BP BP 09/17/19 07:15 36.6 C 71 20 121/64 09/17/19 04:39 37.1 C 76 20 126/68 09/17/19 00:00 87 09/16/19 22:45 37.0 C 09/16/19 22:12 38.5 C H 87 20 126/70 09/16/19 22:00 96 H 09/16/19 21:08 87 20 127/68 Pulse Ox 09/17/19 07:15 92 09/17/19 04:39 91 09/17/19 00:00 09/16/19 22:45 09/16/19 22:12 91 09/16/19 22:00 09/16/19 21:08 91 PG Care Time/CCT Total # of Minutes Spent Total Time Spent with Patient: Total time spent is greater than 50% in coordination of care (as documented) at patient's floor/unit and/or counseling patient: Coding Level of Care Code 95079 Subseq Hosp Care Lvl 3 Diagnoses Pyelonephritis N12 Flank pain R10.9 Recurrent UTI N39.0 Multiple sclerosis G35 HTN (hypertension) I10 Proctocolitis K52.9 GERD (gastroesophageal reflux disease) K21.9 Constipation, acute K59.00
[2019-09-17 07:54] LABS: Estimated Average Glucose 114 mg/dl; Hemoglobin A1C 5.6 % (4.5-5.6)
[2019-09-17 08:02] LABS: Albumin Level 2.8 gm/dl (3.4-5.0); BUN Creatinine Ratio 14.9 (10-20); Calcium 8.6 mg/dl (8.5-10.1); Creatinine Clr Calc Pharmacy 34.4 ml/min; Est GFR (African American) 36.5; Est GFR (Non-African American) 31.5; Potassium 3.7 mmol/L (3.5-5.1)
[2019-09-17 08:06] LABS: Albumin Globulin Ratio 0.7 (0.9-2); Bilirubin,Total 0.6 mg/dl (0.2-1); Globulin 4.2 gm/dl (2.5-4.0)
[2019-09-17] MEDS: OMEGA-3 (PURIFIED FISH OIL) 1 GM CAP PO SCH ×2 (08:08→20:46)
[2019-09-17] MEDS: GABAPENTIN 400 MG CAP PO SCH ×2 (08:08→20:47)
[2019-09-17] MEDS: NIFEdipine EXTENDED REL 30 MG TABCR PO SCH (08:08)
[2019-09-17] MEDS: DOCUSATE SODIUM 100 MG CAP PO SCH (08:08)
[2019-09-17] MEDS: OXYCODONE HCL IR 5 MG TAB (IMMEDIATE RELEASE) PO SCH (08:08)
[2019-09-17] MEDS: LACTOBACILLUS ACIDOPHILUS (FLORANEX) TAB PO SCH ×2 (08:08→20:47)
[2019-09-17] MEDS: PANTOprazole 40 MG TAB PO SCH (08:08)
[2019-09-17] MEDS: VITAMIN B COMPLEX TAB PO SCH (08:09)
[2019-09-17] MEDS: AMANTADINE HCL 100 MG CAPSULE PO SCH (08:09)
[2019-09-17] MEDS: ASCORBIC ACID 500 MG TAB PO SCH (08:09)
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
[2019-09-17] MEDS ORDERED: NON-FORMULARY MEDICATION (Turmeric Root Extract 500 MG) PO SCH (09:00)
[2019-09-17] MEDS ORDERED: NON-FORMULARY MEDICATION (Coenzyme Q10 100 MG) PO SCH (09:00)
[2019-09-17] MEDS ORDERED: NON-FORMULARY MEDICATION (Glucos Sul 2kcl-Msm-Chond-C-Mn [Glucosamine Chondroitin] 2 CAP) PO SCH (09:00)
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
[2019-09-17] MEDS: NSS + 20MEQ KCL 20 MEQ/1,000 ML BAG IV SCH (11:34)
[2019-09-17] MEDS ORDERED: ERTAPENEM SODIUM 1,000 MG in SODIUM CHLORIDE 0.9% 50 ML IV SCH (18:00)
[2019-09-17] MEDS: ATENOLOL 50 MG TABLET PO SCH (20:46)
[2019-09-17] MEDS: SENNA 8.6 MG TAB PO SCH (20:47)
[2019-09-17] MEDS: ASPIRIN 81 MG ECTAB PO SCH (20:47)
[2019-09-18] MEDS: VESICARE~ORDER AWAITING ACTION SCH ×4 (00:01→23:39)
[2019-09-18] MEDS: IMIPENEM/CILASTATIN SODIUM 300 MG in DEXTROSE 5% 100 ML IV SCH ×4 (00:25→18:20)
[2019-09-18] MEDS: NSS + 20MEQ KCL 20 MEQ/1,000 ML BAG IV SCH ×2 (02:53→15:24)
[2019-09-18 06:53] LABS: Basophils # (auto) 0.01 K/uL (0-0.2); Basophils % (auto) 0.1 %; Eosinophils # (auto) 0.21 K/uL (0-0.5); Eosinophils % (auto) 2.8 %; Hematocrit (blood only) 36.5 % (42-52); Hemoglobin 12.2 g/dL (14.0-18.0); Immature Granulocytes # (auto) 0.03 K/uL (0.00-0.02); Immature Granulocytes % (auto) 0.4 %; Lymphocytes # (auto) 1.92 K/uL (1.2-3.4); Lymphocytes % (auto) 25.4 %; Mean Corpuscular Hemoglobin 31.2 pg (25-34); Mean Corpuscular Hgb Conc 33.4 g/dL (32-36); Mean Corpuscular Volume 93.4 fL (80-100); Mean Platelet Volume 9.8 fL (7.4-10.4); Monocytes # (auto) 1.06 K/uL (0.11-0.59); Neutrophils # (auto) 4.32 K/uL (1.4-6.5); Neutrophils % (auto) 57.3 %; Platelet Count 140 K/uL (130-400); RDW Coefficient of Variation 13.5 % (11.5-14.5); RDW Standard Deviation 46.1 fL (36.4-46.3); Red Blood Count 3.91 M/uL (4.7-6.1); White Blood Count 7.55 K/uL (4.8-10.8)
[2019-09-18 07:29] LABS: Albumin Level 2.5 gm/dl (3.4-5.0); BUN Creatinine Ratio 15.3 (10-20); Creatinine Clr Calc Pharmacy 42.8 ml/min; Est GFR (African American) 46.7; Est GFR (Non-African American) 40.3; Potassium 3.9 mmol/L (3.5-5.1)
[2019-09-18 07:32] LABS: Albumin Globulin Ratio 0.6 (0.9-2); Bilirubin,Total 0.5 mg/dl (0.2-1); Globulin 4.1 gm/dl (2.5-4.0); Total Protein 6.6 gm/dl (6.4-8.2)
--- NOTE | 2019-09-18 08:04 | Hospitalist Progress Note ---
Date of Service September 18, 2019 Assessment & Plan (1) Pyelonephritis: Continue admit to [facility] on telemetry. Vital signs every 4 hours. Given dose of ertapenem in the ER We will continue with imipenem to cover for urinary tract infection pyelo-and proctocolitis. Appreciate recommendations of infectious diseases Urine culture and blood culture pending Follow-up with the results and sensitivity. Appreciate recommendations of urology in regard of irregular urinary bladder wall thickening Continue with routine catheterizations, straight cath every 4-6 hours and/or volumes > 500 mL, order in place. Plan to follow-up with urology outpatient with Dr. Gandara as scheduled SCDs and teds since patient has some blood in urine. Repeat urine and if negative for blood start heparin 5000 units every 12 hours. Full code (2) Flank pain: As the above management (3) Recurrent UTI: As the above management Continue solifenacin 10 mg p.o. daily for urinary bladder spasm Continue vitamin C5 100 mg p.o. every morning (4) Multiple sclerosis: Stable at this time. Continue home medicine: Amantadine 100 mg p.o. twice daily, (5) HTN (hypertension): Continue nifedipine 60 mg p.o. daily extended release, continue aspirin 81 mg p.o. daily, continue atenolol 50 mg p.o. nightly, continue coenzyme Q 1000 mg p.o. every morning Continue ethacrynic acid 50 mg p.o. twice daily as needed Continue omega fish oil with vitamin 81 tablet p.o. twice daily (6) Proctocolitis: Continue monitoring. Continue imipenem (7) GERD (gastroesophageal reflux disease): Continue omeprazole 20 mg p.o. daily (8) Constipation, acute: Continue senna 1 tablet p.o. nightly. (9) Discharge planning issues: Placed referral to physical and Occupational Therapy. Patient most likely would benefit from going to rehab-SNF for more physical and Occupational Therapy. If prolonged treatment with IV antibiotic is necessary most likely should be administer there when patient clinically improved. Present on Admission?: Yes Subjective Patient seen and examined at bedside. Patient is afebrile overnight. Since then he was afebrile. Slowly improving. Appetite is slowly improving as well. Patient denies shortness of breath chest pain abdominal pain, syncope or near syncope. Patient denies hematuria. Review of Systems Review of Systems: All systems reviewed & are unremarkable except as noted in HPI & below Physical Exam Constitutional: WD/WN, vitals as above well developed; not ill appearing and not obese Eyes: PERRL, conjunctivae normal, anicteric sclerae ENMT: external ear and nose normal, oropharynx normal Neck: trachea midline, no thyromegaly Respiratory: normal respiratory effort, lungs clear to auscultation Cardiovascular: Rate/Rhythm: regular rate and regular rhythm Gastrointestinal (Abdomen): normal bowel sounds, soft, nontender, no hepatosplenomegaly Musculoskeletal: no cyanosis or clubbing, extremities motor strength 5/5 Skin: no rashes, warm and dry Neurologic: patellar DTR's 2+ bilat, sensation intact Lymphatic: no cervical or axillary lymphadenopathy Results & Data Vital Signs (Past 12 Hours) Vital Signs Temp Pulse Pulse Pulse Resp BP BP 09/18/19 07:27 36.9 C 66 16 103/56 L 09/18/19 07:26 36.1 C L 09/18/19 07:23 72 09/18/19 03:32 36.7 C 58 L 16 116/68 09/18/19 00:40 70 09/17/19 23:49 37.2 C 73 18 112/62 Pulse Ox 09/18/19 07:27 92 09/18/19 07:26 09/18/19 07:23 09/18/19 03:32 91 09/18/19 00:40 09/17/19 23:49 91 PG Care Time/CCT Total # of Minutes Spent Total Time Spent with Patient: Total time spent is greater than 50% in coordination of care (as documented) at patient's floor/unit and/or counseling patient: Coding Level of Care Code 55810 Subseq Hosp Care Lvl 3 Diagnoses Pyelonephritis N12 Flank pain R10.9 Recurrent UTI N39.0 Multiple sclerosis G35 HTN (hypertension) I10 Proctocolitis K52.9 GERD (gastroesophageal reflux disease) K21.9 Constipation, acute K59.00 Discharge planning issues Z02.9
--- NOTE | 2019-09-18 08:32 | Urology Progress Note ---
Date of Service September 18, 2019 Assessment & Plan (1) Recurrent UTI: (2) Pyelonephritis: 69 year old male with multiple comorbidities admitted with UTI and pyelonephritis. - Remains afebrile overnight. - Blood cultures pending. - Urine culture sensitivities pending. - Continue follow-up with ID, appreciate their recommendations. - IV antibiotics per infectious disease. - Continue with routine catheterizations, straight cath every 4-6 hours and/or volumes > 500 mL, order in place. - Plan to follow-up with urology outpatient with Dr. Gandara as scheduled Thank you for allowing us to participate in the acute care of Mr. Williamson. Please reconsult us with additional questions, concerns or changes in patient status. Subjective 69 year-old male with past medical history of multiple sclerosis, hypertension, depression and recurrent UTIs admitted for UTI and pyelonephritis. Patient history: Known to our service, follows with Dr. Gandara. Patient performs routine [facility] outpatient. Chart review: Cr - improved to 1.68 WBC - 7.55 UC&S - preliminary positive for gram negative bacilli Blood cultures pending Pt afebrile overnight, last fever 38.5 on 09/16 at 2200 On IV Imipenem per ID Patient awake and alert in bed this morning. Reports he is feeling well. No complaints overnight. Patient straight catheterized this AM for roughly 600 ml urine by nursing staff. Denies fever or chills. Denies pain. Appetite is average without nausea or vomiting. He reports no additional concerns this morning. Review of Systems Constitutional: as per Subjective / HPI; no fever and no chills Gastrointestinal: as per Subjective / HPI; no nausea and no vomiting Genitourinary: + as per Subjective / HPI Physical Exam Constitutional: well developed and well nourished; no acute distress and not ill appearing Respiratory: normal respiratory effort and able to speak in complete sentences; no respiratory distress and no audible wheezes Gastrointestinal (Abdomen): Inspection/Auscultation: abdomen normal to inspection; abdomen not distended Percussion/Palpation: abdomen soft; abdomen nontender and no guarding Psychiatric: Orientation: alert, oriented x 3 and cooperative Affect: euthymic affect Genitourinary: no CVA tenderness Results & Data Vital Signs (Past 12 Hours) Vital Signs Temp Pulse Pulse Pulse Resp BP BP 09/18/19 07:27 36.9 C 66 16 103/56 L 09/18/19 07:26 36.1 C L 09/18/19 07:23 72 09/18/19 03:32 36.7 C 58 L 16 116/68 09/18/19 00:40 70 09/17/19 23:49 37.2 C 73 18 112/62 Pulse Ox 09/18/19 07:27 92 09/18/19 07:26 09/18/19 07:23 09/18/19 03:32 91 09/18/19 00:40 09/17/19 23:49 91 Laboratory Results Laboratory Results - last 48 hr 09/16/19 09/16/19 09/16/19 15:26 15:26 15:26 WBC 9.32 RBC 4.43 L Hgb 14.0 Hct 41.8 L MCV 94.4 MCH 31.6 MCHC 33.5 RDW Std Deviation 47.3 H RDW Coeff of Valorie 13.7 Plt Count 114 L MPV 10.0 Immature Gran % (Auto) 0.2 Neut % (Auto) 72.8 Lymph % (Auto) 14.5 [place] % (Auto) 11.6 Eos % (Auto) 0.9 Baso % (Auto) 0.0 Immature Gran # (Auto) 0.02 Neut # (Auto) 6.79 H Lymph # (Auto) 1.35 [place] # (Auto) 1.08 H Eos # (Auto) 0.08 Baso # (Auto) 0.00 ESR 57 H Sodium 136 Potassium 3.6 Chloride 102 Carbon Dioxide 30 Anion Gap 4.0 BUN 30 H Creatinine 1.98 H Est Cr Clr Drug Dosing 36.3 Est GFR ( Amer) 38.3 Est GFR (Non-Af Amer) 33.0 BUN/Creatinine Ratio 15.0 Glucose 136 H Estimat Average Glucose Hemoglobin A1c Calcium 9.2 Magnesium Total Bilirubin 0.9 AST 18 ALT 23 Alkaline Phosphatase 112 C-Reactive Protein 17.00 H NT-Pro-B Natriuret Pep Total Protein 7.9 Albumin 3.4 Globulin 4.5 H Albumin/Globulin Ratio 0.8 L Triglycerides Cholesterol LDL Cholesterol, Calc VLDL Cholesterol, Calc HDL Cholesterol Cholesterol/HDL Ratio Lipase 97 Procalcitonin TSH Urine Color Urine Appearance Urine pH Ur Specific [place] Urine Protein Urine Glucose (UA) Urine Ketones Urine Blood Urine Nitrite Urine Bilirubin Urine Urobilinogen Ur Leukocyte Esterase Urine WBC (Auto) Urine RBC (Auto) U Hyaline Cast (Auto) U Epithel Cells (Auto) Urine Bacteria (Auto) Hepatitis C Ab Screen Influenza Type A (PCR) Influenza Type B (PCR) 09/16/19 09/16/19 09/16/19 15:26 15:26 20:25 WBC RBC Hgb Hct MCV MCH MCHC RDW Std Deviation RDW Coeff of Valorie Plt Count MPV Immature Gran % (Auto) Neut % (Auto) Lymph % (Auto) [place] % (Auto) Eos % (Auto) Baso % (Auto) Immature Gran # (Auto) Neut # (Auto) Lymph # (Auto) [place] # (Auto) Eos # (Auto) Baso # (Auto) ESR Sodium Potassium Chloride Carbon Dioxide Anion Gap BUN Creatinine Est Cr Clr Drug Dosing Est GFR ( Amer) Est GFR (Non-Af Amer) BUN/Creatinine Ratio Glucose Estimat Average Glucose Hemoglobin A1c Calcium Magnesium 2.1 Total Bilirubin AST ALT Alkaline Phosphatase C-Reactive Protein NT-Pro-B Natriuret Pep 442 Total Protein Albumin Globulin Albumin/Globulin Ratio Triglycerides Cholesterol LDL Cholesterol, Calc VLDL Cholesterol, Calc HDL Cholesterol Cholesterol/HDL Ratio Lipase Procalcitonin 0.46 TSH 0.632 Urine Color Urine Appearance Urine pH Ur Specific [place] Urine Protein Urine Glucose (UA) Urine Ketones Urine Blood Urine Nitrite Urine Bilirubin Urine Urobilinogen Ur Leukocyte Esterase Urine WBC (Auto) Urine RBC (Auto) U Hyaline Cast (Auto) U Epithel Cells (Auto) Urine Bacteria (Auto) Hepatitis C Ab Screen Influenza Type A (PCR) Neg for Influ A Influenza Type B (PCR) Neg for Influ B 09/16/19 09/17/19 09/17/19 Unknown 06:59 06:59 WBC 8.47 RBC 4.26 L Hgb 13.3 L Hct 39.8 L MCV 93.4 MCH 31.2 MCHC 33.4 RDW Std Deviation 46.8 H RDW Coeff of Valorie 13.7 Plt Count 123 L MPV 9.9 Immature Gran % (Auto) 0.4 Neut % (Auto) 67.8 Lymph % (Auto) 17.1 [place] % (Auto) 14.5 Eos % (Auto) 0.2 Baso % (Auto) 0.0 Immature Gran # (Auto) 0.03 H Neut # (Auto) 5.74 Lymph # (Auto) 1.45 [place] # (Auto) 1.23 H Eos # (Auto) 0.02 Baso # (Auto) 0.00 ESR Sodium Potassium Chloride Carbon Dioxide Anion Gap BUN Creatinine Est Cr Clr Drug Dosing Est GFR ( Amer) Est GFR (Non-Af Amer) BUN/Creatinine Ratio Glucose Estimat Average Glucose Hemoglobin A1c Calcium Magnesium Total Bilirubin AST ALT Alkaline Phosphatase C-Reactive Protein NT-Pro-B Natriuret Pep Total Protein Albumin Globulin Albumin/Globulin Ratio Triglycerides Cholesterol LDL Cholesterol, Calc VLDL Cholesterol, Calc HDL Cholesterol Cholesterol/HDL Ratio Lipase Procalcitonin TSH Urine Color Yellow Urine Appearance Turbid A Urine pH 5.0 Ur Specific [place] 1.016 Urine Protein 1+ H Urine Glucose (UA) Negative Urine Ketones Negative Urine Blood 2+ H Urine Nitrite Positive A Urine Bilirubin Negative Urine Urobilinogen Negative Ur Leukocyte Esterase 3+ H Urine WBC (Auto) >30 H Urine RBC (Auto) 0-4 U Hyaline Cast (Auto) 1-5 U Epithel Cells (Auto) 10-20 H Urine Bacteria (Auto) 4+ H Hepatitis C Ab Screen Neg Influenza Type A (PCR) Influenza Type B (PCR) 09/17/19 09/17/19 09/18/19 06:59 06:59 06:37 WBC 7.55 RBC 3.91 L Hgb 12.2 L Hct 36.5 L MCV 93.4 MCH 31.2 MCHC 33.4 RDW Std Deviation 46.1 RDW Coeff of Valorie 13.5 Plt Count 140 MPV 9.8 Immature Gran % (Auto) 0.4 Neut % (Auto) 57.3 Lymph % (Auto) 25.4 [place] % (Auto) 14.0 Eos % (Auto) 2.8 Baso % (Auto) 0.1 Immature Gran # (Auto) 0.03 H Neut # (Auto) 4.32 Lymph # (Auto) 1.92 [place] # (Auto) 1.06 H Eos # (Auto) 0.21 Baso # (Auto) 0.01 ESR Sodium 137 Potassium 3.7 Chloride 105 Carbon Dioxide 25 Anion Gap 7.0 BUN 31 H Creatinine 2.06 H Est Cr Clr Drug Dosing 34.4 Est GFR ( Amer) 36.5 Est GFR (Non-Af Amer) 31.5 BUN/Creatinine Ratio 14.9 Glucose 150 H Estimat Average Glucose 114 Hemoglobin A1c 5.6 Calcium 8.6 Magnesium Total Bilirubin 0.6 AST 15 ALT 19 Alkaline Phosphatase 92 C-Reactive Protein NT-Pro-B Natriuret Pep Total Protein 7.0 Albumin 2.8 L Globulin 4.2 H Albumin/Globulin Ratio 0.7 L Triglycerides 120 Cholesterol 121 LDL Cholesterol, Calc 65 VLDL Cholesterol, Calc 24 HDL Cholesterol 32 Cholesterol/HDL Ratio 4 Lipase Procalcitonin TSH Urine Color Urine Appearance Urine pH Ur Specific [place] Urine Protein Urine Glucose (UA) Urine Ketones Urine Blood Urine Nitrite Urine Bilirubin Urine Urobilinogen Ur Leukocyte Esterase Urine WBC (Auto) Urine RBC (Auto) U Hyaline Cast (Auto) U Epithel Cells (Auto) Urine Bacteria (Auto) Hepatitis C Ab Screen Influenza Type A (PCR) Influenza Type B (PCR) 09/18/19 06:37 WBC RBC Hgb Hct MCV MCH MCHC RDW Std Deviation RDW Coeff of Valorie Plt Count MPV Immature Gran % (Auto) Neut % (Auto) Lymph % (Auto) [place] % (Auto) Eos % (Auto) Baso % (Auto) Immature Gran # (Auto) Neut # (Auto) Lymph # (Auto) [place] # (Auto) Eos # (Auto) Baso # (Auto) ESR Sodium 136 Potassium 3.9 Chloride 107 Carbon Dioxide 23 Anion Gap 7.0 BUN 26 H Creatinine 1.68 H D Est Cr Clr Drug Dosing 42.8 Est GFR ( Amer) 46.7 Est GFR (Non-Af Amer) 40.3 BUN/Creatinine Ratio 15.3 Glucose 133 H Estimat Average Glucose Hemoglobin A1c Calcium 9.0 Magnesium Total Bilirubin 0.5 AST 13 L ALT 16 Alkaline Phosphatase 83 C-Reactive Protein NT-Pro-B Natriuret Pep Total Protein 6.6 Albumin 2.5 L Globulin 4.1 H Albumin/Globulin Ratio 0.6 L Triglycerides Cholesterol LDL Cholesterol, Calc VLDL Cholesterol, Calc HDL Cholesterol Cholesterol/HDL Ratio Lipase Procalcitonin TSH Urine Color Urine Appearance Urine pH Ur Specific [place] Urine Protein Urine Glucose (UA) Urine Ketones Urine Blood Urine Nitrite Urine Bilirubin Urine Urobilinogen Ur Leukocyte Esterase Urine WBC (Auto) Urine RBC (Auto) U Hyaline Cast (Auto) U Epithel Cells (Auto) Urine Bacteria (Auto) Hepatitis C Ab Screen Influenza Type A (PCR) Influenza Type B (PCR) PG Care Time/CCT Total # of Minutes Spent Total Time Spent with Patient: Total time spent is greater than 50% in coordination of care (as documented) at patient's floor/unit and/or counseling patient: Coding Level of Care Code 55229 Subseq Hosp Care Lvl 2 Diagnoses Recurrent UTI N39.0 Pyelonephritis N12
[2019-09-18] MEDS: OXYCODONE HCL IR 5 MG TAB (IMMEDIATE RELEASE) PO SCH (09:21)
[2019-09-18] MEDS: GABAPENTIN 400 MG CAP PO SCH ×2 (09:25→20:58)
[2019-09-18] MEDS: DOCUSATE SODIUM 100 MG CAP PO SCH (09:25)
[2019-09-18] MEDS: NIFEdipine EXTENDED REL 30 MG TABCR PO SCH (09:25)
[2019-09-18] MEDS: OMEGA-3 (PURIFIED FISH OIL) 1 GM CAP PO SCH ×2 (09:25→20:57)
[2019-09-18] MEDS: LACTOBACILLUS ACIDOPHILUS (FLORANEX) TAB PO SCH ×2 (09:25→20:58)
[2019-09-18] MEDS: PANTOprazole 40 MG TAB PO SCH (09:27)
[2019-09-18] MEDS: AMANTADINE HCL 100 MG CAPSULE PO SCH (09:27)
[2019-09-18] MEDS: ASCORBIC ACID 500 MG TAB PO SCH (09:27)
[2019-09-18] MEDS: VITAMIN B COMPLEX TAB PO SCH (09:27)
[2019-09-18] MEDS: ACETAMINOPHEN 325 MG TAB PO PRN (09:31)
--- NOTE | 2019-09-18 12:40 | Infectious Disease Progress Nt ---
Date of Service September 18, 2019 Assessment & Plan (1) Pyelonephritis: continue imipenem for now, follow cultures. Subjective remains afebrile, on imipenem, tolerating well. blood cultures negative, urine growing gnr, awaiting final. Results & Data Vital Signs (Past 12 Hours) Vital Signs Temp Pulse Pulse Pulse Resp BP Pulse Ox 09/18/19 07:27 36.9 C 66 16 103/56 L 92 09/18/19 07:26 36.1 C L 09/18/19 07:23 72 09/18/19 03:32 36.7 C 58 L 16 116/68 91 09/18/19 00:40 70 Laboratory Results Microbiology 09/16/19 21:36 Blood Aerobic Blood Culture - Preliminary No growth in Aerobic bottle after 24 hours. 09/16/19 21:36 Blood Anaerobic Blood Culture - Preliminary No growth in Anaerobic bottle after 24 hours. 09/16/19 21:36 Blood Aerobic Blood Culture - Preliminary No growth in Aerobic bottle after 24 hours. 09/16/19 21:36 Blood Anaerobic Blood Culture - Preliminary No growth in Anaerobic bottle after 24 hours. 09/16/19 Unknown Urine,Clean Catch Urine Culture - Preliminary Gram negative bacilli PG Care Time/CCT Total # of Minutes Spent Total Time Spent with Patient: Total time spent is greater than 50% in coordination of care (as documented) at patient's floor/unit and/or counseling patient: Coding Level of Care Code 85054 Subseq Hosp Care Lvl 1 Diagnoses Pyelonephritis N12
[2019-09-18] MEDS: GLATIRAMER ACETATE SQ SCH (14:45)
[2019-09-18 18:29] LABS: Appearance Urine Clear (Clear); Bacteria Urine Automated Negative (Negative); Bilirubin Urine Negative (Negative); Blood Urine Negative (Negative); Cast Urine Automated 0 /lpf (0-5); Color Urine Yellow; Glucose Urine UA Negative (Negative); Ketones Urine Negative (Negative); Leukocyte Esterase Urine 1+ (Negative); Nitrite Urine Negative (Negative); Protein Urine Negative (Negative); RBC Urine Automated 0-4 /hpf (0-4); Specific Gravity Urine 1.009 (1.000-1.030); Urobilinogen Urine Negative (Negative)
[2019-09-18] MEDS: SENNA 8.6 MG TAB PO SCH (20:57)
[2019-09-18] MEDS: ATENOLOL 50 MG TABLET PO SCH (20:58)
[2019-09-18] MEDS: ASPIRIN 81 MG ECTAB PO SCH (20:58)
[2019-09-19] MEDS: IMIPENEM/CILASTATIN SODIUM 300 MG in DEXTROSE 5% 100 ML IV SCH ×2 (00:04→06:19)
[2019-09-19] MEDS: VESICARE~ORDER AWAITING ACTION SCH ×3 (07:14→23:55)
[2019-09-19 07:17] LABS: Basophils # (auto) 0.02 K/uL (0-0.2); Basophils % (auto) 0.3 %; Eosinophils # (auto) 0.23 K/uL (0-0.5); Eosinophils % (auto) 3.7 %; Hematocrit (blood only) 37.5 % (42-52); Hemoglobin 12.7 g/dL (14.0-18.0); Immature Granulocytes # (auto) 0.04 K/uL (0.00-0.02); Immature Granulocytes % (auto) 0.6 %; Lymphocytes # (auto) 1.46 K/uL (1.2-3.4); Lymphocytes % (auto) 23.3 %; Mean Corpuscular Hemoglobin 31.3 pg (25-34); Mean Corpuscular Hgb Conc 33.9 g/dL (32-36); Mean Corpuscular Volume 92.4 fL (80-100); Mean Platelet Volume 9.6 fL (7.4-10.4); Monocytes # (auto) 0.83 K/uL (0.11-0.59); Monocytes % (auto) 13.2 %; Neutrophils # (auto) 3.69 K/uL (1.4-6.5); Neutrophils % (auto) 58.9 %; Platelet Count 158 K/uL (130-400); RDW Coefficient of Variation 13.3 % (11.5-14.5); RDW Standard Deviation 44.8 fL (36.4-46.3); Red Blood Count 4.06 M/uL (4.7-6.1); White Blood Count 6.27 K/uL (4.8-10.8)
[2019-09-19 07:48] LABS: Albumin Level 2.6 gm/dl (3.4-5.0); BUN Creatinine Ratio 13.6 (10-20); Calcium 9.2 mg/dl (8.5-10.1); Creatinine Clr Calc Pharmacy 49.7 ml/min; Est GFR (African American) 55.8; Est GFR (Non-African American) 48.1; Potassium 3.8 mmol/L (3.5-5.1)
[2019-09-19 07:52] LABS: Albumin Globulin Ratio 0.6 (0.9-2); Bilirubin,Total 0.4 mg/dl (0.2-1); Globulin 4.4 gm/dl (2.5-4.0)
[2019-09-19] MEDS: VITAMIN B COMPLEX TAB PO SCH (08:52)
[2019-09-19] MEDS: OXYCODONE HCL IR 5 MG TAB (IMMEDIATE RELEASE) PO SCH (08:52)
[2019-09-19] MEDS: ASCORBIC ACID 500 MG TAB PO SCH (08:52)
[2019-09-19] MEDS: GABAPENTIN 400 MG CAP PO SCH ×2 (08:52→20:04)
[2019-09-19] MEDS: AMANTADINE HCL 100 MG CAPSULE PO SCH (08:53)
[2019-09-19] MEDS: PANTOprazole 40 MG TAB PO SCH (08:53)
[2019-09-19] MEDS: OMEGA-3 (PURIFIED FISH OIL) 1 GM CAP PO SCH ×2 (08:53→20:03)
[2019-09-19] MEDS: DOCUSATE SODIUM 100 MG CAP PO SCH (08:54)
[2019-09-19] MEDS: LACTOBACILLUS ACIDOPHILUS (FLORANEX) TAB PO SCH ×2 (08:54→20:05)
[2019-09-19] MEDS: NIFEdipine EXTENDED REL 30 MG TABCR PO SCH (08:54)
--- NOTE | 2019-09-19 11:31 | Infectious Disease Progress Nt ---
Date of Service September 19, 2019 Assessment & Plan (1) Pyelonephritis: continue ertapenem, suggest 7-10 days total. Subjective pt cutlure growing Enterobacter, now on ertapenem, tolerating well. afebrile. wbc6, creat improved to 1.4 blood cultures remain negative. Results & Data Vital Signs (Past 12 Hours) Vital Signs Temp Pulse Pulse Pulse Resp BP Pulse Ox 09/19/19 08:00 76 09/19/19 07:36 36.9 C 69 18 125/72 95 09/19/19 03:55 36.7 C 72 18 137/68 94 09/19/19 01:15 70 09/19/19 00:20 36.8 C 72 18 139/74 95 Laboratory Results Microbiology 09/16/19 Unknown Urine,Clean Catch Urine Culture - Final Enterobacter aerogenes 09/16/19 21:36 Blood Aerobic Blood Culture - Preliminary No growth in Aerobic bottle after 48 hours. 09/16/19 21:36 Blood Anaerobic Blood Culture - Preliminary No growth in Anaerobic bottle after 48 hours. 09/16/19 21:36 Blood Aerobic Blood Culture - Preliminary No growth in Aerobic bottle after 48 hours. 09/16/19 21:36 Blood Anaerobic Blood Culture - Preliminary No growth in Anaerobic bottle after 48 hours. PG Care Time/CCT Total # of Minutes Spent Total Time Spent with Patient: Total time spent is greater than 50% in cooler tender rdination of care (as documented) at patient's floor/unit and/or counseling patient: Coding Level of Care Code 11519 Subseq Hosp Care Lvl 1 Diagnoses Pyelonephritis N12
[2019-09-19] MEDS: ERTAPENEM SODIUM 1,000 MG in SODIUM CHLORIDE 0.9% 50 ML IV SCH (12:28)
[2019-09-19] MEDS: SENNA 8.6 MG TAB PO SCH (20:03)
[2019-09-19] MEDS: ASPIRIN 81 MG ECTAB PO SCH (20:04)
[2019-09-19] MEDS: ATENOLOL 50 MG TABLET PO SCH (20:04)
--- NOTE | 2019-09-19 22:01 | Hospitalist Progress Note ---
Date of Service September 19, 2019 Assessment & Plan (1) Pyelonephritis: Suspected in setting of complicated UTI / catheter-associated UTI (self- caths at home). back pain resolved. clinically stable. blood cx's negative. Urine cx w MDR enterobacter. Change imipenem to ertapenem. Plan at least 10 days of Rx given the possible kidney involvement. Consider MARYANN to r/o prostatitis. (2) Recurrent UTI: due to neurogenic bladder and self-cathing. takes rotating abx at home - resume these after course of ertapenem is complete. (3) Multiple sclerosis: Continue home Amantadine 100 mg p.o. twice daily and glatiramer 3 days each week (4) HTN (hypertension): Continue nifedipine 60 mg p.o. daily and atenolol 50 mg p.o. nightly (5) Proctocolitis: CT abd/pelvis with such at admission but NO clinical symptoms - no rectal pain, no blood in stool, no pelvic pain, etc. plan to perform MARYANN prior to discharge (6) GERD (gastroesophageal reflux disease): Continue omeprazole 20 mg p.o. daily (7) Neurogenic bladder: 2nd to MS cont intermittent I/O cathing as usual (8) Chronic kidney disease, stage III (moderate): Cr close to baseline in setting of recent acute kidney injury repeat BMP am (9) Acute kidney injury: 2nd to dehydration and recent UTI/pyelo improving BMP am (10) DVT prophylaxis: add heparin BID tomorrow (11) Discharge planning issues: cont PT/OT auth for [facility] pending likely d/c next 1-2 days Subjective patient resting comfortably in bed during the visit. denies any pain. no mental status changes (has had such in setting of UTI in past). at bedside - she is pleased with how he is doing. they are still wanting [facility] for rehab post-d/c. he continues to have nursing staff perform intermittent cathing w/o issue. denies any complaints. appetite fair. tele normal overnight. denies any rectal pain. with last bowel movement had NO pain. Review of Systems Constitutional: no fever and no chills Respiratory: no dyspnea Cardiovascular: no chest pain Gastrointestinal: no abdominal pain, no nausea, no vomiting and no diarrhea/loose stools Physical Exam Constitutional: well developed and well nourished; no acute distress and no altered mental status ENMT: external ear and nose normal, oropharynx normal Respiratory: normal respiratory effort, lungs clear to auscultation Cardiovascular: Rate/Rhythm: regular rate and regular rhythm Heart Sounds: normal S1 and normal S2; no murmur Vessels: posterior tibial pulses present and dorsalis pedis pulses present; no JVD Extremities: no edema Gastrointestinal (Abdomen): normal bowel sounds, soft, nontender, no hepatosplenomegaly Percussion/Palpation: abdomen nontender (no flank tenderness to palpation) Neurologic: foot drop b/l?? strength in legs otherwise 5/5 bilaterally Psychiatric: A+Ox3, euthymic affect Results & Data Vital Signs (Past 12 Hours) Vital Signs Temp Pulse Pulse Resp BP BP Pulse Ox 09/19/19 19:37 36.8 C 74 18 135/76 93 09/19/19 15:28 36.6 C 67 18 129/69 91 09/19/19 14:58 65 09/19/19 12:31 36.7 C 67 18 121/69 95 Laboratory Results Laboratory Results - last 24 hr 09/19/19 09/19/19 07:03 07:03 WBC 6.27 RBC 4.06 L Hgb 12.7 L Hct 37.5 L MCV 92.4 MCH 31.3 MCHC 33.9 RDW Std Deviation 44.8 RDW Coeff of Valorie 13.3 Plt Count 158 MPV 9.6 Immature Gran % (Auto) 0.6 Neut % (Auto) 58.9 Lymph % (Auto) 23.3 [place] % (Auto) 13.2 Eos % (Auto) 3.7 Baso % (Auto) 0.3 Immature Gran # (Auto) 0.04 H Neut # (Auto) 3.69 Lymph # (Auto) 1.46 [place] # (Auto) 0.83 H Eos # (Auto) 0.23 Baso # (Auto) 0.02 Sodium 135 L Potassium 3.8 Chloride 105 Carbon Dioxide 24 Anion Gap 6.0 BUN 20 H Creatinine 1.45 H Est Cr Clr Drug Dosing 49.7 Est GFR ( Amer) 55.8 Est GFR (Non-Af Amer) 48.1 BUN/Creatinine Ratio 13.6 Glucose 121 H Calcium 9.2 Total Bilirubin 0.4 AST 17 ALT 18 Alkaline Phosphatase 82 Total Protein 7.0 Albumin 2.6 L Globulin 4.4 H Albumin/Globulin Ratio 0.6 L PG Care Time/CCT Total # of Minutes Spent Total Time Spent with Patient: Total time spent is greater than 50% in coordination of care (as documented) at patient's floor/unit and/or counseling patient: Coding Level of Care Code 51246 Subseq Hosp Care Lvl 2 Diagnoses Pyelonephritis N12 Recurrent UTI N39.0 Multiple sclerosis G35 HTN (hypertension) I10 Proctocolitis K52.9 GERD (gastroesophageal reflux disease) K21.9 Neurogenic bladder N31.9 Chronic kidney disease, stage III (moderate) N18.3 Acute kidney injury N17.9 DVT prophylaxis Z29.9 Discharge planning issues Z02.9
[2019-09-20 07:45] LABS: BUN Creatinine Ratio 14.4 (10-20); Calcium 9.5 mg/dl (8.5-10.1); Est GFR (African American) 63.6; Est GFR (Non-African American) 54.9; Potassium 3.7 mmol/L (3.5-5.1)
[2019-09-20] MEDS: VESICARE~ORDER AWAITING ACTION SCH ×3 (07:45→23:30)
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
[2019-09-20] MEDS: DOCUSATE SODIUM 100 MG CAP PO SCH (08:51)
[2019-09-20] MEDS: NIFEdipine EXTENDED REL 30 MG TABCR PO SCH (08:51)
[2019-09-20] MEDS: LACTOBACILLUS ACIDOPHILUS (FLORANEX) TAB PO SCH ×2 (08:51→20:58)
[2019-09-20] MEDS: GABAPENTIN 400 MG CAP PO SCH ×2 (08:51→20:58)
[2019-09-20] MEDS: AMANTADINE HCL 100 MG CAPSULE PO SCH (08:52)
[2019-09-20] MEDS: ASCORBIC ACID 500 MG TAB PO SCH (08:52)
[2019-09-20] MEDS: PANTOprazole 40 MG TAB PO SCH (08:52)
[2019-09-20] MEDS: OMEGA-3 (PURIFIED FISH OIL) 1 GM CAP PO SCH ×2 (08:52→20:57)
[2019-09-20] MEDS: VITAMIN B COMPLEX TAB PO SCH (08:53)
[2019-09-20] MEDS: OXYCODONE HCL IR 5 MG TAB (IMMEDIATE RELEASE) PO SCH (08:57)
[2019-09-20] MEDS: GLATIRAMER ACETATE SQ SCH (09:18)
[2019-09-20] MEDS ORDERED: predniSONE 10 MG TABLET PO ONE (10:34)
[2019-09-20] MEDS ORDERED: COLCHICINE 0.6 MG TAB PO ONE (10:34)
[2019-09-20] MEDS: ERTAPENEM SODIUM 1,000 MG in SODIUM CHLORIDE 0.9% 50 ML IV SCH (11:34)
--- NOTE | 2019-09-20 13:24 | Discharge Summary ---
Date of Service date of admission - September 16, 2019 date of discharge - September 20, 2019 Admission HPI Per Admitting Provider The patient is a 69 years old male with past medical history of multiple sclerosis, hypertension, depression, recurrent urinary tract infection, lung nodule, and neurogenic bladder necessitating self-cathing at home who presents to the emergency room with a complaint of dysuria, frequency and urgency that started yesterday. The patient states that his urine has been cloudy during this time. He states that he self catheterizes, and states that during this time every time he catheterize himself he has noticed a white substance in his urine. The patient reports back pain and leg weakness for the past 2 days. Patient's states that patient has had intermittent fevers and states that he has been taking Tylenol for this. Patient denies headache, chest pain, shortness of breath, abdominal pain, syncope or near syncope, hematuria or melena. Patient states that for urinary tract infection he is currently on Ceftin. He takes intermittent amoxicillin for 2 weeks and then Cipro for 2 weeks for UTI prophylaxis. Labs are reviewed WBC is 9.32, hemoglobin 14, hematocrit 41.8, platelets 114, sodium 136, potassium 3.6, chloride 102, carbon dioxide 30, anion gap 4, BUN 30, creatinine 1.98 and baseline is 1.37, GFR of 33, glucose 136, calcium 9.2,, AST 18, ALT 23, alkaline phosphatase 112, C- reactive protein 17, BNP 442, total protein 7.9, albumin 3.4, globulin 4.5, procalcitonin 0.46, TSH 0.632. Urine is turbid with 1+ protein, 2+ blood, positive nitrates, 3+ positive leukocyte esterase urine WBCs over 30, epithelial cells 10-20, urine bacteria 4+, influenza A and B are all negative. CT abdomen pelvis shows prostatomegaly with market irregular urinary bladder wall thickening is new from the 2018 exam. This finding may be secondary to chronic bladder outlet obstruction, however cystitis or bladder wall neoplasm are differential consideration. Correlation can be made with urine analysis and cystoscopy. This result is mild dilation of the bilateral ureters without significant hydronephrosis or ureteral calculi. Mild wall thickening of the distal sigmoid and rectum. Correlate clinically to exclude proctocolitis. No bowel obstruction. Normal appendix. Small hiatal hernia. Principal Diagnosis catheter-associated/complicated UTI Discharge Exam Constitutional well developed and well nourished; no acute distress and no altered mental status ENMT external ear and nose normal, oropharynx normal Respiratory normal respiratory effort, lungs clear to auscultation Cardiovascular Rate/Rhythm: regular rate and regular rhythm Heart Sounds: normal S1 and normal S2; no murmur Vessels: posterior tibial pulses present and dorsalis pedis pulses present; no JVD Extremities: no edema Gastrointestinal (Abdomen) normal bowel sounds, soft, nontender, no hepatosplenomegaly Percussion/Palpation: abdomen nontender (no flank tenderness to palpation) Rectal Exam: no rectal mass, no hemorrhoids, no fecal impaction and no rectal tenderness prostate enlarged but not boggy and not tender Musculoskeletal left first MTP joint - resolving podagra; much less tenderness to palpation of this joint relative to prior exam; much less swelling Neurologic foot drop - right; ? foot drop on left Psychiatric A+Ox3, euthymic affect Discharge Data Allergies Allergy/AdvReac Type Severity Reaction Status Date / Time Sulfa (Sulfonamide Allergy Intermediate RASH Verified 09/26/19 13:10 Antibiotics) oxycodone AdvReac Mild "FUNNY Verified 09/26/19 13:10 FEELINGS" torsemide AdvReac Verified 09/26/19 13:10 Consultations 1. Infectious Diseases 2. Urology 3. PT, OT Procedures Performed u/s-guided peripherally inserted IV (by IV team) Ordered Studies CT abd/pelvis - IMPRESSION: 1. Prostamegaly with marked irregular urinary bladder wall thickening is new from the 2018 exam. This finding may be secondary to chronic bladder outlet obstruction, however cystitis or bladder wall neoplasm are differential considerations. Correlation can be made with urinalysis and cystoscopy. This results in mild dilation of the bilateral ureters without significant hydronephrosis or ureteral calculi. 2. Mild wall thickening of the distal sigmoid and rectum. Correlate clinically to exclude proctocolitis. 3. No bowel obstruction. 4. Normal appendix. 5. Small hiatal hernia. Hospital Course (1) Complicated UTI (urinary tract infection): This was a walters-catheter associated UTI as patient self-caths at home in the setting of chronic neurogenic bladder from his MS. Urine culture with MDR enterobacter. Received ertapenem/imipenem while hospitalized. Will complete 10-day course of IV antibiotics for enterobacter. Thus, 4 additional doses of once-daily ertapenem will be needed post-discharge. A peripherally-inserted u/s-guided IV was placed for this purpose, and he will report to the [facility]U at [facility] on 09/21, 09/22, 09/23, and 09/24 for the IV ertapenem. (2) Pyelonephritis: Suspected in setting of complicated UTI / catheter-associated UTI (self- caths at home) as he reported back/flank discomfort upon presentation. blood cx's remained negative while here. Urine cx with MDR enterobacter. Plan 10 days of total Rx given the possible kidney involvement. MARYANN w/o prostatitis. (3) Recurrent UTI: Due to neurogenic bladder and self-cathing. Takes rotating antibiotics at home for prophylaxis - managed by [facility] Inf ectious Disease clinic. Will resume these after course of ertapenem is complete. (4) Multiple sclerosis: Continue home Amantadine 100 mg p.o. twice daily and glatiramer 3 days each week (5) HTN (hypertension): Continue nifedipine 60 mg p.o. daily and atenolol 50 mg p.o. nightly Controlled during the hospitalization (6) Proctocolitis: CT abd/pelvis with question of such at admission but NO clinical symptoms - no rectal pain, no blood in stool, no pelvic pain, etc. Digital rectal exam DID NOT REVEAL evidence of proctitis; thus, CT findings may have been artifactual. (7) GERD (gastroesophageal reflux disease): Continue omeprazole 20 mg p.o. daily (8) Neurogenic bladder: 2nd to MS cont intermittent I/O cathing as usual (9) Chronic kidney disease, stage III (moderate): Cr at baseline of 1.3 at discharge (10) Acute kidney injury: 2nd to dehydration and UTI/pyelonephritis resolved; peak Cr was 2 Cr 1.3 on day of discharge (11) Podagra: left foot received prednisone and colchicine for such with improved symptoms and signs will complete prednisone 10mg daily for additional 5 days after discharge gout attack likely precipitated by physical stress of UTI/illness and the acute kidney injury gave hand-out on diet and link to gout explained to patient that if were to get additional gout attacks in the future he would be allopurinol candidate (12) Discharge planning issues: PT/OT both advised inpatient rehab. However, the pt's insurance DENIED [facility]. I performed [id number] with back office medical assistant at insurance; back office medical assistant still did not approve [facility]. A referral was then made to a local SNF for rehab. While awaiting authorization for SNF the pt and his changed their minds about rehab entirely and opted to return home with outpatient PT/OT. Total Time Total Time Spent Total Time Spent (In Minutes): 40 Total Time Includes: Examination of the Patient, Discharge Planning and Medication Reconciliation Discharge Plan Discharge Items Patient Disposition: Home - Self-Care Reason For Visit: GENERALIZED WEAKNESS, UTI Discharge Diagnosis: Multidrug resistant enterobacter UTI with possible pyelonephritis Activity: Resume your previous activity Non-emergency contact: Primary Care Provider Call non-emergency contact if: you have any medication questions, your symptoms worsen, your pain is not controlled, your pain is worsening and your temperature is above 101 Follow-up/Referrals: Ynes Gloria MD [Primary Care Provider] - (see Dr Gloria within 1 week ) Diet: Heart Healthy Addtl Attending Provider Instructions: You were treated for urinary tract infection and possible pyelonephritis (kidney infection) with IV antibiotics. You improved with antibiotics, IV fluids, and time. Repeat urine culture on 09/18/2019 was negative suggesting the UTI is clearing nicely. You tolerated the antibiotics well. There was some question of "proctocolitis" on CAT scan at time of admission. This is when your rectum is inflamed. However, you have had no symptoms of such and your rectal exam on 09/20/19 did not have findings to suggest that diagnosis either. You had acute kidney injury in setting of the UTI -- this is resolved. Discharge Creatinine level is 1.3. You also developed left great toe gout. Prednisone and colchicine improved your pain and swelling in the left great toe. Please complete 5 more days of prednisone -- start this tomorrow on 09/22/2019. You will need to report to the MTU (medical treatment unit) at [facility] on a daily basis for 4 more days starting 09/22/2019. You will receive a shot of IV antibiotic each of those 4 days for your UTI. Follow-up -- see Dr Gloria within 1 week Please also go to outpatient PT at [facility] as discussed Ok to shower with your IV in place but keep it clean, dry, and covered during the shower. No tub bath until the IV is out next week. Return to [facility] if -- * you have fevers over 100.5 degrees * you develop severe diarrhea * you develop confusion * you develop severe back or abdominal pain * any other concerns Pending Studies at Discharge: No Stand-Alone Forms: My [facility], Smoking Cessation Medications and DC Order Prescriptions: Continued turmeric root extract 500 mg capsule 500 mg PO DAILY RF: 0 omeprazole 20 mg capsule,delayed release(DR/EC) 20 mg PO DAILY Qty: 90 RF: 1 gabapentin 400 mg capsule 400 mg PO BID Qty: 180 RF: 1 glatiramer [Copaxone] 40 mg/mL syringe 40 mg SUBCUT [id number] Qty: 12 RF: 5 nifedipine [Adalat CC] 60 mg tablet extended release 60 mg PO DAILY Qty: 90 RF: 3 amantadine HCl 100 mg tablet 100 mg PO BID Qty: 180 RF: 1 solifenacin [Vesicare] 10 mg tablet 10 mg PO DAILY Qty: 90 RF: 3 ethacrynic acid [Edecrin] 25 mg tablet 50 mg PO BID PRN (Reason: LEG SWELLING) RF: 0 ascorbic acid (vitamin C) 500 mg Tablet 500 mg PO QAM RF: 0 atenolol 50 mg Tablet 50 mg PO HS RF: 0 docusate sodium 100 mg Capsule 100 mg PO QAM RF: 0 coenzyme Q10 100 mg Tablet 100 mg PO QAM RF: 0 sennosides [senna] 8.6 mg Tablet 1 tab PO HS RF: 0 acetaminophen [Tylenol Extra Strength] 500 mg tablet 1,000 mg PO Q6H PRN (Reason: pain) Qty: 30 RF: 0 aspirin [Aspirin Childrens] 81 mg Tablet,Chewable 81 mg PO HS RF: 0 Lactobacillus acidophilus [Acidophilus] Capsule 2 cap PO BID RF: 0 vitamin B complex Tablet 1 tab PO DAILY RF: 0 Glucosamine Chondroitin 550-30-1 mg Capsule 2 cap PO DAILY RF: 0 No Action omega-3 fatty acids [Fish Oil Concentrate] 1,000 mg capsule 1,000 mg PO DAILY RF: 0 Discharge Orders: Discharge Order (Routine); Ordered 09/21/19 Ordered By: Rey Berman/Other Patient Handouts: Gout, Gout Eat Prevent Admission Data Admit Date/Time: 09/16/19 20:27 Attending Provider: Rey Link Admit Provider: Federica Maldonado Primary Care Provider: Ynes Gloria Other Providers: Federica Maldonado ; Berta Rivero ; Mani Peacock I. ; Keyur Morillo at [place] ; [facility] Other Interventions: Discharge Summary Assessment (RN) Last Done: 09/21/19 17:02 DC Date/Time DO NOT enter until pt leaves facility: 09/21/19 18:26 Coding Level of Care Code D/C Day Management >30 mins Diagnoses Complicated UTI (urinary tract infection) N39.0 Pyelonephritis N12 Recurrent UTI N39.0 Multiple sclerosis G35 HTN (hypertension) I10 Proctocolitis K52.9 GERD (gastroesophageal reflux disease) K21.9 Neurogenic bladder N31.9 Chronic kidney disease, stage III (moderate) N18.3 Acute kidney injury N17.9 Podagra M10.9 Discharge planning issues Z02.9
[2019-09-20] MEDS: ASPIRIN 81 MG ECTAB PO SCH (20:57)
[2019-09-20] MEDS: SENNA 8.6 MG TAB PO SCH (20:57)
[2019-09-20] MEDS: ATENOLOL 50 MG TABLET PO SCH (20:58)
--- NOTE | 2019-09-20 21:27 | Hospitalist Progress Note ---
Date of Service September 20, 2019 Assessment & Plan (1) Pyelonephritis: Suspected in setting of complicated UTI / catheter-associated UTI (self- caths at home). blood cx's negative. Urine cx w MDR enterobacter. Cont ertapenem. Day #4 of such. Plan 10 days of Rx given the possible kidney involvement. MARYANN w/o prostatitis. (2) Complicated UTI (urinary tract infection): walters-catheter associated UTI as patient self-caths at home 2nd to MDR enterobacter cont ertapenem x 10 days; day #4 of imipenem/ertapenem (3) Recurrent UTI: due to neurogenic bladder and self-cathing. takes rotating abx at home - resume these after course of ertapenem is complete. (4) Multiple sclerosis: Continue home Amantadine 100 mg p.o. twice daily and glatiramer 3 days each week (5) HTN (hypertension): Continue nifedipine 60 mg p.o. daily and atenolol 50 mg p.o. nightly (6) Proctocolitis: CT abd/pelvis with such at admission but NO clinical symptoms - no rectal pain, no blood in stool, no pelvic pain, etc. MARYANN today w/o evidence of proctitis (7) GERD (gastroesophageal reflux disease): Continue omeprazole 20 mg p.o. daily (8) Neurogenic bladder: 2nd to MS cont intermittent I/O cathing as usual (9) Chronic kidney disease, stage III (moderate): Cr at baseline today (10) Acute kidney injury: 2nd to dehydration and recent UTI/pyelo resolved Cr 1.3 today (11) Podagra: left foot prednisone 10mg x 1 now colchicine 0.6mg x 1 now then prednisone 10mg daily for another 5-6 days (12) DVT prophylaxis: add heparin BID (13) Discharge planning issues: cont PT/OT pt's insurance has DENIED [facility] I performed [id number] with medical management trainer at insurance; medical management trainer still did not approve [facility] thus, referral will need to be made to SNF thus, no discharge today attempted to call pt's - unable to connect w/ her by phone total time today due to [id number] phone call --- 40 minutes Subjective patient reading the morning newspaper during my visit. he feels well. appetite slowly improving. no back or abd pain. pt c/o left first toe pain and swelling "for 2-3 days". Review of Systems Constitutional: no fever, no chills, no fatigue and no anorexia Respiratory: no cough and no dyspnea Cardiovascular: no chest pain Gastrointestinal: no abdominal pain, no nausea and no vomiting Physical Exam Constitutional: well developed and well nourished; no acute distress and no altered mental status ENMT: external ear and nose normal, oropharynx normal Respiratory: normal respiratory effort, lungs clear to auscultation Cardiovascular: Rate/Rhythm: regular rate and regular rhythm Heart Sounds: normal S1 and normal S2; no murmur Vessels: posterior tibial pulses present and dorsalis pedis pulses present; no JVD Extremities: no edema Gastrointestinal (Abdomen): normal bowel sounds, soft, nontender, no hepatosplenomegaly Rectal Exam: no rectal mass, no hemorrhoids, no fecal impaction and no rectal tenderness prostate - enlarged but smooth; no tenderness; no bogginess Musculoskeletal: left foot - first MTP joint with erythema, tenderness and significant swelling c/w gout Psychiatric: A+Ox3, euthymic affect Results & Data ([facility]) Vital Signs (Past 12 Hours) Vital Signs Temp Pulse Pulse Pulse Resp BP Pulse Ox 09/20/19 19:00 36.7 C 62 18 135/70 96 09/20/19 15:16 63 09/20/19 15:15 36.6 C 61 17 127/72 93 09/20/19 11:51 36.4 C L 62 18 113/65 97 Laboratory Results Laboratory Results - last 24 hr 09/20/19 06:35 Sodium 137 Potassium 3.7 Chloride 106 Carbon Dioxide 24 Anion Gap 7.0 BUN 19 H Creatinine 1.30 Est Cr Clr Drug Dosing 55.0 Est GFR ( Amer) 63.6 Est GFR (Non-Af Amer) 54.9 BUN/Creatinine Ratio 14.4 Glucose 104 H Calcium 9.5 PG Care Time/CCT Total # of Minutes Spent Total Time Spent with Patient: Total time spent is greater than 50% in coordination of care (as documented) at patient's floor/unit and/or counseling patient: Coding Level of Care Code 30061 Subseq Hosp Care Lvl 3 Diagnoses Pyelonephritis N12 Complicated UTI (urinary tract infection) N39.0 Recurrent UTI N39.0 Multiple sclerosis G35 HTN (hypertension) I10 Proctocolitis K52.9 GERD (gastroesophageal reflux disease) K21.9 Neurogenic bladder N31.9 Chronic kidney disease, stage III (moderate) N18.3 Acute kidney injury N17.9 Podagra M10.9 DVT prophylaxis Z29.9 Discharge planning issues Z02.9
[2019-09-21] MEDS: VESICARE~ORDER AWAITING ACTION SCH ×2 (08:12→16:33)
[2019-09-21] MEDS: DOCUSATE SODIUM 100 MG CAP PO SCH (08:12)
[2019-09-21] MEDS: LACTOBACILLUS ACIDOPHILUS (FLORANEX) TAB PO SCH (08:13)
[2019-09-21] MEDS: GABAPENTIN 400 MG CAP PO SCH (08:13)
[2019-09-21] MEDS: NIFEdipine EXTENDED REL 30 MG TABCR PO SCH (08:13)
[2019-09-21] MEDS: PANTOprazole 40 MG TAB PO SCH (08:14)
[2019-09-21] MEDS: VITAMIN B COMPLEX TAB PO SCH (08:14)
[2019-09-21] MEDS: AMANTADINE HCL 100 MG CAPSULE PO SCH (08:14)
[2019-09-21] MEDS: OMEGA-3 (PURIFIED FISH OIL) 1 GM CAP PO SCH (08:14)
[2019-09-21] MEDS: ASCORBIC ACID 500 MG TAB PO SCH (08:14)
[2019-09-21] MEDS: OXYCODONE HCL IR 5 MG TAB (IMMEDIATE RELEASE) PO SCH (08:25)
[2019-09-21] MEDS ORDERED: predniSONE 10 MG TABLET PO SCH (09:00)
[2019-09-21] MEDS ORDERED: HEPARIN SOD 5,000 UNIT/0.5 ML VIAL SQ SCH (09:00)
[2019-09-21] MEDS: ERTAPENEM SODIUM 1,000 MG in SODIUM CHLORIDE 0.9% 50 ML IV SCH (11:50)
[2019-09-21] MEDS ORDERED: AMANTADINE HCL 100 MG CAPSULE PO SCH (21:00)
== END 2019-09-21 18:26 | disposition home or self-care (01) | DRG 699 ==
LOC: ED 14:25 → 2N 20:27 → SUATTDRO 20:27 → 2N 21:40

== ENCOUNTER 2020-05-14 18:59 | Observation (INO) ==
[2020-05-14 21:06] LABS: Eosinophils # (auto) 0.26 K/uL (0-0.5); Eosinophils % (auto) 3.8 %; Hematocrit (blood only) 43.8 % (42-52); Hemoglobin 15.2 g/dL (14.0-18.0); Immature Granulocytes # (auto) 0.05 K/uL (0.00-0.02); Immature Granulocytes % (auto) 0.7 %; Lymphocytes # (auto) 2.39 K/uL (1.2-3.4); Mean Corpuscular Hemoglobin 31.9 pg (25-34); Mean Corpuscular Hgb Conc 34.7 g/dL (32-36); Mean Platelet Volume 9.3 fL (7.4-10.4); Monocytes # (auto) 0.66 K/uL (0.11-0.59); Monocytes % (auto) 9.7 %; Neutrophils # (auto) 3.46 K/uL (1.4-6.5); Neutrophils % (auto) 50.8 %; Platelet Count 189 K/uL (130-400); RDW Standard Deviation 43.6 fL (36.4-46.3); Red Blood Count 4.76 M/uL (4.7-6.1); White Blood Count 6.82 K/uL (4.8-10.8)
[2020-05-14 21:11] LABS: Appearance Urine Turbid (Clear); Bacteria Urine Automated 4+ (Negative); Bilirubin Urine Negative (Negative); Blood Urine 2+ (Negative); Color Urine Yellow; Epithelial Cell Urine Auto >30 /lpf (0-5); Glucose Urine UA Negative (Negative); Ketones Urine Negative (Negative); Leukocyte Esterase Urine 3+ (Negative); Nitrite Urine Negative (Negative); Protein Urine 1+ (Negative); RBC Urine Automated 0-4 /hpf (0-4); Urobilinogen Urine Negative (Negative); WBC Urine Automated >30 /hpf (0-5)
[2020-05-14 21:23] LABS: Albumin Level 3.8 gm/dl (3.4-5.0); BUN Creatinine Ratio 18.2 (10-20); Calcium 9.5 mg/dl (8.5-10.1); Creatinine Clr Calc Pharmacy 40.1 ml/min; Est GFR (African American) 43.5; Est GFR (Non-African American) 37.5; Potassium 3.8 mmol/L (3.5-5.1)
[2020-05-14 21:33] LABS: Albumin Globulin Ratio 0.9 (0.9-2); Bilirubin,Total 0.5 mg/dl (0.2-1); Globulin 4.3 gm/dl (2.5-4.0); Thyroid Stimulating Hormone 1.61 uIu/ml (0.300-4.500); Total Protein 8.1 gm/dl (6.4-8.2)
[2020-05-14 21:43] LABS: Cast Urine Automated 0 /lpf (0-5)
[2020-05-14] MEDS ORDERED: CEFEPIME 2,000 MG/20 ML VIAL IV STA (22:12)
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
[2020-05-15] MEDS ORDERED: SODIUM CHLORIDE 0.9% 1000ML 1,000 ML IV SCH (00:21)
[2020-05-15] MEDS ORDERED: NON-FORMULARY MEDICATION (Acetaminophen 650 MG) PO PRN (00:21)
[2020-05-15] MEDS ORDERED: DOCUSATE SODIUM 100 MG CAP PO PRN (00:21)
[2020-05-15] MEDS ORDERED: ACETAMINOPHEN 325 MG TAB PO PRN (00:21)
[2020-05-15] MEDS ORDERED: CEFEPIME 2,000 MG in SYRINGE 0 ML IV SCH (01:00)
[2020-05-15] MEDS: VESICARE~ORDER AWAITING ACTION SCH ×2 (01:36→11:10)
--- NOTE | 2020-05-15 08:11 | XRay Report ---
XR chest 1V portable HISTORY: weakness COMPARISON: Chest CT 04/02/2020. FINDINGS: Diffuse interstitial thickening, unchanged. No new focal lung consolidations to suggest pne umonia. No evidence for pulmonary edema. Spinal electrodes are noted within the lower thoracic region . The heart is mildly enlarged. Old, healed left mid shaft clavicle fracture. No pleural effusions. N o pneumothorax. IMPRESSION: Stable mild cardiomegaly and chronic interstitial thickening. ACT 112: Negative or not required by law. Electronically signed by: Sami Barnes M.D. 05/15/2020 8:09 AM
[2020-05-15] MEDS ORDERED: AMANTADINE HCL 100 MG CAPSULE PO SCH (09:00)
[2020-05-15] MEDS ORDERED: GABAPENTIN 400 MG CAP PO SCH (09:00)
[2020-05-15] MEDS ORDERED: NON-FORMULARY MEDICATION (Coenzyme Q10 100 MG) PO SCH (09:00)
[2020-05-15] MEDS ORDERED: NIFEdipine EXTENDED REL 30 MG TABCR PO SCH (09:00)
[2020-05-15] MEDS ORDERED: ASPIRIN 81 MG ECTAB PO SCH (09:00)
[2020-05-15] MEDS ORDERED: PANTOprazole 40 MG TAB PO SCH (09:00)
[2020-05-15] MEDS ORDERED: ERTAPENEM SODIUM 1,000 MG in SODIUM CHLORIDE 0.9% 50 ML IV SCH (14:00)
--- NOTE | 2020-05-15 15:46 | Discharge Summary ---
Date of Service date of admission - May 14, 2020 date of discharge - May 15, 2020 Admission HPI Per Admitting Provider 69yo C male with history of MS, frequent UTIs. Patient self-catheterizes 4-5 times daily. He was seen by his PCP for possible UTI on 05/02/20 - urine culture positive at that time for >100,000 CFU of Klebsiella PNA, resistant to PO agents (Sn to Cefepime, Gentamicin, Meropenem, Nitrofurantoin and Zosyn). Patient has been instructed to come to the ER for hospital admission for PICC line placement and initiation of IV antibiotics. Patient follows with Derek VICTOR He is afebrile, HD stable, non-toxic in appearance. He denies fevers/chills/dysuria/diarrhea/constipation. He has some weakness and fatigue as well as constipation, otherwise, no complaints. Principal Diagnosis complicated / walters-catheter associated UTI Discharge Exam Constitutional well developed and well nourished; no acute distress and no altered mental status ENMT external ear and nose normal, oropharynx normal Respiratory normal respiratory effort, lungs clear to auscultation Cardiovascular Rate/Rhythm: regular rate and regular rhythm Heart Sounds: normal S1 and normal S2; no murmur Vessels: + bounding carotid pulses and abdominal aortic pulse present; no JVD Extremities: no edema Gastrointestinal (Abdomen) normal bowel sounds, soft, nontender, no hepatosplenomegaly MARYANN - prostate mildly enlarged but smooth, no nodules, not boggy, not tender. Psychiatric A+Ox3, euthymic affect Discharge Data Allergies Allergy/AdvReac Type Severity Reaction Status Date / Time Sulfa (Sulfonamide Allergy Intermediate RASH Verified 05/18/20 09:14 Antibiotics) oxycodone AdvReac Mild "FUNNY Verified 05/18/20 09:14 FEELINGS" torsemide AdvReac . Verified 05/18/20 09:14 Consultations [facility] Infectious Diseases Hospital Course (1) Complicated urinary tract infection: UTI 2nd to intermittent self-catheterization of bladder, a complication of care. Outpatient urine culture from 05/02/20 grew ESBL klebsiella pneumoniae, sensitive to ertapenem. Repeat urine culture from 05/14/20 also grew ESBL klebsiella pneumoniae, still sensitive to ertapenem. Received cefepime for 24 hours, then was changed to once daily ertapenem while here. Underwent telehealth consult with Derek VICTOR who advised a total of 14 days of IV ertapenem. u/s-guided peripheral IV was placed, and patient will complete 13 more days of IV ertapenem as an outpatient at the Medical Treatment [facility] at [facility]. Following completion of his ertapenem course Derek VICTOR advises once-weekly use of fosfomycin 3 grams by mouth for UTI prophylaxis. (2) Intermittent self-catheterization of bladder: 2nd to neurogenic bladder from multiple sclerosis. (3) HTN (hypertension): Continue atenolol and nifedipine. Controlled. (4) Chronic kidney disease, stage III (moderate): Baseline Cr about 1.7/1.8. Cr while hospitalized 1.78. Baseline CrCl 40s/50.s (5) Multiple sclerosis: (6) Neurogenic bladder: Total Time Total Time Spent Total Time Spent (In Minutes): 35 Total Time Includes: Examination of the Patient, Discharge Planning, Medication Reconciliation and Communication With Other Providers Discharge Plan Discharge Items Patient Disposition: Home - Self-Care Reason For Visit: Urinary Tract Infection Discharge Diagnosis: Urinary Tract Infection due to organism that requires IV antibiotics Activity: Resume your previous activity Non-emergency contact: Primary Care Provider Call non-emergency contact if: you have any medication questions, your symptoms worsen and you have a fever Follow-up/Referrals: Ynes Gloria MD [Primary Care Provider] - 05/22/20 11:30 am (see Dr Gloria within 1 week to ensure you are recovering from your urinary tract infection) Diet: Heart Healthy Addtl Attending Provider Instructions: You were admitted due to multi-drug resistant urinary tract infection that was diagnosed as an outpatient. You underwent a teleconsult with [facility] Infect[facility] Diseases who recommended 14 days of IV ertapenem antibiotic. Our IV team placed a special IV in your arm, and you received your first dose of IV ertapenem today. You will need 13 more days of IV ertapenem starting 05/16/2020. Please report to the MTU (Medical Treatment Unit) at [facility] on 05/16/2020 as scheduled for your next dose of antibiotic. Please keep your IV clean and dry. OK to shower but it must be wrapped/covered. Do not take a bath or swim with the IV. Continue on your usual probiotics and eat extra yogurt over the next 2 weeks to help prevent diarrhea. We have sent another urine culture and it is pending at this time. I will call you if we have to make any changes to your antibiotics. After your 2 week course of IV ertapenem is complete the infection doctor at [facility] is recommending a medication called "fosfomycin." It is an oral antibiotic. You would take 3 grams weekly by mouth as a preventive medication against UTIs. Please speak to Dr Gloria about a prescription for this medication. Dr Early from [facility] Infect[facility] Disease can also prescribe this for you. Again please speak to either physician regarding this medication. Return to [facility] ER if -- * you have fever over 100 degrees * you have severe diarrhea * you lose your IV site * any other concerns Pending Studies at Discharge: Yes Studies:: repeat urine culture Stand-Alone Forms: My [facility], Smoking Cessation Medications and DC Order Prescriptions: New ertapenem 1 gram recon soln 1 g IV DAILY 13 Days Qty: 13 RF: 0 Continued amantadine HCl 100 mg tablet 100 mg PO BID Qty: 180 RF: 1 omeprazole 20 mg capsule,delayed release(DR/EC) 20 mg PO DAILY Qty: 90 RF: 1 gabapentin 400 mg capsule 400 mg PO BID Qty: 180 RF: 3 solifenacin [Vesicare] 10 mg tablet 10 mg PO DAILY Qty: 90 RF: 3 ethacrynic acid [Edecrin] 25 mg tablet 50 mg PO BID PRN (Reason: Leg Swelling) RF: 0 atenolol 25 mg tablet 25 mg PO HS Qty: 90 RF: 3 omega-3 fatty acids [Fish Oil Concentrate] 1,000 mg capsule 2,000 mg PO DAILY RF: 0 ascorbic acid (vitamin C) 500 mg Tablet 500 mg PO QAM RF: 0 docusate sodium 100 mg Capsule 100 mg PO QAM PRN (Reason: Constipation) RF: 0 coenzyme Q10 100 mg Tablet 100 mg PO QAM RF: 0 Glucosamine Chondroitin 550-30-1 mg Capsule 2 cap PO DAILY RF: 0 aspirin [Aspirin Low Dose] 81 mg Tablet,Delayed Release (Dr/Ec) 81 mg PO DAILY RF: 0 nifedipine [Adalat CC] 60 mg tablet extended release 60 mg PO QAM RF: 0 acetaminophen 650 mg Tablet Extended Release 650 mg PO Q12H PRN (Reason: Pain) RF: 0 Discharge Orders: Discharge Order (Routine); Ordered 05/15/20 Ordered By: Rey Link Admission Data Admit Date/Time: 05/14/20 22:57 Attending Provider: Rey Link Admit Provider: Haley Cartwright Primary Care Provider: Ynes Gloria Other Providers: Haley Cartwright ; Aaron Lopez ; Candice Vaughn ; Han Cartwright I. ; Brad Maurice II ; Bonny Perez ; Carlos Swartz Other Interventions: Discharge Summary Assessment (RN) Last Done: 05/15/20 15:02 Coding Level of Care Code D/C Day Management >30 mins Diagnoses Complicated urinary tract infection N39.0 Intermittent self-catheterization of bladder Z78.9 HTN (hypertension) I10 Hypertension type: essential hypertension Chronic kidney disease, stage III (moderate) N18.3 Multiple sclerosis G35 Neurogenic bladder N31.9
[2020-05-15] MEDS ORDERED: ATENOLOL 25 MG TABLET PO SCH (21:00)
--- NOTE | 2020-05-16 12:25 | Electrocardiogram Report ---
Test Reason : Blood Pressure : / mmHG Vent. Rate : 059 BPM Atrial Rate : 059 BPM P-R Int : 214 ms QRS Dur : 090 ms QT Int : 428 ms P-R-T Axes : 020 005 013 degrees QTc Int : 423 ms Sinus bradycardia with 1st degree A-V block Inferior infarct , age undetermined Abnormal ECG When compared with ECG of 06-MAY-2018 21:19, Vent. rate has decreased BY 41 BPM Confirmed by Gordon Mills ([id number]) on 05/16/2020 12:24:56 PM Referred By: Ynes Gloria Confirmed By:Gordon Mills
== END 2020-05-15 16:35 | disposition home or self-care (01) ==
LOC: ED 18:59 → 3N 22:57 → SUATTDRO 22:57 → INTOOBSV 22:57 → 3N 05-15 00:18

== ENCOUNTER 2020-06-04 10:09 | Observation (INO) ==
[2020-06-04] MEDS ORDERED: ONDANSETRON INJ 2 MG/ML 2 ML VIAL IV PRN (12:47)
[2020-06-04] MEDS ORDERED: ACETAMINOPHEN 325 MG TAB PO PRN (12:47)
[2020-06-04] MEDS ORDERED: DAPTOmycin 400 MG in SYRINGE 0 ML IV ONE (13:30)
[2020-06-04 14:29] LABS: Basophils # (auto) 0.01 K/uL (0-0.2); Basophils % (auto) 0.2 %; Eosinophils # (auto) 0.22 K/uL (0-0.5); Eosinophils % (auto) 3.3 %; Hematocrit (blood only) 43.7 % (42-52); Hemoglobin 15.1 g/dL (14.0-18.0); Immature Granulocytes # (auto) 0.02 K/uL (0.00-0.02); Immature Granulocytes % (auto) 0.3 %; Lymphocytes # (auto) 1.98 K/uL (1.2-3.4); Lymphocytes % (auto) 29.8 %; Mean Corpuscular Hemoglobin 32.5 pg (25-34); Mean Corpuscular Hgb Conc 34.6 g/dL (32-36); Mean Platelet Volume 10.1 fL (7.4-10.4); Monocytes # (auto) 0.83 K/uL (0.11-0.59); Monocytes % (auto) 12.5 %; Neutrophils # (auto) 3.59 K/uL (1.4-6.5); Neutrophils % (auto) 53.9 %; Platelet Count 188 K/uL (130-400); RDW Coefficient of Variation 13.1 % (11.5-14.5); RDW Standard Deviation 44.7 fL (36.4-46.3); Red Blood Count 4.65 M/uL (4.7-6.1); White Blood Count 6.65 K/uL (4.8-10.8)
[2020-06-04] MEDS ORDERED: Nursing to Pharmacy Communication SCH (14:45)
[2020-06-04 14:55] LABS: Potassium 3.6 mmol/L (3.5-5.1)
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
--- NOTE | 2020-06-04 15:25 | Discharge Summary ---
Date of Service June 04, 2020 Admission HPI Per Admitting Provider 69yo M w/ hx of MS and urinary retention who presents with positive urine culture growing Enterococcus. The patient notes he had just finished ertapenem for a prior ESBL Klebsiella. His reports she "knows" when he has a UTI due to him having less energy and being more irritable. He and his asked that he have his urine re-tested toward the end of his prior antibiotic regimen, which grew Enterococcus sens itive to daptomycin. At present, he feels well. His urine culture from 05/30 is growing Enterococcus. He has no dysuria. Feels slightly tired. Otherwise, no suprapubic pain, no fevers/chills at home. Has been straightcathing without any issues. Principal Diagnosis Multi-resistant Enterococcus UTI Discharge Exam Constitutional WD/WN, vitals as above Eyes EOM intact bilaterally; no conjunctival abnormality ENMT external ear and nose normal, oropharynx normal Neck trachea midline, no thyromegaly normal visual inspection Respiratory normal respiratory effort, lungs clear to auscultation no respiratory distress Cardiovascular RRR, no murmur, no edema Gastrointestinal (Abdomen) Inspection/Auscultation: abdomen normal to inspection; abdomen not distended Musculoskeletal no cyanosis or clubbing, extremities motor strength 5/5 Skin no rashes, warm and dry Neurologic moves all extremities and awake Psychiatric Orientation: alert, oriented to person and cooperative Discharge Data Allergies Allergy/AdvReac Type Severity Reaction Status Date / Time Sulfa (Sulfonamide Allergy Intermediate RASH Verified 05/28/20 09:06 Antibiotics) oxycodone AdvReac Mild "FUNNY Verified 05/28/20 09:06 FEELINGS" torsemide AdvReac Unknown . Verified 05/28/20 09:06 Hospital Course (1) Complicated UTI (urinary tract infection): Urine culture from 05/30 growing Enterococcus raffinosus, sensitive to daptomycin. - Patient has questionable UTIs with "low energy" and irritability being his primary symptoms. Given his straight cathing, I suspect he will always be colonized with bacteria when tested. - Despite this concern, prior [facility] ID consult had recommended 14-day treatment and then use of fosfomycin as prophylactic antibiotic. He had never had a chance to use this, as he was plannning to soon, when he was told about the new bacteria in his bladder. - Arranged for 14-[facility] of treatment [facility] which is what he had done prior. Will get labs (CMP, CK) at 7-days to ensure no issues. Dr. Gloria is willing to have the results sent to her. - Patient should follow up with Derek VICTOR prior to finishing the antibiotic to ensure good transition from IV to oral antibiotic. Total Time Total Time Spent Total Time Spent (In Minutes): 35 Discharge Plan Discharge Items Patient Disposition: Home - Home Health Services Reason For Visit: CATHETER ASSOCIATED UTI ANTIBIOTIC RESISTANT Discharge Diagnosis: Enterococcus UTI Activity: Resume your previous activity Non-emergency contact: Primary Care Provider Call non-emergency contact if: your symptoms worsen and your temperature is above 101 Follow-up/Referrals: Ynes Gloria MD [Primary Care Provider] - Diet: Regular Addtl Attending Provider Instructions: Mr. Williamson, You were admitted for a UTI that we feel is a result of your straight-cathing. The bacteria that is growing in your urine is sensitive to an antibiotic called daptomycin. We gave you a dose in the hospital, and you will go to the [facility] tomorrow morning at 8:00am. Please see the Infectious Disease doctor with Derek (or Ami if you decide to switch) before finishing this 2-week course of antibiotics. I would love for you to have good follow up on this to prevent further issues. Pending Studies at Discharge: No Stand-Alone Forms: [facility], Smoking Cessation Medications and DC Order Prescriptions: New daptomycin [Cubicin] 500 mg Recon Soln 400 mg Not Applicable UD PRN (Reason: UTI) Qty: 1 RF: 0 Continued amantadine HCl 100 mg tablet 100 mg PO BID Qty: 180 RF: 1 omeprazole 20 mg capsule,delayed release(DR/EC) 20 mg PO DAILY Qty: 90 RF: 1 gabapentin 400 mg capsule 400 mg PO BID Qty: 180 RF: 3 solifenacin [Vesicare] 10 mg tablet 10 mg PO DAILY Qty: 90 RF: 3 ethacrynic acid [Edecrin] 25 mg tablet 50 mg PO BID PRN (Reason: Leg Swelling) RF: 0 omega-3 fatty acids [Fish Oil Concentrate] 1,000 mg capsule 2,000 mg PO DAILY RF: 0 ascorbic acid (vitamin C) 500 mg Tablet 500 mg PO QAM RF: 0 docusate sodium 100 mg Capsule 100 mg PO QAM PRN (Reason: Constipation) RF: 0 coenzyme Q10 100 mg Tablet 100 mg PO QAM RF: 0 Glucosamine Chondroitin 550-30-1 mg Capsule 2 cap PO DAILY RF: 0 atenolol 25 mg tablet 10 mg PO HS RF: 0 aspirin [Aspirin Low Dose] 81 mg Tablet,Delayed Release (Dr/Ec) 81 mg PO DAILY RF: 0 nifedipine [Adalat CC] 60 mg tablet extended release 60 mg PO QAM RF: 0 acetaminophen 650 mg Tablet Extended Release 650 mg PO Q12H PRN (Reason: Pain) RF: 0 Discharge Orders: Discharge Order (Routine); Ordered 06/04/20 Ordered By: Tay Peacock Admission Data Admit Date/Time: 06/04/20 12:15 Attending Provider: Tay Peacock Admit Provider: Ousmnae Pepper Primary Care Provider: Ynes Gloria Coding Level of Care Code Admit/DC Same Day >8hr Level 3 Diagnoses Complicated UTI (urinary tract infection) N39.0
[2020-06-04 15:32] LABS: BUN Creatinine Ratio 9.6 (10-20); Bilirubin,Total 0.6 mg/dl (0.2-1); Calcium 8.9 mg/dl (8.5-10.1); Creatinine Clr Calc Pharmacy 41.1 ml/min; Est GFR (African American) 45.7; Est GFR (Non-African American) 39.4; Globulin 7.4 gm/dl (2.5-4.0); Total Protein 7.6 gm/dl (6.4-8.2)
[2020-06-04 17:22] LABS: Albumin Level 3.7 gm/dl (3.4-5.0)
[2020-06-04 17:23] LABS: Albumin Globulin Ratio 0.9 (0.9-2)
[2020-06-05] MEDS ORDERED: DAPTOmycin 400 MG in SYRINGE 0 ML IV SCH (14:00)
== END 2020-06-04 16:52 | disposition home health service (06) ==
LOC: 3W → SUATTDRO 12:15

== ENCOUNTER 2021-01-02 23:46 | Observation (INO) ==
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
[2021-01-03 00:25] LABS: Basophils # (auto) 0.01 K/uL (0-0.2); Basophils % (auto) 0.2 %; Eosinophils # (auto) 0.28 K/uL (0-0.5); Eosinophils % (auto) 5.1 %; Hematocrit (blood only) 42.4 % (42-52); Hemoglobin 15.3 g/dL (14.0-18.0); Immature Granulocytes # (auto) 0.02 K/uL (0.00-0.02); Immature Granulocytes % (auto) 0.4 %; Lymphocytes # (auto) 1.65 K/uL (1.2-3.4); Lymphocytes % (auto) 30.3 %; Mean Corpuscular Hemoglobin 32.2 pg (25-34); Mean Corpuscular Hgb Conc 36.1 g/dL (32-36); Mean Corpuscular Volume 89.3 fL (80-100); Mean Platelet Volume 9.6 fL (7.4-10.4); Monocytes # (auto) 0.63 K/uL (0.11-0.59); Monocytes % (auto) 11.6 %; Neutrophils # (auto) 2.85 K/uL (1.4-6.5); Neutrophils % (auto) 52.4 %; Platelet Count 169 K/uL (130-400); RDW Coefficient of Variation 12.5 % (11.5-14.5); RDW Standard Deviation 40.1 fL (36.4-46.3); Red Blood Count 4.75 M/uL (4.7-6.1); White Blood Count 5.44 K/uL (4.8-10.8)
[2021-01-03 00:47] LABS: Albumin Level 3.9 gm/dl (3.4-5.0); BUN Creatinine Ratio 16.5 (10-20); Calcium 9.7 mg/dl (8.5-10.1); Creatinine Clr Calc Pharmacy 42.8 ml/min; Est GFR (African American) 48.8 ml/min; Est GFR (Non-African American) 42.1 ml/min; Magnesium 2.2 mg/dl (1.8-2.4); Potassium 3.3 mmol/L (3.5-5.1)
[2021-01-03 00:50] LABS: Albumin Globulin Ratio 0.9 (0.9-2); Bilirubin,Total 0.6 mg/dl (0.2-1); Globulin 4.3 gm/dl (2.5-4.0); Phosphorus 2.8 mg/dl (2.5-4.9); Total Protein 8.2 gm/dl (6.4-8.2)
[2021-01-03 01:24] LABS: Appearance Urine Clear (Clear); Bilirubin Urine Negative (Negative); Blood Urine Negative (Negative); Color Urine Yellow; Glucose Urine UA Negative (Negative); Ketones Urine Negative (Negative); Leukocyte Esterase Urine Negative (Negative); Nitrite Urine Negative (Negative); Protein Urine Negative (Negative); Specific Gravity Urine 1.008 (1.000-1.030); Urobilinogen Urine Negative (Negative); pH Urine 6.5 (4.5-7.5)
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
[2021-01-03] MEDS ORDERED: ONDANSETRON INJ 2 MG/ML 2 ML VIAL IV PRN (05:08)
[2021-01-03] MEDS ORDERED: DOCUSATE SODIUM 100 MG CAP PO PRN (05:08)
[2021-01-03] MEDS ORDERED: ACETAMINOPHEN 325 MG TAB PO PRN (05:08)
[2021-01-03] MEDS ORDERED: NSS + 20MEQ KCL 20 MEQ/1,000 ML BAG IV SCH (06:00)
[2021-01-03] MEDS: VESICARE~ORDER AWAITING ACTION SCH ×3 (06:01→15:14)
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
--- NOTE | 2021-01-03 07:25 | CT Scan Report ---
LUMBAR SPINE CT WITHOUT CONTRAST CLINICAL HISTORY: low back pain, UTI, worse RLE weakness COMPARISON STUDY: Lumbar spine MRI March 20, 2018. Lumbar spine radiographs August 2020. TECHNIQUE: Axial images of the lumbar spine were obtained without IV contrast. Sagittal and coronal r econstructions were viewed. Automated exposure control was utilized for the study. A dose lowering t echnique was utilized adhering to the principles of ALARA. FINDINGS: For purposes of numbering on this exam, the L5-S1 disc space is assigned to axial image 34 of 79. Note is made of posterior decompression at L2-L5. There is a discectomy with bilateral pedicle screw fusion at L4 and L5. The hardware is intact. Postoperative appearance is unchanged since exam of August 29, 2020. Note is made of severe disc space narrowing with osteophytosis and vacuum disc ph enomenon. This is most pronounced at L1-L2, L2-L3 and L3-L4. There is mild retrolisthesis of L2 on L3 and L3 on L4 which is unchanged. Sacroiliac joints are intact. The bladder is distended. 2020. Intra canalicular stimulator is partially imaged on this examination. No acute lumbar spine fracture is not ed. There is no suspicious osseous lesion. The central canal and neural foramen are suboptimally asse ssed by CT. There is mild dextroscoliosis of the lumbar spine. IMPRESSION: 1. Status post L2-L5 laminectomy and L4-L5 discectomy and bilateral pedicle screw fusion. Hardware in tact. Suboptimal evaluation of the central canal and neural foramen given CT technique. 2. No acute lumbar spine fracture. 3. Severe multilevel degenerative changes, similar to radiographs of August 2020. 4. No change in mild dextroscoliosis of the lumbar spine and slight retrolisthesis of L2 on L3 and L3 on L4. 5. Distended bladder. ACT 112: Negative or not required by law. Electronically signed by: Kwadwo Carroll M.D. 01/03/2021 7:24 AM
[2021-01-03] MEDS ORDERED: GABAPENTIN 400 MG CAP PO SCH (09:00)
[2021-01-03] MEDS ORDERED: NON-FORMULARY MEDICATION (Glucos Sul 2kcl-Msm-Chond-C-Mn [Glucosamine Chondroitin] 550-30- PO SCH (09:00)
[2021-01-03] MEDS ORDERED: ASCORBIC ACID 500 MG TAB PO SCH (09:00)
[2021-01-03] MEDS ORDERED: PANTOprazole 40 MG TAB PO SCH (09:00)
[2021-01-03] MEDS ORDERED: OMEGA-3 (PURIFIED FISH OIL) 1 GM CAP PO SCH (09:00)
[2021-01-03] MEDS ORDERED: NIFEdipine EXTENDED REL 30 MG TABCR PO SCH (09:00)
[2021-01-03] MEDS ORDERED: ASPIRIN 81 MG ECTAB PO SCH (09:00)
[2021-01-03] MEDS ORDERED: ERTAPENEM SODIUM 1,000 MG in SODIUM CHLORIDE 0.9% 50 ML IV SCH (09:00)
[2021-01-03] MEDS ORDERED: AMANTADINE HCL 100 MG CAPSULE PO SCH (09:00)
[2021-01-03] MEDS ORDERED: VITAMIN B COMPLEX TAB PO SCH (09:00)
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
--- NOTE | 2021-01-03 16:29 | Electrocardiogram Report ---
Test Reason : Blood Pressure : / mmHG Vent. Rate : 062 BPM Atrial Rate : 062 BPM P-R Int : 236 ms QRS Dur : 096 ms QT Int : 432 ms P-R-T Axes : 052 023 073 degrees QTc Int : 438 ms Sinus rhythm with 1st degree A-V block Nonspecific ST and T wave abnormality Abnormal ECG When compared with ECG of 14-MAY-2020 20:45, No significant change was found Confirmed by Jason Louis ([id number]) on 01/03/2021 4:29:15 PM Referred By: REFERRED SELF Confirmed By:Destin Louis
--- NOTE | 2021-01-03 16:31 | Electrocardiogram Report ---
Test Reason : Blood Pressure : / mmHG Vent. Rate : 066 BPM Atrial Rate : 066 BPM P-R Int : 224 ms QRS Dur : 096 ms QT Int : 448 ms P-R-T Axes : 035 038 055 degrees QTc Int : 469 ms Poor data quality, interpretation may be adversely affected Sinus rhythm with 1st degree A-V block Nonspecific ST abnormality Abnormal ECG When compared with ECG of 02-JAN-2021 23:55, (unconfirmed) No significant change was found Confirmed by Jason Louis ([id number]) on 01/03/2021 4:31:16 PM Referred By: REFERRED SELF Confirmed By:Destin Louis
--- NOTE | 2021-01-03 17:33 | Discharge Summary ---
Date of Service January 03, 2021 Admission HPI Per Admitting Provider The patient is a 70-year-old male with a past medical history including multiple sclerosis, neurogenic bladder, lumbar facet joint syndrome status post 4 lumbar surgeries, MGUS, low back pain, depression, ESBL E. coli UTI, hypercalcemia, pyelonephritis, proctocolitis, CRUZITO, CKD stage III, intermittent self- catheterization of bladder, SVT, right lower extremity dropfoot, and lung nodule. When EMS arrived at his home, they initially thought he was in cardiac arrest, however, his progress during CPR, the patient started, round, and it was felt at that time that the patient was postictal. The patient is no previous h istory of seizures. In the emergency department, he and his feel that he is back to his baseline mental state. The patient is presently being treated for an ESBL E. coli UTI with Invanz, and treatment is to be completed on 01/03. CT of head without contrast in ED was negative for acute event. Principal Diagnosis Possible seizure Discharge Exam Constitutional WD/WN, vitals as above Eyes EOM intact bilaterally; no conjunctival abnormality ENMT external ear and nose normal, oropharynx normal Neck trachea midline, no thyromegaly normal visual inspection Respiratory normal respiratory effort, lungs clear to auscultation no respiratory distress Cardiovascular RRR, no murmur, no edema Gastrointestinal (Abdomen) Inspection/Auscultation: abdomen normal to inspection; abdomen not distended Musculoskeletal no cyanosis or clubbing, extremities motor strength 5/5 Skin no rashes, warm and dry Neurologic moves all extremities and awake Psychiatric Orientation: alert, oriented to person and cooperative Discharge Data Allergies Allergy/AdvReac Type Severity Reaction Status Date / Time Sulfa (Sulfonamide Allergy Intermediate RASH Verified 01/03/21 00:19 Antibiotics) oxycodone AdvReac Mild "FUNNY Verified 01/03/21 00:19 FEELINGS" torsemide AdvReac Unknown Unknown Verified 01/03/21 00:19 Consultations 01/03/21 01:22 ED Decision to Admit Stat 01/03/21 05:08 Consult Neurology Routine Ordered Studies 01/03/21 00:10 CT head/brain wo con Urgent 01/03/21 03:08 CT lumbar spine wo con Urgent Hospital Course (1) Seizure-like activity: Seizure-like activity/postictal state- Admit to monitored bed CT head without acute findings Holding off on ordering MRI of brain due to presence of stimulator. Seizure precautions Consulted neurology who felt seizure was plausible. - Hold off on ordering EEG inpatient; can be done as outpatient in 2-3 weeks. - Discharged on Keppra 500 mg PO BID per neurology. - Of note, ertapenem can also cause a seizure, so possibly could be contributor. Informed patient of this, and will avoid ertapenem in the future as able, though his MDR UTIs make this hard. (2) UTI due to extended-spectrum beta lactamase (ESBL) producing Escherichia coli: Due for final dose of Invanz 1 g IV on 01/03. - Given; PICC removed prior to discharge. - Avoid ertapenem as able (see above) (3) Intermittent self-catheterization of bladder: Continue on discharge. (4) Multiple sclerosis: Follows with an MS specialist at [facility] [address] - See as able (5) Lumbar back pain: Ordered CT of lumbar spine without contrast, to help assess possibility of discitis/epidural infection due to seeding from ESBL E. coli UTI. - No acute findings (6) SVT (supraventricular tachycardia): Follow on telemetry to determine if possible recurrence as cause of seizure-like activity - None seen (7) Chronic kidney disease, stage III (moderate): Creatinine 1.61 upon admission, with range 1.54-1.96 - Stable (8) MGUS (monoclonal gammopathy of unknown significance): Total Time Total Time Spent Total Time Spent (In Minutes): 35 Discharge Plan Discharge Items Patient Disposition: Home - Home Health Services Reason For Visit: SEIZURE-LIKE ACTIVITY Discharge Diagnosis: Possible seizure Activity: Resume your previous activity Non-emergency contact: Primary Care Provider and Neurologist Call non-emergency contact if: your symptoms worsen Follow-up/Referrals: James Hollingsworth MD [Physician] - (Please see Dr. Hollingsworth or your MS neurologist in 2-3 weeks to consider an outpatient EEG.) Ynes Gloria MD [Primary Care Provider] - Diet: Heart Healthy Addtl Attending Provider Instructions: Mr. Williamson, You were admitted to the hospital with concern for a seizure. Seizures can be associated with multiple sclerosis. Dr. Hollingsworth (the [facility] neurologist) saw you and felt that you should start a medication to avoid further seizures. It is called Keppra and is taken twice a day. This is a relatively low dose, so can be adjusted as needed. Potentially, if you are seizure-free, this could be stopped eventually. The antibiotic used to treat your UTI (ertapenem or also called Invanz) has a relatively low risk of seizure, but it is considered 0.2% to 0.5% in adults. This could also have played a role, but it is not entirely possible to parse out what may have caused the seizure. For now, you are done using ertapenem for your UTI, and we can attempt to avoid further use of this antibiotic. Pending Studies at Discharge: No Stand-Alone Forms: My [facility], Smoking Cessation Medications and DC Order Prescriptions: New levetiracetam [Keppra] 500 mg Tablet 500 mg PO BID Qty: 60 RF: 0 Continued amantadine HCl 100 mg tablet 100 mg PO BID Qty: 180 RF: 3 gabapentin 400 mg capsule 400 mg PO BID Qty: 180 RF: 3 omeprazole 20 mg capsule,delayed release(DR/EC) 20 mg PO QAM Qty: 90 RF: 3 solifenacin [Vesicare] 10 mg tablet 10 mg PO QAM Qty: 90 RF: 3 nifedipine [Adalat CC] 60 mg tablet extended release 60 mg PO QAM Qty: 30 RF: 3 atenolol 25 mg tablet 25 mg PO HS Qty: 90 RF: 3 ethacrynic acid [Edecrin] 25 mg tablet 50 mg PO BID PRN (Reason: Leg Swelling) Qty: 360 RF: 3 omega-3 fatty acids [Fish Oil Concentrate] 1,000 mg capsule 2,000 mg PO QAM RF: 0 ascorbic acid (vitamin C) 500 mg Tablet 500 mg PO QAM RF: 0 docusate sodium 100 mg Capsule 100 mg PO QAM PRN (Reason: Constipation) RF: 0 coenzyme Q10 100 mg tablet 100 mg PO QAM RF: 0 Glucosamine Chondroitin 550-30-1 mg capsule 2 cap PO QAM RF: 0 aspirin [Aspirin Low Dose] 81 mg Tablet,Delayed Release (Dr/Ec) 81 mg PO QAM RF: 0 fosfomycin tromethamine 3 gram packet 3 g PO WK RF: 0 acetaminophen 650 mg Tablet Extended Release 650 mg PO Q8H PRN (Reason: Pain) RF: 0 vitamin B complex Tablet 1 tab PO DAILY RF: 0 Discharge Orders: Discharge Order (Routine); Ordered 01/03/21 Ordered By: Tay Peacock Admission Data Admit Date/Time: 01/03/21 02:38 Attending Provider: Tay Peacock Admit Provider: Ryan Diaz Primary Care Provider: Ynes Gloria Other Providers: Augusta Hussein ; Tay Peacock Other Interventions: Discharge Summary Assessment (RN) Last Done: 01/03/21 13:54 Coding Level of Care Code 31503 OBS Care - Discharge Diagnoses Seizure-like activity R56.9 UTI due to extended-spectrum beta lactamase (ESBL) producing Escherichia coli N39.0; B96.29; Z16.12 Intermittent self-catheterization of bladder Z78.9 Multiple sclerosis G35 Lumbar back pain M54.5 SVT (supraventricular tachycardia) I47.1 Chronic kidney disease, stage III (moderate) N18.30 MGUS (monoclonal gammopathy of unknown significance) D47.2
[2021-01-03] MEDS ORDERED: ATENOLOL 25 MG TABLET PO SCH (21:00)
[2021-01-03] MEDS ORDERED: levETIRAcetam 500 MG TAB PO SCH (21:00)
== END 2021-01-03 16:30 | disposition home health service (06) ==
LOC: 2W 23:46 → ED 23:46 → SUATTDRO 01-03 02:38 → 2W 01-03 04:57

== ENCOUNTER 2021-04-13 12:01 | Inpatient (IN) ==
[2021-04-13 13:33] LABS: Albumin Level 3.4 gm/dl (3.4-5.0); Aspartate Aminotransferase 13 U/L (15-37); BUN Creatinine Ratio 11.3 (10-20); Blood Urea Nitrogen 19 mg/dl (7-18); Calcium 9.3 mg/dl (8.5-10.1); Carbon Dioxide 26 mmol/L (21-32); Chloride 101 mmol/L (98-107); Est GFR (African American) 47.7 ml/min; Est GFR (Non-African American) 41.2 ml/min; Glucose 121 mg/dl (70-99); Lipase 58 U/L (73-393); Potassium 4.1 mmol/L (3.5-5.1); Sodium 135 mmol/L (136-145)
[2021-04-13 13:35] LABS: Alanine Aminotransferase 31 U/L (12-78); Albumin Globulin Ratio 0.8 (0.9-2); Alkaline Phosphatase 101 U/L (45-117); Bilirubin,Total 1.3 mg/dl (0.2-1); Globulin 4.4 gm/dl (2.5-4.0); Total Protein 7.8 gm/dl (6.4-8.2)
[2021-04-13 14:54] LABS: Hematocrit (blood only) 43.5 % (42-52); Hemoglobin 14.8 g/dL (14.0-18.0); Mean Corpuscular Hemoglobin 32.5 pg (25-34); Mean Corpuscular Volume 95.6 fL (80-100); Platelet Count 173 K/uL (130-400); RDW Coefficient of Variation 13.6 % (11.5-14.5); RDW Standard Deviation 47.9 fL (36.4-46.3); Red Blood Count 4.55 M/uL (4.7-6.1); White Blood Count 16.72 K/uL (4.8-10.8)
[2021-04-13 15:06] LABS: Appearance Urine Cloudy (Clear); Bacteria Urine Automated 3+ (Negative); Bilirubin Urine Negative (Negative); Blood Urine Trace (Negative); Cast Urine Automated 0 /lpf (0-5); Color Urine Dark Yellow; Glucose Urine UA Negative (Negative); Ketones Urine Trace (Negative); Leukocyte Esterase Urine 3+ (Negative); Nitrite Urine Positive (Negative); Protein Urine 1+ (Negative); Specific Gravity Urine 1.022 (1.000-1.030); Urobilinogen Urine Negative (Negative); WBC Urine Automated >30 /hpf (0-5); pH Urine 5.5 (4.5-7.5)
[2021-04-13 15:08] LABS: RBC Morphology Unremarkable
[2021-04-13 15:16] LABS: ALC (manual) 1.74 K/uL (1.2-3.4); ANC (manual) 13.67 K/uL (1.4-6.5); Lymphocytes # (manual) 1.74 K/uL (1.2-3.4); Lymphocytes % (manual) 10.4 %; Monocytes # (manual) 1.31 K/uL (0.11-0.59); Monocytes % (manual) 7.8 %; Neutrophils # (manual) 13.67 K/uL (1.4-6.5); Neutrophils % (manual) 81.7 %
[2021-04-13 15:24] LABS: RBC Urine Automated 0-4 /hpf (0-4)
--- NOTE | 2021-04-13 15:35 | XRay Report ---
XR chest 1V portable HISTORY: 70 years-old Male cough acute cough COMPARISON: Chest radiograph 03/07/2021 TECHNIQUE: Semierect AP view of the chest FINDINGS: Cardiomediastinal and hilar silhouettes are within normal limits. Unchanged right hemidiaphragmatic e levation. Interval removal of the right-sided PICC. Spinal stability device is noted overlying the mi dthoracic spine. Reticular interstitial opacities are redemonstrated and have slightly improved from comparison. No pneumothorax, large pleural effusion or airspace consolidation. Degenerative changes o f the shoulders and spine. Chronic left clavicular fracture deformity. IMPRESSION: 1. Mild reticular interstitial opacities have mildly improved from 03/07/2021. 2. Unchanged right hemidiaphragmatic elevation. ACT 112: Negative or not required by law. The above report was generated using voice recognition software. It may contain grammatical, syntax o r spelling errors. Electronically signed by: Reynaldo Myers M.D. 04/13/2021 3:34 PM
[2021-04-13] MEDS ORDERED: ERTAPENEM SODIUM 10 ML IV STA (15:39)
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
[2021-04-13] MEDS ORDERED: ONDANSETRON INJ 2 MG/ML 2 ML VIAL IV PRN (18:59)
[2021-04-13] MEDS ORDERED: ACETAMINOPHEN 325 MG TAB PO PRN (18:59)
[2021-04-13] MEDS ORDERED: POLYETHYLENE (MIRALAX) 17 GM PACK PO PRN (18:59)
[2021-04-13] MEDS ORDERED: DOCUSATE SODIUM 100 MG CAP PO PRN (18:59)
[2021-04-13] MEDS: ENOXAPARIN INJ 40 MG/0.4 ML SYR SQ SCH (22:12)
[2021-04-13] MEDS: levETIRAcetam 500 MG TAB PO SCH (22:13)
[2021-04-13] MEDS: GABAPENTIN 400 MG CAP PO SCH (22:13)
[2021-04-13] MEDS: AMANTADINE HCL 100 MG CAPSULE PO SCH (22:14)
[2021-04-13] MEDS ORDERED: LACTATED RINGER'S 1,000 ML IV SCH (22:15)
[2021-04-13] MEDS: ATENOLOL 25 MG TABLET PO SCH (22:18)
[2021-04-13] MEDS: VESICARE - ORDER AWAITING ACTION SCH (23:39)
[2021-04-14 07:40] LABS: Basophils # (auto) 0.01 K/uL (0-0.2); Basophils % (auto) 0.1 %; Eosinophils # (auto) 0.01 K/uL (0-0.5); Eosinophils % (auto) 0.1 %; Hematocrit (blood only) 40.1 % (42-52); Hemoglobin 13.8 g/dL (14.0-18.0); Immature Granulocytes # (auto) 0.06 K/uL (0.00-0.02); Immature Granulocytes % (auto) 0.3 %; Lymphocytes # (auto) 1.88 K/uL (1.2-3.4); Lymphocytes % (auto) 10.5 %; Mean Corpuscular Hemoglobin 32.4 pg (25-34); Mean Corpuscular Hgb Conc 34.4 g/dL (32-36); Mean Corpuscular Volume 94.1 fL (80-100); Mean Platelet Volume 10.2 fL (7.4-10.4); Monocytes # (auto) 1.94 K/uL (0.11-0.59); Monocytes % (auto) 10.9 %; Neutrophils # (auto) 13.93 K/uL (1.4-6.5); Neutrophils % (auto) 78.1 %; Platelet Count 162 K/uL (130-400); RDW Coefficient of Variation 13.6 % (11.5-14.5); RDW Standard Deviation 46.9 fL (36.4-46.3); Red Blood Count 4.26 M/uL (4.7-6.1); White Blood Count 17.83 K/uL (4.8-10.8)
[2021-04-14 08:19] LABS: BUN Creatinine Ratio 13.6 (10-20); Calcium 9.3 mg/dl (8.5-10.1); Est GFR (African American) 58.8 ml/min; Est GFR (Non-African American) 50.7 ml/min; Magnesium 2.2 mg/dl (1.8-2.4); Potassium 3.8 mmol/L (3.5-5.1)
[2021-04-14] MEDS: AMANTADINE HCL 100 MG CAPSULE PO SCH ×2 (09:19→21:00)
[2021-04-14] MEDS: ASCORBIC ACID 500 MG TAB PO SCH (09:19)
[2021-04-14] MEDS: GABAPENTIN 400 MG CAP PO SCH ×2 (09:19→21:00)
[2021-04-14] MEDS: PANTOprazole 40 MG TAB PO SCH (09:20)
[2021-04-14] MEDS: levETIRAcetam 500 MG TAB PO SCH ×2 (09:20→21:00)
[2021-04-14] MEDS: ASPIRIN 81 MG ECTAB PO SCH (09:20)
[2021-04-14] MEDS: VESICARE - ORDER AWAITING ACTION SCH ×2 (10:42→17:12)
[2021-04-14] MEDS ORDERED: ERTAPENEM SODIUM 1,000 MG in SODIUM CHLORIDE 0.9% 50 ML IV SCH (17:00)
--- NOTE | 2021-04-14 20:57 | Hospitalist Progress Note ---
Date of Service April 14, 2021 Assessment & Plan (1) Complicated UTI (urinary tract infection): Plan: Recurrent UTI - MDRs noted - started on Ertapenem in the EMD- LAVONNE on last admission with ertapenem but not ruled in or out- continue - Await culture results - Continue with QID stratight caths and bladder scan - Urology consulted for recs on Gentamycin continuation- does 2x per week - Consider ID consult pending culture results - PCT, CRP pending - No further evidence of septic shock -continue to wait for cultures. 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 relationship to ertapenem on last admission but no further evidence noted - He remains on Keppra so will continue, no further events reported by or patient - Not sure if outpatient EEG got completed, however January note from [facility] [place] EEG and MRI of brain reported as negative (5) Multiple sclerosis: Plan: Continue his amantadine (6) Peripheral neuropathy: Plan: Continue gabapentin (7) Hypertension: Plan: Continue atenolol - will hold extended release nifedipine for now to ensure no sepsis pathology - restart when hemodynamic status proven stable Admission and Anticipated Discharge Date Admission Date: April 13, 2021 Subjective Patient reports no new symptoms today. Review of Systems Review of Systems: All systems reviewed & are unremarkable except as noted in HPI & below Physical Exam Physical Exam: General:alert Head: Normocephalic, atraumatic ENT: PERRL, EOMI, no pharyngeal exudate, mucous membranes moist Neuro: AAO x 3, speech clear and appropriate, strength intact bilaterally 5/5 upper, 3-4/5 in lowers, sensation intact and equal all extremities and dermatomes, no pronator drift Chest: equal rise and fall of the chest, no accessory muscle use, no heaves or thrills, Clear to auscultation, on room air, Cardiac: Regular rate and rhythm, telemetry reviewed, skin warm dry, cap refill <3 seconds, peripheral pulses +2 no JVD, no murmur, no JVD, no edema GI: NABS x 4 quadrants, soft, nontender to palpation, no rebound, guarding or tenderness : straight caths, no pain, no CVA tenderness Extremities: Normal inspection, no peripheral edema or erythema, calfs nontender to palpation Psych: Normal mood and affect Skin: no rash or erythema Results & Data Results & Data ([facility]) Vital Signs (Past 12 Hours) Vital Signs Temp Pulse Resp BP Pulse Ox 04/14/21 20:50 37.1 C 91 H 14 121/78 91 04/14/21 14:31 36.6 C 86 16 131/76 95 PG Care Time/CCT Total # of Minutes Spent Total Time Spent with Patient: Total time spent is greater than 50% in coordination of care (as documented) at patient's floor/unit and/or counseling patient: Coding Level of Care Code 04529 Subseq Hosp Care Lvl 2 Diagnoses Complicated UTI (urinary tract infection) N39.0 Chronic kidney disease, stage III (moderate) N18.30 Neurogenic bladder N31.9 Seizure R56.9 Multiple sclerosis G35 Peripheral neuropathy G62.9 Hypertension I10 Time Spent (min) 25
[2021-04-14] MEDS: ATENOLOL 25 MG TABLET PO SCH (21:00)
[2021-04-14] MEDS: ENOXAPARIN INJ 40 MG/0.4 ML SYR SQ SCH (21:01)
[2021-04-15 06:37] LABS: Basophils # (auto) 0.01 K/uL (0-0.2); Basophils % (auto) 0.1 %; Eosinophils # (auto) 0.17 K/uL (0-0.5); Eosinophils % (auto) 1.6 %; Hematocrit (blood only) 39.3 % (42-52); Hemoglobin 13.8 g/dL (14.0-18.0); Immature Granulocytes # (auto) 0.03 K/uL (0.00-0.02); Immature Granulocytes % (auto) 0.3 %; Lymphocytes # (auto) 1.42 K/uL (1.2-3.4); Lymphocytes % (auto) 13.2 %; Mean Corpuscular Hemoglobin 33.3 pg (25-34); Mean Corpuscular Hgb Conc 35.1 g/dL (32-36); Mean Corpuscular Volume 94.9 fL (80-100); Mean Platelet Volume 9.9 fL (7.4-10.4); Monocytes # (auto) 1.19 K/uL (0.11-0.59); Monocytes % (auto) 11.1 %; Neutrophils # (auto) 7.91 K/uL (1.4-6.5); Neutrophils % (auto) 73.7 %; Platelet Count 159 K/uL (130-400); RDW Coefficient of Variation 13.4 % (11.5-14.5); RDW Standard Deviation 46.6 fL (36.4-46.3); Red Blood Count 4.14 M/uL (4.7-6.1); White Blood Count 10.73 K/uL (4.8-10.8)
[2021-04-15 07:06] LABS: BUN Creatinine Ratio 14.7 (10-20); Calcium 9.1 mg/dl (8.5-10.1); Creatinine Clr Calc Pharmacy 51.8 ml/min; Est GFR (African American) 59.8 ml/min; Est GFR (Non-African American) 51.6 ml/min; Magnesium 2.2 mg/dl (1.8-2.4); Potassium 3.7 mmol/L (3.5-5.1)
[2021-04-15] MEDS: PANTOprazole 40 MG TAB PO SCH (08:39)
[2021-04-15] MEDS: AMANTADINE HCL 100 MG CAPSULE PO SCH ×2 (08:40→21:35)
[2021-04-15] MEDS: ASCORBIC ACID 500 MG TAB PO SCH (08:40)
[2021-04-15] MEDS: ASPIRIN 81 MG ECTAB PO SCH (08:40)
[2021-04-15] MEDS: GABAPENTIN 400 MG CAP PO SCH ×2 (08:40→21:35)
[2021-04-15] MEDS: levETIRAcetam 500 MG TAB PO SCH ×2 (08:40→21:35)
--- NOTE | 2021-04-15 15:58 | Electrocardiogram Report ---
Test Reason : Blood Pressure : / mmHG Vent. Rate : 093 BPM Atrial Rate : 093 BPM P-R Int : 240 ms QRS Dur : 084 ms QT Int : 350 ms P-R-T Axes : 053 046 023 degrees QTc Int : 435 ms Sinus rhythm with 1st degree A-V block Nonspecific T wave abnormality Abnormal ECG When compared with ECG of 07-MAR-2021 21:12, Nonspecific T wave abnormality no longer evident in Lateral leads Confirmed by Gordon Mills ([id number]) on 04/15/2021 3:58:15 PM Referred By: REFERRED SELF Confirmed By:Gordon Mills
[2021-04-15] MEDS: AMOXICILLIN/CLAVULANATE 500 MG TAB PO SCH (17:50)
--- NOTE | 2021-04-15 20:43 | Hospitalist Progress Note ---
Date of Service April 15, 2021 Assessment & Plan (1) Complicated UTI (urinary tract infection): Plan: UTI due to self urethral catheterization Recurrent UTI - MDRs noted - started on Ertapenem in the EMD- LAVONNE on last admission with ertapenem but not ruled in or out- continue - Await culture results - Continue with QID stratight caths and bladder scan - Urology consulted for recs on Gentamycin continuation- does 2x per week - culture results show E coli: sensitive to amoxicillin. due to compicated uti, WILL place on augmentin -will monitor overnight to confirm that augmentin is treating bacteria as patient has reservations with this antibiotic. Patient is also awaiting placement. 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 relationship to ertapenem on last admission but no further evidence noted - He remains on Keppra so will continue, no further events reported by or patient - Not sure if outpatient EEG got completed, however January note from [facility] [place] with routine EEG and MRI of brain reported as negative (5) Multiple sclerosis: Plan: Continue his amantadine (6) Peripheral neuropathy: Plan: Continue gabapentin (7) Hypertension: Plan: Continue atenolol - will hold extended release nifedipine for now to ensure no sepsis pathology - restart when hemodynamic status proven stable Admission and Anticipated Discharge Date Admission Date: April 13, 2021 Subjective Patient reports feeling better. Left message to his . Review of Systems Review of Systems: All systems reviewed & are unremarkable except as noted in HPI & below Physical Exam Physical Exam: General:alert Head: Normocephalic, atraumatic ENT: PERRL, EOMI, no pharyngeal exudate, mucous membranes moist Neuro: AAO x 3, speech clear and appropriate, strength intact bilaterally 5/5 upper, 3-4/5 in lowers, sensation intact and equal all extremities and dermatomes, no pronator drift Chest: equal rise and fall of the chest, no accessory muscle use, no heaves or thrills, Clear to auscultation, on room air, Cardiac: Regular rate and rhythm, telemetry reviewed, skin warm dry, cap refill <3 seconds, peripheral pulses +2 no JVD, no murmur, no JVD, no edema GI: NABS x 4 quadrants, soft, nontender to palpation, no rebound, guarding or tenderness : straight caths, no pain, no CVA tenderness Extremities: Normal inspection, no peripheral edema or erythema, calfs nontender to palpation Psych: Normal mood and affect Skin: no rash or erythema Results & Data Results & Data ([facility]) Vital Signs (Past 12 Hours) Vital Signs Temp Pulse Resp BP Pulse Ox 04/15/21 16:08 36.6 C 62 16 126/71 96 PG Care Time/CCT Total # of Minutes Spent Total Time Spent with Patient: Total time spent is greater than 50% in coordination of care (as documented) at patient's floor/unit and/or counseling patient: Coding Level of Care Code 41957 Subseq Hosp Care Lvl 3 Diagnoses Complicated UTI (urinary tract infection) N39.0 Chronic kidney disease, stage III (moderate) N18.30 Neurogenic bladder N31.9 Seizure R56.9 Multiple sclerosis G35 Peripheral neuropathy G62.9 Hypertension I10 Time Spent (min) 35
[2021-04-15] MEDS: ATENOLOL 25 MG TABLET PO SCH (21:35)
[2021-04-15] MEDS: ENOXAPARIN INJ 40 MG/0.4 ML SYR SQ SCH (21:35)
[2021-04-16 06:34] LABS: Basophils # (auto) 0.01 K/uL (0-0.2); Basophils % (auto) 0.1 %; Eosinophils # (auto) 0.23 K/uL (0-0.5); Eosinophils % (auto) 3.4 %; Hematocrit (blood only) 37.9 % (42-52); Hemoglobin 13.1 g/dL (14.0-18.0); Immature Granulocytes # (auto) 0.04 K/uL (0.00-0.02); Immature Granulocytes % (auto) 0.6 %; Lymphocytes # (auto) 1.13 K/uL (1.2-3.4); Lymphocytes % (auto) 16.7 %; Mean Corpuscular Hemoglobin 32.2 pg (25-34); Mean Corpuscular Hgb Conc 34.6 g/dL (32-36); Mean Corpuscular Volume 93.1 fL (80-100); Mean Platelet Volume 9.5 fL (7.4-10.4); Monocytes # (auto) 0.95 K/uL (0.11-0.59); Neutrophils # (auto) 4.42 K/uL (1.4-6.5); Neutrophils % (auto) 65.2 %; Platelet Count 179 K/uL (130-400); RDW Coefficient of Variation 12.8 % (11.5-14.5); RDW Standard Deviation 43.8 fL (36.4-46.3); Red Blood Count 4.07 M/uL (4.7-6.1); White Blood Count 6.78 K/uL (4.8-10.8)
[2021-04-16 07:05] LABS: Calcium 8.9 mg/dl (8.5-10.1); Creatinine Clr Calc Pharmacy 54.2 ml/min; Est GFR (African American) 63.2 ml/min; Est GFR (Non-African American) 54.5 ml/min; Potassium 3.7 mmol/L (3.5-5.1)
[2021-04-16] MEDS: AMANTADINE HCL 100 MG CAPSULE PO SCH (08:09)
[2021-04-16] MEDS: levETIRAcetam 500 MG TAB PO SCH (08:09)
[2021-04-16] MEDS: GABAPENTIN 400 MG CAP PO SCH (08:09)
[2021-04-16] MEDS: ASCORBIC ACID 500 MG TAB PO SCH (08:10)
[2021-04-16] MEDS: ASPIRIN 81 MG ECTAB PO SCH (08:10)
[2021-04-16] MEDS: AMOXICILLIN/CLAVULANATE 500 MG TAB PO SCH ×2 (08:10→17:42)
[2021-04-16] MEDS: PANTOprazole 40 MG TAB PO SCH (08:10)
--- NOTE | 2021-04-17 07:29 | Discharge Summary ---
Date of Service April 16, 2021 Admission HPI Per Admitting Provider 70 YOM with past medical history of: Neurogenic bladder (straight cath at home), recurrent UTI, MS, seizure, CKD III, DJD, Depression, HLD, GERD, HTN, peripheral neuropathy. Patient has multiple UTIS in the past with multiple pathogens including enterococcus, Ecoli, Enterobacter aerogenes and klebsiella ESBL. Patient follows with Dr. Gandara of Urology and was put on bladder irrigation with appears Gentamicin in January; however unable to track prescription trail for this. reports that the start was delayed secondary to not understanding how to perform. Nursing note from office in March 30 does show education performed. Patient also follows with infectious disease. Recently underwent discharge from [facility] for completion of UTI with MDR pathogens treated with levofloxacin and discharged on Amoxicillin. At that time he also had a complete workup to include negative lyme/anaplasmosis and LP. In the meantime from discharge from [facility] to now, the patient went camping over the weekend and continued with his straight cath and antibiotic instillation. He noted that yesterday he started to have return of cloudy milky urine but was unsure if this was related to his abx instillation. He also progressed to get chills and rigors with increase in lower extremity weakness, which is consistent to his prior infectious presentations. In the EMD the patient had routine labs performed, which did show elevated WBC, infected looking urine, blood cultures drawn. Patient will be admitted to continue with infectious workup and treatment. Patient was started on Ertepenem in the EMD and will continue. Urology has been consulted for recommendations on continuing bladder irrigation with Gentamicin during acute on chronic infection. Patient had his COVID vaccine and his COVID test is NEGATIVE on admission Principal Diagnosis UTI Discharge Exam Head: Normocephalic, atraumatic ENT: PERRL, EOMI, no pharyngeal exudate, mucous membranes moist Neuro: AAO x 3, speech clear and appropriate, strength intact bilaterally 5/5 upper, 3-4/5 in lowers, sensation intact and equal all extremities and dermatomes, no pronator drift Chest: equal rise and fall of the chest, no accessory muscle use, no heaves or thrills, Clear to auscultation, on room air, Cardiac: Regular rate and rhythm, telemetry reviewed, skin warm dry, cap refill <3 seconds, peripheral pulses +2 no JVD, no murmur, no JVD, no edema GI: NABS x 4 quadrants, soft, nontender to palpation, no rebound, guarding or t enderness : straight caths, no pain, no CVA tenderness Extremities: Normal inspection, no peripheral edema or erythema, calfs nontender to palpation Psych: Normal mood and affect Skin: no rash or erythema Discharge Data Allergies Allergy/AdvReac Type Severity Reaction Status Date / Time Sulfa (Sulfonamide Allergy Intermediate RASH Verified 04/13/21 15:05 Antibiotics) oxycodone AdvReac Mild "FUNNY Verified 04/13/21 15:05 FEELINGS" torsemide AdvReac Unknown Unknown Verified 04/13/21 15:05 Consultations 04/13/21 15:41 ED Decision to Admit Stat Hospital Course (1) Complicated UTI (urinary tract infection): UTI due to self urethral catheterization Recurrent UTI - MDRs noted - started on Ertapenem in the EMD- LAVONNE on last admission with ertapenem but not ruled in or out- continue - Await culture results - Continue with QID stratight caths and bladder scan - Urology consulted for recs on Gentamycin continuation- does 2x per week - culture results show E coli: sensitive to amoxicillin. due to compicated uti, WILL place on augmentin - will monitor overnight to confirm that augmentin is treating bacteria as patient has reservations with this antibiotic. - Patient will be discharged as he has been augmentin and has not developed a fever. - He will need followup with his PCP. (2) Chronic kidney disease, stage III (moderate): [employer] at baseline - follow while in house - avoid further nephrotoxic medications (3) Neurogenic bladder: Bladder scan and straight cath QID and PRN for sensation of fullness or incomplete emptying (4) Seizure: ? relationship to ertapenem on last admission but no further evidence not ed - He remains on Keppra so will continue, no further events reported by or patient - Not sure if outpatient EEG got completed, however January note from [facility] [place] with routine EEG and MRI of brain reported as negative (5) Multiple sclerosis: Continue his amantadine (6) Peripheral neuropathy: Continue gabapentin (7) Hypertension: Continue atenolol - will hold extended release nifedipine for now to ensure no sepsis pathology - restart when hemodynamic status proven stable Total Time Total Time Spent Total Time Spent (In Minutes): 32 Discharge Plan Discharge Items Patient Disposition: Home - Self-Care Reason For Visit: UTI Discharge Diagnosis: UTI Activity: Resume your previous activity Non-emergency contact: Primary Care Provider Call non-emergency contact if: you have any medication questions Follow-up/Referrals: Ynes Gloria MD [Primary Care Provider] - Diet: Regular Addtl Attending Provider Instructions: You will need to followup Urology as an outpatient to discuss other treatment options to help limit these infections. Pending Studies at Discharge: No Stand-Alone Forms: My [facility], Smoking Cessation Medications and DC Order Prescriptions: New amoxicillin-pot clavulanate 500-125 mg Tablet 1 tab PO BIDM Qty: 24 RF: 0 Continued amantadine HCl 100 mg tablet 100 mg PO BID Qty: 180 RF: 3 gabapentin 400 mg capsule 400 mg PO BID Qty: 180 RF: 3 omeprazole 20 mg capsule,delayed release(DR/EC) 20 mg PO QAM Qty: 90 RF: 3 solifenacin [Vesicare] 10 mg tablet 10 mg PO QAM Qty: 90 RF: 3 nifedipine [Adalat CC] 60 mg tablet extended release 60 mg PO QAM Qty: 30 RF: 3 atenolol 25 mg tablet 25 mg PO HS Qty: 90 RF: 3 ethacrynic acid [Edecrin] 25 mg tablet 50 mg PO BID PRN (Reason: Leg Swelling) Qty: 360 RF: 3 omega-3 fatty acids [Fish Oil Concentrate] 1,000 mg capsule 2,000 mg PO QAM RF: 0 ascorbic acid (vitamin C) 500 mg Tablet 500 mg PO QAM RF: 0 docusate sodium 100 mg Capsule 100 mg PO QAM PRN (Reason: Constipation) RF: 0 coenzyme Q10 100 mg tablet 100 mg PO QAM RF: 0 Glucosamine Chondroitin 550-30-1 mg capsule 2 cap PO QAM RF: 0 aspirin [Aspirin Low Dose] 81 mg Tablet,Delayed Release (Dr/Ec) 81 mg PO QAM RF: 0 acetaminophen 650 mg Tablet Extended Release 650 mg PO Q8H PRN (Reason: Pain) RF: 0 vitamin B complex Tablet 1 tab PO QAM RF: 0 levetiracetam 500 mg Tablet 500 mg PO BID RF: 0 Discharge Orders: Discharge Order (Routine); Ordered 04/16/21 Ordered By: Howie Berman/Other Patient Handouts: Urinary Tract Infections in Men Admission Data Admit Date/Time: 04/13/21 16:19 Attending Provider: Howie Ortega Admit Provider: Tay Peacock Primary Care Provider: Ynes Gloria Other Providers: Tay Peacock ; [facility] Other Interventions: Discharge Summary Assessment (RN) Last Done: 04/16/21 19:45 Coding Level of Care Code D/C DAY MANAGEMENT >30 MINS Diagnoses Complicated UTI (urinary tract infection) N39.0 Chronic kidney disease, stage III (moderate) N18.30 Neurogenic bladder N31.9 Seizure R56.9 Multiple sclerosis G35 Peripheral neuropathy G62.9 Hypertension I10 Time Spent (min) 32
== END 2021-04-16 20:10 | disposition home or self-care (01) | DRG 699 ==
LOC: ED 12:01 → SUATTDRO 16:19 → 3E 16:19